=== PATIENT | female | born 1955 | race Hispanic/Latino ===

== ENCOUNTER 2017-07-31 11:28 | Emergency (ER) | payer OTHER ==
[~2017-07-31] VITALS: Ht 149.9 cm; Wt 66.2 kg
[2017-07-31] MEDS ORDERED: TIZANIDINE HCL2 M1 (11:59)
[2017-07-31] MEDS ORDERED: OMEPRAZOLE40 MG (11:59)
[2017-07-31] MEDS ORDERED: NORCO 10-325 T1 EACH (11:59)
[2017-07-31] MEDS ORDERED: DOXEPIN HCL25 MG PO (12:01)
[2017-07-31] MEDS ORDERED: PROGESTERONE100 MG (12:02)
[2017-07-31 13:09] VITALS: BP 120/80
== END 2017-07-31 13:13 | disposition home or self-care (01) ==
LOC: FSED 11:28
DX: S00.03XA Contusion of scalp, initial encounter (principal); W22.8XXA Striking against or struck by other objects, initial encounter; Y92.019 Unspecified place in single-family (private) house as the place of occurrence of the external cause; Z82.49 Family history of ischemic heart disease and other diseases of the circulatory system
CPT/HCPCS: 70450; 99284

== ENCOUNTER 2019-10-18 12:36 | Inpatient (IN) | payer OTHER, MEDICARE ==
[~2019-10-18] VITALS: Ht 149.9 cm; Wt 69.9 kg
[~2019-10-18 12:36] MED LIST: DOXEPIN HCL25 MG PO; NORCO 10-325 T1 EACH; OMEPRAZOLE40 MG PO; PROGESTERONE100 MG; TIZANIDINE HCL2 M1
--- OUTSIDE RECORDS SUMMARY | 2019-10-18 12:52 | XMS REPORT | Clinical Summary ---
Author Author [facility] Address Unknown Phone Unavailable Care Team Providers Care Studio Hand Name Role Phone Miguelito Oviedo MD PCP Allergies Comments Active Allergy Reactions Severity Noted Date Climbing the stevens/Thrashing Promethazine Other (See High 02/25/2017 Comments) Medications End Date Status Medication Sig Dispensed Refills Start Date Active amitriptyline (ELAVIL) 10 Take 30 mg by 0 / 7/201 MG tablet mouth. 7 Active traMADol (ULTRAM) 50 mg 50 mg. 0 tablet 7 Active doxepin (SINEquan) 25 MG Take 25 mg by 0 01/27 capsule mouth. 7 Active BIFIDOBACTERIUM INFANTIS Take by 0 (ALIGN ORAL) mouth. Active HYDROcodone-acetaminophen Take 1 tablet 0 (NORCO) 5-325 mg per by mouth tablet every 6 (six) hours as needed for moderate pain. Active ondansetron (ZOFRAN, Take 1 tablet 20 tablet 0 HYDROCHLORIDE,) 4 MG (4 mg total) 8 tablet by mouth every 8 (eight) hours as needed for nausea or vomiting. Active cyanocobalamin, vitamin Take by mouth 0 B-12, (VITAMIN B-12) 2 (two) times 1,000 mcg/mL drops a day. Active multivitamin with Take 1 tablet 0 minerals tablet by mouth daily. Active calcium citrate/vitamin Take by 0 D3 (CALCIUM CITRATE + D mouth. ORAL) Active coenzyme Q10 100 mg/mL Take by 0 liquid mouth. Active iron/vit Take by 0 C/fructooligosacchard mouth. (CHEWABLE IRON ORAL) Active ciprofloxacin (CIPRO) 500 Take 500 mg 0 MG tablet by mouth 2 (two) times a day. Active diazePAM (VALIUM) 10 MG Take 10 mg by 0 tablet mouth every 6 (six) hours as needed for anxiety. Active predniSONE (DELTASONE) 20 Take 20 mg by 0 06/0 /201 mg tablet mouth. 8 Active tiZANidine (ZANAFLEX) 4 0 MG tablet 8 Active omeprazole (PriLOSEC) 40 Take 1 30 capsule 2 0 MG capsuleIndications: capsule (40 0 Gastric stenosis, mg total) by Gastroesophageal reflux mouth daily. disease, esophagitis presence not specified Active progesterone (PROMETRIUM) TAKE ONE 90 capsule 1 100 MG capsule CAPSULE BY 0 MOUTH AT BEDTIME 10/21/2018 Discontinued (Reorder) progesterone (PROMETRIUM) 0 100 MG capsule 8 06/06/2019 Discontinued (Reorder) omeprazole (PriLOSEC) 40 TAKE 1 30 capsule 2 0 MG capsuleIndications: CAPSULE BY 9 Gastric stenosis, MOUTH DAILY Gastroesophageal reflux disease, esophagitis presence not specified 08/01/2019 Discontinued progesterone (PROMETRIUM) TAKE ONE 90 capsule 2 100 MG capsule CAPSULE BY 9 MOUTH AT BEDTIME Active Problems Problem Noted Date Abdominal pain, acute, generalized 06/30/2017 Acquired gastric outlet stenosis 05/19/2017 Encounters Care Team Description Date Type Specialty Adeline Phillips MA 10/18/2019 Telephone General Surgery Sachin Rousseau MD 07/31/2019 Refill Obstetrics and Gyne cology America Christensen MA 06/29/2019 Telephone Obstetrics and Gyne cology Lupis Alfaro MA 06/28/2019 Telephone Obstetrics and Gyne cology Belén Bradley MD 06/24/2019 Orders Only General Surgery 06/23/2019 Travel Rach Young RN Gastric stenosis; Gastroesophageal reflux disease, esophagitis presence not specified 06/06/2019 Orders Only General Surgery Chris Godinez MD Acquired gastric outlet stenosis (Primar y Dx); Gastroesophageal reflux disease, esophagitis presence not specified; Status post gastric surgery 05/18/2019 Telemedicine General Surgery 05/16/2019 Travel 05/12/2019 Travel Sachin Rousseau MD 10/21/2018 Refill Obstetrics and Gyne cology after 10/17/2018 Family History Medical History Relation Name Comments Throat cancer Maternal Grandfather Asthma Mother Thyroid cancer Sister Relation Name Status Comments Maternal Grandfather Mother Sister Social History Date Tobacco Use Types Packs/Day Years Used Never Smoker Smokeless Tobacco: Never Used Drinks/Week oz/Week Comments Alcohol Use 3 times a week: occa sional Yes Sex Assigned at Date Recorded Female 05/17/2019 12:34 PM CDT Industry Job Start Date Occupation Not on file Not on file Not on file Travel End Travel History Travel Start No recent travel history available. Last Filed Vital Signs Reading Time Taken Comments Vital Sign - - Blood Pressure - - Pulse - - Temperature - - Respiratory Rate - - Oxygen Saturation - - Inhaled Oxygen Concentration 68 kg (150 lb) 05/18/2019 9:38 AM CDT Weight 149.9 cm (4' 11") 05/18/2019 9:38 AM CDT Height 30.3 05/18/2019 9:38 AM CDT Body Mass Index Plan of Treatment Health Maintenance Due Date Last Done Comments CERVICAL CANCER SCREENING 05/07/1975 BREAST CANCER SCREENING 2004 COLONOSCOPY SCREENING 2004 SHINGLES VACCINES (#2) 12/02/2016 10/02/2016 65+ PNEUMOCOCCAL VACCINE 05/07/2019 (1 of 2 - PCV13) INFLUENZA VACCINE 11/17/2019 Implants Device Identifier Shelf Expiration Date Model / Serial / L ot Implanted Type Area Manufactur er 07/16/2018 [id number] / / [id number] Kit Selnt Fibrin Humn Hmsts Surgy Surgical N/A: N/A ETHICON 5ml Evicel - [id number] Implants; - Implanted: 05/19/2017 at [facility] Expanders; HOSPITAL (Quantity not on file) Extenders; Surgical Wires Results Not on fileafter 10/17/2018 Insurance Type Payer Benefit Subscriber ID Effective Phone Address Plan / Dates Group O [employer] xxxxxxxxxxx 2007-P resent Advance Directives For more information, please contact: [phone] 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
--- OUTSIDE RECORDS SUMMARY | 2019-10-18 12:52 | XMS REPORT | Clinical Summary ---
Author [facility] Address Unknown Phone Unavailable Care Team Providers Care Diabetologist Name Role Phone Maury Brown PCP Allergies Comments Active Allergy Reactions Severity Noted Date Irritability, leg thrashing Promethazine Low 11/02/2017 Medications End Date Status Medication Sig Dispensed Refills Start Date Active amitriptyline (ELAVIL) 10 Take 60 mg by 0 MG tablet mouth as needed . Active progesterone (PROMETRIUM) Take 100 mg 0 100 MG capsule by mouth daily. Active TiZANidine (ZANAFLEX) 4 Take 4 mg by 0 MG capsule mouth 3 (three) times daily as needed for Muscle spasms. Active ubidecarenone (COENZYME Take by mouth 0 Q10 ORAL) daily. Active dicyclomine (BENTYL) 10 Take 10 mg by 0 MG capsule mouth as needed. Active doxepin (SINEQUAN) 25 MG Take 25 mg by 0 capsule mouth nightly. Active ferrous sulfate 325 (65 Take 325 mg 0 FE) MG tablet by mouth daily. Active melatonin 10 mg Tab Take by mouth 0 as needed. Active multivitamin Take 1 tablet 0 (MULTIVITAMIN) per tablet by mouth daily. Active omeprazole (PRILOSEC) 40 Take 40 mg by 0 MG capsule mouth daily. Active ondansetron (ZOFRAN) 4 MG Take 4 mg by 0 tablet mouth 2 (two) times daily as needed for Nausea. Active oxyCODONE (OXY-IR) 5 mg Take 5 mg by 0 capsule mouth every 4 (four) hours as needed. Active Problems Problem Noted Date Rotator cuff tear arthropathy of left shoulder 06/22 S/P shoulder replacement, left 06/22/2018 Complete tear of left rotator cuff 12/15/2017 S/P knee replacement 11/05/2017 Primary osteoarthritis of right knee 11/04/2017 Status post right knee replacement 11/04/2017 Social History Date Tobacco Use Types Packs/Day Years Used Never Smoker Smokeless Tobacco: Never Used Alcohol Use Drinks/Week oz/Week Comments Yes rare Sex Assigned at Date Recorded Not on file Industry Job Start Date Occupation Not on file Not on file Not on file Travel End Travel History Travel Start No recent travel history available. Last Filed Vital Signs Not on file Plan of Treatment Not on file Implants Device Identifier Shelf Expiration Date Model / Serial / L ot Implanted Type Area Manufactur er [id number] / / Orthocord Sut Multipk #2 [id number] - Talmage/Art Left: Should er J [id number] hroscopy &J:ETHICON Implanted: Qty: 1 on 12/15/2017 by :Klever Burdick MD PRDT 06/29/2022 CM-9145 / / [id number] Talmage Knotless 4.5mm Cm-9145 - Talmage/Art Left: Shoulder CAYENNE [id number] hroscopy MED Implanted: Qty: 1 on 12/15/2017 by Klever Stroud MD 08/15/2020 2169-3 / / [id number] Imp Scaffold Lg 2169-3 - [id number] Talmage/Art Left: Shoul prateek ROTATION Implanted: Qty: 1 on 12/15/2017 by hroscopy MED ICAL Klever Stroud MD 09/14/2018 2503-A / / [id number] Talmage Bone W/Del Sys 2503-A - Talmage/Art Left: Shoulder BOWSER & [id number] hroscopy NEPHEW:END Implanted: Qty: 1 on 12/15/2017 by Klever Casas MD 03/18/2020 6191-1-001 / / [id number] Cement Bone Surg Smplx P Full Cement/Obey Right: Knee LALO:ST 6191-1-001 - [id number] ler/Adhesi SHIVA Implanted: Qty: 2 on 11/04/2017 by Oly Greenwood MD [id number] 01/25/2022 04..0157 / / [id number] Scr Glenoid Plyxl Locking L14 IMPLANTS Left: Shoulder MEDACTA 04.01.0157 - [id number] [employer] Implanted: Qty: 1 on 06/22/2018 by Klever Stroud MD [id number] 02/12/2022 04.01.0159 / / [id number] Scr Glenoid Plyxl Locking L22 IMPLANTS Left: Shoulder MEDACTA 04.01.0159 - [id number] [employer] Implanted: Qty: 1 on 06/22/2018 by Klever Stroud MD [id number] 04/01/2022 04.01.0160 / / [id number] Scr Glenoid Plyxl Locking L26 IMPLANTS Left: Shoulder MEDACTA 04..0160 - [id number] [employer] Implanted: Qty: 1 on 06/22/2018 by Klever Stroud MD [id number] 04/23/2022 04.01.0169 / / [id number] Glenospher 36x24.5 04..0169 - IMPLANTS Left: Shoulder MEDACTA [id number] [employer] Implanted: Qty: 1 on 06/22/2018 by Klever Stroud MD [id number] 07/27/2022 04.01.0120 / / [id number] Lnr Hum Rev Hc 036/+3mm 04.0120 IMPLANTS Left: Shoul prateek MEDACTA - [id number] [employer] Implanted: Qty: 1 on 06/22/2018 by Klever Stroud MD [id number] 01/26/2023 04.01.0110 / / [id number] Hum Metaphysis Rev +0mm/0d IMPLANTS Left: Shoulder MED ACTA 04.01.0110 - [id number] [employer] Implanted: Qty: 1 on 06/22/2018 by Klever Stroud MD 04/27/2022 5530-G-309 / / [id number] Insrt Tib Tri Crx 9mm 5530-G-309 - Joints Right: Knee LALO:ST [id number] SHIVA Implanted: Qty: 1 on 11/04/2017 by Oly Hamilton MD CS 06/29/2022 5520-B-300 / / [id number] Baseplt Geni Tib Rizwan No.3 5520-B-300 Joints Right: Kne e LALO:ST - [id number] SHIVA Implanted: Qty: 1 on 11/04/2017 by Oly Hamilton MD 08/17/2022 5551-G-299 / / [id number] Patella Tri Asymmetric [id number] Joints Right: Knee LALO:ST 5551-G-299 - [id number] SHIVA Implanted: Qty: 1 on 11/04/2017 by lOy Hamilton MD 06/24/2022 5510-F-402 / / [id number] Comp Fem Cr Rizwan No.4 R 5510-F-402 - Joints Right: Kne e LALO:ST [id number] SHIVA Implanted: Qty: 1 on 11/04/2017 by Oly Hamilton MD 08/15/2020 [id number] / / [id number] Healix Advance Br Talmage W/ Left: Shoulder MITEK Dyancord SURGICAL Implanted: Qty: 1 on 12/15/2017 by PRODUCTS Klever Stroud MD INC 08/15/2020 [id number] / / [id number] Healix Advance Br Talmage W/ Left: Shoulder MITEK Dyancord SURGICAL Implanted: Qty: 1 on 12/15/2017 by Klever Toure MD INC 09/15/2018 2504-1 / / [id number] Tendon Anchors (8) Left: Shoulder BOWSER & Implanted: Qty: 1 on 12/15/2017 by NEPHEW:Klever Pat MD [id number] 07/07/2022 04.01.0179 / / [id number] Humeral Diaphsis Left: Shoulder MEDACTA Implanted: Qty: 1 on 06/22/2018 by Klever Peterson MD [id number] 10/06/2022 04.01.0190 / / [id number] Glenoid Baseplate Left: Shoulder MEDACTA Implanted: Qty: 1 on 06/22/2018 by Klever Peterson MD Results Not on fileafter 10/17/2018 Insurance Payer Benefit Subscriber ID Type Phone Address Plan / Group CIGNA - [employer] CARE CIGNA PPO xxxxxxxxx PPO [id number] Advance Directives For more information, please contact: [address] [address] Date Inactivated Comments Code Status Date Activated 06/23/2018 4:45 PM Full Code 06/22/2018 6:35 AM This code status was determined by: Patient 12/15/2017 3:13 PM Full Code 12/15/2017 6:14 AM This code status was determined by: Patient 11/06/2017 5:14 PM Full Code 11/04/2017 7:14 AM This code status was determined by: Patient
--- OUTSIDE RECORDS SUMMARY | 2019-10-18 12:53 | XMS REPORT | Continuity of Care Document ---
Author Author [employer] ANGEL Mallory Organization [email or web address] Address Unknown Phone Unavailable Care Team Providers Care Manager Subway Name Role Phone [employer] Information Exchange Unavailable Un available Problems Problem Status Onset Date Classification Date Reported Comments Source STROKE-LIKE SYMPTOMS Active 11/01/2013 [facility] TIA Active 0 11/01/2013 [facility] OVERDOSE Active 10/03/2012 [facility] AMS, OVERDOSE UNKNOWN SUBSTANCE, SUICIDA Active 10/03/2012 [facility] Dehydration Active 07/31/2008 Problem 10/14/2012 [facility] Fever Active 07/31/2008 Problem 10/14/2012 [facility] UTI - Urinary tract infection Active 07/31/2008 Problem 10/14/2012 [facility] Dehydration (disorder) Active 07/31/2008 Problem 11/06/2013 [facility] Fever (finding) Active 07/31/2008 Problem 11/06/2013 [facility] Urinary tract infectious disease (disorder) Active 07/31/2008 Problem 11/06/2013 [facility] TIA (Unspecified transient cerebral ischemia) Active Problem 09/17/2014 [facility] Hiatal hernia Active Problem 09/17/2014 [facility] Migraine Active Problem 09/17/2014 [facility] Anxiety Active Problem 09/17/2014 [facility] Insomnia Active Problem 09/17/2014 [facility] GERD (Esophageal reflux) Active Problem 09/17/2014 [facility] Depression Active Problem 09/17/2014 [facility] Diverticulitis Active Problem 09/17/2014 [facility] Other specified pre-operative examination Active Diagnosis 01/07/2013 [facility] History of suicide attempt Act sylwia Problem 03/2014 [facility] Needs flu shot Active Diagnosis 01/07/2013 [facility] Neck pain Active Diagnosis 11/06/2012 [facility] Suicide attempt Active Diagnosis 10/24/2012 [facility] Shortness of breath Active Diagnosis 10/24/2012 [facility] Pneumothorax Active Diagnosis 10/24/2012 [facility] Pneumonia Active Diagnosis 10/24/2012 [facility] SOB (shortness of breath) Acti ve Diagnosis 0 05/07/2013 [facility] Memory impairment Active Problem 09/17/2014 [facility] Genital herpes Active Problem 09/17/2014 [facility] Migraine with aura, with intractable asia r[place], so stated, without mention of status migrainosus Active Diagnosis 08/18/2013 [facility] Urinary tract infection Active Diagnosis 11/09/2013 [facility] Panic attack Active Diagnosis 11/09/2013 [facility] Generalized anxiety disorder A ctive Diagnosis 0 11/09/2013 [facility] Dysuria Active Diagnosis 11/09/2013 [facility] Poison sammie dermatitis Active Diagnosis 09/17/2014 [facility] Contact dermatitis Active Diagnosis 09/17/2014 [facility] Screening breast examination A ctive Diagnosis 0 07/31/2014 [facility] Ear pain, left Active Diagnosis 07/31/2014 [facility] Otitis media Active Diagnosis 07/31/2014 [facility] Otitis externa, left Active Diagnosis 07/31/2014 [facility] Anxiety (finding) Active Problem 11/06/2013 [facility] Diverticular disease (disorder) Active Problem [facility] Gastroesophageal reflux disease (disorder) Active Problem 11/06/2013 [facility] Hypertensive disorder, systemic arterial (disorder) Resolved Problem 11/06/2013 [facility] Herpes zoster (disorder) Resol nisreen Problem [facility] Suicide attempt (disorder) Act sylwia Problem [facility] Anxiety Active Problem 10/14/2012 [facility] Diverticulosis Active Problem 10/14/2012 [facility] GERD - Gastro-esophageal reflux disease Active Problem 10/14/2012 [facility] Suicide attempt Active Problem 10/14/2012 [facility] 724.5 Active [facility] ALTERED MENTAL STATUS Active [facility] PRIM SPONT PNEUMOTHORAX Active [facility] SHOULDER AND NECK Active [facility] Medications Medication Details Route Status Patient Instructions Ordering Provider Order Date Source HydrOXYzine HCl 1 tablet Orally Active 25 MG Orally q 6 hours for itching Rick 09/14/2014 [facility] Bactrim DS 1 tablet Orally Active 800-160 MG Orally twice a day (bid) Rick 09/14/2014 [facility] Medrol (Nicola) as directed Orally Active 4 mg Orally daily Rick 09/14/2014 [facility] Ciprodex 4 drops into affected ear Otic Active 0.3-0.1 % Otic Twice a day Rick 07/28/2014 [facility] Zithromax Z-Nicola 2 tablets on the first day, then 1 tablet daily for 4 days Orally Active 250 MG Orally Once a day [place] 07/28/2014 [facility] Valacyclovir HCl 1 tablet Orally Active 1 GM Orally every 24 hr s Yaquelin 04/30/2014 [facility] Amitriptyline HCl 1 tablet Orally Active 10 mg Orally once every night (must see doctor before next refill) Rick 03/20/2014 [facility] Dexilant 1 capsule Orally Active 60 MG Orally Once a day (must see doctor before next refill) Doran 01/11/2014 [facility] Zoloft Notes: (Same as: Zolof t) Inactive 11/04/2013 [facility] Annette Notes: (Same As: Klon oPIN) Inactive 11/04/2013 [facility] Annette Notes: (Same As: Amando oPIN) Inactive 11/03/2013 [facility] Risperidone 1 mg, Route: PO, D rug form: TAB, Q6H, Dosing Weight 80.455, kg, PRN Agitation, Start date: 11/03/13 17:55:00, Duration: 30 day, Stop date: 12/03/13 17:54:00 Inactive 11/03/2013 [facility] Dexilant 30 mg, Route: PO, Sharif g form: DRC, Daily, Dosing Weight 80.455, kg, Start date: 11/03/13 9:00:00, Duration: 30 day, Stop date: 12/02/13 9:00:00 No Longer Active 11/03/2013 [facility] Ambien Notes: (Same As: Ambien) No Longer Active 11/03/2013 [facility] Zoloft 10 mg, PO, Bedtime, 0 R efill(s) Active 11/03/2013 [facility] Ambien 10 mg, PO, Bedtime, 0 R efill(s) Active 11/03/2013 [facility] nitazoxanide 500 MG Oral Tablet [Alinia] Notes: Same as Alinia Non-formulary item No Longer Active 11/03/2013 [facility] Amitriptyline Notes: (Same as: Elavil) No Longer Active 11/03/2013 [facility] Simvastatin Notes: (Same as: Z ocor) No Longer Active 11/03/2013 [facility] Protonix Notes: Tablet should not be chewed or crushed. (Same as: Protonix) No Longer Active 11/02/2013 [facility] Valtrex Notes: (Same As: Valtr ex) No Longer Active 11/02/2013 [facility] NURSE: Please bring Pt's Own Med to [facility] to be verified NURSE: Please bring Pt's Own Med to [facility] to be verified, 1, Drug form: MISC, Route: MISC, TID, 11/02/13 15:00:00, Duration: 30 day, Stop date: 12/02/13 9:00:00 No Longer Active 11/02/2013 [facility] Levaquin Notes: Do not give w/ antacids, dairy pdt & minerals Take 1 hr before or 2 hr after dairy pdt (Same as:Levaquin) No Longer Active 11/02/2013 [facility] Alprazolam Notes: With food or milk (Same as: Xanax) No Longer Active 11/02/2013 [facility] Potassium Chloride Notes: (Preet e as: K-Dur 20) "Do Not Crush" With food and full glass of water Inactive 11/02/2013 [facility] nitroglycerin 0.4 mg sublingual tablet Notes: (Same as:Nitroquick, Nitrostat) "Do Not Crush" Sublingual tablet No Longer Active 11/02/2013 [facility] atropine 0.5 mg, 5 mL, Route: IVP, Drug form: INJ, PRN, PRN Bradycardia, Start date: 11/02/13 13:13:00, Duration: 30 day, Stop date: 12/02/13 13:12:00 No Longer Active 11/02/2013 [facility] Aspirin 81 MG Enteric Coated Tablet Notes: Do not crush or chew. (Same As: Ecotrin) No Longer Active 11/02/2013 [facility] acetaminophen-hydrocodone 325 mg-5 mg oral tablet Notes: (Same as: [place] 325/5) Do not exceed 4gm/day of acetaminophen. No Longer Active 11/02/2013 [facility] Acetaminophen 325 MG / Hydrocodone Hammad trate 5 MG Oral Tablet [[place] 5/325] Route: PO, Dosing Weight 80.455, kg, PRN , PRN, Start date: 11/02/13 8:37:00, Duration: 30 day, Stop date: 12/02/13 8:36:00, q4-6hr for pain score 5-7 Inactive 11/02/2013 [facility] Morphine Notes: (Same as:MORPh ine Sulfate) No Longer Active 11/02/2013 [facility] Morphine 4 mg, Route: IVP, ONC E, Dosing Weight 80.455, kg, Priority: STAT, Start date: 11/02/13 5:37:00, Stop date: 11/02/13 5:37:00 Inactive 11/02/2013 [facility] Morphine 4 mg, Route: IVP, ONC E, Dosing Weight 80.455, kg, Start date: 11/02/13 0:31:00, Stop date: 11/02/13 0:31:00 Inactive 11/02/2013 [facility] aspirin 325 mg, Route: PO, Sharif g form: ECTAB, ONCE, Dosing Weight 80.455, kg, Priority: STAT, Start date: 11/02/13 0:16:00, Stop date: 11/02/13 0:16:00 Inactiv e 11/02/2013 [facility] valacyclovir 1000 MG Oral Tablet [Valtrex] 1 gm = 1 tab, PO, TID, # 20 tab, 0 Refill(s) Active 11/02/2013 [facility] dexlansoprazole 30 MG Enteric Coated Capsule [Dexilant ] 30 mg = 1 cap, PO, Daily, 0 Refill(s) Active 11/02/2013 [facility] valacyclovir 500 MG Oral Tablet [Valtrex] 500 mg = 1 tab, PO, TID, # 42 tab, 0 Refill(s) Inactive 11/02/2013 [facility] Metoclopramide 10 MG Oral Tablet [Reglan] 10 mg, PO, QID-Before Meals, # 40 tab, 0 Refill(s) Active 11/02/2013 [facility] Sodium Chloride 0.154 MEQ/ML Injectable Solution 500 mL, 500 ml/hr, Infuse Over: 1 hr, Route: IV, 500, Drug form: INJ, ONCE, Priority: STAT, Dosing Weight 80.455 kg, Start date: 11/01/13 22:21:00, Duration: 1 doses or times, Stop date: 11/01/13 22:21:00 Inactive 11/02/2013 [facility] Zofran Notes: (Same as: Jimena) Inactive 11/02/2013 [facility] Ketorolac 4 days Inactive 11/02/2013 [facility] Zoloft 1/2 tablet Orally Active 50 mg Orally Once a day for one week, then increase to 1 tablet daily [facility] 11/01/2013 [facility] Levaquin 1 tablet Orally Active 750 MG Orally Once a da y [facility] 11/01/2013 [facility] Namenda XR Titration Pack as d irected Orally Active 7 & 14 & 21 &28 MG Orally daily [facility] 11/01/2013 [facility] Ambien 1 tablet Orally Active 10 mg Orally once every night as needed [facility] 10/18/2013 [facility] Doxepin HCl 2c tablet Orally Active 25 MG Orally AT BEDTIME [facility] 09/01/2013 [facility] Valtrex 1 tablet Orally Active 1 GM Orally three times a day (tid) Rick 08/12/2013 [facility] Lyrica 1 capsule Orally Active 75 mg Orally three time s a day (tid) [facility] ProAir HFA 2 puffs as needed Inhalation Active 108 (90 Base) MCG/ACT Inhalation every 4 hrs [facility] 05/04[facility]2013 [facility] Amitriptyline HCl 1 tablet Orally Active 10 mg Orally at bedtime as needed Harvey 04/25/2013 [facility] Lidoderm 1 patch to intact ski n remove after 12 hours Externally Active 5 % Externally twice a day (bid) Kavon 11/04/2012 [facility] clopidogrel 75 mg, 1 tab, Rout e: PO, Drug form: TAB, Daily, Dosing Weight 75, kg, Start date: 10/12/12 9:00:00, Duration: 30 day, Stop date: 11/10/12 9:00:00 PO No Longer Active Nubia 10/12/2012 [facility] doxepin 25 mg oral capsule 25 mg, 1 cap, Route: PO, Drug form: CAP, Bedtime, Dosing Weight 75, kg, Start date: 10/11/12 21:00:00, Duration: 30 day, Stop date: 11/09/12 21:00:00 PO No Longer Active Nubia 10/12/2012 [facility] amitriptyline 25 mg, 1 tab, Ro cantwell: PO, Drug form: TAB, Bedtime, Dosing Weight 75, kg, Start date: 10/11/12 21:00:00, Duration: 30 day, Stop date: 11/09/12 21:00:00 PO No Longer Active Nubia 10/12/2012 [facility] gabapentin 300 mg oral capsule 300 mg, 1 cap, Route: PO, Drug form: CAP, Bedtime, Dosing Weight 75, kg, Start date: 10/11/12 21:00:00, Duration: 30 day, Stop date: 11/09/12 21:00:00 PO No Longer Active Nubia 10/12/2012 [facility] [place] 5/325 oral tablet 1 tab, Route: PO, Drug Form: TAB, Dosing Weight 75, kg, Q6H, PRN Pain, Start date: 10/11/12 10:00:00, Duration: 30 day, Stop date: 11/10/12 9:59:00 PO No Longer Active Nubia 10/11/2012 [facility] potassium chloride 40 mEq, 30 mL, Route: PO, Drug form: LIQ, ONCE, Dosing Weight 75, kg, Start date: 10/11/12 9:54:00, Stop date: 10/11/12 9:54:00 PO No Longer Active Nubia 10/11/2012 [facility] ALPRAZOLam 0.25 mg, 1 tab, Rou te: PO, Drug form: TAB, BID, Dosing Weight 75, kg, PRN as needed for anxiety, Start date: 10/11/12 9:53:00, Duration: 30 day, Stop date: 11/10/12 9:52:00 PO No Longer Active Nubia 10/11/2012 [facility] potassium chloride 40 mEq, 2 t ab, Route: PO, Drug form: ERTAB, ONCE, Dosing Weight 75, kg, Start date: 10/10/12 12:19:00, Stop date: 10/10/12 12:19:00 PO No Longer Active Aboussleman 10/10/2012 [facility] potassium chloride 20 mEq, 1 t ab, Route: PO, Drug form: ERTAB, ONCE, Dosing Weight 75, kg, Start date: 10/09/12 12:16:00, Stop date: 10/09/12 12:16:00 PO No Longer Active [facility]oussleman 10/09/2012 [facility] Lexapro 5 mg, 0.5 tab, Route: PO, Drug form: TAB, Daily, Dosing Weight 75, kg, Start date: 10/08/12 21:00:00, Duration: 30 day, Stop date: 11/07/12 9:00:00 PO No Longer Active Giang 10/09/2012 [facility] potassium chloride 20 mEq, 100 mL, Route: IVPB, Drug form: INJ, ONCE, Start date: 10/08/12 11:00:00, Stop date: 10/08/12 11:00:00 IVPB No Longer Active [facility] 10/08/2012 [facility] Dextrose 5% with 0.45% NaCl IV 1,000 mL 1,000 mL, Rate: 50 ml/hr, Infuse over: 20 hr, Route: IV, Dosing Weight 75 kg, Total Volume: 1,000, Start date: 10/08/12 10:36:00, Stop date: 11/07/12 10:35:00 IV No Longer Active Nubia 10/08/2012 [facility] morphine Sulfate 2 mg, 1 mL, R oute: IV, Drug form: INJ, Q4H, PRN Pain, Start date: 10/07/12 22:16:00, Duration: 30 day, Stop date: 11/06/12 22:15:00 IV No Longer Active Harris 10/08/2012 [facility] potassium phosphate-sodium phosphate 250 mg-278 mg-164 mg oral powder 4 pkt, Route: PO, Drug Form: PDR/REC, ON CE, Start date: 10/07/12 9:30:00, Stop date: 10/07/12 9:30:00 PO No Longer Active Nubia 10/07/2012 [facility] potassium chloride 20 mEq, 100 mL, Route: IVPB, Drug form: INJ, ONCE, Dosing Weight 75, kg, Start date: 10/07/12 9:12:00, Stop date: 10/07/12 9:12:00 [address]PB [address] Long[place] Active [facility] [place]2012 [facility] sodium phosphate 20 mmol, Rout e: IVPB, ONCE, Dosing Weight 75, kg, Start date: 10/07/12 9:12:00, Stop date: 10/07/12 9:12:[address] [facility]13 [facility] Sodium Chloride 0.9% IV 1000 mL 1,000 mL, Rate: 25 ml/hr, Infuse over: 40 hr, Route: IV, Dosing Weight 75 kg, Total Volume: 1,000, Start date: 10/05/12 15:40:00, Duration: 30 day, Stop date: 11/04/12 15:39:00 IV No Longer Active [facility] Sodium Chloride 0.9% (Bolus) IV 1000 mL 1,000 mL, Rate: 1,000 ml/hr, Infuse over: 1 hr, Route: IV, Dosing Weight 75 kg, Total Volume: 1,000, Priority: STAT, Start date: 10/05/12 11:58:00, Duration: 1 doses or times, Stop date: 10/05/12 12:57:00, Bolus DoseBolus Dose IV No Longer Active [facility] 10/05/2012 [facility] norepinephrine 8 mg 250 mL, Ra te: Titrate, Dosing Weight 75, kg, Route: IV, Total Volume: 250, Priority: STAT, Duration: 30 day, Stop date: 11/03/12 23:33:00, Replace Every: 24 hr IV No Long[facility] Active [facility] [place]05/2012 [facility] NS (Bolus) IV 1,000 mL 1,000 m L, Rate: 1,000 ml/hr, Infuse over: 1 hr, Route: IV, Dosing Weight 75 kg, Total Volume: 1,000, Priority: STAT, Start date: 10/04/12 21:21:00, Duration: 2 doses or times, Stop date: 10/04/12 23:20:00, Bolus DoseBolus Dose IV No Longer Active [facility] 10/05/2012 [facility] vancomycin 1 gm, 200 mL, Route : IVPB, Drug form: INJ, [id number], Dosing Weight 75, kg, Start date: 10/04/12 17:00:00, Duration: 30 day, Stop date: 11/03/12 5:00:00 IVPB No Longer Active [facility] 10/04/2012 [facility] NS (Bolus) IV 1,000 mL 1,000 m L, Rate: 1,000 ml/hr, Infuse over: 1 hr, Route: IV, Dosing Weight 75 kg, Total Volume: 1,000, Priority: STAT, Start date: 10/04/12 10:44:00, Duration: 1 doses or times, Stop date: 10/04/12 11:43:00, Bolus DoseBolus Dose IV No Longer Active [facility] 10/04/2012 [facility] magnesium sulfate 2 gm, 50 mL, Route: IVPB, Drug form: INJ, ONCE, Dosing Weight 75, kg, Total dose = 2 gm, Start date: 10/04/12 10:44:00, Duration: 1 doses or times, Stop date: 10/04/12 10:44:00 IVPB No Longer Active [facility] 013 [facility] Zosyn 3.375 gm, 100 mL, Route: IVPB, Drug form: PDR/INJ, [id number], Dosing Weight 75, kg, Start date: 10/04/12 10:00:00, Duration: 30 day, Stop date: 11/03/12 4:00:00 IVPB No Longer Active [facility] 10/04/2012 [facility] enoxaparin 40 mg, 0.4 mL, Rout e: SUB-Q, Drug form: INJ, [id number], Dosing Weight 75, kg, Start date: 10/04/12 10:00:00, Duration: 30 day, Stop date: 11/02/12 10:00:00 SUB-Q No Longer Active [facility] [place]/04/2012 [facility] pantoprazole 40 mg, 1 tab, Rou te: PO, Drug form: ECTAB, Daily, Dosing Weight 75, kg, Priority: Routine, Start date: 10/04/12 9:00:00, Stop date: 11/02/12 9:00:00 PO No Longer Active [facility] 10/04/2012 [facility] Saline Flush 0.9% 5 ml, Route: IVP, Drug Form: INJ, Dosing Weight 75, kg, Q12H, Start date: 10/04/12 9:00:00, Duration: 30 day, Stop date: 11/02/12 21:00:00 IVP No Longer Active Jeremiah 10/04/2012 [facility] clopidogrel 75 mg, 1 tab, Rout e: PO, Drug form: TAB, Daily, Dosing Weight 75, kg, Start date: 10/04/12 9:00:00, Duration: 30 day, Stop date: 11/02/12 9:00:00 PO No Longer Active [facility] 10/04/2012 [facility] ciprofloxacin 400 mg/200 mL intravenous solution 400 mg, 200 mL, Route: IVPB, Drug form: INJ, [id number], Dosing Weight 75, kg, Start date: 10/04/12 6:00:00, Duration: 30 day, Stop date: 11/02/12 18:00:00 IVPB No Longer Active [facility] 10/04/2012 [facility] cefepime + Sodium Chloride 0.9% IV 100 mL 1 gm, Route: IVPB, [id number], Dosing Weight 75, kg, (CrCl 30 - 49 ml/min), Start date: 10/04/12 6:00:00, Duration: 30 day, Stop date: 11/02/12 18:00:00 IVPB No Longer Active [facility] 10/04/2012 [facility] ibuprofen 100 mg oral tablet, chewable 800 mg, 1 tab, Route: CHEW, Drug form: TAB, Q8H, Dosing Weight 75, kg, PRN as needed for fever, Start date: 10/04/12 5:15:00, Duration: 30 day, Stop date: 11/03/12 5:14:00 CHEW No Longer Active [facility] 013 [facility] normal saline 0.9% IV 1,000 mL 1,000 mL, Rate: 125 ml/hr, Infuse over: 8 hr, Route: IV, Dosing Weight 75 kg, Total Volume: 1,000, Start date: 10/04/12 4:03:00, Duration: 30 day, Stop date: 11/03/12 4:02:00 IV No Longer Active Ahmed 10/04 [facility] Zofran 4 mg, 2 mL, Route: IV, Drug form: INJ, Q4H, Dosing Weight 75, kg, PRN as needed for nausea/vomiting, Start date: 10/04/12 4:03:00, Duration: 30 day, Stop date: 11/03/12 4:02:00 [facility] vancomycin 1 gm, 200 mL, Route : IVPB, Drug form: INJ, [id number], Dosing Weight 75, kg, Priority: STAT, Start date: 10/04/12 3:14:00, Duration: 30 day, Stop date: 11/02/12 3:14:00 IVPB No Longer Active [facility] 10/04/2012 [facility] acetaminophen 650 mg, 20.3 mL, Route: PO, Drug form: LIQ, Q6H, Dosing Weight 75, kg, PRN Fever, Start date: 10/04/12 1:58:00, Duration: 30 day, Stop date: 11/03/12 1:57:00 [facility] Zofran 4 mg, 2 mL, Route: IV, Drug form: INJ, Q4H, Dosing Weight 75, kg, PRN as needed for nausea/vomiting, Start date: 10/04/12 1:43:00, Duration: 30 day, Stop date: 11/03/12 1:42:00 IV [facility] 10[facility]2012 [facility] Saline Flush 0.9% 5 ml, Route: IVP, Drug Form: INJ, Dosing Weight 75, kg, PRN, PRN Line Flush, Start date: 10/03/12 23:31:00, Duration: 30 day, Stop date: 11/02/12 23:30:00 IVP No Longer Active Jeremiah 10/04/2012 [facility] ciprofloxacin 500 mg oral tablet 500 mg, 1 tab, PO, Q12H, 14 tab, Substitution Allowed, TAB PO No Longer Active 10/04/2012 [facility] ALPRAZOLam 0.25 mg oral tablet, disintegrating 0.25 mg, 1 tab, PO, BID, PRN, for anxiety, Substitution Allowed, DIS Tablet PO Active 10/04/2012 [facility] pantoprazole 40 mg oral enteric coated tablet 40 mg, 1 tab, PO, BID, 30 tab, Substitution Allowed, ECTAB PO Active 10/04/2012 [facility] escitalopram 20 mg oral tablet 20 mg, 1 tab, PO, Daily, 30 tab, Substitution Allowed, TAB PO Active 10/04/2012 [facility] gabapentin 300 mg oral capsule 300 mg, 1 cap, PO, Bedtime, 90 cap, Substitution Allowed PO Active 10/04/2012 [facility] clopidogrel 75 mg oral tablet 75 mg, 1 tab, PO, Daily, 30 tab, Substitution Allowed, TAB PO Active [facility] 10/04/2012 [facility] doxepin 25 mg oral capsule 25 mg, 1 cap, PO, Bedtime, 90 cap, Substitution Allowed, CAP PO Active 10/04/2012 [facility] hyoscyamine 0.125 mg sublingual tablet 0.125 mg, 1 tab, SL, TID-Before Meals, 30 tab, Substitution Allowed, TAB SL No Longer Active 10/04/2012 [facility] amitriptyline 25 mg oral tablet 25 mg, 1 tab, PO, Bedtime, 90 tab, Substitution Allowed, TAB PO Active 10/04/2012 [facility] ondansetron 4 mg oral tablet 4 mg, 1 tab, PO, Q6H, PRN, 10 tab, as needed for nausea/vomiting, Substitution Allowed, TAB PO No Longer Active 10/04/2012 [facility] metoclopramide 10 mg oral tablet 10 mg, 1 tab, PO, QID- Before Meals, 56 tab, Substitution Allowed, TAB PO No Longer Active 10/04/2012 [facility] midodrine 10 mg oral tablet 10 mg, 1 tab, PO, BID, 270 tab, Substitution Allowed, TAB PO No Longer Active 10/04/2012 [facility] clindamycin 150 mg oral capsule 300 mg, 2 cap, PO, Q8H, 40 cap, Substitution Allowed PO No Longer Active 10/04/2012 [facility] Norel SR oral tablet, extended release 1 tab, PO, Q12H, PRN, 10 tab, for nasal congestion, Substitution Allowed, Maintenance, ERTAB PO No Longer Active 10/04/2012 [facility] potassium phosphate + Sodium Chloride 0.9% IV 250 mL 15 mmol, 5 mL, Route: IV, ONCE, Start date: 10/03/12 21:53:00, Stop date: 10/03/12 21:53:00 IV No Longer Active Jeremiah 10/04/2012 [facility] doxycycline hyclate 100 mg oral delayed release capsul e 100 mg, 1 cap, PO, Daily, 10 cap, Substitution Allowed PO No Longer Active 10/04/2012 [facility] METRONIDazole 500 mg oral tablet 500 mg, 1 tab, PO, Q8H, 21 tab, Substitution Allowed PO No Longer Active 10/04/2012 [facility] Celebrex 200 mg oral capsule 2 00 mg, 1 cap, PO, Daily, PRN, 10 cap, Pain, Substitution Allowed, CAP PO No Longer Active 10/04/2012 [facility] Alinia 500 mg oral tablet 500 mg, 1 tab, PO, Q12H, 6 tab, Substitution Allowed, TAB PO Active 10/04/2012 [facility] midazolam 50 mg IV, Start date : 10/03/12 19:11:00, Duration: 30, 50 ml, 75 IV No Longer Active [facility] 10/04/2012 [facility] fentanyl 1,250 microgram + Sodium Chlori de 0.9% (titrate) 250 mL 250 mL, Rate: Titrate, Dosing Weight 75, kg, Route: IV, Total Volume: 250, Duration: 30 day, Stop date: 11/02/12 19:11:00, Replace Every: 24 hr IV No Longer Active [facility] 10/04 [facility] Versed 50 mg in NS 50 ml (titrate) IV 50 mg 50 mg, 50 mL, Rate: Titrate as directed, Dosing Weight 75, kg, Route: IV, Total Volume: 50 ml, Duration: 30 day, Stop date: 11/02/12 19:10:00, Replace Every: 24 hr IV No Longer Active [facility] 10/04 [facility] potassium chloride 20 mEq, 100 mL, Route: IVPB, Drug form: INJ, Q2H, Start date: 10/03/12 18:00:00, Duration: 2 doses or times, Stop date: 10/03/12 20:00:00 IVPB No Longer Active [facility] 10/03/2012 [facility] azithromycin 500 mg, 250 mL, R oute: IVPB, Drug form: PDR/INJ, [id number], Dosing Weight 75, kg, Priority: Routine, Start date: 10/03/12 18:00:00, Duration: 30 day, Stop date: 11/01/12 18:00:00 IVPB No Longer Active [facility] 10/03/2012 [facility] ceftriaxone + Sodium Chloride 0.9% IV 100 mL 1 gm, Route: IVPB, [id number], Dosing Weight 75, kg, Priority: Routine, Start date: 10/03/12 18:00:00, Duration: 30 day, Stop date: 11/01/12 18:00:00 IVPB No Longer Active [facility] 10/03/2012 [facility] potassium chloride 20 mEq/100 mL intravenous solution 20 mEq, Route: IVPB, ONCE, Dosing Weight 75, kg, Priority: STAT, Start date: 10/03/12 17:17:00, Stop date: 10/03/12 17:17:00 IVPB No Longer Active [facility] 10/03/2012 [facility] rocuronium 50 mg, Route: IVP, ONCE, Dosing Weight 75, kg, Start date: 10/03/12 16:58:00, Stop date: 10/03/12 16:58:00 IVP No Longer Active [facility] 10/03/2012 [facility] etomidate 20 mg, Route: IVP, O NCE, Dosing Weight 75, kg, Priority: STAT, Start date: 10/03/12 16:58:00, Stop date: 10/03/12 16:58:00 IVP No Longer Active [facility] 10/03 [facility] Sodium Chloride 0.9% (Bolus) IV 2000 mL 2,000 mL, Rate: 2,000 ml/hr, Infuse over: 1 hr, Route: IV, Dosing Weight 75 kg, Total Volume: 2,000, Priority: STAT, Start date: 10/03/12 16:56:00, Duration: 1 doses or times, Stop date: 10/03/12 17:55:00, Bolus DoseBolus Dose IV No Longer Active [facility] 10/03/2012 [facility] fentanyl 1,250 microgram 250 m L, Rate: Titrate, Dosing Weight 75, kg, Route: IV, Total Volume: 250, Duration: 30 day, Stop date: 11/02/12 16:55:00, Replace Every: 24 hr IV No Longer Active [facility] 10/03/2012 [facility] Saline Flush 0.9% 5 mL, Route: IVP, Drug Form: INJ, Dosing Weight 75, kg, PRN, PRN Line Flush, Start date: 10/03/12 16:46:00, Duration: 30 day, Stop date: 11/02/12 16:45:00 IVP No Longer Active [facility] 10/03/2012 [facility] Tramadol HCl 1 tablet as needed Orally Active 50 mg Orally every 6 hrs [facility] [place] 09/07/2012 [facility] ProAir HFA 2 puffs as needed Inhalation Active 108 (90 Base) MCG/ACT Inhalation every 4 hrs [facility] 08/23/2012 [facility] Xanax 1 tablet by mouth Active 0.25 MG by mouth once a day as needed [facility] 04/22/2012 [facility] Plavix 1 tablet Orally Active 75 mg Orally Once a day [facility] [place] 1 tablet as needed Orally Active 10-325 MG Orally every 6 hrs [facility] Dexilant 1 capsule Orally Active 60 mg Orally Once a day [facility] Tramadol HCl 1 tablet as needed Orally Active 50 MG Orally every 6 hrs [facility] Reglan 1 tablet 30 minutes bef ore meals and at bedtime as needed Orally Active 10 mg Orally Four times a day as needed [facility] NO OTC meds taken Unknown NA Active [facility] Lexapro 1 tablet Orally Active 10 MG Orally Once a day [facility] Amitriptyline HCl 1 tablet Orally Active 10 mg Orally at bedtime [facility] NO OTC meds taken Unknown NA Active [facility] Reglan 1 tablet 30 minutes bef ore meals and at bedtime as needed Orally Active 10 mg Orally Four times a day as needed [facility] Dexilant 1 capsule Orally Active 60 mg Orally Once a day [facility] Reglan 1 tablet 30 minutes bef ore meals and at bedtime as needed Orally Active 10 mg Orally Four times a day as needed [facility] PredniSONE (Nicola) Unknown Orally Active 10 MG Orally [facility] Doxepin HCl 1 capsule Orally Active 25 MG Orally AT BEDTIME [facility] Tizanidine HCl 1 tablet as nee ded Orally Active 4 MG Orally every 8 hrs [facility] Allergies, Adverse Reactions, Alerts Substance Category Reaction Severity Reaction type Status Date Reported Comments Source Phenergan Adverse Reaction hives Adverse Reaction Active 09/14/2014 [facility] Amoxil Adverse Reaction unknown Adverse Reaction Active 09/14/2014 [facility] codeine Adverse Reaction hives Adverse Reaction Active 09/14/2014 [facility] amoxicillin Assertion Drug allergy Active [facility] Immunizations Immunization Date Given Site Status Last Updated Comments Source FLU 18 YRS & [place] [id number] 01/06/20 13 completed [facility] Results Order Name Results Value Reference Range Date Interpretation Comments Source CHEM PANEL eGFR 81 11/03/2013 <sup>1</sup>Result Comment: The eGFR is calculated using the CKD-EPI formula. In most young, healthy individuals the eGFR will be >90 mL/min/1.73m2. The eGFR declines with age. An eGFR of 60-89 may be normal in some populations, particularly the elderly, for whom the CKD-EPI formula has not been extensively validated. Use of the eGFR is not recommended in the following populations:& lt;br/>
Individuals with unstable creatinine concentrations, including patients and those with serious co-morbid conditions.

Patients with extremes in muscle mass or diet.

The data above are obtained from the National Kidney Disease Education Program (NKDEP) which additionally recommends that when the eGFR is used in patients with extremes of body mass index for purposes of drug dosing, the eGFR should be multiplied by the estimated BMI. [facility] CHEM PANEL Chloride Lvl 108 95 - 109 11/03/2013 [facility] CHEM PANEL Calcium Lvl 7.8 8.5 - 10.5 11/03/2013 [facility] CHEM PANEL CO2 26 24 - 32 11/03/2013 [facility] CHEM PANEL Glucose Lvl 79 70 - 99 11/03/2013 <sup>3</sup>Interpretive Data: Adult ref erence range values reflect the clinical guidelines
of the [place] [employer]. [facility] CHEM PANEL BUN 21 7 - 22 11/03/2013 [facility] CHEM PANEL Potassium Lvl 4.1 3.5 - 5.1 11/03/2013 [facility] CHEM PANEL Sodium Lvl 140 135 - 145 11/03/2013 [facility] CHEM PANEL Creatinine Lvl 0.8 0.5 - 1.4 11/03/2013 [facility] CHEM PANEL AGAP 10.1 10.0 - 20.0 11/03/2013 [facility] HEMATOLOGY MCV 69.0 80.0 - 98.0 11/03/2013 [facility] HEMATOLOGY MCH 21.6 27.0 - 31.0 11/03/2013 [facility] HEMATOLOGY RDW 16.9 11.5 - 14.5 11/03/2013 [facility] HEMATOLOGY MCHC 31.4 32.0 - 36.0 11/03/2013 [facility] HEMATOLOGY Hct 36.9 36.0 - 48.0 11/03/2013 [facility] HEMATOLOGY Hgb 11.6 12.0 - 16.0 11/03/2013 [facility] HEMATOLOGY Platelet 218 133 - 450 11/03/2013 [facility] HEMATOLOGY MPV 8.5 7.4 - 10.4 11/03/2013 [facility] HEMATOLOGY WBC 5.1 3.7 - 10.4 11/03/2013 [facility] HEMATOLOGY RBC 5.35 4.20 - 5.40 11/03/2013 [facility] LIPIDS VLDL 23 11/02/2013 [facility] LIPIDS LDL (Calculated) 84 <=99 mg/dL 11/02/2013 [facility] LIPIDS Trig 114 <=149 mg/dL 11/02/2013 [facility] LIPIDS HDL 54 >=61 mg/dL 11/02/2013 [facility] LIPIDS Chol 161 <=199 mg/dL 11/02/2013 [facility] LIPIDS CHD Risk 2.98 3.90 - 5.80 11/02/2013 [facility] URINE AND STOOL UA RBC 4 0 - 2 11/02/2013 [facility] URINE AND STOOL UA WBC 82 0 - 5 11/02/2013 [facility] URINE AND STOOL UA Bacteria Many /HPF None Seen /HPF 11/02/2013 [facility] URINE AND STOOL UA Sq Epi Few /LPF Few /LPF 11/02/2013 [facility] URINE AND STOOL UA Mucus Many /LPF None Seen /LPF 11/02/2013 [facility] URINE AND STOOL UA Leuk Est Large *ABN* (11/02/13 9:22 AM) Negative 11/02/2013 [facility] URINE AND STOOL UA Nitrite Negative (11/02/13 9:22 AM) Negative 11/02/2013 [facility] URINE AND STOOL UA Urobilinogen 4.0 0.1 - 1.0 11/02/2013 [facility] URINE AND STOOL UA Blood Negative (11/02/13 9:22 AM) Negative 11/02/2013 [facility] URINE AND STOOL UA Ketones Negative mg/dL Negative mg/dL 11/02/2013 [facility] URINE AND STOOL UA Bili Negative *NA* (11/02/13 9:22 AM) Negative 11/02/2013 [facility] URINE AND STOOL UA Glucose Negative mg/dL Negative mg/dL 11/02/2013 [facility] URINE AND STOOL UA Protein Negative mg/dL Negative mg/dL 11/02/2013 [facility] URINE AND STOOL UA pH 5.0 5.0 - 8.0 11/02/2013 [facility] URINE AND STOOL UA Turbidity Marked *ABN* (11/02/13 9:22 AM) Clear 11/02/2013 [facility] URINE AND STOOL UA Spec Grav 1.023 <=1.030 11/02/2013 [facility] URINE AND STOOL UA Color Yellow (11/02/13 9:22 AM) Yellow 11/02/2013 [facility] CARDIAC ENZYMES BNP 65 <=100 pg/mL 11/02/2013 <sup>5</sup>Interpretive Data: Elevated results are in line with increasing severity of
congestive heart failure. Minor elevations between 100 and 300
may be seen with Myocardial Ischemia, Sodium retaining drugs,
and compensated/treated heart failure. [facility] CARDIAC ENZYMES Total CK 39 12 - 191 11/02/2013 [facility] CARDIAC ENZYMES Troponin-I <0.02 0.00 - 0.40 11/02/2013 [facility] CHEM PANEL A/G Ratio 1.4 0.7 - 1.6 11/02/2013 [facility] CHEM PANEL AGAP 10.2 10.0 - 20.0 11/02/2013 [facility] CHEM PANEL B/C Ratio 19 6 - 25 11/02/2013 [facility] CHEM PANEL Globulin 2.6 2.0 - 4.0 11/02/2013 [facility] CHEM PANEL eGFR 81 11/02/2013 <sup>2</sup>Result Comment: The eGFR is calculated using the CKD-EPI formula. In most young, healthy individuals the eGFR will be >90 mL/min/1.73m2. The eGFR declines with age. An eGFR of 60-89 may be normal in some populations, particularly the elderly, for whom the CKD-EPI formula has not been extensively validated. Use of the eGFR is not recommended in the following populations:& lt;br/>
Individuals with unstable creatinine concentrations, including patients and those with serious co-morbid conditions.

Patients with extremes in muscle mass or diet.

The data above are obtained from the National Kidney Disease Education Program (NKDEP) which additionally recommends that when the eGFR is used in patients with extremes of body mass index for purposes of drug dosing, the eGFR should be multiplied by the estimated BMI. [facility] CHEM PANEL CO2 26 24 - 32 11/02/2013 [facility] CHEM PANEL Calcium Lvl 8.2 8.5 - 10.5 11/02/2013 [facility] CHEM PANEL Total Protein 6.3 6.4 - 8.4 11/02/2013 [facility] CHEM PANEL Albumin Lvl 3.7 3.5 - 5.0 11/02/2013 [facility] CHEM PANEL ALT 18 0 - 65 11/02/2013 [facility] CHEM PANEL Bili Total 0.5 0.2 - 1.3 11/02/2013 [facility] CHEM PANEL AST 9 0 - 37 11/02/2013 [facility] CHEM PANEL Alk Phos 56 39 - 136 11/02/2013 [facility] CHEM PANEL Creatinine Lvl 0.8 0.5 - 1.4 11/02/2013 [facility] CHEM PANEL Sodium Lvl 140 135 - 145 11/02/2013 [facility] CHEM PANEL Potassium Lvl 3.2 3.5 - 5.1 11/02/2013 [facility] CHEM PANEL Chloride Lvl 107 95 - 109 11/02/2013 [facility] CHEM PANEL Glucose Lvl 87 70 - 99 11/02/2013 <sup>4</sup>Interpretive Data: Adult ref erence range values reflect the clinical guidelines
of the [place] [employer]. [facility] CHEM PANEL BUN 15 7 - 22 11/02/2013 [facility] HEMATOLOGY Microcyte 3+ *NA* (11/01/13 8:52 PM) None Seen 11/02/2013 [facility] HEMATOLOGY Monocytes # 0.6 0.0 - 0.8 11/02/2013 [facility] HEMATOLOGY Monocytes 6.8 2.0 - 12.0 11/02/2013 [facility] HEMATOLOGY Segs 72.3 45.0 - 75.0 11/02/2013 [facility] HEMATOLOGY Lymphocytes 20.4 20.0 - 40.0 11/02/2013 [facility] HEMATOLOGY Basophils 0.5 0.0 - 1.0 11/02/2013 [facility] Lymphocytes # 1.9 1.0 - 5.5 11/02/[address] [facility] Segs-Bands # 6.6 1.5 - 8.1 11/02/2013 [facility] HEMATOLOGY PT 13.5 12.0 - 14.7 11/02/[address] [facility] PTT 27.6 22.9 - 35.8 11/02/2013 <sup>7</sup>Interpretive Data: Heparin T herapeutic Range: 57 - 92 [facility] INR 1.03 0.85 - 1.17 11/02/2013 <sup>6</sup>Interpretive Data: RECOMMEND ED RANGES FOR PROTIME INR:
2.0-3.0 for most medical and surgical thromboembolic states.
2.5-3.5 for artificial heart valves and recurrent embolism.

INR SHOULD BE USED ONLY FOR PATIENTS ON STABLE ANTICOAGULANT THERAPY. [facility] HEMATOLOGY Hct 37.5 36.0 - 48.0 11/02/2013 [facility] MCV 68.6 80.0 - 98.0 11/02/[address] [facility] MCH 21.8 27.0 - 31.0 11/02/[address] [facility] MCHC 31.8 32.0 - 36.0 11/02/[address] [facility] RDW 17.2 11.5 - 14.5 11/02/[address] [facility] Platelet 262 133 - 450 11/02/[address] [facility] MPV 8.8 7.4 - 10.4 11/02/[address] [facility] Hgb 12.0 12.0 - 16.0 11/02/[address] [facility] RBC 5.48 4.20 - 5.40 11/02/2013 [facility] HEMATOLOGY WBC 9.2 3.7 - 10.4 11/02/2013 [facility] CHEMISTRY Magnesium Lvl 2.1 1.8 - 2.4 10/12/2012 Normal [facility] CHEMISTRY BUN 7 7 - 22 10/12/2012 Normal [facility] CHEMISTRY Glucose Lvl 81 70 - 99 10/12/2012 Normal <sup>5</sup>Interpretive Data: Adult ref erence range values reflect the clinical guidelines
of the [place] [employer]. [facility] CHEMISTRY CO2 26 24 - 32 10/12/2012 Normal [facility] CHEMISTRY eGFR 101 10/12/2012 NA <sup>2</sup>Result Comment: The eGFR is calculated using the CKD-EPI formula. In most young, healthy individuals the eGFR will be >90 mL/min/1.73m2. The eGFR declines with age. An eGFR of 60-89 may be normal in some populations, particularly the elderly, for whom the CKD-EPI formula has not been extensively validated. Use of the eGFR is not recommended in the following populations:& lt;br/>
Individuals with unstable creatinine concentrations, including patients and those with serious co-morbid conditions.

Patients with extremes in muscle mass or diet.

The data above are obtained from the National Kidney Disease Education Program (NKDEP) which additionally recommends that when the eGFR is used in patients with extremes of body mass index for purposes of drug dosing, the eGFR should be multiplied by the estimated BMI. [facility] CHEMISTRY Chloride Lvl 109 95 - 109 10/12/2012 Normal [facility] CHEMISTRY Calcium Lvl 9.1 8.5 - 10.5 10/12/2012 Normal [facility] CHEMISTRY Potassium Lvl 3.6 3.5 - 5.1 10/12/2012 Normal [facility] CHEMISTRY Creatinine Lvl 0.6 0.5 - 1.4 10/12/2012 Normal [facility] CHEMISTRY Sodium Lvl 146 135 - 145 10/12/2012 [place] [facility] CHEMISTRY AGAP 14.6 10.0 - 20.0 10/12/2012 Normal [facility] HEMATOLOGY Lymphocytes # 1.2 1.0 - 5.5 10/12/2012 Normal [facility] HEMATOLOGY Monocytes # 0.3 0.0 - 0.8 10/12/2012 Normal [facility] HEMATOLOGY Eosinophils # 0.2 0.0 - 0.5 10/12/2012 Normal [facility] HEMATOLOGY Basophils # 0.0 0.0 - 0.2 10/12/2012 Normal [facility] HEMATOLOGY Segs-Bands # 2.7 1.5 - 8.1 10/12/2012 Normal [facility] HEMATOLOGY Basophils 0.4 0.0 - 1.0 10/12/2012 Normal [facility] HEMATOLOGY Lymphocytes 26.6 20.0 - 40.0 10/12/2012 Normal [facility] HEMATOLOGY Monocytes 7.8 2.0 - 12.0 10/12/2012 [facility] HEMATOLOGY Segs 60.8 45.0 - 75.0 10/12/2012 [facility] HEMATOLOGY Eosinophils 4.4 0.0 - 4.0 10/12/2012 [facility] HEMATOLOGY RBC 4.65 4.20 - 5.40 10/12/2012 [facility] HEMATOLOGY RDW 14.6 11.5 - 14.5 10/12/2012 [facility] HEMATOLOGY Platelet 359 133 - 450 10/12/2012 [facility] HEMATOLOGY Hgb 11.2 12.0 - 16.0 10/12/2012 [facility] HEMATOLOGY Hct 34.3 36.0 - 48.0 10/12/2012 [facility] HEMATOLOGY MPV 7.6 7.4 - 10.4 10/12/2012 [facility] HEMATOLOGY WBC 4.5 3.7 - 10.4 10/12/2012 [facility] HEMATOLOGY MCV 73.7 81.0 - 99.0 10/12/2012 [facility] HEMATOLOGY MCH 24.1 27.0 - 31.0 10/12/2012 [facility] HEMATOLOGY MCHC 32.7 32.0 - 36.0 10/12/2012 [facility] CHEMISTRY Sodium Lvl 145 135 - 145 10/11/2012 [facility] CHEMISTRY Chloride Lvl 110 95 - 109 10/11/2012 [facility] CHEMISTRY Potassium Lvl 3.4 3.5 - 5.1 10/11/2012 [facility] CHEMISTRY eGFR 101 10/11/2012 NA <sup>3</sup>Result Comment: The eGFR is calculated using the CKD-EPI formula. In most young, healthy individuals the eGFR will be >90 mL/min/1.73m2. The eGFR declines with age. An eGFR of 60-89 may be normal in some populations, particularly the elderly, for whom the CKD-EPI formula has not been extensively validated. Use of the eGFR is not recommended in the following populations:& lt;br/>
Individuals with unstable creatinine concentrations, including patients and those with serious co-morbid conditions.

Patients with extremes in muscle mass or diet.

The data above are obtained from the National Kidney Disease Education Program (NKDEP) which additionally recommends that when the eGFR is used in patients with extremes of body mass index for purposes of drug dosing, the eGFR should be multiplied by the estimated BMI. [facility] CHEMISTRY ALT 18 0 - 65 10/11/2012 Normal [facility] CHEMISTRY Alk Phos 68 39 - 136 10/11/2012 Normal [facility] CHEMISTRY Total Protein 6.1 6.4 - 8.4 10/11/2012 LOW [facility] CHEMISTRY Albumin Lvl 2.7 3.5 - 5.0 10/11/2012 LOW [facility] CHEMISTRY Calcium Lvl 9.1 8.5 - 10.5 10/11/2012 Normal [facility] CHEMISTRY Bili Total 0.4 0.2 - 1.3 10/11/2012 Normal [facility] CHEMISTRY AST 7 0 - 37 10/11/2012 Normal [facility] CHEMISTRY Creatinine Lvl 0.6 0.5 - 1.4 10/11/2012 Normal [facility] CHEMISTRY CO2 27 24 - 32 10/11/2012 Normal [facility] CHEMISTRY BUN 3 7 - 22 10/11/2012 LOW [facility] CHEMISTRY Glucose Lvl 94 70 - 99 10/11/2012 Normal <sup>6</sup>Interpretive Data: Adult ref erence range values reflect the clinical guidelines
of the [place] [employer]. [facility] CHEMISTRY Globulin 3.4 2.0 - 4.0 10/11/2012 Normal [facility] CHEMISTRY A/G Ratio 0.8 0.7 - 1.6 10/11/2012 Normal [facility] CHEMISTRY B/C Ratio 5 6 - 25 10/11/2012 LOW [facility] CHEMISTRY AGAP 11.4 10.0 - 20.0 10/11/2012 Normal [facility] HEMATOLOGY MPV 7.1 7.4 - 10.4 10/11/2012 LOW [facility] HEMATOLOGY MCH 23.9 27.0 - 31.0 10/11/2012 [facility] HEMATOLOGY Platelet 308 133 - 450 10/11/2012 Normal [facility] HEMATOLOGY RDW 14.1 11.5 - 14.5 10/11/2012 Normal [facility] HEMATOLOGY MCHC 32.4 32.0 - 36.0 10/11/2012 Normal [facility] HEMATOLOGY RBC 4.35 4.20 - 5.40 10/11/2012 Normal [facility] HEMATOLOGY MCV 73.9 81.0 - 99.0 10/11/2012 LOW [facility] HEMATOLOGY Hct 32.1 36.0 - 48.0 10/11/2012 LOW [facility] HEMATOLOGY Hgb 10.4 12.0 - 16.0 10/11/2012 [facility] HEMATOLOGY WBC 3.5 3.7 - 10.4 10/11/2012 LOW [facility] HEMATOLOGY Basophils # 0.0 0.0 - 0.2 10/11/2012 Normal [facility] HEMATOLOGY Eosinophils # 0.3 0.0 - 0.5 10/11/2012 Normal [facility] HEMATOLOGY Monocytes # 0.3 0.0 - 0.8 10/11/2012 Normal [facility] HEMATOLOGY Lymphocytes # 0.9 1.0 - 5.5 10/11/2012 LOW [facility] HEMATOLOGY Segs-Bands # 2.1 1.5 - 8.1 10/11/2012 Normal [facility] HEMATOLOGY Basophils 0.9 0.0 - 1.0 10/11/2012 Normal [facility] HEMATOLOGY Eosinophils 7.2 0.0 - 4.0 10/11/2012 [place] [facility] HEMATOLOGY Monocytes 7.6 2.0 - 12.0 10/11/2012 Normal [facility] HEMATOLOGY Lymphocytes 25.0 20.0 - 40.0 10/11/2012 Normal [facility] HEMATOLOGY Segs 59.3 45.0 - 75.0 10/11/2012 Normal [facility] CHEMISTRY Chloride Lvl 110 95 - 109 10/10/2012 [facility] CHEMISTRY Potassium Lvl 3.2 3.5 - 5.1 10/10/2012 LOW [facility] CHEMISTRY Sodium Lvl 145 135 - 145 10/10/2012 Normal [facility] CHEMISTRY eGFR 96 10/10/2012 NA <sup>4</sup>Result Comment: The eGFR is calculated using the CKD-EPI formula. In most young, healthy individuals the eGFR will be >90 mL/min/1.73m2. The eGFR declines with age. An eGFR of 60-89 may be normal in some populations, particularly the elderly, for whom the CKD-EPI formula has not been extensively validated. Use of the eGFR is not recommended in the following populations:& lt;br/>
Individuals with unstable creatinine concentrations, including patients and those with serious co-morbid conditions.

Patients with extremes in muscle mass or diet.

The data above are obtained from the National Kidney Disease Education Program (NKDEP) which additionally recommends that when the eGFR is used in patients with extremes of body mass index for purposes of drug dosing, the eGFR should be multiplied by the estimated BMI. [facility] CHEMISTRY Albumin Lvl 2.5 3.5 - 5.0 10/10/2012 LOW [facility] CHEMISTRY Bili Total 0.3 0.2 - 1.3 10/10/2012 Normal [facility] CHEMISTRY AST 8 0 - 37 10/10/2012 Normal [facility] CHEMISTRY Alk Phos 73 39 - 136 10/10/2012 Normal [facility] CHEMISTRY ALT 21 0 - 65 10/10/2012 Normal [facility] CHEMISTRY Total Protein 5.8 6.4 - 8.4 10/10/2012 LOW [facility] CHEMISTRY Calcium Lvl 8.6 8.5 - 10.5 10/10/2012 Normal [facility] CHEMISTRY Creatinine Lvl 0.7 0.5 - 1.4 10/10/2012 [facility] CHE[facility] CO2 27 24 - 32 10/10/2012 Normal [facility] CHEMI[facility] BUN 3 7 - 22 10/10/2012 LOW [facility] CHEMISTRY Glucose Lvl 123 70 - 99 10/10/2012 HI <sup>7</sup>Interpretive Data: Adult ref erence range values reflect the clinical guidelines
of the [place] [employer]. [facility] CHEMI[facility] AGAP 11.2 10.0 - 20.0 10/10/2012 Normal [facility] CHEMI[facility] Globulin 3.3 2.0 - 4.0 10/10/2012 Normal [facility] CHEMI[facility] A/G Ratio 0.8 0.7 - 1.6 10/10/2012 Normal [facility] CHEMI[facility] B/C Ratio 4 6 - 25 10/10/2012 LOW [facility] HEMATOLOGY Lymphocytes 20.7 20.0 - 40.0 10/10/2012 Normal [facility] HEMATOLOGY Segs 64.4 45.0 - 75.0 10/10/2012 Normal [facility] HEMATOLOGY Monocytes 8.4 2.0 - 12.0 10/10/2012 Normal [facility] HEMATOLOGY Monocytes # 0.3 0.0 - 0.8 10/10/2012 Normal [facility] HEMATOLOGY Lymphocytes # 0.8 1.0 - 5.5 10/10/2012 LOW [facility] HEMATOLOGY Basophils 0.5 0.0 - 1.0 10/10/2012 Normal [facility] HEMATOLOGY Eosinophils 6.0 0.0 - 4.0 10/10/2012 HI [facility] HEMATOLOGY Basophils # 0.0 0.0 - 0.2 10/10/2012 Normal [facility] HEMATOLOGY Eosinophils # 0.2 0.0 - 0.5 10/10/2012 Normal [facility] HEMATOLOGY Segs-Bands # 2.4 1.5 - 8.1 10/10/2012 Normal [facility] HEMATOLOGY Platelet 281 133 - 450 10/10/2012 Normal [facility] HEMATOLOGY MCH 23.8 27.0 - 31.0 10/10/2012 LOW [facility] HEMATOLOGY MCHC 32.4 32.0 - 36.0 10/10/2012 Normal [facility] HEMATOLOGY RBC 4.29 4.20 - 5.40 10/10/2012 Normal [facility] HEMATOLOGY Hct 31.6 36.0 - 48.0 10/10/2012 LOW [facility] HEMATOLOGY Hgb 10.2 12.0 - 16.0 10/10/2012 LOW [facility] HEMATOLOGY RDW 14.4 11.5 - 14.5 10/10/2012 Normal [facility] HEMATOLOGY WBC 3.8 3.7 - 10.4 10/10/2012 Normal [facility] HEMATOLOGY MCV 73.6 81.0 - 99.0 10/10/2012 LOW [facility] HEMATOLOGY MPV 6.9 7.4 - 10.4 10/10/2012 LOW [facility] CHEMI[facility] B/C Ratio 8 6 - 25 10/09/2012 Normal [facility] CHE[facility] A/G Ratio 0.7 0.7 - 1.6 10/09/2012 Normal [facility] CHEMI[facility] Globulin 3.3 2.0 - 4.0 10/09/2012 Normal [facility] CHE[facility] AST 7 0 - 37 10/09/2012 Normal [facility] CHE[facility] Total Protein 5.7 6.4 - 8.4 10/09/2012 LOW [facility] CHEMI[facility] Albumin Lvl 2.4 3.5 - 5.0 10/09/2012 LOW [facility]MI[facility] Bili Total 0.5 0.2 - 1.3 10/09/2012 Normal [facility] CHEMI[facility] Alk Phos 79 39 - 136 10/09/2012 Normal [facility] CHE[facility] ALT 22 0 - 65 10/09/2012 Normal [facility] CHEMI[facility] Bili Indirect 0.6 0.0 - 1.0 10/08/2012 Normal [facility] CHEMI[facility] Bili Direct 0.2 0.0 - 0.3 10/08/2012 Normal [facility] CHEMI[facility]Y Phosphorus 2.5 2.5 - 4.5 10/08/2012 Normal [facility] CHEMI[facility] Magnesium Lvl 1.9 1.8 - 2.4 10/08/2012 Normal [facility] CHEMI[facility] Magnesium Lvl 1.8 1.8 - 2.4 10/07/2012 Normal [facility] CHEMISTRY Phosphorus 1.9 2.5 - 4.5 10/07/2012 LOW [facility] CHEMISTRY Phosphorus 2.4 2.5 - 4.5 10/06/2012 LOW [facility] CHEMISTRY Vanco Tr TND 1900 10/05/2012 NA [facility] CHEMI[facility] Vanco Tr 7.5 10/05/2012 NA <sup>9</sup>Interpretive Data: Therapeutic Range:
Trough: 10 - 20 ug/mL
Peak: 20 - 40 ug/mL
Potential Toxicity: >80 ug/mL [facility] CHEMISTRY Bili Direct 0.7 0.0 - 0.3 10/05/2012 [facility] CHEMI[facility] Bili Indirect 1.1 0.0 - 1.0 10/05/2012 [facility] CHEMISTRY CK MB <0.5 0.5 - 3.6 10/04/2012 Normal [facility] CHEMISTRY Total CK 78 12 - 191 10/04/2012 Normal [facility] CHEMISTRY Troponin-I <0.02 0.00 - 0.40 10/04/2012 Normal [facility] CHEMISTRY Ca Norm WB 0.96 1.05 - 1.25 10/04/2012 LOW [facility] CHEMISTRY Ca Ion WB 1.02 1.05 - 1.25 10/04/2012 LOW [facility] CHEMISTRY CK MB 0.8 0.5 - 3.6 10/04/2012 Normal [facility] CHEMISTRY Troponin-I <0.02 0.00 - 0.40 10/04/2012 Normal [facility] CHEMISTRY Total CK 77 12 - 191 10/04/2012 Normal [facility] CHEMISTRY LDL 92 <=99 10/04/2012 Normal [facility] CHEMISTRY Trig 164 <=149 10/04/2012 [facility] CHEMISTRY CHD Risk 2.37 3.90 - 5.80 10/04/2012 LOW [facility] CHEMISTRY HDL 91 >=61 10/04/2012 Normal [facility] CHEMISTRY Chol 216 <=199 10/04/2012 [facility] HEMATOLOGY Plt Morph Angel l (10/04/2012 02:29:00) 10/04/2012 Normal [facility] HEMATOLOGY RBC Morph Angel l (10/04/2012 02:29:00) 10/04/2012 Normal [facility] HEMATOLOGY PT 13.1 12.0 - 14.7 10/04/2012 Normal [facility] HEMATOLOGY PTT 29.7 22.9 - 35.8 10/04/2012 Normal <sup>14</sup>Interpretive Data: Heparin Therapeutic Range: 57 - 92 Seconds [facility] HEMATOLOGY INR 0.97 0.85 - 1.17 10/04/2012 Normal <sup>12</sup>Interpretive Data: RECOMMEN DED RANGES FOR PROTIME INR:
2.0-3.0 for most medical and surgical thromboembolic states.
2.5-3.5 for artificial heart valves and recurrent embolism.

INR SHOULD BE USED ONLY FOR PATIENTS ON STABLE ANTICOAGULANT THERAPY. [facility] BACTERIAL - SEROLOGY MRSA by PCR Negative 1 (10/04/2012 01:00:00) 10/04/2012 Normal <sup>1</sup>Interpretive Data: Interpretive Data: The Pam LightCycler MRSA assay is a qualitative test for the direct detection of nasal colonization with methicillin-resistant Staphylococcus aureus (MRSA) to aid in the prevention and control of MRSA infections in healthcare settings. A positive result does not indicate an infection or require treatment. A negative result does not exclude colonization or infection.

The polymerase chain reaction (PCR) assay detects a proprietary sequence indicative of the integration of the SCCmec cassette into the Staphylococcus aureus chromosome, indicating the presence of MRSA DNA. The assay utilizes FDA cleared IVD reagents. Performance characteristics have been verified by the [facility] Diagnostic Laboratory within the [facility]. The [facility] Laboratory is authorized under the Clinical Laboratory Improvement Amendment of 1988 (CLIA-88) to perform high complexity testing. [facility] CHEMISTRY Total CK 71 12 - 191 10/04/2012 Normal [facility] CHEMISTRY Troponin-I <0.02 0.00 - 0.40 10/04/2012 Normal [facility] Microbiology Culture: Blood 10/04/2012 [facility] CHEMISTRY Lactic Acid Lvl 3.4 0.5 - 2.2 10/04/2012 [facility] Microbiology Culture: Blood 10/04/2012 [facility] CHEMISTRY FiO2 Art 100.0 10/03/2012 NA [facility] CHEMISTRY Vt Art 500 10/03/2012 [facility] CHEMISTRY Mode Art A/C (10/03/2012 17:14:00) 10/03/2012 Normal [facility] CHEMISTRY Rate Art 14 10/03/2012 [facility] CHEMISTRY pO2 Art 321 80 - 100 10/03/2012 [facility] CHEMISTRY BE Art -6 -2-2 - 2 10/03/2012 LOW [facility] CHEMISTRY HCO3 Art 20 22 - 26 10/03/2012 LOW [facility] CHEMISTRY pCO2 Art 39 35 - 45 10/03/2012 Normal [facility] CHEMISTRY pH Art 7.31 7.35 - 7.45 10/03/2012 LOW [facility] Site Art Right Ra (10/03/2012 17:14:00) 10/03/2012 Normal [facility] Temp Art 37.0 10/03/2012 NA [facility] Allens Art Positi ve (10/03/2012 17:14:00) 10/03/2012 Normal [facility] O2 Sat Art 99.9 95.0 - 100.0 10/03/2012 Normal [facility] CK MB <0.5 0.5 - 3.6 10/03/2012 Normal [facility] Ethanol Lvl 145 10/03/2012 NA <sup>11</sup>Interpretive Data: Negative Range: <3 mg/dL
Toxic Range: >250 mg/dL [facility] Etoh (%) 0.145 10/03/2012 NA <sup>10</sup>Interpretive Data: Negative Range: <0.003%
Toxic Range: >0.25% [facility] U Opiate Scr Negati ve *NA* (10/03/2012 16:52:00) Negati ve 10/03/2012 NA [facility] UDS Note See No te 8 *NA* (10/03/2012 16:52:00) 10/03/2012 NA <sup>8</sup>Interpretive Data: Drugs reported as positive have not been confirmed by a second
method and should be used for medical purposes only. To order
confirmation, contact laboratory.

note: Below are cut- off concentrations for all urine drugs of
abuse performed in the laboratory. Some drugs listed in the table
may not be included in this panel.

Description Cut-off concentration

Ampheta mine 1000 ng/mL
Barbiturates 200 ng/mL
Benzodiazepines 300 ng/mL
Cocaine metabolites 300 ng/mL
Opiates 300 ng/mL
Phencyclidine 25 ng/mL
Propoxyphene 300 ng/mL
Marijuana metabolites 50 ng/mL
Methadone 300 ng/m L
Urine alcohol 20 mg/dL [facility] CHEMISTRY U Phencyc Scr Negati ve *NA* (10/03/2012 16:52:00) Negati ve 10/03/2012 NA [facility] CHEMISTRY U Cocaine Scr Negati ve *NA* (10/03/2012 16:52:00) Negati ve 10/03/2012 NA [facility] CHEMISTRY U Cannab Scr Negati ve *NA* (10/03/2012 16:52:00) Negati ve 10/03/2012 NA [facility] CHEMISTRY U Benzodia Scr Negati ve *NA* (10/03/2012 16:52:00) Negati ve 10/03/2012 NA [facility] CHEMISTRY U Amph Scr Negati ve *NA* (10/03/2012 16:52:00) Negati ve 10/03/2012 NA [facility] CHEMISTRY U Christiane Scr Negati ve *NA* (10/03/2012 16:52:00) Negati ve 10/03/2012 NA [facility] CHEMISTRY Acetaminoph Lvl <2 10 - 20 10/03/2012 LOW [facility] CHEMISTRY Salicylate Lvl <1.7 0.0 - 30.0 10/03/2012 Normal [facility] Lactic Acid Lvl 4.6 0.5 - 2.2 10/03/2012 HI [facility] CHEMISTRY CK MB Index <0.6 0.0 - 2.5 10/03/2012 Normal [facility] HEMATOLOGY INR 0.87 0.85 - 1.17 10/03/2012 Normal <sup>13</sup>Interpretive Data: RECOMMEN DED RANGES FOR PROTIME INR:
2.0-3.0 for most medical and surgical thromboembolic states.
2.5-3.5 for artificial heart valves and recurrent embolism.

INR SHOULD BE USED ONLY FOR PATIENTS ON STABLE ANTICOAGULANT THERAPY. [facility] PTT 28.4 22.9 - 35.8 10/03/2012 Normal <sup>15</sup>Interpretive Data: Heparin Therapeutic Range: 57 - 92 Seconds [facility] HEMATOLOGY PT 12.1 12.0 - 14.7 10/03/2012 Normal [facility] URINALYSIS UA Color Colorless 10/03/2012 NA [facility] URINALYSIS UA Urobilinogen 0.1 - 1.0 10/03/2012 NA [facility] URINALYSIS UA Sq Epi Occas ional /LPF *NA* (10/03/2012 16:52:00) Few 10/03/2012 NA [facility] URINALYSIS UA Leuk Est Negat sylwia (10/03/2012 16:52:00) Negati ve 10/03/2012 Normal [facility] URINALYSIS UA Nitrite Negat sylwia (10/03/2012 16:52:00) Negati ve 10/03/2012 Normal [facility] URINALYSIS UA Protein Negat sylwia mg/dL (10/03/2012 16:52:00) Negati ve 10/03/2012 Normal [facility] URINALYSIS UA Glucose Negat sylwia mg/dL *NA* (10/03/2012 16:52:00) Negati ve 10/03/2012 NA [facility] URINALYSIS UA Turbidity Clear (10/03/2012 16:52:00) Clear 10/03/2012 Normal [facility] URINALYSIS UA Blood Negat sylwia (10/03/2012 16:52:00) Negati ve 10/03/2012 Normal [facility] URINALYSIS UA Bili Negat sylwia *NA* (10/03/2012 16:52:00) Negati ve 10/03/2012 NA [facility] URINALYSIS UA Ketones Negat sylwia mg/dL *NA* (10/03/2012 16:52:00) Negati ve 10/03/2012 NA [facility] URINALYSIS UA Spec Grav 1.002 <=1.030 10/03/2012 Normal [facility] URINALYSIS UA pH 5.0 5.0 - 8.0 10/03/2012 Normal [facility] Microbiology Culture: Urine 10/03/2012 [facility] Pathology Reports No Data Provided for This Section Diagnostic Reports Report Value Date Source Brain wo contrast MRI PROCEDUR E: Brain wo contrast MRI REASON FOR EXAM: See Clinic Indication CLINICAL INFORMATION Confusion COMPARISON: CAT scan 11/01/2013. 12/21/2008. FINDINGS: There is no acute or subacute infarction. There is diffuse volume loss with corresponding prominence of the ventricles and sulci. There is progression of the white matter FLAIR signal abnormality. The temporal lobes are symmetric in size and signal characteristics. The sella and foramen magnum regions are normal. No hemorrhage, mass or midline shift is noted. Fluid in the left mastoid sinus. IMPRESSION: 1. Chronic changes as described above, n o acute intracranial process. 2. Progression of white matter FLAIR sig nal abnormality, presumed microangiopathic. 3. Small degree of fluid in the left mas toid sinus. SL: 11/02/2013 [facility] Carotid artery Doppler bilat US CAROTID DOPPLER: CLINICAL HX: TIA COMPARISON: MRA 12/22/2008 TECHNIQUE: Mcgee scale imaging, color Doppler and spectral analysis were utilized to evaluate the neck vessels bilaterally. FINDINGS: There is no significant atherosclerotic disease seen in the common carotid, carotid bulb and internal carotid arteries on either side. Peak systolic velocity in the right ICA is 77 cm/sec and the left ICA is 76 cm/sec. The velocities and ratios are normal in the CCA and ICA vessels bilaterally. The color Doppler images do not demonstrate any significant turbulence. Antegrade flow is verified in both vertebral arteries. A few scattered nodules are visualized in both lobes of thyroid gland. IMPRESSION: No significant atherosclerotic disease is identified in either carotid system. NOTE: Any reported ICA stenoses indirectly reference the distal internal carotid diameter as the denominator for stenosis measurement, utilizing consensus panel criteria. Society of Radiologists in Ultrasound Consensus Conference Radiology 2003; 229;340-346. SL:11/02/2013 [facility] Chest 1view Chest one view: Exam reason: See Clinic Indication Shortness of Breath Lungs are clear. The cardiac silhouette is normal. Chronic uncoiling of the thoracic aorta is noted. There is no consolidation or pleural fluid collection noted. Incomplete visualization of plate and screw fixation of the lower cervical spine is noted. Metallic anchors are noted at the humeral heads bilaterally. IMPRESSION: No acute cardiopulmonary process noted. SL:11/01/2013 [facility] Brain wo contrast CT CT scan o f the head without contrast: Exam reason: Acute cognitive change See Clinic Indication Multiple computerized axial tomograms of the head were obtained without contrast. Age-related cortical and cerebellar volume loss with compensatory enlargement of the ventricles and subarachnoid spaces is noted. Vascular calcification is noted. There is no acute cortical infarction or hemorrhage noted. There is no mass-effect or midline shift demonstrated. The ventricles are otherwise normal in size, shape and position. The base of skull and bony calvarium are intact. Mild chronic microangiopathic changes of the subcortical white matter are noted bilaterally. IMPRESSION: No acute intracranial abnormality is noted. Senescent and chronic ischemic changes are noted intracranially. Intracranial findings are similar to the previous exam, 10/03/2012. SL:12 11/01/[address] HISTORY: Tube plac ement. One view chest. Comparison 10/10/2012. Right chest tube has been removed. Subcutaneous emphysema stable. No definite pneumothorax. Persistent atelectasis or infiltrate is present in the left lower lobe. There is a persistent small left pleural fluid. SL:14 10/10/[address] PORTABLE CHEST: COMPARISON: 10/09/2012 The support devices have not changed in position. Extensive subcutaneous emphysema is again seen along the right lateral chest wall and in the supraclavicular/cervical regions. The lungs remain less than adequately inflated. Increasing opacities in the left lung likely represent a combination of parenchymal infiltrate such as pneumonia or atelectasis and posteriorly layering pleural fluid. The right lung is clear without infiltrate or large collections of pleural fluid. The cardiac silhouette is mildly enlarged, and the lungs are somewhat congested. Persistent deviation of the trachea to the right. SL: 12 10/10/[address] PROCEDURE: Chest 1view REASON FOR EXAM: check for leak CLINICAL INFORMATION Tube placement/removal/reposition COMPARISON: 09/2012 multiple x-rays. There is lower cervical fusion. Right pleural tube tip is apically positioned. There is extensive subcutaneous emphysema on the right unchanged from the prior exam. Left IJ line tip is unchanged. Retrocardiac consolidation is unchanged. Bilateral pleural effusions are suspected. Overlying leads limit detail. There is prior right rotator cuff repair. SL: 12 10/09/[address] CHEST RADIOGRAPH S HALLIE VIEW INDICATION: Tube placement COMPARISON: Chest radiograph 10/08/2012 IMPRESSION: 1. The right chest tube is unchanged. No pneumothorax is visualized. There is no interval change in subcutaneous emphysema. 2. The left IJ central line is unchanged . 3. Left basilar opacification is stable. 4. The cardiac silhouette appears promin ent, without radiographic evidence of overt failure. SL: 13 10/09/2012 [place] [id number] HISTORY: Crackles. Chest one view. Comparison prior study earlier the same day at 0556 hours. Right chest tube remains. No pneumothorax is identified. There is increasing atelectasis or infiltrate in the left lower lobe. Correlate clinically for developing pneumonia. Right chest tube is present as before. Left jugular central venous catheter is unchanged. Subcutaneous emphysema stable. IMPRESSION: Increasing left lower lobe opacity could represent developing pneumonia. Extensive subcutaneous emphysema as the or. No pneumothorax is currently evident. SL:13 10/08/2012 [facility] 1view Portable chest: Th e left jugular central line tip is at the jugulo-subclavian confluence. The right pleural tube is in good position. There is no visible pneumothorax. The chest wall emphysema is aga in noted and may be slightly decreased from the previous day. There is mild bilateral subsegmental atelectasis without change. There are no other new findings. SL:13 10/08/2012 [facility] 1view PORTABLE CHEST AT 2129 HOURS. INDICATION: Post extubation. COMPARISON: Chest 0619 hours. The right chest tube remains in position. No definite pneumothorax is evident. Extensive subcutaneous emphysema persists. Endotracheal tube and nasogastric tube have been removed. Left internal jugular catheter terminates at the level of the left clavicular head. Cardiac size is normal. The retrocardiac portion of the left hemithorax remains partially opaque. The lungs are otherwise clear, and no vascular congestion is seen. SL: 12 10/07/2012 [facility] 1view CHEST, portable (1 view) 10/07/2012 @ 6: 19 HISTORY: Right pneumothorax, status post right chest tube insertion. Multiple studies from yesterday and multiple studies between 10/03/2012 and 10/05/2012 were reviewed. A chest CT scan 10/03/2012 was also reviewed. FINDINGS: 1. A large bore right chest tube was radha gilles yesterday. The catheter extends into the right apex. 2. No pneumothorax is identified. 3. The small bore right chest tube remai ns. 4. Extensive subcutaneous and muscular e mphysema, greater on the right. This has improved slightly. 5. Small bore left chest tube remains. N o left pneumothorax is seen. 6. The endotracheal tube is in good posi tion with its tip approximately 3.5 cm above the star. 7. Moderate bibasilar atelectasis. 8. The nasogastric tube extends into the stomach. 9. There are surgical clips in the right upper quadrant consistent with a prior cholecystectomy. 10. Postoperative changes, cervical spin e. 11. Postoperative changes, right shoulde r. Coding: Chest 1view CPT Code: 26847 SL: 12 Deep Ludwig M.D. 10/07/2012 [facility] Abdomen AP view Portable abdom en: The NG tube tip is coiled in the stomach. Mild small bowel prominence in the upper midabdomen is seen. The gas pattern is otherwise normal. There is no visible pneumoperitoneum. Landa catheter seen in the midline of the pelvis. SL:13 10/06/2012 [facility] Chest tube placement insertion VR Old and pneumothorax. PROCEDURE: Placement of large bore right chest tube. Fluoroscopic guidance. 18-gauge needle was advanced from an ant erior approach into the anterior pleural space. Guidewire was advanced into the fluoro to the lung apex. Needle exchanged for a series of dilators ultimately excepting a 24 Maur[place] chest tube which was positioned with its tip near the apex. Procedure was well tolerated clinically. Total fluoroscopy time was 1.6 minutes SL: 13 10/06/2012 [facility] 1view CHEST, portable (1 view) 10/06/2012 @ 12: 05 HISTORY: Right pneumothorax, status post right chest tube insertion. Comparison is made to the study performed today @ 8:10. The initial study performed today and multiple studies between 10/03/2012 and yesterday were reviewed. A chest CT scan 10/03/2012 was also reviewed. FINDINGS: 1. A large bore right chest tube has bee n placed. The catheter extends into the right apex. 2. There has been reexpansion of the rig ht pneumothorax. No definite residual pneumothorax is seen. 3. The small bore right chest tube remai ns. 4. Extensive subcutaneous and muscular e mphysema, greater on the right. 5. Small bore left chest tube remains. N o left pneumothorax is seen. 6. The endotracheal tube terminates at a pproximately T4, approximately 3.5 cm above the star. 7. Moderate bibasilar atelectasis. 8. It appears the nasogastric tube has b een removed. 9. There are surgical clips in the right upper quadrant consistent with a prior cholecystectomy. 10. Postoperative changes, cervical spin e. 11. Postoperative changes, right shoulde r. Coding: Chest 1view CPT Code: 75840 SL: 12 Deep Ludwig M.D. 10/06/2012 [facility] 1view Chest one view. COMPARISON: 10/06/2012. FINDINGS: Limited AP portable study. ET tube terminates just above the level of the star. Right-sided chest tube has been partially retracted and no longer appears to be kinked. There is moderate right-sided pneumothorax. There is interval development of extensive subcutaneous emphysema in the right chest and neck region. Left-sided chest tube is stable in position. No obvious pneumothorax on the left. Mild subcutaneous emphysema is present in the left chest and base of neck region. Cardiac silhouette size is within normal limits. Small left basilar effusion and atelectasis, unchanged. Note: Findings telephoned to the ICU nurse, Es, 10/06/2012, 0835 hours. SL:13 10/06/[address] CHEST, portable (1 view) 10/06/2012 @ 5: 39. HISTORY: Respiratory distress, intubated. COMPARISON: yesterday's study. Studies of 10/04/2012 and 10/03/[address] scan of 10/03/2012 were reviewed. FINDINGS: 1. The endotracheal tube is in good posi tion with its tip approximately 3.4 cm above the star. 2. Moderate bibasilar opacities, unchan ged, probable infiltrates and atelectasis. 3. Small bore right chest tube in place. The chest tube appears to be kinked within the chest. There appear to be an increase in the right pneumothorax. There remains a small (approximately 25%) right pneumothorax. The significant finding was relayed to an ICU charge nurse, Michelle, by telephone on 10/06/2012 @ 7: 45. Follow-up of this finding is recommended. 4. Small bore left chest tube in place. There is no left pneumothorax visualized. 5. Improving pneumomediastinum. 6. Mild cardiomegaly. 7. The tip of the left IJ central venous catheter overlies the inferior aspect of the medial left clavicle and is probably in the lower left internal jugular vein near the confluence with the subclavian vein. The position is unchanged. 8. The nasogastric tube extends into the stomach. 9. There are surgical clips in the right upper quadrant consistent with a prior cholecystectomy. 10. Postoperative changes, cervical spin e. 11. Postoperative changes, right shoulde r. Three tendon screws are noted. Coding: Chest 1view CPT Code: 51913 SL: Deep Ludwig M.D. 10/06/[address] Portable chest: Th e endotracheal tube, nasogastric tube and bilateral pleural catheters remain in place. Left jugular central line remains unchanged in position. Bibasilar subsegmental atelectasis is noted, more on the left. There is no visible pneumothorax. There has been resolution of mediastinal and soft tissue emphysema. There is no other change from the previous exam. SL:10/05/[address] Portable chest: Th e endotracheal tube, nasogastric tube are in satisfactory position. The left jugular central line tip is over the medial clavicle, consistent with the jugulo-subclavian confluence. Left lower lobe atelectasis is unchanged compared to the earlier exam on the same day. There is mild right basilar subsegmental atelectasis. The lungs are otherwise clear. The bilateral pleural catheters are unchanged in position. There is no visible pneumothorax. Mediastinal and soft tissue emphysema in the neck continue to decrease. SL:10/04/[address] Portable chest: Th e endotracheal tube tip is in satisfactory position at the thoracic inlet. The NG tube is in the stomach. Bilateral pleural catheters are unchanged. There is no visible pneumothorax. L eft lower lobe atelectasis is again seen. The lungs are otherwise clear. Mild residual lung pneumomediastinum and soft tissue emphysema in the neck are noted. SL:10/04/[address] PORTABLE [facility] AT 2351 HOURS. INDICATION: Central line placement. COMPARISON: Chest 0147 hours Left internal jugular catheter terminates at the level of the left clavicular head, possibly at the junction of the internal jugular and innominate veins. Endotracheal tube, nasogastric tube and bilateral chest tubes remain in position. The retrocardiac portion of the left hemithorax remains opaque. Minor central right lung atelectasis has developed. No pneumothorax is evident. SL: 10/04/[address] PORTABLE CHEST AT 2147 HOURS. INDICATION: Pneumothorax, chest tube. COMPARISON: Chest 2112 hours. Bilateral anterior chest tubes remain in position. No pneumothorax is evident. There is mild kinking of the right tube at the skin insertion site. Endotracheal tube and nasogastric tube remain in satisfactory position. Cardiac size is normal. Opacity in the left hemithorax unchanged. The right lung is clear. SL: 10/03/[address] PORTABLE CHEST AT 2112 HOURS. INDICATION: Right chest tube insertion. COMPARISON: Chest 2058 hours. Anterior right chest tube now projects likely within the hemithorax. It is kinked at the skin insertion site. Left chest tube remains in position. No pneumothorax is evident. No other change has occurred. SL: 10/03/[address] PORTABLE CHEST AT 2058 HOURS. INDICATION: Post chest tube placement. COMPARISON: Chest 1638 hours. Small caliber anterior left chest tube has been introduced. The left pneumothorax has resolved. SMALL CALIBER RIGHT CHEST TUBE IS LOCATED WITHIN THE SOFT TISSUE OF THE CHEST WALL AND DOES NOT ENTER THE THORAX. Endotracheal tube and nasogastric tube remain in satisfactory position. The cardiac silhouette is enlarged. The retrocardiac portion of the left hemithorax remains partially opaque and there is ill-defined opacity in the left lung. The right lung is clear. No pleural effusion is seen. Moderate subcutaneous emphysema is again evident. SL: 10/03/2012 [facility] Chest w contrast CT EXAM: CT chest. HISTORY: Chest pain. TECHNIQUE: Axial images obtained of the thorax with IV contrast. Sagittal and coronal reformats. FINDINGS: Extensive pneumomediastinum and air in the soft tissues at the base of the neck. Small pneumothoraces bilaterally, slightly larger on the left. Dependent atelectasis left lung base. Endotracheal tube in satisfactory position. Nasogastric tube in the stomach. No pleural effusion. Findings discussed with Dr. Daniels prior to dictation. SL: 10/03/2012 [facility] Brain wo contrast CT EXAM: CT head HISTORY: Confusion. COMPARISON: 12/20/2008 TECHNIQUE: Axial noncontrast images of the head FINDINGS: Age-related parenchymal involutional changes and periventricular and subcortical white matter chronic small vessel ischemic changes. No parenchymal edema, mass-effect or midline shift. The ventricles are appropriate size for age. No intracranial hemorrhage or abnormal extra-axial fluid collection seen. No skull fracture seen. Mucosal thickening ethmoid air cells. IMPRESSION: No acute intracranial abnormality. SL: 10/03/[address] Portable chest: Th e endotracheal tube tip is overlying the region of the right mainstem bronchus. The NG tube tip is in the stomach. There is near complete atelectasis of the left lung. The right lung and pleural space are clear. Pneumomediastinum is noted with soft tissue emphysema dissecting into the cervical region and upper retroperitoneum. There is no evidence of pneumothorax or significant pleural effusion. CRITICAL FINDING ADDENDUM: The findings were discussed with Dr. Daniels at the time of this dictation. Withdrawal of the ET tube 5 cm was suggested. SL:13 10/03/2012 [facility] Consultation Notes No Data Provided for This Section Discharge Summaries No Data Provided for This Section History and Physicals No Data Provided for This Section Vital Signs Vital Sign Value Date Comments Source Weight 171 09/14/2014 [facility] Height 60 0 09/14/2014 [facility] Weight 171 07/28/2014 [facility] Height 60 0 07/28/2014 [facility] Heart Rate 97 07/28/2014 [facility] Diastolic (mm Hg) 90 07/28/2014 [facility] Systolic (mm Hg) 120 07/28/2014 [facility] Systolic (mm Hg) 105 11/03/2013 [facility] Respitory Rate 20 11/03/2013 [facility] Heart Rate 75 11/03/2013 [facility] Temperature Oral (F) 98.0 F 11/03/2013 [facility] Diastolic (mm Hg) 66 11/03/2013 [facility] Diastolic (mm Hg) 67 11/03/2013 [facility] Respitory Rate 18 11/03/2013 [facility] Systolic (mm Hg) 103 11/03/2013 [facility] Temperature Oral (F) 98.2 F 11/03/2013 [facility] Heart Rate 87 11/03/2013 [facility] Diastolic (mm Hg) 64 11/03/2013 [facility] Systolic (mm Hg) 99 11/03/2013 [facility] Respitory Rate 18 11/03/2013 [facility] Heart Rate 69 11/03/2013 [facility] Temperature Oral (F) 98.4 F 11/03/2013 [facility] Weight 80.455 11/01/2013 [facility] Height 149.86 cm 11/01/2013 [facility] BMI Calculated 35.82 11/01/2013 [facility] Weight 177 11/01/2013 [facility] Height 60 0 11/01/2013 [facility] Heart Rate 78 11/01/2013 [facility] Diastolic (mm Hg) 80 11/01/2013 [facility] Systolic (mm Hg) 120 11/01/2013 [facility] Weight 177 10/18/2013 [facility] Height 60 0 10/18/2013 [facility] Heart Rate 80 10/18/2013 [facility] Diastolic (mm Hg) 80 10/18/2013 [facility] Systolic (mm Hg) 130 10/18/2013 [facility] Weight 174 09/01/2013 [facility] Height 60 0 09/01/2013 [facility] Heart Rate 87 09/01/2013 [facility] Diastolic (mm Hg) 80 09/01/2013 [facility] Systolic (mm Hg) 130 09/01/2013 [facility] Weight 176 05/05/2013 [facility] Height 60 0 05/05/2013 [facility] Temperature Oral (F) 98.2 F 05/05/2013 [facility] Heart Rate 84 05/05/2013 [facility] Diastolic (mm Hg) 86 05/05/2013 [facility] Systolic (mm Hg) 136 05/05/2013 [facility] Weight 168 01/05/2013 [facility] Height 60 1 03/07/2012 [facility] Heart Rate 84 01/05/2013 [facility] Diastolic (mm Hg) 84 01/05/2013 [facility] Systolic (mm Hg) 128 01/05/2013 [facility] Weight 168 01/05/2013 [facility] Height 60 1 03/07/2012 [facility] Heart Rate 84 01/05/2013 [facility] Diastolic (mm Hg) 84 01/05/2013 [facility] Systolic (mm Hg) 128 01/05/2013 [facility] Weight 160 11/04/2012 [facility] Height 60 0 11/04/2012 [facility] Heart Rate 78 11/04/2012 [facility] Diastolic (mm Hg) 76 11/04/2012 [facility] Systolic (mm Hg) 122 11/04/2012 [facility] Weight 156 10/14/2012 [facility] Height 60 0 10/14/2012 [facility] Temperature Oral (F) 98.8 F 10/14/2012 [facility] Heart Rate 88 10/14/2012 [facility] Diastolic (mm Hg) 68 10/14/2012 [facility] Systolic (mm Hg) 124 10/14/2012 [facility] Systolic (mm Hg) 126 10/12/2012 [facility] Diastolic (mm Hg) 85 10/12/2012 [facility] Respitory Rate 17 10/12/2012 [facility] Heart Rate 86 10/12/2012 [facility] Temperature Oral (F) 98.6 F 10/12/2012 [facility] Temperature Oral (F) 98.2 F 10/12/2012 [facility] Respitory Rate 16 10/12/2012 [facility] Heart Rate 89 10/12/2012 [facility] Systolic (mm Hg) 111 10/12/2012 [facility] Diastolic (mm Hg) 65 10/12/2012 [facility] Respitory Rate 16 10/12/2012 [facility] Systolic (mm Hg) 100 10/12/2012 [facility] Diastolic (mm Hg) 68 10/12/2012 [facility] Temperature Oral (F) 98.6 F 10/12/2012 [facility] Heart Rate 79 10/12/2012 [facility] Weight 75 0 10/03/2012 [facility] Height 149.86 cm 10/03/2012 [facility] Weight 159 09/07/2012 [facility] Height 60 0 09/07/2012 [facility] Heart Rate 68 09/07/2012 [facility] Diastolic (mm Hg) 80 09/07/2012 [facility] Systolic (mm Hg) 124 09/07/2012 [facility] Encounters Location Location Details Encounter Type Encounter Number Reason For Visit Attending Provider ADM Date DC Date Status Source [facility] Outpatient [id number] 724.5 ALBERTO HARRIS 09/05/2011 Active [facility] Inpatient [id number] ROSANNE ZUNIGA 10/03/2012 10/12/[address] [facility] Needs call back from Medical Staff [id number] 10/14/2012 10/14/2012 [facility] Needs call back from Medical Staff [id number] 10/14/2012 10/14/2012 [facility] Needs call back from Medical Staff [id number] 10/14/2012 10/14/2012 [facility] Needs call back from Medical Staff [id number] 10/14/2012 10/14/2012 [facility] Needs call back from Medical Staff [id number] 10/14/2012 10/14/2012 [facility] Needs call back from Medical Staff [id number] 10/14/2012 10/14/2012 [facility] Needs call back from Medical Staff [id number] 10/14/2012 10/14/2012 [facility] Needs call back from Medical Staff [id number] 10/14/2012 10/14/2012 [facility] Needs call back from Medical Staff [id number] 10/14/2012 10/14/2012 [facility] Needs call back from Medical Staff [id number] 10/14/2012 10/14/2012 [facility] Needs call back from Medical Staff [id number] 10/14/2012 10/14/2012 [facility] Needs call back from Medical Staff [id number] 10/14/2012 10/14/2012 [facility] Needs call back from Medical Staff [id number] 10/14/2012 10/14/2012 [facility] Needs call back from Medical Staff [id number] 10/14/2012 10/14/2012 [facility] Needs call back from Medical Staff [id number] 10/14/2012 10/14/2012 [facility] Needs call back from Medical Staff [id number] 10/14/2012 10/14/2012 [facility] Needs call back from Medical Staff [id number] 10/14/2012 10/14/2012 [facility] Needs call back from Medical Staff [id number] 10/14/2012 10/14/2012 [facility] Needs call back from Medical Staff [id number] 10/14/2012 10/14/2012 [facility] Needs call back from Medical Staff [id number] 10/14/2012 10/14/2012 [facility] Needs call back from Medical Staff [id number] 10/14/2012 10/14/2012 [facility] HOSPITAL FOLLOW-UP/SHORTNESS OF BREATH [id number] 10/14/2012 10/14/2012 [facility] HOSPITAL FOLLOW-UP/SHORTNESS OF BREATH [id number] 10/14/2012 10/14/2012 [facility] HOSPITAL FOLLOW-UP/SHORTNESS OF BREATH [id number] 10/14/2012 10/14/2012 [facility] HOSPITAL FOLLOW-UP/SHORTNESS OF BREATH [id number] 10/14/2012 10/14/2012 [facility] HOSPITAL FOLLOW-UP/SHORTNESS OF BREATH [id number] 10/14/2012 10/14/2012 [facility] HOSPITAL FOLLOW-UP/SHORTNESS OF BREATH [id number] 10/14/2012 10/14/2012 [facility] HOSPITAL FOLLOW-UP/SHORTNESS OF BREATH [id number] 10/14/2012 10/14/2012 [facility] HOSPITAL FOLLOW-UP/SHORTNESS OF BREATH [id number] 10/14/2012 10/14/2012 [facility] HOSPITAL FOLLOW-UP/SHORTNESS OF BREATH [id number] 10/14/2012 10/14/2012 [facility] FOLLOW-UP/SHORTNESS OF BREATH [id number] 10/14/2012 10/14/2012 [facility] HOSPITAL FOLLOW-UP/SHORTNESS OF BREATH [id number] 10/14/2012 10/14/2012 [facility] FOLLOW-UP/SHORTNESS OF BREATH [id number] 10/14/2012 10/14/2012 [facility] HOSPITAL FOLLOW-UP/SHORTNESS OF BREATH [id number] 10/14/2012 10/14/2012 [facility] HOSPITAL FOLLOW-UP/SHORTNESS OF BREATH [id number] 10/14/2012 10/14/2012 [facility] HOSPITAL FOLLOW-UP/SHORTNESS OF BREATH [id number] 10/14/2012 10/14/2012 [facility] HOSPITAL FOLLOW-UP/SHORTNESS OF BREATH [id number] 10/14/2012 10/14/2012 [facility] HOSPITAL FOLLOW-UP/SHORTNESS OF BREATH [id number] 10/14/2012 10/14/2012 [facility] HOSPITAL FOLLOW-UP/SHORTNESS OF BREATH [id number] 10/14/2012 10/14/2012 [facility] [place] [facility] HOSPITAL FOLLOW-UP/SHORTNESS OF BREATH [id number] 10/14/2012 10/14/2012 [facility] HOSPITAL FOLLOW-UP/SHORTNESS OF BREATH [id number] 10/14/2012 10/14/2012 [facility] Unknown [id number] 10/28/2012 10/28/2012 [facility] Unknown [id number] 10/28/2012 10/28/2012 [facility] Unknown [id number] 10/28/2012 10/28/2012 [facility] Unknown [id number] 10/28/2012 10/28/2012 [facility] Unknown [id number] 10/28/2012 10/28/2012 [facility] Unknown [id number] 10/28/2012 10/28/2012 [facility] Unknown [id number] 10/28/2012 10/28/2012 [facility] Unknown [id number] 10/28/2012 10/28/2012 [facility] Unknown [id number] 10/28/2012 10/28/2012 [facility] Unknown [id number] 10/28/2012 10/28/2012 [facility] Unknown [id number] 10/28/2012 10/28/2012 [facility] Unknown [id number] 10/28/2012 10/28/2012 [facility] Unknown [id number] 10/28/2012 10/28/2012 [facility] Unknown [id number] 10/28/2012 10/28/2012 [facility] Unknown [id number] 10/28/2012 10/28/2012 [facility] Unknown [id number] 10/28/2012 10/28/2012 [facility] Unknown [id number] 10/28/2012 10/28/2012 [facility] Unknown [id number] 10/28/2012 10/28/2012 [facility] Unknown [id number] 10/28/2012 10/28/2012 [facility] MEDS/SHOULDER PAIN [id number] 11/04/2012 11/04/2012 [facility] MEDS/SHOULDER PAIN [id number] 11/04/2012 11/04/2012 [facility] MEDS/SHOULDER PAIN [id number] 11/04/2012 11/04/2012 [facility] MEDS/SHOULDER PAIN [id number] 11/04/2012 11/04/2012 [facility] MEDS/SHOULDER PAIN [id number] 11/04/2012 11/04/2012 [facility] MEDS/SHOULDER PAIN [id number] 11/04/2012 11/04/2012 [facility] MEDS/SHOULDER PAIN [id number] 11/04/2012 11/04/2012 [facility] MEDS/SHOULDER PAIN [id number] 11/04/2012 11/04/2012 [facility] MEDS/SHOULDER PAIN [id number] 11/04/2012 11/04/2012 [facility] MEDS/SHOULDER PAIN [id number] 11/04/2012 11/04/2012 [facility] MEDS/SHOULDER PAIN [id number] 11/04/2012 11/04/2012 [facility] MEDS/SHOULDER PAIN [id number] 11/04/2012 11/04/2012 [facility] MEDS/SHOULDER PAIN [id number] 11/04/2012 11/04/2012 [facility] MEDS/SHOULDER PAIN [id number] 11/04/2012 11/04/2012 [facility] MEDS/SHOULDER PAIN [id number] 11/04/2012 11/04/2012 [facility] MEDS/SHOULDER PAIN [id number] 11/04/2012 11/04/2012 [facility] MEDS/SHOULDER PAIN [id number] 11/04/2012 11/04/2012 [facility] Unknown [id number] 11/04/2012 11/04/2012 [facility] Unknown [id number] 11/04/2012 11/04/2012 [facility] Unknown [id number] 11/04/2012 11/04/2012 [facility] Unknown [id number] 11/04/2012 11/04/2012 [facility] Unknown [id number] 11/04/2012 11/04/2012 [facility] Unknown [id number] 11/04/2012 11/04/2012 [facility] Unknown [id number] 11/04/2012 11/04/2012 [facility] Unknown [id number] 11/04/2012 11/04/2012 [facility] Unknown [id number] 11/04/2012 11/04/2012 [facility] Unknown [id number] 11/04/2012 11/04/2012 [facility] Unknown [id number] 11/04/2012 11/04/2012 [facility] Unknown [id number] 11/04/2012 11/04/2012 [facility] Unknown [id number] 11/04/2012 11/04/2012 [facility] Unknown [id number] 11/04/2012 11/04/2012 [facility] Unknown [id number] 11/04/2012 11/04/2012 [facility] Unknown [id number] 11/04/2012 11/04/2012 [facility] Unknown [id number] 11/04/2012 11/04/2012 [facility] Unknown [id number] 11/04/2012 11/04/2012 [facility] preop clearance [id number] 01/05/2013 01/05/2013 [facility] preop clearance [id number] 01/05/2013 01/05/2013 [facility] preop clearance [id number] 01/05/2013 01/05/2013 [facility] preop clearance [id number] 01/05/2013 01/05/2013 [facility] preop clearance [id number] 01/05/2013 01/05/2013 [facility] preop clearance [id number] 01/05/2013 01/05/2013 [facility] preop clearance [id number] 01/05/2013 01/05/2013 [facility] preop clearance [id number] 01/05/2013 01/05/2013 [facility] preop clearance [id number] 01/05/2013 01/05/2013 [facility] preop clearance [id number] 01/05/2013 01/05/2013 [facility] preop clearance [id number] 01/05/2013 01/05/2013 [facility] preop clearance [id number] 01/05/2013 01/05/2013 [facility] preop clearance [id number] 01/05/2013 01/05/2013 [facility] preop clearance [id number] 01/05/2013 01/05/2013 [facility] preop clearance [id number] 01/05/2013 01/05/2013 [facility] preop clearance [id number] 01/05/2013 01/05/2013 [facility] refill [id number] 02/01/2013 02/01/2013 [facility] refill [id number] 02/01/2013 02/01/2013 [facility] refill [id number] 02/01/2013 02/01/2013 [facility] refill [id number] 02/01/2013 02/01/2013 [facility] refill [id number] 02/01/2013 02/01/2013 [facility] refill [id number] 02/01/2013 02/01/2013 [facility] refill [id number] 02/01/2013 02/01/2013 [facility] refill [id number] 02/01/2013 02/01/2013 [facility] refill [id number] 02/01/2013 02/01/2013 [facility] refill [id number] 02/01/2013 02/01/2013 [facility] refill [id number] 02/01/2013 02/01/2013 [facility] refill [id number] 02/01/2013 02/01/2013 [facility] refill [id number] 02/01/2013 02/01/2013 [facility] refill [id number] 02/01/2013 02/01/2013 [facility] refill [id number] 02/01/2013 02/01/2013 [facility] Unknown [id number] 04/25/2013 04/25/2013 [facility] Unknown [id number] 04/25/2013 04/25/2013 [facility] Unknown [id number] 04/25/2013 04/25/2013 [facility] Unknown [id number] 04/25/2013 04/25/2013 [facility] Unknown [id number] 04/25/2013 04/25/2013 [facility] Unknown [id number] 04/25/2013 04/25/2013 [facility] Unknown [id number] 04/25/2013 04/25/2013 [facility] Unknown [id number] 04/25/2013 04/25/2013 [facility] Unknown [id number] 04/25/2013 04/25/2013 [facility] Unknown [id number] 04/25/2013 04/25/2013 [facility] Unknown [id number] 04/25/2013 04/25/2013 [facility] Unknown [id number] 04/25/2013 04/25/2013 [facility] Unknown [id number] 04/25/2013 04/25/2013 [facility] Unknown [id number] 04/25/2013 04/25/2013 [facility] REFILL [id number] 05/04/2013 05/04/2013 [facility] REFILL [id number] 05/04/2013 05/04/2013 [facility] REFILL [id number] 05/04/2013 05/04/2013 [facility] REFILL [id number] 05/04/2013 05/04/2013 [facility] REFILL [id number] 05/04/2013 05/04/2013 [facility] REFILL [id number] 05/04/2013 05/04/2013 [facility] REFILL [id number] 05/04/2013 05/04/2013 [facility] REFILL [id number] 05/04/2013 05/04/2013 [facility] REFILL [id number] 05/04/2013 05/04/2013 [facility] REFILL [id number] 05/04/2013 05/04/2013 [facility] REFILL [id number] 05/04/2013 05/04/2013 [facility] REFILL [id number] 05/04/2013 05/04/2013 [facility] REFILL [id number] 05/04/2013 05/04/2013 [facility] shortness of breath [id number] 05/05/2013 05/05/2013 [facility] shortness of breath [id number] 05/05/2013 05/05/2013 [facility] shortness of breath [id number] 05/05/2013 05/05/2013 [facility] shortness of breath [id number] 05/05/2013 05/05/2013 [facility] shortness of breath [id number] 05/05/2013 05/05/2013 [facility] shortness of breath [id number] 05/05/2013 05/05/2013 [facility] shortness of breath [id number] 05/05/2013 05/05/2013 [facility] shortness of breath [id number] 05/05/2013 05/05/2013 [facility] shortness of breath [id number] 05/05/2013 05/05/2013 [facility] shortness of breath [id number] 05/05/2013 05/05/2013 [facility] shortness of breath [id number] 05/05/2013 05/05/2013 [facility] shortness of breath [id number] 05/05/2013 05/05/2013 [facility] REFILL [id number] 08/04/2013 08/04/2013 [facility] REFILL [id number] 08/04/2013 08/04/2013 [facility] REFILL [id number] 08/04/2013 08/04/2013 [facility] REFILL [id number] 08/04/2013 08/04/2013 [facility] REFILL [id number] 08/04/2013 08/04/2013 [facility] REFILL [id number] 08/04/2013 08/04/2013 [facility] REFILL [id number] 08/04/2013 08/04/2013 [facility] REFILL [id number] 08/04/2013 08/04/2013 [facility] REFILL [id number] 08/04/2013 08/04/2013 [facility] REFILL [id number] 08/04/2013 08/04/2013 [facility] REFILL [id number] 08/04/2013 08/04/2013 [facility] RF [id number] 08/10/2013 08/10/2013 [facility] RF [id number] 08/10/2013 08/10/2013 [facility] RF [id number] 08/10/2013 08/10/2013 [facility] RF [id number] 08/10/2013 08/10/2013 [facility] RF [id number] 08/10/2013 08/10/2013 [facility] RF [id number] 08/10/2013 08/10/2013 [facility] RF [id number] 08/10/2013 08/10/2013 [facility] RF [id number] 08/10/2013 08/10/2013 [facility] RF [id number] 08/10/2013 08/10/2013 [facility] [id number] 08/10/2013 08/10/2013 [facility] [id number] 08/10/2013 08/10/2013 [facility] Unknown [id number] 08/12/2013 08/12/2013 [facility] Unknown [id number] 08/12/2013 08/12/2013 [facility] Unknown [id number] 08/12/2013 08/12/2013 [facility] Unknown [id number] 08/12/2013 08/12/2013 [facility] Unknown [id number] 08/12/2013 08/12/2013 [facility] Unknown [id number] 08/12/2013 08/12/2013 [facility] Unknown [id number] 08/12/2013 08/12/2013 [facility] Unknown [id number] 08/12/2013 08/12/2013 [facility] Unknown [id number] 08/12/2013 08/12/2013 [facility] Unknown [id number] 08/12/2013 08/12/2013 [facility] Unknown [id number] 08/12/2013 08/12/2013 [facility] medication refill [id number] 09/01/2013 09/01/2013 [facility] medication refill [id number] 09/01/2013 09/01/2013 [facility] medication refill [id number] 09/01/2013 09/01/2013 [facility] medication refill [id number] 09/01/2013 09/01/2013 [facility] medication refill [id number] 09/01/2013 09/01/2013 [facility] medication refill [id number] 09/01/2013 09/01/2013 [facility] medication refill [id number] 09/01/2013 09/01/2013 [facility] medication refill [id number] 09/01/2013 09/01/2013 [facility] REFILL [id number] 10/07/2013 10/07/2013 [facility] REFILL [id number] 10/07/2013 10/07/2013 [facility] REFILL [id number] 10/07/2013 10/07/2013 [facility] REFILL [id number] 10/07/2013 10/07/2013 [facility] REFILL [id number] 10/07/2013 10/07/2013 [facility] REFILL [id number] 10/07/2013 10/07/2013 [facility] REFILL [id number] 10/07/2013 10/07/2013 [facility] PROBLEMS SLEEPING [id number] 10/18/2013 10/18/2013 [facility] PROBLEMS SLEEPING [id number] 10/18/2013 10/18/2013 [facility] PROBLEMS SLEEPING [id number] 10/18/2013 10/18/2013 [facility] PROBLEMS SLEEPING [id number] 10/18/2013 10/18/2013 [facility] PROBLEMS SLEEPING [id number] 10/18/2013 10/18/2013 [facility] PROBLEMS SLEEPING [id number] 10/18/2013 10/18/2013 [facility] PROBLEMS SLEEPING [id number] 10/18/2013 10/18/2013 [facility] shingles [id number] 11/01/2013 11/01/2013 [facility] shingles [id number] 11/01/2013 11/01/2013 [facility] shingles [id number] 11/01/2013 11/01/2013 [facility] shingles [id number] 11/01/2013 11/01/2013 [facility] shingles [id number] 11/01/2013 11/01/2013 [facility] alejandro [id number] 11/01/2013 11/01/2013 [facility] alejandro [id number] 11/01/2013 11/01/2013 [facility] OBS Observation Patient [id number] Silvano Chanceious 11/01/2013 11/04/2013 [facility] Other [id number] 11/14/2013 11/14/2013 [facility] Other [id number] 11/14/2013 11/14/2013 [facility] Other [id number] 11/14/2013 11/14/2013 [facility] Other [id number] 11/14/2013 11/14/2013 [facility] Unknown [id number] 12/08/2013 12/08/2013 [facility] Unknown [id number] 12/08/2013 12/08/2013 [facility] Unknown [id number] 12/08/2013 12/08/2013 [facility] PUNCTURED EAR DRUM [id number] 07/28/2014 07/28/2014 [facility] PUNCTURED EAR DRUM [id number] 07/28/2014 07/28/2014 [facility] POSS POISON SAMMIE [id number] 09/14/2014 09/14/2014 [facility] Procedures Procedure Code Date Perfomer Comments Source Arthroplasty of shoulder<sup>1</sup> [id number] a nd 2009 [facility] Cholecystectomy<sup>2</sup> 38 [id number] [facility] Gastric bypass operation<sup>3</sup> [id number] [facility] Suspension of bladder<sup>4</sup> [id number] [facility] Assessment and Plan Assessment and Plan Date Source Extracted from:Title: Clinical Document Author: Silvano Swartz MD Date: 11/03/13 Progress Note - Daily [facility] Completed: Oct, 16:57 by Silvano Swartz MD RM: 200 - 1P, SE 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 58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 (: 1955) F Attending: Silvano Swartz MD Service: Internal Medicine Reason for Admission: TIA Working DRG: None Documented Code status: None Specified=FULL CODE Current diet: Isolation: Contact [Ordered] Allergies: amoxicillin, Phenergan SUBJECTIVE alert, overall doing better OBJECTIVE 24hr Labs 11/03 0441 Glucose Lvl 79 BUN 21 Creatinine Lvl 0.8 Sodium Lvl 140 Potassium Lvl 4.1 Chloride Lvl 108 CO2 26 AGAP 10.1 Calcium Lvl 7.8 L eGFR 81 WBC 5.1 RBC 5.35 Hgb 11.6 L Hct 36.9 MCV 69.0 L MCH 21.6 L MCHC 31.4 L RDW 16.9 H Platelet 218 MPV 8.5 Landa still necessary (Yes/No): Line still necessary (Yes/No): Vitals Tmp(F) Pulse BP RR SpO2 FIO2 11/03 12:00 98.2 87 103/67 1 8 --- --- 11/03 08:00 ---- 69 99/64 18 --- --- 11/03 04:00 98.4 74 96/63 18 --- --- 11/03 00:40 98.4 86 112/70 1 8 --- --- 11/02 20:31 98.6 71 108/74 1 8 96 --- 24 Hr Tmax: 98.6F (37.00c) at 11/02 20:3 1 Vital Signs are the last 5 in the past 48 hours. Date Wt(kg) Wt(lb) Ht(cm) Ht(in) Method 11/01 (initial) 80.45 177.00 149.86 59.00 Stated I&O Record In Out Bal 11/03 24hr Tot 0 0 0 11/02 24hr Tot 0 0 0 Medications (19) Active Scheduled Meds (11): 11/02/13 amitriptyline 25 mg PO Bedtime 11/02/13 aspirin (aspirin 81 mg tablet, enteric coated) 81 mg PO Daily 11/16/13 influenza virus vaccine, inacti vated 0.5 ml IM Daily 11/02/13 levofloxacin (Levaquin) 500 mg PO [id number] 11/02/13 nitazoxanide (Alinia 500 mg ora l tablet) 500 mg PO Q12H 11/02/13 non-formulary (NURSE: Please br ing Pt's Own Med to Pharmacy to be verified) MISC TID 11/02/13 pantoprazole (Protonix) 40 mg P O Before Dinner 11/03/13 sertraline (Zoloft) 50 mg PO Be dtime 11/02/13 simvastatin 5 mg PO Bedtime 11/02/13 valACYclovir (Valtrex) 1 gm PO TID 11/02/13 zolpidem (Ambien) 10 mg PO Bedt antonio Unscheduled Meds: None PRN Meds (6): 11/02/13 ALPRAZolam (ALPRAZOLam) 0.25 mg PO BID 11/02/13 acetaminophen-hydrocodone (acet aminophen-hydrocodone 325 mg-5 mg oral tablet) 1 tab PO Q4H 11/02/13 acetaminophen-hydrocodone (acet aminophen-hydrocodone 325 mg-5 mg oral tablet) 2 tab PO Q4H 11/02/13 atropine 0.5 mg IVP PRN 11/02/13 morphine Sulfate 4 mg IVP Q4H 11/02/13 nitroglycerin (nitroglycerin 0. 4 mg sublingual tablet) 0.4 mg SL Q5Min One Time Meds (2): 11/02/13 (Completed) morphine Sulfate 4 mg IVP ONCE 11/02/13 (Completed) potassium chloride 40 mEq PO ONCE Continuous Infusions: None ASSESSMENT and EXAM GENERAL Alert and oriented x 3. no obvious distress HEENT: PERRLA. EOMI. Normocephalic, Atraumatic NECK: No jugular venous distention, no bruit. Thyroid is normal. LUNGS: Clear to auscultation and percussion. HEART: RRR. S1, S2 is normal. ABDOMEN: Positive bowel sounds, no organomegaly. No tenderness appreciated EXTREMITIES: No tenderness. Lower limbs, no edema and no cyanosis. NEUROLOGIC: Grossly intact sensory and motor. SKIN: no rashes noted PLAN and TREATMENT psych eval MRI and carotid doppler noted continue aspirin possible home in AM ASSESSMENT AND PLAN: 1. Encephalopathy. 2. TIA. 3. Dysarthria removed. 4. Urinary tract infection, psoriasis, depression, anxiety. Ready for Discharge (Yes/No)? 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 2004September 14, 2014 Flu Vaccine: . does not remember September 14, 2014 Last Colonoscopy: . 2012September 14, 2014 children . 6 September 14, 2014 Tobacco Use: . Are you a: never smoker September 14, 2014 Marital Status: . Irvin September 14, 2014 Do you drink alcohol? . Status: No September 14, 2014 Occupation: . at home September 14, 2014 09/14/2014 [facility] Social History TypeResponse Smoking Status Never smoker, Exposure to Tobacco Smoke None, Cigarette Smoking Last 365 Days No, Reg Smoking Cessation Counseling No 11/02/2013 [facility] Family History Value Date S ource QualifierDescriptionCommentDate Reported Maternal Grandmother Comment not available September 14, 2014 Paternal Grandmother Comment not available September 14, 2014 Siblings Comment not available September 14, 2014 Maternal Grandfather Comment not available September 14, 2014 Children alive Comment not available September 14, 2014 Father Comment not available September 14, 2014 Paternal Grandfather Comment not available September 14, 2014 Mother alive asthma September 14, 2014 Other: GF - cancer September 14, 2014 09/17/2014 [facility] QualifierDescriptionCommentDate Reported Maternal Grandmother Comment not available July 28, 2014 Paternal Grandmother Comment not available July 28, 2014 Siblings Comment not available July 28, 2014 Maternal Grandfather Comment not available July 28, 2014 Children alive Comment not available July 28, 2014 Father Comment not available July 28, 2014 Paternal Grandfather Comment not available July 28, 2014 Mother alive asthma July 28, 2014 Other: GF - cancer July 28, 2014 07/31/2014 [facility] QualifierDescriptionCommentDate Reported Other: GF - cancer Nov 01, 2013 Father Comment not available Nov 01, 2013 Mother alive asthma Nov 01, 2013 Children alive Comment not available Nov 01, 2013 11/09/2013 [facility] QualifierDescriptionCommentDate Reported Other: GF - cancer Nov 01, 2013 Father Comment not available Nov 01, 2013 Mother alive asthma Nov 01, 2013 Children alive Comment not available Nov 01, 2013 11/09/2013 [facility] QualifierDescriptionCommentDate Reported Other: GF - cancer Nov 01, 2013 Father Comment not available Nov 01, 2013 Mother alive asthma Nov 01, 2013 Children alive Comment not available Nov 01, 2013 11/09/2013 [facility] QualifierDescriptionCommentDate Reported Other: GF - cancer May 05, 2013 Father Comment not available May 05, 2013 Mother alive asthma May 05, 2013 Children alive Comment not available May 05, 2013 05/07/2013 [facility] QualifierDescriptionCommentDate Reported Other: GF - cancer Jan 05, 2013 Father Comment not available Jan 05, 2013 Mother alive asthma Jan 05, 2013 Children alive Comment not available Jan 05, 2013 01/07/2013 [facility] QualifierDescriptionCommentDate Reported Other: GF - cancer Nov 04, 2012 Father Comment not available Nov 04, 2012 Mother alive asthma Nov 04, 2012 Children alive Comment not available Nov 04, 2012 11/06/2012 [facility] QualifierDescriptionCommentDate Reported Other: GF - cancer Oct 14, 2012 Father Comment not available Oct 14, 2012 Mother alive asthma Oct 14, 2012 Children alive Comment not available Oct 14, 2012 10/24/2012 [facility] Advance Directives No Data Provided for This Section Functional Status No Data Provided for This Section
--- OUTSIDE RECORDS SUMMARY | 2019-10-18 12:54 | XMS REPORT | Continuity of Care Document ---
Author Author [facility] t Organization [facility] Address Formerly [facility], [facility] [place] [address] [place] [id number] Phone Unavailable Care Team Providers Care Starch Crab Name Role Phone TONY STERLING, Wili SCANLON PCP Alan HORNE, Adeline Attphys Unavailable Onelia STERLING, Tj Stephenson Attphys Fermin HORNE, America Attphys Unavailable Angelina HORNE, Lupis Attphys Unavailable Mirna STERLING, Historical Attphys Hannah RAMÍREZ, Rach Attphys Unavailable Herbert STERLING, Chris Attphys WHITNEY NEELY KLEVER Attphys Unavailable OLECONSUELO OLY Attphys Unavailable Ghebranious, Ramsis Amir Attphys WHITNEY NEELY KLEVER Admphys Unavailable OLE, CONSUELO OLY Admphys Unavailable Ghebranious, Ramsis Amir Admphys Payers Payer Name Policy Type Policy Number Effective Date Expiration Date Tasia holguin DISHA [id number] [id number] xxx 2007 00:00:00 Dennys Davila Ppo [id number] 2007 00:00:00 [facility] Problems Condition Name Condition Details Condition Category Status Onset Date Resolution Date Last Treatment Date Treating Clinician Comments Source Rotator cuff tear arthropathy of left shoulder Rotator cuff tear arthropathy of left shoulder Disease Active 2018-06-22 00:00:00 [facility] S/P shoulder replacement, left S/P shoulder replacement, left Disea se Active 2018-06-22 00:00:00 [facility] Complete tear of left rotator cuff Complete tear of left rotator cuff Disease Active 2017-12-15 00:00:[address] [facility] S/P knee replacement S/P knee replacement Disease Active 00:00:00 [facility] Primary osteoarthritis of right knee Primary osteoarthritis of right knee Disease Active 2017-11-04 00:00:00 [facility] Status post right knee replacement Status post right knee replac ement Disease Active 2017-11-04 00:00:[address] [facility] Abdominal pain, acute, generalized Abdominal pain, acute, genera lized Disease Active 2017-06-30 00:00:00 [place] [facility] Acquired gastric outlet stenosis Acquired gastric outlet stenosi s Disease Active 2017-05-19 00:00:00 [place] [facility] STROKE-LIKE SYMPTOMS STRO KE-LIKE SYMPTOMS Active 11/01/2013 [facility] Diagnosis Active 2013-11-01 00:00:00 2013-11-01 21:21:00 [facility] TIA TIA Active 11/01/2013 [facility] Diagnosis Active 2013-11-01 00:00:00 2013-11-04 07:20:00 M myah Joseph OVERDOSE OVER DOSE Active 10/03/2012 [facility] Diagnosis Active 2012-10-03 14:30:00 2012-10-03 17:05:00 [facility] AMS, OVERDOSE UNKNOWN SUBSTANCE, SUICIDA AMS, OVERDOSE UNKNOWN SUBSTANCE, SUICIDA Active 10/03/2012 [facility] Diagnosis Ac tive 2012-10-03 14:30:00 2012-10-12 09:36:00 M my[facility] Joseph Dehydration Dehy dration Active 07/31/2008 Problem 10/14/2012 [facility] Problem Active 2008-07-31 00:00:00 2012-10-14 20:55:05 [facility] Fever Feve r Active 07/31/2008 Problem 10/14/2012 [facility] Problem Active 2008-07-31 00:00:00 2012-10-14 20:55:05 [facility] UTI - Urinary tract infection UTI - Urinary tract infection Active 07/31/2008 Problem 10/14/2012 [facility] Problem Act sylwia 2008-07-31 00:00:00 2012-10-14 20:55:05 [facility] Dehydration (disorder) Dehy dration (disorder) Active 07/31/2008 Problem 11/06/2013 [facility] Problem Active 2008-07-31 00 :00:00 2013-11-06 02:16:40 [facility] Fever (finding) Feve r (finding) Active 07/31/2008 Problem 11/06/2013 [facility] Problem Active 2008-07-31 00:00:00 2013-11-06 02:16:40 [facility] Urinary tract infectious disease (disorder) Urinary tract infectious disease (disorder) Active 07/31/2008 Problem 11/06/2013 [facility] Problem Active 2008-07-31 00:00:00 2013-11-06 02:16:40 [facility] Hypertensive disorder, systemic arterial (disorder) Hypertensive disorder, systemic arterial (disorder) Resolved Problem 11/06/2013 [facility] Problem Resolved 2013-11-06 02:16:40 [facility] Joseph Herpes zoster (disorder) Herp es zoster (disorder) Resolved Problem 11/06/2013 [facility] Problem Resolved 2013-11-06 02: 16:40 [facility] Joseph TIA (Unspecified transient cerebral ischemia) TIA (Unspecified transient cerebral ischemia) Active Problem 09/17/2014 [facility] Problem Active 2014-09-17 02:05:23 [facility] Hiatal hernia Hiat al hernia Active Problem 09/17/2014 [facility] Problem Active 2 02:05:23 [facility] Migraine Migr adriana Active Problem 09/17/2014 [facility] Problem Active 2014-09-17 02:05:23 [facility] Anxiety Anxi ety Active Problem 09/17/2014 [facility] Problem Active 2014-09-17 02:05:23 [facility] Insomnia Inso mnia Active Problem 09/17/2014 [facility] Problem Active 2014-09-17 02:05:23 [facility] GERD (Esophageal reflux) GERD (Esophageal reflux) Active Problem 09/17/2014 [facility] Problem Active 2014-09-17 02:05:23 [facility] Depression Depr ession Active Problem 09/17/2014 [facility] Problem Active 2 02 02:05:23 [facility] Diverticulitis Dive rticulitis Active Problem 09/17/2014 [facility] Problem Active 02:05:23 [facility] Other specified pre-operative examination Other specified pre-operative examination Active Diagnosis 01/07/2013 [facility] Diagnosis Active 2013-01-07 02:15:22 Allen Mitchellann History of suicide attempt His tory of suicide attempt Active Problem 09/17/2014 [facility] Problem Active 2014-09-17 02:05:23 [facility] Needs flu shot Need s flu shot Active Diagnosis 01/07/2013 [facility] Diagnosis Active 2013-01-07 02:15:22 [facility] Mitchellann Neck pain Neck pain Active Diagnosis 11/06/2012 [facility] Diagnosis Active 2012-11-06 04:10:53 Allen Mitchellann Suicide attempt Suic madelin attempt Active Diagnosis 10/24/2012 [facility] Diagnosis Active 2012-10-24 04:12:02 [facility] Pneumothorax Pneu mothorax Active Diagnosis 10/24/2012 [facility] Diagnosis Active 2012-10-24 04:12:02 [facility] Pneumonia Pneu monia Active Diagnosis 10/24/2012 [facility] Diagnosis Active 2012-10-24 04:12:02 [facility] SOB (shortness of breath) SOB (shortness of breath) Active Diagnosis 05/07/2013 [facility] Diagnosis Active 2013-05-07 01:16:39 [facility] Memory impairment Durga ry impairment Active Problem 09/17/2014 [facility] Problem Active 2014-09-17 02:05:23 [facility] Genital herpes Cassy ruby herpes Active Problem 09/17/2014 [facility] Problem Active 02:05:23 [facility] Mitchellann Migraine with aura, with intractable asia rico, so stated, without mention of status migrainosus Migraine with au ra, with intractable migraine, so stated, without mention of status migrainosus Active Diagnosis 08/18/2013 [facility] Diagnosis Active 2013-08-18 02:13:05 Allen Mitchellann Urinary tract infection Urin stanley tract infection Active Diagnosis 11/09/2013 [facility] Diagnosis Active 2013-11-09 03:13:33 [facility] [place] Panic attack Shaina c attack Active Diagnosis 11/09/2013 [facility] Diagnosis Active 2013-11-09 03:13:33 [facility] [place] Generalized anxiety disorder G eneralized anxiety disorder Active Diagnosis 11/09/2013 [facility] Diagnosis Active 2013-11-09 03:13:33 [facility] [place] Dysuria Dysu talya Active Diagnosis 11/09/2013 [facility] Diagnosis Active 2013-11-09 03:13:33 [facility] [place] Poison sammie dermatitis Pois on sammie dermatitis Active Diagnosis 09/17/2014 [facility] Diagnosis Active 2014-09-17 02:05:23 [facility] [place] Contact dermatitis Cont act dermatitis Active Diagnosis 09/17/2014 [facility] Diagnosis Active 2014-09-17 02:05:23 [facility] Screening breast examination S creening breast examination Active Diagnosis 07/31/2014 [facility] Diagnosis Active 2014-07-31 02:00:08 [facility] Ear pain, left Ear pain, left Active Diagnosis 07/31/2014 [facility] Diagnosis Active 2014-07-31 02:00:08 [facility] Otitis media Otit is media Active Diagnosis 07/31/2014 [facility] Diagnosis Active 2014-07-31 02:00:08 [facility] [place] Otitis externa, left Otit is externa, left Active Diagnosis 07/31/2014 [facility] Diagnosis Active 2014-07-31 02:00:08 [facility] Anxiety (finding) Anxi ety (finding) Active Problem 11/06/2013 [facility] Problem Active 2013-11-06 02:16:40 [facility] [place] Diverticular disease (disorder) Diverticular disease (disorder) Active Problem 11/06/2013 [facility] Problem Active 2013-11-06 02:16:40 [facility] Gastroesophageal reflux disease (disorder) Gastroesophageal reflux disease (disorder) Active Problem 11/06/2013 [facility] Problem Active 2013-11-06 02:16:40 [facility] Suicide attempt (disorder) Bernadette cide attempt (disorder) Active Problem 11/06/2013 [facility] Problem Active 2013-11-06 02:16:40 [facility] Anxiety Anxi ety Active Problem 10/14/2012 [facility] Problem Active 2012-10-14 20:55:[facility] Diverticulosis Dive rticulosis Active Problem 10/14/2012 [facility] Problem Active 2012-10-14 20:55:05 [facility] GERD - Gastro-esophageal reflux disease GERD - Gastro- esophageal reflux disease Active Problem 10/14/2012 [facility] Problem A ctive 2012-10-14 20:55:05 [facility] Suicide attempt Suic madelin attempt Active Problem 10/14/2012 [facility] Problem Active 2012-10-14 20:55:05 [facility] 724.5 724. 5 Active [facility] Diagnosis Active 2011-09-05 12:46:00 [facility] ALTERED MENTAL STATUS ALTE RED MENTAL STATUS Active [facility] Diagnosis Active 2012-10-12 09:36:00 [facility] PRIM SPONT PNEUMOTHORAX PRIM SPONT PNEUMOTHORAX Active [facility] Diagnosis Active 2012-10-12 09:36:00 [facility] SHOULDER AND NECK SHOU LDER AND NECK Active [facility] Diagnosis Active 2013-10-14 22:19:00 [facility] Allergies, Adverse Reactions, Alerts Allergy Name Allergy Type Status Severity Reaction(s) Onset Date Inacti ve Date Treating Clinician Comments Source Promethazine Drug Allergy Active Mild 2017-11-02 00:00:00 Irritability, leg thrashing [facility] Promethazine Propensity to adverse reactions to drug Active Other (See Comments) 2017-02-25 00:00:00 [place] [place]/Th rashing [place] [facility] Phenergan Phenergan Active [facility] 2014-09-14 00:00:00 [facility] Amoxil Amoxil Active unknown 2014-09-14 00:00:00 [facility] codeine codeine Active [facility] 2014-09-14 00:00:00 [facility] Promethazine Allergy to Substance Active Mild 2006-11-04 00:00:0 0 [facility] amoxicillin amoxicillin Active [facility] Family History Family Member Diagnosis Comments Start Date Stop Date Source Maternal grandfather Throat cancer [place] [facility] Natural mother Asthma [facility] thodist Natural sister Thyroid cancer [place] [facility] Unknown Family Member Family History 2012-10-24 04:12:02 2 04:12:02 [facility] Social History Social Habit Start Date Stop Date Quantity Comments Source Sex Assigned At F Louisa Palomo Alcohol intake 2019-05-18 00:00:00 2019-05-18 00:00:00 Current drinker of alcohol (finding) Dennys Palomo Alcohol Comment 2017-02-25 00:00:00 2017-02-25 00:00:00 3 times a week: occasional Dennys Palomo LastBoneDensity: 2014-09-14 00:00:00 2014-09-14 00:00:00 [facility] Smoking Status Start Date Stop Date Source Social History [facility] Medications Ordered Medication Name Filled Medication Name Start Date Stop Da te Current Medication? Ordering Clinician Indication Dosage Frequency Signature (SIG) Comments Components Source progesterone (PROMETRIUM) 100 MG capsule 2019-08-01 00:00:00 Yes TAKE ONE CAPSULE BY MOUTH AT BEDTIME Louisa Palomo omeprazole (PriLOSEC) 40 MG capsule 2019-06-06 00:00:00 Yes Gastroesophageal reflux disease, esophagitis presence not specified 40mg QD Take 1 capsule (40 mg total) by mouth daily. Dennys Palomo progesterone (PROMETRIUM) 100 MG capsule 2018-10 00:00:00 2019-08-01 00:00:00 No TAKE ONE CAPSULE BY MOUTH AT BE DTIME Dennys Palomo oxyCODONE (OXY-IR) 5 mg capsule 2018-06-22 07:06:24 Yes 5mg Take 5 mg by mouth every 4 (four) hours as needed. [facility] amitriptyline (ELAVIL) 10 MG tablet 2018-06-14 17:14:05 Yes 60mg Take 60 mg by mouth as needed . [facility] dicyclomine (BENTYL) 10 MG capsule 2018-06-14 17:14:04 Yes 10mg Take 10 mg by mouth as needed. [facility] doxepin (SINEQUAN) 25 MG capsule 2018-06-14 17:14:04 Yes 25mg QD Take 25 mg by mouth nightly. [facility] ferrous sulfate 325 (65 FE) MG tablet 2018-06-14 17:14:04 Y es 325mg QD Take 325 mg by mouth daily. [facility] melatonin 10 mg Tab 2018-06-14 17:14:04 Yes Take by mouth as needed. [facility] multivitamin (MULTIVITAMIN) per tablet 2018-06-14 17:14:04 Yes 1{tbl} QD Take 1 tablet by mouth daily. ROSALIND I [facility] omeprazole (PRILOSEC) 40 MG capsule 2018-06-14 17:14:04 Yes 40mg QD Take 40 mg by mouth daily. [facility] ondansetron (ZOFRAN) 4 MG tablet 2018-06-14 17:14:04 Yes 4mg Take 4 mg by mouth 2 (two) times daily as needed for Nausea. [facility] ubidecarenone (COENZYME Q10 ORAL) 2018-06-14 17:14:03 Yes QD Take by mouth daily. [facility] omeprazole (PriLOSEC) 40 MG capsule 2018-04-12 00:00:0 0 2019-06-06 00:00:00 No Gastroesophageal reflux disease, esophagitis presence not specified TAKE 1 CAPSULE BY MOUTH DAILY Dennys Palomo progesterone (PROMETRIUM) 100 MG capsule 2017-11-02 08:48:35 Yes 100mg QD Take 100 mg by mouth daily. [facility] TiZANidine (ZANAFLEX) 4 MG capsule 2017-11-02 08:48:35 Yes 4mg Take 4 mg by mouth 3 (three) times daily as needed for Muscle spasms. [facility] multivitamin with minerals tablet 2017-07-20 14:13:48 Yes 1{tbl} QD Take 1 tablet by mouth daily. Dennys palmer calcium citrate/vitamin D3 (CALCIUM CITRATE + D ORAL) 2017-07-20 14:13:48 Yes Take by mouth. Dennys Fry ethodi coenzyme Q10 100 mg/mL liquid 2017-07-20 14:13:48 Yes Take by mouth. Dennys Palomo iron/vit C/fructooligosacchard (CHEWABLE IRON ORAL) 07-20 14:13:48 Yes Take by mouth. Britton Palomo ciprofloxacin (CIPRO) 500 MG tablet 2017-07-20 14:13:48 Yes 500mg Q.5D Take 500 mg by mouth 2 (two) times a day. Dennys Palomo diazePAM (VALIUM) 10 MG tablet 2017-07-20 14:13:48 Yes 10mg Q6H Take 10 mg by mouth every 6 (six) hours as needed for anxiety. Dennys Palomo BIFIDOBACTERIUM INFANTIS (ALIGN ORAL) 2017-07-20 14:10:01 Y es Take by mouth. Dennys Palomo HYDROcodone-acetaminophen (NORCO) 5-325 mg per tablet 2017-07-20 14:10:01 Yes 1{tbl} Q6H Take 1 tablet b y mouth every 6 (six) hours as needed for moderate pain. Dennys Palomo cyanocobalamin, vitamin B-12, (VITAMIN B-12) 1,000 mcg/mL dr song 2017-07-20 14:10:01 Yes Q.5D Take by mouth 2 (two) times a day. Dennys Palomo tiZANidine (ZANAFLEX) 4 MG tablet 2017-07-19 00:00:00 Yes Dennys Palomo predniSONE (DELTASONE) 20 mg tablet 2017-07-17 00:00:00 Yes 20mg Take 20 mg by mouth. Dennys Palomo ondansetron (ZOFRAN, HYDROCHLORIDE,) 4 MG tablet 05-13 00:00:00 Yes 4mg Q8H Take 1 tablet (4 mg total) by mouth every 8 (eight) hours as needed for nausea or vomiting. Dennys parada progesterone (PROMETRIUM) 100 MG capsule 2017-04 00:00:00 2018-10-21 00:00:00 No Dennys Palomo doxepin (SINEquan) 25 MG capsule 2017-01-27 00:00:00 Yes 25mg Take 25 mg by mouth. Dennys Palomo traMADol (ULTRAM) 50 mg tablet 2016-10-02 00:00:00 Yes 50mg 50 mg. Dennys Palomo amitriptyline (ELAVIL) 10 MG tablet 2016-07-23 00:00:00 Yes 30mg Take 30 mg by mouth. Dennys Palomo Reglan 2014-09-17 02:05:23 Yes Ken Cabrera 1 tablet 30 minutes before meals and at bedtime as needed Me jassi Joseph Doxepin HCl 2014-09-17 02:05:23 Yes Ken Cabrera 1 capsule [facility] Tizanidine HCl 2014-09-17 02:05:23 Yes Ken Cabrera 1 tablet as needed [facility] HydrOXYzine HCl 2014-09-14 00:00:00 Yes Ken Cabrera 1 tablet [facility] Bactrim DS 2014-09-14 00:00:00 Yes Ken Cabrera 1 tablet [facility] Medrol (Nicola) 2014-09-14 00:00:00 Yes Ken Cabrera as directed [facility] PredniSONE (Nicola) 2014-07-31 02:00:08 Yes Jolanta Partida Unknown [facility] Ciprodex 2014-07-28 00:00:00 Yes Ken Cabrera 4 drops into affected ear [facility] Zithromax Z-Nicola 2014-07-28 00:00:00 Yes Jolanta Partida 2 tablets on the first day, then 1 tablet daily for 4 days [facility] Valacyclovir HCl 2014-04-30 00:00:00 Yes Kami Buntyn 1 tablet [facility] Amitriptyline HCl 2014-03-20 00:00:00 Yes Ken Cabrera 1 tablet [facility] Dexilant 2014-01-11 00:00:00 Yes Ken Cabrera 1 capsule [facility] Reglan 2013-11-09 03:13:33 Yes Kami Buntyn 1 tablet 30 minutes before meals and at bedtime as needed Me morial [place] Dexilant 2013-11-09 03:13:33 Yes Kami Buntyn 1 capsule [facility] Zoloft 2013-11-04 02:00:00 No Notes: (Same as: Zoloft) [facility] Klonopin 2013-11-04 02:00:00 No Notes: (Preet e As: KlonoPIN) [facility] Klonopin 2013-11-03 23:19:00 No Notes: (Preet e As: KlonoPIN) [facility] Risperidone 2013-11-03 22:55:00 No 1 mg, Route: PO, Drug form: TAB, Q6H, Dosing Weight 80.455, kg, PRN Agitation, Start date: 11/03/13 17:55:00, Duration: 30 day, Stop date: 12/03/13 17:54:00 [facility] Dexilant 2013-11-03 14:00:00 No 30 mg, Route: PO, Drug form: DRC, Daily, Dosing Weight 80.455, kg, Start date: 11/03/13 9:00:00, Duration: 30 day, Stop date: 12/02/13 9:00:00 [facility] anant Majano 2013-11-03 04:05:00 No Notes: (Same As: Ambien) [facility] Zoloft 2013-11-03 02:07:00 Yes 10 mg, PO, Be dtime, 0 Refill(s) [facility] Masonien 2013-11-03 02:07:00 Yes 10 mg, PO, Be dtime, 0 Refill(s) [facility] nitazoxanide 500 MG Oral Tablet [Alinia] 2013-11-03 02:00:00 No Notes: Same as Alijavan Non-formulary item [facility] Amitriptyline 2013-11-03 02:00:00 No Notes: (Same as: Elavil) [facility] Simvastatin 2013-11-03 02:00:00 No Notes: ( Same as: Zocor) [facility] Protonix 2013-11-02 21:30:00 No Notes: Tablet should not be chewed or crushed. (Same as: Protonix) [facility] Valtrex 2013-11-02 21:00:00 No Notes: (Same As: Valtrex) [facility] NURSE: Please bring Pt's Own Med to Pharmacy to be verified 2013-11-02 20:00:00 No NURSE: Ple ase bring Pt's Own Med to Pharmacy to be verified, 1, Drug form: MISC, Route: MISC, TID, 11/02/13 15:00:00, Duration: 30 day, Stop date: 12/02/13 9:00:00 Jose Francisco Joseph Levaquin 2013-11-02 20:00:00 No Notes: Do not give w/antacids, dairy pdt & minerals Take 1 hr before or 2 hr after dairy pdt (Same as:Levaquin) [facility] Alprazolam 2013-11-02 18:49:00 No Notes: With food or milk (Same as: Xanax) [facility] Potassium Chloride 2013-11-02 18:49:00 No Notes: (Same as: K-Dur 20) "Do Not Crush" With food and full glass of water Allen Joseph nitroglycerin 0.4 mg sublingual tablet 2013-11-02 18:14:00 No Notes: (Same as:Nitroquick, Nitrostat) "Do Not Crush" Sublingual tablet [facility] atropine 2013-11-02 18:13:00 No 0.5 mg, 5 mL, Route: IVP, Drug form: INJ, PRN, PRN Bradycardia, Start date: 11/02/13 13:13:00, Duration: 30 day, Stop date: 12/02/13 13:12:00 [facility] Enteric Coated Tablet 2013-11-02 17:00:00 No Notes: Do not crush or chew. (Same As: Ecotrin) [facility] [place] [facility]-hydrocodone 325 mg-5 mg oral tablet 2013-11-02 16:21:00 No Notes: (Same as: [place] 325/5) Do not exceed 4g m/day of acetaminophen. [facility] Acetaminophen 325 MG / Hydrocodone Bitartrate 5 MG Oral Tabl et [[place] 5/325] 2013-11-02 13:37:00 No Route: PO, Dosing Weight 80.455, kg, PRN, PRN, Start date: 11/02/13 8:37:00, Duration: 30 day, Stop date: 12/02/13 8:36:00, q4- 6hr for pain score 5-7 [facility] Morphine 2013-11-02 10:38:00 No Not es: (Same as:MORPhine Sulfate) [facility] Morphine 2013-11-02 10:37:00 No 4 mg, Route: IVP, ONCE, Dosing Weight 80.455, kg, Priority: STAT, Start date: 11/02/13 5:37:00, Stop date: 11/02/13 5:37:00 [facility] Morphine 2013-11-02 05:31:00 No 4 mg, Route: IVP, ONCE, Dosing Weight 80.455, kg, Start date: 11/02/13 0:31:00, Stop date: 11/02/13 0:31:00 [facility] aspirin 2013-11-02 05:16:00 No 325 mg, Route: PO, Drug form: ECTAB, ONCE, Dosing Weight 80.455, kg, Priority: STAT, Start date: 11/02/13 0:16:00, Stop date: 11/02/13 0:16:00 [facility] [place] valacyclovir 1000 MG Oral Tablet [Valtrex] 2013-11-02 04:00:00 Yes 1 gm = 1 tab, PO, TID, # 20 tab, 0 Refill(s) [facility] dexlansoprazole 30 MG Enteric Coated Capsule [Dexilant] 2013-11-02 03:58:00 Yes 30 mg = 1 cap, PO, Daily, 0 Refill(s) [facility] valacyclovir 500 MG Oral Tablet [Valtrex] 2013-11-02 03:57:00 No 500 mg = 1 tab, PO, TID, # 42 tab, 0 Refill(s) [facility] Metoclopramide 10 MG Oral Tablet [Reglan] 2013-11-02 03:55:00 Yes 10 mg, PO, QID-Before Meals, # 40 tab, 0 Refill(s) [facility] Sodium Chloride 0.154 MEQ/ML Injectable Solution 2013-11-02 03:2 1:00 No 500 mL, 500 ml/hr, Infuse Ov er: 1 hr, Route: IV, 500, Drug form: INJ, ONCE, Priority: STAT, Dosing Weight 80.455 kg, Start date: 11/01/13 22:21:00, Duration: 1 doses or times, Stop date: 11/01/13 22:21:00 [facility] Zofran 2013-11-02 03:20:00 No Notes: (Same as: Jimena) [facility] Ketorolac 2013-11-02 03:20:00 No 4 days [facility] Zoloft 2013-11-01 00:00:00 Yes Jolanta Partida 1/ 2 tablet [facility] Levaquin 2013-11-01 00:00:00 Yes Kami Jamison 1 tablet [facility] Namenda XR Titration Pack 2013-11-01 00:00:00 Yes Jolanta Partida as directed [facility] Ambien 2013-10-18 00:00:00 Yes Jolanta Partida 1 tablet [facility] Plavix 2013-10-04 02:38:05 Yes Kami Jamison 1 ta blet [facility] Amitriptyline HCl 2013-10-04 02:38:05 Yes Kami Jamison 1 tablet [facility] NO OTC meds taken 2013-10-04 02:38:05 Yes Kami Jamison Unknown [facility] Doxepin HCl 2013-09-01 00:00:00 Yes Kami Jamison 2c tablet [facility] Valtrex 2013-08-12 00:00:00 Yes Ken Cabrera 1 t ablet [facility] Lyrica 2013-08-12 00:00:00 Yes Kami Solanogenevieven 1 ca psule [facility] Dexilant 2013-05-07 01:16:39 Yes Renay Alexa 1 capsule [facility] Reglan 2013-05-07 01:16:39 Yes Renay Alexa 1 tablet 30 minutes before meals and at bedtime as needed [facility] NO OTC meds taken 2013-05-07 01:16:39 Yes Renay [place] Unknown [facility] ProAir HFA 2013-05-04 00:00:00 Yes Kami Rooseveltn 2 puffs as needed [facility] Amitriptyline HCl 2013-04-25 00:00:00 Yes Shawna Harvey 1 tablet [facility] [place] 2013-01-07 02:15:22 Yes Shawna Harvey 1 tabl et as needed [facility] Tramadol HCl 2013-01-07 02:15:22 Yes Shawna Harvey 1 tablet as needed [facility] Lexapro 2012-11-06 04:10:53 Yes Arely Christiandfelter 1 tablet [facility] Lidoderm 2012-11-04 00:00:00 Yes Samina Kavon 1 patch to intact skin remove after 12 hours [facility] clopidogrel 2012-10-12 14:00:00 No Nick Osman Nubia 75 mg, 1 tab, Route: PO, Drug form: TAB, Daily, Dosing Weight 75, kg, Start date: 10/12/12 9:00:00, Duration: 30 day, Stop date: 11/10/12 9:00:00 [facility] doxepin 25 mg oral capsule 2012-10-12 02:00:00 No Nick Osman Nubia 25 mg, 1 cap, Route: PO, Drug form: CAP, Bedtime, Dosing Weight 75, kg, Start date: 10/11/12 21:00:00, Duration: 30 day, Stop date: 11/09/12 21:00:00 [facility] amitriptyline 2012-10-12 02:00:00 No Nick Osman Nubia 25 mg, 1 tab, Route: PO, Drug form: TAB, Bedtime, Dosing Weight 75, kg, Start date: 10/11/12 21:00:00, Duration: 30 day, Stop date: 11/09/12 21:00:00 [facility] gabapentin 300 mg oral capsule 2012-10-12 02:00:00 No Nick Osman Nubia 300 mg, 1 cap, Route: PO, Drug form: CAP , Bedtime, Dosing Weight 75, kg, Start date: 10/11/12 21:00:00, Duration: 30 day, Stop date: 11/09/12 21:00:00 [facility] [place] 5/325 oral tablet 2012-10-11 15:00:00 No Nick Enr ique Nubia 1 tab, Route: PO, Drug Form: TAB, Dosing Weight 75, kg, Q6H, PRN Pain, Start date: 10/11/12 10:00:00, Duration: 30 day, Stop date: 11/10/12 9:59:00 [facility] potassium chloride 2012-10-11 14:54:00 No Nick Osman Nubia 40 mEq, 30 mL, Route: PO, Drug form: LIQ, ONCE, Dosing Weight 75, kg, Start date: 10/11/12 9:54:00, Stop date: 10/11/12 9:54:00 [facility] ALPRAZOLam 2012-10-11 14:53:00 No Nick Osman Nubia 0.25 mg, 1 tab, Route: PO, Drug form: TAB, BID, Dosing Weight 75, kg, PRN as needed for anxiety, Start date: 10/11/12 9:53:00, Duration: 30 day, Stop date: 11/10/12 9:52:00 [facility] potassium chloride 2012-10-10 17:19:00 No Clarita Aboussl eman 40 mEq, 2 tab, Route: PO, Drug form: ERTAB, ONCE, Dosing Weight 75, kg, Start date: 10/10/12 12:19:00, Stop date: 10/10/12 12:19:00 [facility] potassium chloride 2012-10-09 17:16:00 No Clarita Aboussl eman 20 mEq, 1 tab, Route: PO, Drug form: ERTAB, ONCE, Dosing Weight 75, kg, Start date: 10/09/12 12:16:00, Stop date: 10/09/12 12:16:00 [facility] Lexapro 2012-10-09 02:00:00 No Juan Giang 5 mg, 0.5 tab, Route: PO, Drug form: TAB, Daily, Dosing Weight 75, kg, Start date: 10/08/12 21:00:00, Duration: 30 day, Stop date: 11/07/12 9:00:00 [facility] potassium chloride 2012-10-08 16:00:00 No Clarita Aboussl eman 20 mEq, 100 mL, Route: IVPB, Drug form: INJ, ONCE, Start date: 10/08/12 11:00:00, Stop date: 10/08/12 11:00:00 [facility] Dextrose 5% with 0.45% NaCl IV 1,000 mL 2012-10-08 15:36:0 0 No Nick Osman Nubia 1,000 mL, Rate: 50 ml/hr, Infuse over: 20 hr, Route: IV, Dosing Weight 75 kg, Total Volume: 1,000, Start date: 10/08/12 10:36:00, Stop date: 11/07/12 10:35:00 [facility] morphine Sulfate 2012-10-08 03:16:00 No Andrey Harris 2 mg, 1 mL, Route: IV, Drug form: INJ, Q4H, PRN Pain, Start date: 10/07/12 22:16:00, Duration: 30 day, Stop date: 11/06/12 22:15:00 [facility] potassium phosphate-sodium phosphate 250 mg-278 mg-164 mg or al powder 2012-10-07 14:30:00 No Nick Osman Nubia 4 pkt, Route: PO, Drug Form: PDR/REC, ONCE, Start date: 10/07/12 9:30:00, Stop date: 10/07/12 9:30:00 [facility] potassium chloride 2012-10-07 14:12:00 No Nick Osman Nubia 20 mEq, 100 mL, Route: IVPB, Drug form: INJ, ONCE, Dosing Weight 75, kg, Start date: 10/07/12 9:12:00, Stop date: 10/07/12 9:12:00 [facility] sodium phosphate 2012-10-07 14:12:00 No Nick Osman Mo k 20 mmol, Route: IVPB, ONCE, Dosing Weight 75, kg, Start date: 10/07/12 9:12:00, Stop date: 10/07/12 9:12:00 [facility] Sodium Chloride 0.9% IV 1000 mL 2012-10-05 20:40:00 No Juan Ward 1,000 mL, Rate: 25 ml/hr, Infuse over: 40 hr, Route: IV, Dosing Weight 75 kg, Total Volume: 1,000, Start date: 10/05/12 15:40:00, Duration: 30 day, Stop date: 11/04/12 15:39:00 [facility] Sodium Chloride 0.9% (Bolus) IV 1000 mL 2012-10-05 16:58:0 0 No Raziuddin Ahmed 1,000 mL, Rate: 1,000 ml/hr, Infuse over: 1 hr, Route: IV, Dosing Weight 75 kg, Total Volume: 1,000, Priority: STAT, Start date: 10/05/12 11:58:00, Duration: 1 doses or times, Stop date: 10/05/12 12:57:00, [facility]oseBolus Dose [facility] nore[facility] 8 mg 2012-10-05 04:34:00 No Nick Osman Nubia 250 mL, Rate: Titrate, Dosing Weight 75, kg, Route: IV, Total Volume: 250, Priority: STAT, Duration: 30 day, Stop date: 11/03/12 23:33:00, Replace Every: 24 hr [facility] NS (Bolus) IV 1,000 mL 2012-10-05 02:21:00 No Raziuddin Ahmed 1,000 mL, Rate: 1,000 ml/hr, Infuse over: 1 hr, Route: IV, Dosing Weight 75 kg, Total Volume: 1,000, Priority: STAT, Start date: 10/04/12 21:21:00, Duration: 2 doses or times, Stop date: 10/04/12 23:20:00, Bolus DoseBolus Dose [facility] vancomycin 2012-10-04 22:00:00 No Nick Osman Nubia 1 gm, 200 mL, Route: IVPB, Drug form: INJ, [id number], Dosing Weight 75, kg, Start date: 10/04/12 17:00:00, Duration: 30 day, Stop date: 11/03/12 5:00:00 [facility] NS (Bolus) IV 1,000 mL 2012-10-04 15:44:00 No Kofi Ahmed 1,000 mL, Rate: 1,000 ml/hr, Infuse over: 1 hr, Route: IV, Dosing Weight 75 kg, Total Volume: 1,000, Priority: STAT, Start date: 10/04/12 10:44:00, Duration: 1 doses or times, Stop date: 10/04/12 11:43:00, Bolus DoseBolus Dose [facility] magnesium sulfate 2012-10-04 15:44:00 No Nick Osman M ok 2 gm, 50 mL, Route: IVPB, Drug form: INJ, ONCE, Dosing Weight 75, kg, Total dose = 2 gm, Start date: 10/04/12 10:44:00, Duration: 1 doses or times, Stop date: 10/04/12 10:44:00 [facility] Zosyn 2012-10-04 15:00:00 No Nick Osman Nubia 3.375 gm, 100 mL, Route: IVPB, Drug form: PDR/INJ, [id number], Dosing Weight 75, kg, Start date: 10/04/12 10:00:00, Duration: 30 day, Stop date: 11/03/12 4:00:00 [facility] enoxaparin 2012-10-04 15:00:00 No Nick Osman Nubia 40 mg, 0.4 mL, Route: SUB-Q, Drug form: INJ, [id number], Dosing Weight 75, kg, Start date: 10/04/12 10:00:00, Duration: 30 day, Stop date: 11/02/12 10:00:00 [facility] pantoprazole 2012-10-04 14:00:00 No Jocelyn N Onochie 40 mg, 1 tab, Route: PO, Drug form: ECTAB, Daily, Dosing Weight 75, kg, Priority: Routine, Start date: 10/04/12 9:00:00, Stop date: 11/02/12 9:00:00 [facility] Saline Flush 0.9% 2012-10-04 14:00:00 No Noe Jeremiah 5 ml, Route: IVP, Drug Form: INJ, Dosing Weight 75, kg, Q12H, Start date: 10/04/12 9:00:00, Duration: 30 day, Stop date: 11/02/12 21:00:00 [facility] clopidogrel 2012-10-04 14:00:00 No Jocelyn N Onochie 75 mg, 1 tab, Route: PO, Drug form: TAB, Daily, Dosing Weight 75, kg, Start date: 10/04/12 9:00:00, Duration: 30 day, Stop date: 11/02/12 9:00:00 [facility] ciprofloxacin 400 mg/200 mL intravenous solution 2012-09-16 9 11:00:00 No Nick Osman Nubia 400 mg, 200 mL, Route: IVPB, Drug form: INJ, [id number], Dosing Weight 75, kg, Start date: 10/04/12 6:00:00, Duration: 30 day, Stop date: 11/02/12 18:00:00 [facility] cefepime + Sodium Chloride 0.9% IV 100 mL 2012-10-04 11:00 :00 No Nick Osman Nubia 1 gm, Route: IVP B, [id number], Dosing Weight 75, kg, (CrCl 30 - 49 ml/min), Start date: 10/04/12 6:00:00, Duration: 30 day, Stop date: 11/02/12 18:00:00 [facility] ibuprofen 100 mg oral tablet, chewable 2012-10-04 10:15:00 No Nick Osman Nubia 800 mg, 1 tab, R oute: CHEW, Drug form: TAB, Q8H, Dosing Weight 75, kg, PRN as needed for fever, Start date: 10/04/12 5:15:00, Duration: 30 day, Stop date: 11/03/12 5:14:00 [facility] normal saline 0.9% IV 1,000 mL 2012-10-04 09:03:00 No R aziuddin Ahmed 1,000 mL, Rate: 125 ml/hr, Infuse over: 8 hr, Route: IV, Dosing Weight 75 kg, Total Volume: 1,000, Start date: 10/04/12 4:03:00, Duration: 30 day, Stop date: 11/03/12 4:02:00 [facility] Zofran 2012-10-04 09:03:00 No Jocelyn N Onochie 4 mg, 2 mL, Route: IV, Drug form: INJ, Q4H, Dosing Weight 75, kg, PRN as needed for nausea/vomiting, Start date: 10/04/12 4:03:00, Duration: 30 day, Stop date: 11/03/12 4:02:00 [facility] vancomycin 2012-10-04 08:14:00 No Nick Osman Nubia 1 gm, 200 mL, Route: IVPB, Drug form: INJ, [id number], Dosing Weight 75, kg, Priority: STAT, Start date: 10/04/12 3:14:00, Duration: 30 day, Stop date: 11/02/12 3:14:00 [facility] acetaminophen 2012-10-04 06:58:00 No Jocelyn N Onochie 650 mg, 20.3 mL, Route: PO, Drug form: LIQ, Q6H, Dosing Weight 75, kg, PRN Fever, Start date: 10/04/12 1:58:00, Duration: 30 day, Stop date: 11/03/12 1:57:00 [facility] 2012-10-04 06:43:00 No Jocelyn N Onochie 4 mg, 2 mL, Route: IV, Drug form: INJ, Q4H, Dosing Weight 75, kg, PRN as needed for nausea/vomiting, Start date: 10/04/12 1:43:00, Duration: 30 day, Stop date: 11/03/12 1:42:00 [facility] Saline Flush 0.9% 2012-10-04 04:31:00 No Noe Jeremiah 5 ml, Route: IVP, Drug Form: INJ, Dosing Weight 75, kg, PRN, PRN Line Flush, Start date: 10/03/12 23:31:00, Duration: 30 day, Stop date: 11/02/12 23:30:00 [facility] ciprofloxacin 500 mg oral tablet 2012-10-04 03:05:39 No 500 mg, 1 tab, PO, Q12H, 14 tab, Substitution Allowed, TAB [facility] ALPRAZOLam 0.25 mg oral tablet, disintegrating 2012-10-04 03:05: 27 Yes 0.25 mg, 1 tab, PO, BID, PRN, for anxiet y, Substitution Allowed, DIS Tablet [facility] pantoprazole 40 mg oral enteric coated tablet 2012-10-04 03:04:4 7 Yes 40 mg, 1 tab, PO, BID, 30 tab, Substitution Allowed, ECTAB [facility] escitalopram 20 mg oral tablet 2012-10-04 03:04:38 Yes 20 mg, 1 tab, PO, Daily, 30 tab, Substitution Allowed, TAB [facility] gabapentin 300 mg oral capsule 2012-10-04 03:04:22 Yes 300 mg, 1 cap, PO, Bedtime, 90 cap, Substitution Allowed [facility] clopidogrel 75 mg oral tablet 2012-10-04 03:04:14 Yes Jocelyn N Onochie 75 mg, 1 tab, PO, Daily, 30 tab, Substitution Allowed, TAB [facility] doxepin 25 mg oral capsule 2012-10-04 03:02:40 Yes 25 mg, 1 cap, PO, Bedtime, 90 cap, Substitution Allowed, CAP [facility] hyoscyamine 0.125 mg sublingual tablet 2012-10-04 03:02:13 No 0.125 mg, 1 tab, SL, TID-Before Meals, 30 tab, Substitution Allowed, TAB [facility] amitriptyline 25 mg oral tablet 2012-10-04 03:01:27 Yes 25 mg, 1 tab, PO, Bedtime, 90 tab, Substitution Allowed, TAB [facility] ondansetron 4 mg oral tablet 2012-10-04 03:01:01 No 4 mg, 1 tab, PO, Q6H, PRN, 10 tab, as needed for nausea/vomiting, Substitution Allowed, TAB [facility] metoclopramide 10 mg oral tablet 2012-10-04 02:56:46 No 10 mg, 1 tab, PO, QID-Before Meals, 56 tab, Substitution Allowed, TAB [facility] midodrine 10 mg oral tablet 2012-10-04 02:56:09 No 10 mg, 1 tab, PO, BID, 270 tab, Substitution Allowed, TAB [facility] clindamycin 150 mg oral capsule 2012-10-04 02:55:51 No 300 mg, 2 cap, PO, Q8H, 40 cap, Substitution Allowed [facility] Norel SR oral tablet, extended release 2012-10-04 02:55:15 No 1 tab, PO, Q12H, PRN, 10 tab, for nasal congestion, Substitution Allowed, Maintenance, ERTAB [facility] potassium phosphate + Sodium Chloride 0.9% IV 250 mL 10-04 02:53:00 No Noe Jeremiah 15 mmol, 5 mL, R oute: IV, ONCE, Start date: 10/03/12 21:53:00, Stop date: 10/03/12 21:53:00 [facility] doxy[facility] hyclate 100 mg oral delayed release capsule 2012-10-04 02:40:51 No 100 mg, 1 cap, PO, Daily, 10 cap, Substi tution Allowed [facility] METRONIDazole 500 mg oral tablet 2012-10-04 02:39:42 No 500 mg, 1 tab, PO, Q8H, 21 tab, Substitution Allowed [facility] Celebrex 200 mg oral capsule 2012-10-04 02:39:29 No 200 mg, 1 cap, PO, Daily, PRN, 10 cap, Pain, Substitution Allowed, CAP [facility] Alinia 500 mg oral tablet 2012-10-04 02:39:17 Yes 500 mg, 1 tab, PO, Q12H, 6 tab, Substitution Allowed, TAB [facility] midazolam 50 mg 2012-10-04 00:11:00 No Noe Jeremiah IV, Start date: 10/03/12 19:11:00, Duration: 30, 50 ml, 75 [facility] fentanyl 1,250 microgram + Sodium Chloride 0.9% (titrate) 25 0 mL 2012-10-04 00:11:00 No Noe Jeremiah 250 mL , Rate: Titrate, Dosing Weight 75, kg, Route: IV, Total Volume: 250, Duration: 30 day, Stop date: 11/02/12 19:11:00, Replace Every: 24 hr [facility] Versed 50 mg in NS 50 ml (titrate) IV 50 mg 2012-10-04 00: 11:00 No Raziuddin Ahmed 50 mg, 50 mL, Ra te: Titrate as directed, Dosing Weight 75, kg, Route: IV, Total Volume: 50 ml, Duration: 30 day, Stop date: 11/02/12 19:10:00, Replace Every: 24 hr [facility] potassium chloride 2012-10-03 23:00:00 No Neo Jeremiah 20 mEq, 100 mL, Route: IVPB, Drug form: INJ, Q2H, Start date: 10/03/12 18:00:00, Duration: 2 doses or times, Stop date: 10/03/12 20:00:00 [facility] azithromycin 2012-10-03 23:00:00 No Jocelyn N Onochie 500 mg, 250 mL, Route: IVPB, Drug form: PDR/INJ, [id number], Dosing Weight 75, kg, Priority: Routine, Start date: 10/03/12 18:00:00, Duration: 30 day, Stop date: 11/01/12 18:00:00 [facility] ceftriaxone + Sodium Chloride 0.9% IV 100 mL 2012-10-03 23 :00:00 No Jocelyn Chou Onochie 1 gm, Route: IVP B, [id number], Dosing Weight 75, kg, Priority: Routine, Start date: 10/03/12 18:00:00, Duration: 30 day, Stop date: 11/01/12 18:00:00 [facility] potassium chloride 20 mEq/100 mL intravenous solution 2012-10-03 22:17:00 No Noe Jeremiah 20 mEq, Route: IVPB, ONCE, Dosing Weight 75, kg, Priority: STAT, Start date: 10/03/12 17:17:00, Stop date: 10/03/12 17:17:00 [facility] rocuronium 2012-10-03 21:58:00 No Noe Jeremiah 50 mg, Route: IVP, ONCE, Dosing Weight 75, kg, Start date: 10/03/12 16:58:00, Stop date: 10/03/12 16:58:00 [facility] etomidate 2012-10-03 21:58:00 No Noe Jeremiah 20 mg, Route: IVP, ONCE, Dosing Weight 75, kg, Priority: STAT, Start date: 10/03/12 16:58:00, Stop date: 10/03/12 16:58:00 [facility] Sodium Chloride 0.9% (Bolus) IV 2000 mL 2012-10-03 21:56:0 0 No Noe Jeremiah 2,000 mL, Rate: 2,000 ml/hr, Infuse over: 1 hr, Route: IV, Dosing Weight 75 kg, Total Volume: 2,000, Priority: STAT, Start date: 10/03/12 16:56:00, Duration: 1 doses or times, Stop date: 10/03/12 17:55:00, Bolus DoseBolus Dose [facility] fentanyl 1,250 microgram 2012-10-03 21:56:00 No Raziudd in Ahmed 250 mL, Rate: Titrate, Dosing Weight 75, kg, Route: IV, Total Volume: 250, Duration: 30 day, Stop date: 11/02/12 16:55:00, Replace Every: [address] [facility] Saline Flush 0.9% 2012-10-03 21:46:00 No Raziuddin Ahme d 5 mL, Route: IVP, Drug Form: INJ, Dosing Weight 75, kg, PRN, PRN Line Flush, Start date: 10/03/12 16:46:00, Duration: 30 day, Stop date: 11/02/12 16:45:00 [facility] Tramadol HCl 2012-09-07 00:00:00 Yes Arely Gonzalesdfelter [address] [facility] ProAir HFA 2012-08-23 00:00:00 Yes Arely Gladfelter [address] [facility] Xanax 2012-04-22 00:00:00 Yes Shawna Harvey 1 tabl et [facility] Doxepin Hcl 25 Mg Capsule Doxepin Hcl 25 Mg Capsule Yes 25 Bedtime [facility] Hydrocodone Bit/Acetaminophen ([place] 10-325 Tablet) 1 Each Tablet Hydrocodone Bit/Acetaminophen ([place] 10-325 Tablet) 1 Each Tablet Yes as needed for Abdominal Pain [facility] Omeprazole 40 Mg Capsule. Omeprazole 40 Mg Capsule.dr Hansen as needed for Gi Upset [facility] Progesterone,Micronized (Progesterone) 100 Mg Capsule Progesterone,Micronized (Progesterone) 100 Mg Capsule Yes [facility] Tizanidine Hcl 2 Mg Capsule Tizanidine Hcl 2 Mg Capsule Yes as needed for Migraine [facility] Vital Signs Vital Name Observation Time Observation Value Comments Source Body height 2019-05-18 09:38:00 149.9 cm [facility]enn[facility] Body weight 2019-05-18 09:38:00 68.04 kg [facility] BMI 2019-05-18 09:38:00 30.30 kg/m2 [facility] Weight 2014-09-14 13:30:00 [facility] Height 2014-09-14 13:30:00 [facility] Weight 2014-07-28 19:30:00 [facility] Height 2014-07-28 19:30:00 [facility] Heart Rate 2014-07-28 19:30:00 [facility] Diastolic (mm Hg) 2014-07-28 19:30:00 [facility] Systolic (mm Hg) 2014-07-28 19:30:00 [facility] Systolic (mm Hg) 2013-11-03 21:00:00 [facility] Respitory Rate 2013-11-03 21:00:00 [facility] Heart Rate 2013-11-03 21:00:00 [facility] Temperature Oral (F) 2013-11-03 21:00:00 98.0 F [facility] Diastolic (mm Hg) 2013-11-03 21:00:00 [facility] Diastolic (mm Hg) 2013-11-03 17:00:00 [facility] Respitory Rate 2013-11-03 17:00:00 [facility] Systolic (mm Hg) 2013-11-03 17:00:00 [facility] Temperature Oral (F) 2013-11-03 17:00:00 98.2 F [facility] Heart Rate 2013-11-03 17:00:00 [facility] Diastolic (mm Hg) 2013-11-03 13:00:00 [facility] Systolic (mm Hg) 2013-11-03 13:00:00 [facility] Respitory Rate 2013-11-03 13:00:00 [facility] Heart Rate 2013-11-03 13:00:00 [facility] Temperature Oral (F) 2013-11-03 09:00:00 98.4 F [facility] Weight 2013-11-01 22:19:00 [facility] Height 2013-11-01 22:19:00 149.86 cm [facility] BMI Calculated 2013-11-01 22:19:00 [facility] Weight 2013-11-01 20:30:00 [facility] Height 2013-11-01 20:30:00 [facility] Heart Rate 2013-11-01 20:30:00 [facility] Diastolic (mm Hg) 2013-11-01 20:30:00 [facility] Systolic (mm Hg) 2013-11-01 20:30:00 [facility] Weight 2013-10-18 14:15:00 [facility] Height 2013-10-18 14:15:00 [facility] Heart Rate 2013-10-18 14:15:00 [facility] Diastolic (mm Hg) 2013-10-18 14:15:00 [facility] Systolic (mm Hg) 2013-10-18 14:15:00 [facility] Weight 2013-09-01 14:45:00 [facility] Height 2013-09-01 14:45:00 [facility] Heart Rate 2013-09-01 14:45:00 [facility] Diastolic (mm Hg) 2013-09-01 14:45:00 [facility] Systolic (mm Hg) 2013-09-01 14:45:00 [facility] Weight 2013-05-05 16:15:00 [facility] Height 2013-05-05 16:15:00 [facility] Temperature Oral (F) 2013-05-05 16:15:00 98.2 F [facility] Heart Rate 2013-05-05 16:15:00 [facility] Diastolic (mm Hg) 2013-05-05 16:15:00 [facility] Systolic (mm Hg) 2013-05-05 16:15:00 [facility] Weight 2013-01-05 22:30:00 [facility] Height 2013-01-05 22:30:00 [facility] Heart Rate 2013-01-05 22:30:00 [facility] Diastolic (mm Hg) 2013-01-05 22:30:00 [facility] Systolic (mm Hg) 2013-01-05 22:30:00 [facility] Weight 2013-01-05 21:30:00 [facility] Height 2013-01-05 21:30:00 [facility] Heart Rate 2013-01-05 21:30:00 [facility] Diastolic (mm Hg) 2013-01-05 21:30:00 [facility] Systolic (mm Hg) 2013-01-05 21:30:00 [facility] Weight 2012-11-04 21:00:00 [facility] Height 2012-11-04 21:00:00 [facility] Heart Rate 2012-11-04 21:00:00 [facility] Diastolic (mm Hg) 2012-11-04 21:00:00 [facility] Systolic (mm Hg) 2012-11-04 21:00:00 [facility] Weight 2012-10-14 20:45:00 [facility] Height 2012-10-14 20:45:00 [facility] Temperature Oral (F) 2012-10-14 20:45:00 98.8 F [facility] Heart Rate 2012-10-14 20:45:00 [facility] Diastolic (mm Hg) 2012-10-14 20:45:00 [facility] Systolic (mm Hg) 2012-10-14 20:45:00 [facility] Systolic (mm Hg) 2012-10-12 21:00:00 [facility] Diastolic (mm Hg) 2012-10-12 21:00:00 [facility] Respitory Rate 2012-10-12 21:00:00 [facility] Heart Rate 2012-10-12 21:00:00 [facility] Temperature Oral (F) 2012-10-12 21:00:00 98.6 F [facility] Temperature Oral (F) 2012-10-12 17:00:00 98.2 F [facility] Respitory Rate 2012-10-12 17:00:00 [facility] Heart Rate 2012-10-12 17:00:00 [facility] Systolic (mm Hg) 2012-10-12 17:00:00 [facility] Diastolic (mm Hg) 2012-10-12 17:00:00 [facility] Respitory Rate 2012-10-12 13:00:00 [facility] Systolic (mm Hg) 2012-10-12 13:00:00 [facility] Diastolic (mm Hg) 2012-10-12 13:00:00 [facility] Temperature Oral (F) 2012-10-12 13:00:00 98.6 F [facility] Heart Rate 2012-10-12 13:00:00 [facility] Weight 2012-10-03 21:28:00 [facility] Height 2012-10-03 21:28:00 149.86 cm [facility] Weight 2012-09-07 21:00:00 [facility] Height 2012-09-07 21:00:00 [facility] Heart Rate 2012-09-07 21:00:00 [facility] Diastolic (mm Hg) 2012-09-07 21:00:00 [facility] Systolic (mm Hg) 2012-09-07 21:00:00 [facility] Procedures Procedure Date / Time Performed Performing Clinician Keyana e Arthroplasty of shoulder<sup>1</sup> [facility] Cholecystectomy<sup>2</sup> [facility] Gastric bypass operation<sup>3</sup> [facility] Suspension of bladder<sup>4</sup> [facility] Plan of Care Planned Activity Planned Date Details Comments Source Future Scheduled Test 2019-11-17 00:00:00 INFLUENZA VACCINE [code = INFLUENZA VACCINE] [facility] Scheduled Test 2019-05-07 00:00:00 65+ PNEUMOCOCCAL V ACCINE (1 of 2 - PCV13) [code = 65+ PNEUMOCOCCAL VACCINE (1 of 2 - PCV13)] [facility] Scheduled Test 2016-12-02 00:00:00 SHINGLES VACCINES (#2) [code = SHINGLES VACCINES (#2)] [facility] Scheduled Test 2004 00:00:00 BREAST CANCER SCRE ENING [code = BREAST CANCER SCREENING] [facility] Scheduled Test 2004 00:00:00 COLONOSCOPY SCREEN ING [code = COLONOSCOPY SCREENING] [facility] Scheduled Test 1975-05-07 00:00:00 Screening for andrew gnant neoplasm of cervix (procedure) [code = [id number]] [facility] Encounters Start Date/Time End Date/Time Encounter Type Admission Type Attendi [facility] Facility Care Department Encounter ID Source 2019-05-18 00:00:00 2019-05-18 00:00:00 Outpatient [facility] [id number] [facility] 2017-07-31 11:28:00 2017-07-31 13:13:00 Departed Emergency Room [facility] [id number] [facility] 2014-09-14 08:30:00 2014-09-14 08:30:00 Outpatient [facility] [id number] [employer] 2014-07-28 14:30:00 2014-07-28 14:30:00 Outpatient [facility] [id number] [employer]Works 2013-12-08 12:05:00 2013-12-08 12:05:00 Outpatient [facility] [id number] eClinicalWorks 2013-11-14 15:51:00 2013-11-14 15:51:00 Outpatient [facility] [id number] eClinicalWorks 2013-11-01 17:19:00 2013-11-03 22:00:00 [facility] [id number] 2013-11-01 15:30:00 2013-11-01 15:30:00 Outpatient [facility] [id number] eClinicalWorks 2013-10-18 09:15:00 2013-10-18 09:15:00 Outpatient [facility] [facility] [id number] eClinicalWorks 2013-10-07 09:31:00 2013-10-07 09:31:00 Outpatient [facility] [id number] eClinicalWorks 2013-09-01 09:45:00 2013-09-01 09:45:00 [facility] [id number] eClinicalWorks 2013-08-12 12:11:00 2013-08-12 12:11:00 [facility] [id number] eClinicalWorks 2013-08-10 09:47:00 2013-08-10 09:47:00 [facility]patient [facility] [id number] eClinicalWorks 2013-08-04 11:15:00 2013-08-04 11:15:00 Outpatient [facility] [id number] eClinicalWorks 2013-05-05 11:15:00 2013-05-05 11:15:00 Outpatient [facility] [id number] eClinicalWorks 2013-05-04 16:42:00 2013-05-04 16:42:00 Outpatient [facility] [id number] eClinicalWorks 2013-04-25 14:41:00 2013-04-25 14:41:00 Outpatient [facility] [id number] eClinicalWorks 2013-02-01 10:01:00 2013-02-01 10:01:00 Outpatient [facility] [id number] eClinicalWorks 2013-01-05 16:30:00 2013-01-05 16:30:00 Outpatient [facility] [id number] eClinicalWorks 2012-11-04 17:40:00 2012-11-04 17:40:00 Outpatient [facility] [id number] eClinicalWorks 2012-11-04 16:00:00 2012-11-04 16:00:00 Outpatient [facility] [id number] eClinicalWorks 2012-10-28 09:49:00 2012-10-28 09:49:00 Outpatient [facility] [id number] eClinicalWorks 2012-10-14 15:45:00 2012-10-14 15:45:00 Outpatient [facility] [id number] eClinicalWorks 2012-10-14 14:15:00 2012-10-14 14:15:00 Outpatient [facility] [id number] eClinicalWorks Results Test Description Test Time Test Comments Results Result Comments Source TISSUE EXAM 2018-06-29 11:40:00 Surgical Pat hology Report Case: [id number] Authorizing Provider: Klever Neely MD Collected: 06/22/2018 0940 Ordering Location: [facility] Received: 06/22/2018 1040 SERVICES Pathologist: Ye Luciano MD Specimen: Humeral head, left shoulder HUMORAL HEAD, LEFT, ARTHROPLASTY: - DEGENERATIVE CHANGES CONSISTENT WITH MILD OSTEOARTHRITIS Signing Pathologist Direct Phone Line: [phone] signed by Ye Luciano MD on 06/29/2018 at 11:40 [id number], [id number] shoulder total arthroplasty versus reverse shoulder replacementThe specimen is a "left shoulder total arthroplasty versus reverse shoulder replacement", which is submitted in a single part labeled with the patient's name, date of and accession number, all of which match the information provided on the requisition slip.Part A received fresh without fixative in a container labeled "left shoulder humeral head" is a 3.9 x 3.5 x 1.1 cm humeral head displaying mild cartilage slippage and minimal eburnation. Sections are submitted pending decalcification.Section code: A1-A2, customer assistance representative sections TH/ewPerformed. BASIC METABOLIC PANEL 2018-06-23 06:25:00 Test Item SODIUM (BEAKER) (test code = 381) 136 meq/L 136-145 POTASSIUM (BEAKER) (test code = 379) 3.9 meq/L 3.5-5.1 CHLORIDE (BEAKER) (test code = 382) 111 meq/L 98-107 H CO2 (BEAKER) (test code = 355) 20 meq/L 22-29 L BLOOD UREA NITROGEN (BEAKER) (test code = 354) 12 mg/dL 7-21 CREATININE (BEAKER) (test code = 358) 0.61 mg/dL 0.57-1.25 GLUCOSE RANDOM (BEAKER) (test code = 652) 96 mg/dL 70-105 CALCIUM (BEAKER) (test code = 697) 7.8 mg/dL 8.4-10.2 L EGFR (BEAKER) (test code = 1092) 99 mL/min/1.73 sq m ESTIMATED GFR IS NOT ACCURATE CREATININE CLEARANCE IN PREDICTING GLOMERULAR FILTRATION RATE. ESTIMATED GFR IS NOT APPLICABLE FOR DIALYSIS PATIENTS. HEMOGLOBIN AND [id number] 05:47:00* Test Item Value Reference Range Interpretation Comments HEMOGLOBIN (BEAKER) (test code = 410) 8.4 GM/DL 11.2-15.7 L HEMATOCRIT (BEAKER) (test code = 411) 28.3 % 34.1-44.9 L RAD, SHOULDER, COMPLETE (MIN 2 VIEWS), [id number] 14:01:00Reason for exam:-> true ap and ap, perfect semicircle of glenoid component pleaseShould this be per formed at the bedside?->YesFINAL REPORT Left shoulder. HISTORY: Postsurgical. COMPARISON STUDY: None available. FINDINGS: Five views of the left shoulder demonstrate a left humeral arthroplasty in place. A drainage catheter is noted. Post surgical changes are seen. No evidence of fracture or malalignment is seen. Signed: Ayala Samson MDReport Verified Date/Time: 06/22/2018 14:01:29 Reading Location: [facility] C013W Consult Reading Room UE [id number] 12:24:00Surgical Pathology Report Case: [id number] Authorizing Provider: Oly Dey, Collected: 11/04/2017 1050 MD Ordering Location: [facility] Received: 11/04/2017 1121 SERVICES Pathologist: Jennifer Loredo MD Specimen: Condyle,Right Knee RIGHT KNEE, TOTAL KNEE REPLACEMENT: - DEGENERATIVE JOINT DISEASE, SEVERE - SYNOVIUM AND SOFT TISSUE WITH REACTIVE CHANGES Signing Pathologist Direct Phone Line: [phone] signed by Jennifer Loredo MD on 11/11/2017 at 12:24 [id number]; [id number] knee osteoarthritisRight knee condylesThe specimen is received in a fluidless container labeled with patient information and labeled "right knee condyle" and consists of multiple fragments of bustillos knee bone and soft tissue measuring 7 x 7 x 2 cm in aggregate. Bone fragments have distinct osteophyte formation with focal areas of eburnation. Section code: A1 and A2, bone submitted for decalcification; A3, soft tissue and bone submitted for decalcification. CG/plPERFORMEDBASIC METABOLIC [id number] 05:17:00* Test Item Value Reference Range Interpretation Comments SODIUM (BEAKER) (test code = 381) 139 meq/L 136-145 POTASSIUM (BEAKER) (test code = 379) 3.9 meq/L 3.5-5.1 CHLORIDE (BEAKER) (test code = 382) 111 meq/L 98-107 H CO2 (BEAKER) (test code = 355) 24 meq/L 22-29 BLOOD UREA NITROGEN (BEAKER) (test code = 354) 10 mg/dL 7-21 CREATININE (BEAKER) (test code = 358) 0.62 mg/dL 0.57-1.25 GLUCOSE RANDOM (BEAKER) (test code = 652) 78 mg/dL 70-105 CALCIUM (BEAKER) (test code = 697) 8.2 mg/dL 8.4-10.2 L EGFR (BEAKER) (test code = 1092) 97 mL/min/1.73 sq m ESTIMATED GFR IS NOT ACCURATE CREATININE CLEARANCE IN PREDICTING GLOMERULAR FILTRATION RATE. ESTIMATED GFR IS NOT APPLICABLE FOR DIALYSIS PATIENTS. HEMOGLOBIN AND [id number] 04:37:00* Test Item Value Reference Range Interpretation Comments HEMOGLOBIN (BEAKER) (test code = 410) 9.6 GM/DL 11.2-15.7 L HEMATOCRIT (BEAKER) (test code = 411) 31.9 % 34.1-44.9 L BASIC METABOLIC [id number] 05:40:00* Test Item Value Reference Range Interpretation Comments SODIUM (BEAKER) (test code = 381) 137 meq/L 136-145 POTASSIUM (BEAKER) (test code = 379) 3.8 meq/L 3.5-5.1 CHLORIDE (BEAKER) (test code = 382) 111 meq/L 98-107 H CO2 (BEAKER) (test code = 355) 21 meq/L 22-29 L BLOOD UREA NITROGEN (BEAKER) (test code = 354) 14 mg/dL 7-21 CREATININE (BEAKER) (test code = 358) 0.67 mg/dL 0.57-1.25 GLUCOSE RANDOM (BEAKER) (test code = 652) 86 mg/dL 70-105 CALCIUM (BEAKER) (test code = 697) 8.0 mg/dL 8.4-10.2 L EGFR (BEAKER) (test code = 1092) 89 mL/min/1.73 sq m ESTIMATED GFR IS NOT ACCURATE CREATININE CLEARANCE IN PREDICTING GLOMERULAR FILTRATION RATE. ESTIMATED GFR IS NOT APPLICABLE FOR DIALYSIS PATIENTS. HEMOGLOBIN AND [id number] 05:15:00* Test Item Value Reference Range Interpretation Comments HEMOGLOBIN (BEAKER) (test code = 410) 9.0 GM/DL 11.2-15.7 L HEMATOCRIT (BEAKER) (test code = 411) 30.3 % 34.1-44.9 L TROPONIN [id number] 15:34:00* Test Item Value Reference Range Interpretation Comments TROPONIN I (BEAKER) (test code = 397) < ng/mL 0.00-0.03 Troponin I (TnI) levels must be interpreted in the context of the presenting sym ptoms and the clinical findings. Elevated TnI levels indicate myocardial damage, but are not specific for ischemic heart disease. Elevated TnI levels are seen in patients with other cardiac conditions (including myocarditis and congestive h eart failure), and slight TnI elevations occur in patients with other conditions , including sepsis, renal failure, acidosis, acute neurological disease, and per sistent tachyarrhythmia.CHEM [id number] 09:41:0081[facility] HILFY6877-56-06 09:41:42686Pnixruaw HermannCHEM DKCDS3574-29-88 09:41:007.8 [facility] XOJQG7940-84-88 09:41:0026[facility] PANEL 2013-11-03 09:41:0079[facility] AVLMU3434-79-67 09:41:0021[facility] XGJWX9936-52-72 09:41:004.1[facility] IIAHB7123-89-60 09:41:90945Mxosgqeg [facility] TBTSJ9570-69-46 09:41:000.8[facility]ann[facility] AWPMM2241-14-29 09:41:0010.1[facility] AsljvqnOWWUPQJIDL6048-27-50 09:41:0069.0 [facility] IvrpbqgVJHEGZLBWR8428-51-80 09:41:00* Test Item Value Reference Range Interpretation Comments MCH (test code = MCH) 21.6 pg 27.0-31.0 [facility] TosomivWPZNBDZEBG8319-55-32 09:41:0016.9[facility]annHEMATOLOGY 2013-11-03 09:41:0031.4[facility] KogchkwADXZJDEBVF8948-78-37 09:41:0036.9[facility] IcqovzgSGEIJXZYDZ1732-05-32 09:41:0011.6[facility] QpnngbmLMPKWCOGDN1204-00-20 09:41:11413Mguiwmrc EvdwxcdXWIXSESHUI6019-71-93 09:41:008.5[facility] UNURLKWENZ9827-30-82 09:41:005.1[facility] QwmeimzSUBVOPDHSB9139-04-07 09:41:00 5.35[facility] CyonaspQDNXXJ7682-20-88 14:22:0023[facility] OiulqnkXCCBLB2369-29-75 14:22:0084[facility] AvdebifVVNHRV0236-99-69 14:22:14515Uabjcedw HermannLIPIDS 2013-11-02 14:22:0054[facility] GoxtwtpOGRXSV7675-63-31 14:22:53554Joyrrlhd XxjbkpeCXUCYV8574-48-10 14:22:002.98[facility] MPNPZ2317-13-23 14:22:004[facility] KCITL0543-59-96 14:22:0082[facility] AND IAJVH8716-96-38 14:22:00Large *ABN*(11/02/13 9:22 AM)[facility] WSQKL5503-81-44 14:22:00Negative (11/02/13 9:22 AM)[facility]INE AND HFEFR5174-83-69 14:22:004.0[facility] YQOUT8474-41-72 14:22:00Negative (11/02/13 9:22 AM)[facility] EYKMV8161-96-20 14:22:00Negative *NA*(11/02/13 9:22 AM)[facility] FQCZV6250-88-15 14:22:005.0[facility] FGHWP8018-84-61 14:22:00Marked *ABN*(11/02/13 9:22 AM)[facility] NSZBR1702-26-79 14:22:001.023 [facility] GBTGM2184-00-68 14:22:00Yellow (11/02/13 9:22 AM) [facility]ARDIAC JHMNIJX6503-57-30 01:54:0065[facility] JPBGCZO4832-44-14 01:52:0039[facility] EIKGIJJ6619-91-94 01:52:00< 0.02[facility]annCHE[facility] PDDBJ1992-44-41 01:52:001.4[facility]annCHEM PANEL 2013-11-02 01:52:0010.2[facility] RKDRE1940-83-46 01:52:0019[facility] LCMWR5848-80-32 01:52:002.6[facility] EVTLQ0174-92-90 01:52:0081[facility] HQRMZ2322-19-26 01:52:0026[facility] HRMLE7718-31-29 01:52:008.2[facility] FVLXC5843-54-21 01:52:006.3 [facility] CIGKR8965-40-19 01:52:003.7[facility]ann[facility] PANEL 2013-11-02 01:52:0018[facility] YGGJB9744-64-29 01:52:000.5[facility] AUGOR6492-65-82 01:52:009[facility] TRJVJ5418-27-53 01:52:0056[facility]annCHE[facility] ZHJEU7225-24-15 01:52:000.8[facility]ann[facility] GVTKD9220-32-44 01:52:94209Jfglzzwh HermannCHEM XQHPG6904-07-83 01:52:003.2 [facility] HJTNR4826-72-39 01:52:40168Jwocthly HermannCHEM PANEL 2013-11-02 01:52:0087[facility]annCHEM UITHK9989-64-35 01:52:0015[facility] LzvhcknHWXKEILBIK7516-04-03 01:52:003+ *NA*(11/01/13 8:52 PM)[facility] DWTXAXHBGV0629-37-95 01:52:000.6[facility] ZpevgndCSSUOYPIHC6995-68-92 01:52:006.8 [facility] YnwloxiNXUPJKRXWE7950-51-35 01:52:0072.3[facility]annHEMATOLOGY 2013-11-02 01:52:0020.4[facility] OysaknzSGIVQNAIQS6347-40-71 01:52:000.5[facility] JpdslntZAOANPBBNT8307-62-24 01:52:001.9[facility] PglhtjyTQDHVOVFMJ9020-44-75 01:52:006.6[facility] TcgorszZVKVJMJWBE6116-41-55 01:52:00* Test Item Value Reference Range Interpretation Comments PT (test code = PT) 13.5 s 12.0-14.7 [facility] GaqjixlIAISTMIKWJ7752-28-73 01:52:00* Test Item Value Reference Range Interpretation Comments PTT (test code = PTT) 27.6 s 22.9-35.8 [facility] WfbcwctBNUBRRXSUH0838-19-50 01:52:001.03[facility]annHEMATOLOGY 2013-11-02 01:52:0037.5[facility] XeylotcIASKJJUESF0294-22-79 01:52:0068.6[facility] JlgmtkyTJTNJVHMAN7935-75-93 01:52:00* Test Item Value Reference Range Interpretation Comments MCH (test code = MCH) 21.8 pg 27.0-31.0 [facility] OgemhpuQJPSATUCGS9556-58-87 01:52:0031.8[facility]annHEMATOLOGY 2013-11-02 01:52:0017.2[facility] KtblcfhGVHAKSHJBG8595-32-27 01:52:94419Shghjajl FwafnztMLWROZQHKV6636-45-04 01:52:008.8[facility] PdeaabxVQXJOUENVO2170-80-25 01:52:0012.0[facility] VqnfaziXXQPCEVTJU7297-91-63 01:52:005.48[facility] PULYKFFXKX1168-51-13 01:52:009.2[facility] NikkuxuIWIKMZWEM8265-84-47 11:25:002.1 [facility] FlssdpoXIFWLJEBX8109-01-25 11:25:007[facility] LywbfhfKVQUWVRSX0004-71-00 11:25:0081[facility] MwyuryzPTFRVNHNH6721-01-36 11:25:0026[facility] SAGPRRSOQ1098-65-16 11:25:89285Ocaucchs YezcfgsBZCQXVVDB9798-80-20 11:25:60825 [facility] YwbkvvoBCEVVTBWX1985-45-35 11:25:009.1[facility]annCHEMISTRY 2012-10-12 11:25:003.6[facility] WdqhdqmEQLYBYVHP6740-61-65 11:25:000.6[facility] SmtqmzkTCQWSXAGI8598-14-77 11:25:86929Vgtcbinx SbruazvXUVGIXLDU0602-98-14 11:25:0014.6[facility] HyfpmuvCXYZBDZHBR1272-60-21 11:25:001.2[facility] UXXXQMXHFX2903-10-07 11:25:000.3[facility] XvevctnAZEFDPPSCB1459-77-09 11:25:000.2 [facility] FwzyuscASFPPRXEVV6921-30-09 11:25:000.0[facility]annHEMATOLOGY 2012-10-12 11:25:002.7[facility] JnlvajvUTLMIFDLCX9853-78-72 11:25:000.4[facility] GopuobiIDSAKXJRLA8199-04-97 11:25:0026.emorial NsahhqoFGCRGLKSLE4067-98-51 11:25:007.8[facility] IoinoypCSKHTIXKTH2040-06-62 11:25:0060.8[facility] HTGRWIZCAP7421-50-14 11:25:004.4[facility] ZzfvaxeURMAQWXABE0968-28-81 11:25:00 4.65[facility] SzbtwrbFCGRLVRXYH8436-47-73 11:25:0014.6[facility]annHEMATOLOGY 2012-10-12 11:25:43725Hgzmmvai FvkrokhOMRFEUJWAF3259-46-84 11:25:0011.2[facility] QsrnslwXECMWKGUEX9205-08-41 11:25:0034.3[facility] BirpcbyAAFPPOEMJA1940-05-13 11:25:007.6[facility] FihqpdyEEDJIQLFBK9767-06-74 11:25:004.5[facility] BVQNYRZDSQ9349-38-81 11:25:0073.7[facility] UmfsxqrWFWMABGTLN8641-76-02 11:25:00* Test Item Value Reference Range Interpretation Comments MCH (test code = MCH) 24.1 pg 27.0-31.0 L [facility] NohxjiiQABEKAOQIS1886-84-80 11:25:0032.7[facility]annCHEMISTRY 2012-10-11 09:00:40720Bbkrjujb NdaxbwyMRPTIPZGE8771-24-21 09:00:87659Opntxaqd QojvllcXQSDJUMKR9021-20-67 09:00:003.4[facility] DqlievkRAXISFHFZ7770-16-22 09:00:16976Hitbvcak ClijmznWRFZUMNIG8474-27-69 09:00:0018[facility] CEQGONFHF6856-70-21 09:00:0068[facility] PrnpgmxKZYQZXHMS9947-53-70 09:00:006.1 [facility] QymnaygTPLLUZKGE9618-51-27 09:00:002.7[facility]annCHEMISTRY 2012-10-11 09:00:009.1[facility] RpbhulmPMFCVXYJT7592-64-99 09:00:000.4[facility] BlgzrxyCZOAJHPOC9036-97-36 09:00:007[facility] AjgollyMYMNDJLMK3024-95-37 09:00:00 0.6[facility] EttsawkLNLKGUXSX0940-10-25 09:00:0027[facility]annCHEMISTRY 2012-10-11 09:00:003[facility] FuxhiecETIGNBVKJ7212-26-56 09:00:0094[facility] KzaoaydFDSFUMMYA2095-11-69 09:00:003.4[facility] XezowjoZKMNLEGEV8340-85-16 09:00:000.8[facility] EmabbcpGSRVOAVFT4778-02-36 09:00:005[facility] GLMJQYFKL0658-62-81 09:00:0011.4[facility] UstkivaHLUVCAHPRF0162-23-33 09:00:007.1 [facility] TrfoyodYKWZWGOBLA5753-41-84 09:00:00* Test Item Value Reference Range Interpretation Comments MCH (test code = MCH) 23.9 pg 27.0-31.0 L [facility] LsausftZROEEGRELM8071-44-29 09:00:93428Tzfdnbyw [facility]annHEMATOLOGY 2012-10-11 09:00:0014.1[facility] YxrnwcwIXYJNSDFBY6121-16-28 09:00:0032.4[facility] FrawxslKILKJGZHSW2050-53-25 09:00:004.35[facility] DfvhnstSOAIUYLJOU9415-57-67 09:00:0073.9[facility] GnyzusfSYMQQAIOGT1644-53-71 09:00:0032.1[facility] BYZXUAJCNW9965-09-30 09:00:0010.4[facility] SnadostRAGWGRZCDI5163-88-88 09:00:00 3.5[facility] AkcinfvYITYUXQJGQ1706-88-77 09:00:000.0[facility]annHEMAT[facility]Y 2012-10-11 09:00:000.3[facility] YsfduyhYXXMQQJZTY2769-77-04 09:00:000.3[facility] VffrsqnNEKJGGANJX8982-67-53 09:00:000.9[facility] EphqpitWJHBCGYVUG7085-51-45 09:00:002.1[facility] VtukwvlNYGLCIOFMD5832-12-53 09:00:000.9[facility] QQRAXLEEZX3396-00-04 09:00:007.2[facility] YllodicDRZAAKRRFY7997-70-08 09:00:007.6 [facility] XarcmrrXUAPGJUBHU7434-60-51 09:00:0025.0[facility]annHEMATOLOGY 2012-10-11 09:00:0059.3[facility] FhcxjspHBRMQDIYD3198-40-04 11:15:49617Naxqflag JlgqwdkWPZTKARFB6738-83-27 11:15:003.2[facility] ZzdwrvyXDPKUZDXK1175-11-66 11:15:53876Hxetgmgl FgscovdUUURZVQYG6838-20-21 11:15:0096[facility] ZJEHZQVCD7825-83-83 11:15:002.5[facility] BgyacmuUIHVFGRTP2834-10-25 11:15:000.3 [facility] RytotxmJCXBINQQK6886-49-56 11:15:008[facility] JftofdrNJDXPWDLX5010-16-44 11:15:0073[facility] NmcdiduXJZMJDQYL4754-14-85 11:15:0021[facility] UFOIQUPGA5970-07-65 11:15:005.8[facility] CorwlxmGPAAENOIT4441-35-75 11:15:008.6 [facility] KhabhdpWGLHYQBJC4653-90-55 11:15:000.7[facility]annCHEMISTRY 2012-10-10 11:15:0027[facility] FbjciplRMEPLGLSA1870-05-41 11:15:003[facility] IvylaskWCKBNOQVA7487-69-26 11:15:68586Ommvqoxh FrjlopwPNTWKUIPE8393-24-68 11:15:0011.2[facility] OrunfxrJWLHAQKXU0586-01-84 11:15:003.3[facility] PGODTPNIW1646-26-77 11:15:000.8[facility] AvubrkaQFSWGFSZD5364-19-73 11:15:004 [facility] FhmcxcvVQTKTEETRN8998-20-84 11:15:0020.7[facility]annHEMATOLOGY 2012-10-10 11:15:0064.4[facility] VdzlqwuMWNLSAKKXE4071-78-32 11:15:008.4[facility] PebdipsMZSKNCOOFC1866-83-95 11:15:000.3[facility] XjrbrxfHMOOLGJLNH5310-00-38 11:15:000.8[facility] XcwxpzlVBZHTUEWFZ9769-60-90 11:15:000.5[facility] YIXBMCWPDI8213-44-11 11:15:006.0[facility] TxjveldEGBCJKLFUP4165-03-37 11:15:000.0 [facility] FperkakCJNTQNLNVO1350-66-92 11:15:000.2[facility]annHEMATOLOGY 2012-10-10 11:15:002.4[facility] CvhjclmSBCCCIWXAS9447-93-59 11:15:71857Doojuvhq KxeudalCPIEEHAMFS5884-48-61 11:15:00* Test Item Value Reference Range Interpretation Comments MCH (test code = MCH) 23.8 pg 27.0-31.0 L [facility] VmjuzkyMANHHFIHHF1416-14-84 11:15:0032.4[facility]annHEMATOLOGY 2012-10-10 11:15:004.29[facility] WyybmyfASDWZQXXBO9300-60-65 11:15:0031.6[facility] OivzvmkWEPLTGTKFA9806-23-18 11:15:0010.2[facility] QsrvdvjFNKKMJCXHC6808-56-73 11:15:0014.4[facility] CqmimjpGTXBEFBHJY5367-97-00 11:15:003.8[facility] CJBPYWOSNU3192-97-20 11:15:0073.6[facility] JzctxstYONNZMPADD2412-63-56 11:15:00 6.9[facility] JjsvctiSBYITOHOO5173-72-79 10:00:008[facility]annCHEMISTRY 2012-10-09 10:00:000.7[facility] NbgputdXHULQWKRA2802-58-55 10:00:003.3[facility] KnunzaxBXMBBNMEU3510-58-06 10:00:007[facility] QkxgcfuFTIMYFSXH9537-37-62 10:00:00 5.7[facility] IgldygzFSKOSXWLE1257-87-32 10:00:002.4[facility]annCHEMISTRY 2012-10-09 10:00:000.5[facility] VkjldjySPAPOSEHP6665-72-49 10:00:0079[facility] TazkhdsICJWAPMYZ1350-64-01 10:00:0022[facility] JzluwsrXDNTOKPQY3867-82-20 10:30:000.6[facility] TpxalqsKHSLYAJMH3280-70-83 10:30:000.2[facility] JLWJZLRKQ4789-94-36 10:30:002.5[facility] DldcaqrTRUZIKMXH8448-63-38 10:30:001.9 [facility] KicoeajJZSVMIDXA6988-09-35 08:00:001.8[facility]annCHEMISTRY 2012-10-07 08:00:001.9[facility] GvyxenvDFGAKUDIJ6866-27-79 09:35:132.4[facility] OyaqqauNBCXRKGOV9784-66-66 23:20:924741Njqbwdnu MlatstyARHREEUHC0590-18-57 23:20:007.5[facility] GmhechvYIPBEFKXJ9623-25-78 08:53:000.7[facility] GYKNTFATR0809-87-71 08:53:001.1[facility] TgxotnuDTCNOBWNX6432-69-02 14:20:00<0.5 [facility] RvkkxvbSBPTPHCLG5289-38-96 14:20:0078[facility]annCHEMISTRY 2012-10-04 14:20:00<0.02[facility] SmbjfswDGGCPOQEX5357-74-28 07:29:000.96[facility] SijntnjIOMWQRHCI6387-10-91 07:29:001.02[facility] QwzbygxVFEAOVVPI3123-34-53 07:29:000.8[facility] AfinqplTRQZYUMMR2679-35-76 07:29:00<0.02[facility] JWEBMEMYZ1454-08-47 07:29:0077[facility] OwsgtrsINMJVCLVU3510-29-83 07:29:0092 [facility] WfypbqbUMHQBXSHH3760-49-12 07:29:31574[facility] HermannCHEMISTRY 2012-10-04 07:29:002.37[facility] MsarfzwWKCCUTXSO0670-96-70 07:29:0091[facility] HzvzdyqMESHXPEVK7449-38-48 07:29:32108Rzcngcso FqrhpakREWTLFWEVD8910-15-12 07:29:00Normal (10/04/2012 02:29:00) [facility] YkbkplpSFNKHRMITA6069-24-41 07:29:00Normal (10/04/2012 02:29:00) [facility] BivnmyiONADKVWOOG7878-91-63 07:29:00* Test Item Value Reference Range Interpretation Comments PT (test code = PT) 13.1 s 12.0-14.7 N [facility] FpoazhcPZIEIUJLSE7070-07-29 07:29:00* Test Item Value Reference Range Interpretation Comments PTT (test code = PTT) 29.7 s 22.9-35.8 N [facility] ClrrjhqMQKUSXLXUP5493-22-24 07:29:000.97[facility] HermannBACTERIAL - HJKZZUTD5640-75-73 06:00:00Negative 1(10/04/2012 01:00:00) [facility] EEMMELUQY6602-81-95 05:10:0071[facility] TirrboqBCKHLWFOH5036-35-45 05:10:00<0.02 [facility] HmbyezcXCVKFKBKD1908-48-60 00:25:003.4[facility]annCHEMISTRY 2012-10-03 22:14:56772.0[facility] NdetquaVVLPEGCRC9975-72-97 22:14:20331Ocpouyfu AbsvqtqPVRIZBCAF7612-01-35 22:14:00A/C (10/03/2012 17:14:00) [facility] NQHZRRFLP2519-51-36 22:14:0014[facility] TtpwuigVGMPCIDII5547-95-80 22:14:27054 [facility] OfbazexDVNLUSVVP0408-23-52 22:14:00-6[facility]annCHEMISTRY 2012-10-03 22:14:0020[facility] AgfeivgKGFILJZNN7183-71-26 22:14:0039[facility] GngidwlNBMGLHRFG8244-13-65 22:14:007.31[facility] LjurnxyLUMXUEUPN2022-21-67 22:14:00Right Ra (10/03/2012 17:14:00) [facility] VvwgcfyVFRICBIZK7071-93-25 22:14:0037.0[facility] QldlahbPSQZIIUYT7746-45-72 22:14:00Positive (10/03/2012 17:14:00) [facility] VuoharmHVYJTNLYX2302-13-49 22:14:0099.9[facility] LOWWFPTFW7890-46-44 21:52:00<0.5[facility] LztnzeiJPHGRRAUU0430-26-24 21:52:71893 [facility] NqldhuzLRNJOKJJT8346-23-84 21:52:000.145[facility]annCHEMISTRY 2012-10-03 21:52:00Negative *NA*(10/03/2012 16:52:00) [facility] HermannCHEMISTRY 2012-10-03 21:52:00See Note 8*NA*(10/03/2012 16:52:00) [facility] GALWGLOFU8401-76-25 21:52:00Negative *NA*(10/03/2012 16:52:00) [facility] NATXBJHRY0313-43-87 21:52:00Negative *NA*(10/03/2012 16:52:00) [facility] MXQTYXMBR8843-50-01 21:52:00Negative *NA*(10/03/2012 16:52:00) [facility] JBDUFIHLB8340-96-96 21:52:00Negative *NA*(10/03/2012 16:52:00) [facility] KOJRBIYLH5235-52-06 21:52:00Negative *NA*(10/03/2012 16:52:00) [facility] RKDUTKQVY3494-21-09 21:52:00Negative *NA*(10/03/2012 16:52:00) [facility] HBDDDITIZ3929-00-57 21:52:00<2[facility] RhfndhlLOYSQIRDV6171-80-40 21:52:00<1.7 [facility] FvakejsCZXGBREOO7649-35-71 21:52:004.6[facility]annCHEMISTRY 2012-10-03 21:52:00<0.6[facility] PiezqzhCGFLHBPDKC6042-34-27 21:52:000.87[facility] HsvgkdhQIRNTXDOTS3553-19-30 21:52:00* Test Item Value Reference Range Interpretation Comments PTT (test code = PTT) 28.4 s 22.9-35.8 N [facility] DrkxjrkBBASPHMVNW3634-12-78 21:52:00* Test Item Value Reference Range Interpretation Comments PT (test code = PT) 12.1 s 12.0-14.7 N [facility] QgqcszePTPAQRQREE0071-60-22 21:52:00Occasional /LPF *NA*(10/03/2012 16:52:00) [facility] DxtsyswQLDLXNEWSB3844-28-21 21:52:00Negative (10/03/2012 16:52:00) [facility] JrwajgrALZSUYJVZP3817-58-08 21:52:00Negative (10/03/2012 16:52:00) [facility] OdcdwyeCQNHAKBWHL2494-31-34 21:52:00Negative mg/dL (10/03/2012 16:52:00) [facility] WflqgyqNDWJYNZBGN3371-61-38 21:52:00Negative mg/dL *NA*(10/03/2012 16:52:00) [facility] NzjuunaVXMWUXQEPO5985-11-21 21:52:00 Clear (10/03/2012 16:52:00) [facility] YxoqopjWHMGDJXBKV9118-15-72 21:52:00 Negative (10/03/2012 16:52:00) [facility] ZohvfreYOMYVCGENS0599-30-46 21:52:00 Negative *NA*(10/03/2012 16:52:00) [facility] SuoxtrzPNUWSFAQUU5528-73-33 21:52:00Negative mg/dL *NA*(10/03/2012 16:52:00) [facility] HermannURINALYSIS 2012-10-03 21:52:001.002[facility] XwofwfcSQAXFVAZHM9745-19-22 21:52:005.0[facility]
[2019-10-18] MEDS ORDERED: SODIUM CHLORIDE 0.9% 1000ML 1,000 ML IV STA (12:56)
[2019-10-18] MEDS ORDERED: ONDANSETRON HCL INJ 2MG/ML 2ML 2 MG/ML VIAL IV NR (13:00)
[2019-10-18] MEDS ORDERED: PANTOPRAZOLE 40 MG 10ML VIAL IV NR (13:00)
[2019-10-18] MEDS ORDERED: PROBIOTIC & AC1 EACH (13:07)
[2019-10-18 13:25] LABS: BASOPHILS # (AUTO) 0.1 (0.0-0.1); EOSINOPHILS # (AUTO) 0.2 (0.0-0.4); HEMATOCRIT 33.6 % (34.2-44.1); HEMOGLOBIN 9.4 g/dL (12.0-16.0); LYMPHOCYTES # (AUTO) 1.3 (1.0-3.2); LYMPHOCYTES % 31.2 % (18.0-39.1); MEAN CORPUSCULAR HEMOGLOBIN 17.7 pg (28-32); MEAN CORPUSCULAR VOLUME 63.2 fL (81-99); MONOCYTES # (AUTO) 0.4 (0.2-0.8); MONOCYTES % 9.4 % (4.4-11.3); NEUTROPHILS # (AUTO) 2.1 (2.1-6.9); NEUTROPHILS % 52.2 % (38.7-80.0); PLATELET COUNT 310 x10e3/uL (140-360); RED BLOOD COUNT 5.32 x10e6/uL (3.6-5.1); RED CELL DISTRIBUTION WIDTH 19.1 % (11.7-14.4)
[2019-10-18 13:27] LABS: CLARITY,URINE CLEAR (CLEAR); COLOR,URINE YELLOW (YELLOW)
[2019-10-18 13:28] LABS: LEUKOCYTE ESTERASE ,URINE NEGATIVE (NEGATIVE); NITRITE,URINE NEGATIVE (NEGATIVE); PROTEIN,URINE DIPSTICK NEGATIVE (NEGATIVE)
[2019-10-18 13:29] LABS: BACTERIA,URINE RARE /HPF; BILIRUBIN,URINE NEGATIVE (NEGATIVE); EPITHELIAL CELLS,URINE FEW /LPF; KETONES,URINE TRACE (NEGATIVE); RBC,URINE 0-5 /HPF (0-5); URINE UROBILINOGEN 0.2 mg/dL (0.2 - 1); WBC,URINE (MAN) 0-5 /HPF (0-5)
[2019-10-18 13:45] LABS: INR 0.88; PARTIAL THROMBOPLASTIN TIME 27.5 seconds (23.8-35.5); PROTHROMBIN TIME 12.4 seconds (11.9-14.5)
[2019-10-18 13:55] LABS: OCCULT BLOOD STOOL NEGATIVE (NEGATIVE)
[2019-10-18 14:01] LABS: ALANINE AMINOTRANSFERASE 19 IU/L (0-55); ALKALINE PHOSPHATASE 68 IU/L (40-150); ANION GAP 16.9 mmol/L (8-16); BLOOD UREA NITROGEN 19 mg/dL (7-26); BUN/CREATININE RATIO 28 (6-25); CALCIUM 8.4 mg/dL (8.4-10.2); CARBON DIOXIDE 20 mmol/L (22-29); CHLORIDE 108 mmol/L (98-107); CREATINE KINASE 95 IU/L (29-168); CREATININE, SERUM 0.69 mg/dL (0.57-1.11); EST GLOMERULAR FILTRATION RATE > 60 ML/MIN (60-); GLUCOSE 88 mg/dL (74-118); MAGNESIUM 2.2 MG/DL (1.3-2.1); POTASSIUM 3.9 mmol/L (3.5-5.1); SODIUM 141 mmol/L (136-145)
[2019-10-18 14:02] LABS: ALBUMIN 4.1 g/dL (3.5-5.0); ALBUMIN/GLOBULIN RATIO 1.8 (0.8-2.0)
[2019-10-18] MEDS ORDERED: SODIUM CHLORIDE 0.9% 50ML 50 ML ONE (14:12)
[2019-10-18] MEDS ORDERED: IOPAMIDOL 370 MG/ML 200 ML INFUS..BTL INJ ONE (14:12)
--- NOTE | 2019-10-18 15:10 | Diagnostic Imaging Report ---
CT of the abdomen and pelvis with contrast TECHNIQUE: CT of the abdomen and pelvis WITH intravenous contrast and WITHOUT oral contrast. Dose modulation, iterative reconstruction, and/or weight-based adjustment of the mA/kV was utilized to reduce the radiation dose to as low as reasonably achievable. IV CONTRAST: 100 mL of Isovue-370 ORAL CONTRAST: None RADIATION DOSE: Total DLP: 334 mGy*cm COMPLICATIONS: None INDICATION: ^LOWER ABD PAIN ^[id number] ^1410. COMPARISON: None. FINDINGS: LOWER THORAX: Unremarkable. HEPATOBILIARY: There are multiple subcentimeter hypodense lesions throughout both lobes of the liver, nonspecific. No focal suspicious solid hepatic lesions. Gallbladder is surgically absent. Mild central intrahepatic and extra hepatic biliary dilatation is noted, likely postsurgical in nature. SPLEEN: No splenomegaly. PANCREAS: No focal masses or ductal dilatation. ADRENALS: No adrenal nodules. KIDNEYS/URETERS: Symmetric cortical enhancement. No hydronephrosis, stones, or masses. PELVIC ORGANS/BLADDER: Urinary bladder is partially distended and unremarkable. Uterus is surgically absent or atrophic. Ovaries are not visualized. PERITONEUM/RETROPERITONEUM: No free air or fluid. LYMPH NODES: No lymphadenopathy. VESSELS: Unremarkable. 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 No evidence of obstruction. Large amount of stool is noted throughout the colon and rectum. No surrounding inflammatory changes are identified. BONES AND SOFT TISSUES: Negative for acute osseous abnormality. Mild to moderate multilevel degenerative changes of the lower thoracic spine are noted. Noncalcified posterior disc bulges of the lower lumbar spine are noted. No suspicious lytic or blastic lesion is identified. Soft tissues are unremarkable.. IMPRESSION: 1. Large amount of stool noted throughout the colon and rectum. Correlate for constipation. 2. 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 3. Post surgical changes from cholecystectomy. Mild to moderate central intrahepatic and extrahepatic biliary dilatation is likely related to postsurgical state. 4. Multiple bilateral hepatic subcentimeter hypodense lesions are nonspecific. Findings statistically represent cysts. Signed by: Alex Han MD on 10/18/2019 3:07 PM
[2019-10-18] MEDS ORDERED: DICYCLOMINE HCL 20 MG/2 ML VIAL IM ONE (17:45)
[2019-10-18] MEDS: SODIUM CHLORIDE 0.9% 1000ML 1,000 ML IV SCH (17:53)
--- OUTSIDE RECORDS SUMMARY | 2019-10-18 18:22 | XMS REPORT | Clinical Summary ---
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 er 07/16/2018 3905 / / [id number] Kit Selnt Fibrin Humn Hmsts Surgy Surgical N/A: N/A ETHICON 5ml Evicel - [id number] Implants; - Implanted: 05/19/2017 at [facility] Expanders; HOSPITAL (Quantity not on file) Extenders; Surgical Wires Results Not on fileafter 10/17/2018 Insurance Type Payer Benefit Subscriber ID Effective Phone Address Plan / Dates Group O CIGNA CIG[employer] [facility] xxxxxxxxxxx [id number] resent Advance Directives For more information, please contact: [phone] Patient Editorial Manager Explanation Type Date Recorded Advance Directives, 06/30/2017 1:11 AM 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
--- OUTSIDE RECORDS SUMMARY | 2019-10-18 18:22 | XMS REPORT | Clinical Summary ---
Author Author [facility] Address Unknown Phone Unavailable Care Team Providers Care Miller Head Wet Process Name Role Phone Maury Brown PCP Allergies [...] L ot Implanted Type Area Manufactur er [id number] / / Orthocord Sut Multipk #2 [id number] - [place]/Art Left: Should er J [id number] hroscopy &J:ETHICON Implanted: Qty: 1 on 12/15/2017 by :Klever Burdick MD PRDT 06/29/2022 CM-9145 / / [id number] [place] Knotless 4.5mm Cm-9145 - [place]/Art Left: Shoulder CAYENNE [id number] hroscopy MED Implanted: Qty: 1 on 12/15/2017 by Klever Stroud MD 08/15/2020 2169-3 / / [id number] Imp Scaffold Lg 2169-3 - [id number] [place]/Art Left: Shoul prateek ROTATION Implanted: Qty: 1 on 12/15/2017 by hroscopy MED ICAL Klever Stroud MD 09/14/2018 2503-A / / [id number] [place] Bone W/Del Sys 2503-A - [place]/Art Left: Shoulder BOWSER & [id number] hroscopy NEPHEW:END Implanted: Qty: 1 on 12/15/2017 by Klever Casas MD 03/18/2020 6191-1-001 / / [id number] Cement Bone Surg Smplx P Full Cement/Obey Right: Knee LALO:ST 6191-1-001 - [id number] ler/Adhesi SHIVA Implanted: Qty: 2 on 11/04/2017 by Oly Greenwood MD [id number] 01/25/2022 04..0157 / / [id number] Scr Glenoid Plyxl Locking L14 IMPLANTS Left: Shoulder MEDACTA 04.01.0157 - [id number] [employer] Implanted: Qty: 1 on 06/22/2018 by Klever Stroud MD [id number] 02/12/2022 04.01.0159 / / [id number] Scr Glenoid Plyxl Locking L22 IMPLANTS Left: Shoulder MEDACTA 04.01.0159 - [id number] [employer] Implanted: Qty: 1 on 06/22/2018 by Klever Stroud MD [id number] 04/01/2022 04.01.0160 / / [id number] Scr Glenoid Plyxl Locking L26 IMPLANTS Left: Shoulder MEDACTA 04..0160 - [id number] [employer] Implanted: Qty: 1 on 06/22/2018 by Klever Stroud MD [id number] 04/23/2022 04.01.0169 / / [id number] Glenospher 36x24.5 04..0169 - IMPLANTS Left: Shoulder MEDACTA [id number] [employer] Implanted: Qty: 1 on 06/22/2018 by Klever Stroud MD [id number] 07/27/2022 04.01.0120 / / [id number] Lnr Hum Rev Hc 036/+3mm 04.0120 IMPLANTS Left: Shoul prateek MEDACTA - [id number] [employer] Implanted: Qty: 1 on 06/22/2018 by Klever Stroud MD [id number] 01/26/2023 04.01.0110 / / [id number] Hum Metaphysis Rev +0mm/0d IMPLANTS Left: Shoulder MED ACTA 04.01.0110 - [id number] [employer] Implanted: Qty: 1 on 06/22/2018 by Klever Stroud MD 04/27/2022 5530-G-309 / / [id number] Insrt Tib Tri Crx 9mm 5530-G-309 - Joints Right: Knee LALO:ST [id number] SHIVA Implanted: Qty: 1 on 11/04/2017 by Oly Hamilton MD CS 06/29/2022 5520-B-300 / / [id number] Baseplt Geni Tib Rizwan No.3 5520-B-300 Joints Right: Kne e LALO:ST - [id number] SHIVA Implanted: Qty: 1 on 11/04/2017 by Oly Hamilton MD 08/17/2022 5551-G-299 / / [id number] Patella Tri Asymmetric [id number] Joints Right: Knee LALO:ST 5551-G-299 - [id number] SHIVA Implanted: Qty: 1 on 11/04/2017 by Oly Hamilton MD 06/24/2022 5510-F-402 / / [id number] Comp Fem Cr Rizwan No.4 R 5510-F-402 - Joints Right: Kne e LALO:ST [id number] SHIVA Implanted: Qty: 1 on 11/04/2017 by Oly Hamilton MD 08/15/2020 [id number] / / [id number] Healix Advance Br [place] W/ Left: Shoulder MITEK Dyancord SURGICAL Implanted: Qty: 1 on 12/15/2017 by PRODUCTS Klever Stroud MD INC 08/15/2020 [id number] / / [id number] Healix Advance Br [place] W/ Left: Shoulder MITEK Dyancord SURGICAL Implanted: Qty: 1 on 12/15/2017 by Klever Toure MD INC 09/15/2018 2504-1 / / [id number] Tendon Anchors (8) Left: Shoulder BOWSER & Implanted: Qty: 1 on 12/15/2017 by NEPHEW:Klever Pat MD [id number] 07/07/2022 04.01.0179 / / [id number] Humeral Diaphsis Left: Shoulder MEDACTA Implanted: Qty: 1 on 06/22/2018 by Klever Peterson MD [id number] 10/06/2022 04.01.0190 / / [id number] Glenoid Baseplate Left: Shoulder MEDACTA Implanted: Qty: 1 on 06/22/2018 by Klever Peterson MD Results Not on fileafter 10/17/2018 Insurance Payer Benefit Subscriber ID Type Phone Address Plan / Group CIGNA - MGD CARE CIGNA PPO xxxxxxxxx PPO [id number] Advance Directives For more information, please contact: [address] [address] Date Inactivated Comments Code Status Date Activated 06/23/2018 4:45 PM Full Code 06/22/2018 6:35 AM This code status was determined by: Patient 12/15/2017 3:13 PM Full Code 12/15/2017 6:14 AM This code status was determined by: Patient 11/06/2017 5:14 PM Full Code 11/04/2017 7:14 AM This code status was determined by: Patient
--- OUTSIDE RECORDS SUMMARY | 2019-10-18 18:23 | XMS REPORT | Continuity of Care Document ---
Author Author [email or web address] ANGEL [facility] Organization [facility] Address Unknown Phone Unavailable Care Team Providers Care Lead Producer Name Role Phone [employer] Unavailable Un available Problems Problem Status Onset Date Classification Date Reported Comments Source STROKE-LIKE SYMPTOMS Active 11/01/2013 [facility] TIA Active 0 11/01/2013 [facility] OVERDOSE Active 10/03/2012 [facility] AMS, OVERDOSE UNKNOWN SUBSTANCE, SUICIDA Active 10/03/2012 [facility] Dehydration Active 07/31/2008 Problem 10/14/2012 [facility] Fever Active 07/31/2008 Problem 10/14/2012 [facility] UTI - Urinary tract infection Active 07/31/2008 Problem 10/14/2012 [facility] Dehydration (disorder) Active 07/31/2008 Problem 11/06/2013 [facility] Fever (finding) Active 07/31/2008 Problem 11/06/2013 [facility] Urinary tract infectious disease (disorder) Active 07/31/2008 Problem 11/06/2013 [facility] TIA (Unspecified transient cerebral ischemia) Active Problem [facility] Pneumonia Active Diagnosis 10/24/2012 [facility] SOB (shortness of breath) Acti ve Diagnosis 0 05/07/2013 [facility] Memory impairment Active Problem 09/17/2014 [facility] Genital herpes Active Problem 09/17/2014 [facility] Migraine with aura, with intractable asia r[place], so stated, without mention of status migrainosus Active Diagnosis 08/18/2013 [facility] Urinary tract infection Active Diagnosis 11/09/2013 [facility] Panic attack Active Diagnosis 11/09/2013 [facility] Generalized anxiety disorder A ctive Diagnosis 0 11/09/2013 [facility] Dysuria Active Diagnosis 11/09/2013 [facility] Poison sammie dermatitis Active Diagnosis 09/17/2014 [facility] Contact dermatitis Active Diagnosis 09/17/2014 [facility] Screening breast examination A ctive Diagnosis 0 07/31/2014 [facility] Ear pain, left Active Diagnosis 07/31/2014 [facility] Otitis media Active Diagnosis 07/31/2014 [facility] Otitis externa, left Active Diagnosis 07/31/2014 [facility] Anxiety (finding) Active Problem 11/06/2013 [facility] Diverticular disease (disorder) Active Problem [facility] Gastroesophageal reflux disease (disorder) Active Problem 11/06/2013 [facility] Hypertensive disorder, systemic arterial (disorder) Resolved Problem 11/06/2013 [facility] Herpes zoster (disorder) Resol nisreen Problem [facility] Suicide attempt (disorder) Act sylwia Problem [facility] Anxiety Active Problem 10/14/2012 [facility] Diverticulosis Active Problem 10/14/2012 [facility] GERD - Gastro-esophageal reflux disease Active Problem 10/14/2012 [facility] Suicide attempt Active Problem 10/14/2012 [facility] 724.5 Active [facility] ALTERED MENTAL STATUS Active [facility] PRIM SPONT PNEUMOTHORAX Active [facility] SHOULDER AND NECK Active [facility] [place] Medications Medication Details Route Status Patient Instructions Ordering Provider Order Date Source HydrOXYzine HCl 1 tablet Orally Active 25 MG Orally q 6 hours for itching Rick 09/14/2014 [facility] Bactrim DS 1 tablet Orally Active 800-160 MG Orally twice a day (bid) Rick 09/14/2014 [facility] Medrol (Nicola) as directed Orally Active 4 mg Orally daily Rick 09/14/2014 [facility] Ciprodex 4 drops into affected ear Otic Active 0.3-0.1 % Otic Twice a day Rick 07/28/2014 [facility] Zithromax Z-Nicola 2 tablets on the first day, then 1 tablet daily for 4 days Orally Active 250 MG Orally Once a day [place] 07/28/2014 [facility] Valacyclovir HCl 1 tablet Orally Active 1 GM Orally every 24 hr s [place] 04/30/2014 [facility] Amitriptyline HCl 1 tablet Orally Active 10 mg Orally once every night (must see doctor before next refill) Rick 03/20/2014 [facility] Dexilant 1 capsule Orally Active 60 MG Orally Once a day (must see doctor before next refill) [place] 01/11/2014 [facility] Zoloft Notes: (Same as: Zolof t) Inactive 11/04/2013 [facility] Annette Notes: (Same As: Klon oPIN) Inactive 11/04/2013 [facility] Annette Notes: (Same As: Amando oPIN) Inactive 11/03/2013 [facility] Risperidone 1 mg, Route: PO, D rug form: TAB, Q6H, Dosing Weight 80.455, kg, PRN Agitation, Start date: 11/03/13 17:55:00, Duration: 30 day, Stop date: 12/03/13 17:54:00 Inactive 11/03/2013 [facility] Dexilant 30 mg, Route: PO, Sharif g form: DRC, Daily, Dosing Weight 80.455, kg, Start date: 11/03/13 9:00:00, Duration: 30 day, Stop date: 12/02/13 9:00:00 No Longer Active 11/03/2013 [facility] Ambien Notes: (Same As: Ambien) No Longer Active 11/03/2013 [facility] Zoloft 10 mg, PO, Bedtime, 0 R efill(s) Active 11/03/2013 [facility] Ambien 10 mg, PO, Bedtime, 0 R efill(s) Active 11/03/2013 [facility] nitazoxanide 500 MG Oral Tablet [Alinia] Notes: Same as Alinia Non-formulary item No Longer Active 11/03/2013 [facility] Amitriptyline Notes: (Same as: Elavil) No Longer Active 11/03/2013 [facility] Simvastatin Notes: (Same as: Z ocor) No Longer Active 11/03/2013 [facility] Protonix Notes: Tablet should not be chewed or crushed. (Same as: Protonix) No Longer Active 11/02/2013 [facility] Valtrex Notes: (Same As: Valtr ex) No Longer Active 11/02/2013 [facility] NURSE: Please bring Pt's Own Med to [facility] to be verified NURSE: Please bring Pt's Own Med to [facility] to be verified, 1, Drug form: MISC, Route: MISC, TID, 11/02/13 15:00:00, Duration: 30 day, Stop date: 12/02/13 9:00:00 No Longer Active 11/02/2013 [facility] Levaquin Notes: Do not give w/ antacids, dairy pdt & minerals Take 1 hr before or 2 hr after dairy pdt (Same as:Levaquin) No Longer Active 11/02/2013 [facility] Alprazolam Notes: With food or milk (Same as: Xanax) No Longer Active 11/02/2013 [facility] Potassium Chloride Notes: (Preet e as: K-Dur 20) "Do Not Crush" With food and full glass of water Inactive 11/02/2013 [facility] nitroglycerin 0.4 mg sublingual tablet Notes: (Same as:Nitroquick, Nitrostat) "Do Not Crush" Sublingual tablet No Longer Active 11/02/2013 [facility] atropine 0.5 mg, 5 mL, Route: IVP, Drug form: INJ, PRN, PRN Bradycardia, Start date: 11/02/13 13:13:00, Duration: 30 day, Stop date: 12/02/13 13:12:00 No Longer Active 11/02/2013 [facility] Aspirin 81 MG Enteric Coated Tablet Notes: Do not crush or chew. (Same As: Ecotrin) No Longer Active 11/02/2013 [facility] acetaminophen-hydrocodone 325 mg-5 mg oral tablet Notes: (Same as: [place] 325/5) Do not exceed 4gm/day of acetaminophen. No Longer Active 11/02/2013 [facility] Acetaminophen 325 MG / Hydrocodone Hammad trate 5 MG Oral Tablet [[place] 5/325] Route: PO, Dosing Weight 80.455, kg, PRN , PRN, Start date: 11/02/13 8:37:00, Duration: 30 day, Stop date: 12/02/13 8:36:00, q4-6hr for pain score 5-7 Inactive 11/02/2013 [facility] Morphine Notes: (Same as:MORPh ine Sulfate) No Longer Active 11/02/2013 [facility] Morphine 4 mg, Route: IVP, ONC E, Dosing Weight 80.455, kg, Priority: STAT, Start date: 11/02/13 5:37:00, Stop date: 11/02/13 5:37:00 Inactive 11/02/2013 [facility] Morphine 4 mg, Route: IVP, ONC E, Dosing Weight 80.455, kg, Start date: 11/02/13 0:31:00, Stop date: 11/02/13 0:31:00 Inactive 11/02/2013 [facility] aspirin 325 mg, Route: PO, Sharif g form: ECTAB, ONCE, Dosing Weight 80.455, kg, Priority: STAT, Start date: 11/02/13 0:16:00, Stop date: 11/02/13 0:16:00 Inactiv e 11/02/2013 [facility] valacyclovir 1000 MG Oral Tablet [Valtrex] 1 gm = 1 tab, PO, TID, # 20 tab, 0 Refill(s) Active 11/02/2013 [facility] dexlansoprazole 30 MG Enteric Coated Capsule [Dexilant ] 30 mg = 1 cap, PO, Daily, 0 Refill(s) Active 11/02/2013 [facility] valacyclovir 500 MG Oral Tablet [Valtrex] 500 mg = 1 tab, PO, TID, # 42 tab, 0 Refill(s) Inactive 11/02/2013 [facility] Metoclopramide 10 MG Oral Tablet [Reglan] 10 mg, PO, QID-Before Meals, # 40 tab, 0 Refill(s) Active 11/02/2013 [facility] Sodium Chloride 0.154 MEQ/ML Injectable Solution 500 mL, 500 ml/hr, Infuse Over: 1 hr, Route: IV, 500, Drug form: INJ, ONCE, Priority: STAT, Dosing Weight 80.455 kg, Start date: 11/01/13 22:21:00, Duration: 1 doses or times, Stop date: 11/01/13 22:21:00 Inactive 11/02/2013 [facility] Zofran Notes: (Same as: Jimena) Inactive 11/02/2013 [facility] Ketorolac 4 days Inactive 11/02/2013 [facility] Zoloft 1/2 tablet Orally Active 50 mg Orally Once a day for one week, then increase to 1 tablet daily [facility] 11/01/2013 [facility] Levaquin 1 tablet Orally Active 750 MG Orally Once a da y [facility] 11/01/2013 [facility] Namenda XR Titration Pack as d irected Orally Active 7 & 14 & 21 &28 MG Orally daily [facility] 11/01/2013 [facility] Ambien 1 tablet Orally Active 10 mg Orally once every night as needed [facility] 10/18/2013 [facility] Doxepin HCl 2c tablet Orally Active 25 MG Orally AT BEDTIME [facility] 09/01/2013 [facility] Valtrex 1 tablet Orally Active 1 GM Orally three times a day (tid) Rick 08/12/2013 [facility] Lyrica 1 capsule Orally Active 75 mg Orally three time s a day (tid) [facility] ProAir HFA 2 puffs as needed Inhalation Active 108 (90 Base) MCG/ACT Inhalation every 4 hrs [facility]/04[facility]2013 [facility] Amitriptyline HCl 1 tablet Orally Active 10 mg Orally at bedtime as needed [place] 04/25/2013 [facility] Lidoderm 1 patch to intact ski n remove after 12 hours Externally Active 5 % Externally twice a day (bid) [place] 11/04/2012 [facility] clopidogrel 75 mg, 1 tab, Rout e: PO, Drug form: TAB, Daily, Dosing Weight 75, kg, Start date: 10/12/12 9:00:00, Duration: 30 day, Stop date: 11/10/12 9:00:00 PO No Longer Active N[facility] 10/12/2012 [facility] doxepin 25 mg oral capsule 25 mg, 1 cap, Route: PO, Drug form: CAP, Bedtime, Dosing Weight 75, kg, Start date: 10/11/12 21:00:00, Duration: 30 day, Stop date: 11/09/12 21:00:00 PO No Longer Active Nubia 10/12/2012 [facility] amitriptyline 25 mg, 1 tab, Ro [place]: PO, Drug form: TAB, Bedtime, Dosing Weight 75, kg, Start date: 10/11/12 21:00:00, Duration: 30 day, Stop date: 11/09/12 21:00:00 PO No Longer Active N[facility]ia 10/12/2012 [facility] gabapentin 300 mg oral capsule 300 mg, 1 cap, Route: PO, Drug form: CAP, Bedtime, Dosing Weight 75, kg, Start date: 10/11/12 21:00:00, Duration: 30 day, Stop date: 11/09/12 21:00:00 PO No Longer Active Nubia 10/12/2012 [facility] [place] 5/325 oral tablet 1 tab, Route: PO, Drug Form: TAB, Dosing Weight 75, kg, Q6H, PRN Pain, Start date: 10/11/12 10:00:00, Duration: 30 day, Stop date: 11/10/12 9:59:00 PO No Longer Active Nubia 10/11/2012 [facility] potassium chloride 40 mEq, 30 mL, Route: PO, Drug form: LIQ, ONCE, Dosing Weight 75, kg, Start date: 10/11/12 9:54:00, Stop date: 10/11/12 9:54:00 PO No Longer Active Nubia 10/11/2012 [facility] ALPRAZOLam 0.25 mg, 1 tab, Rou te: PO, Drug form: TAB, BID, Dosing Weight 75, kg, PRN as needed for anxiety, Start date: 10/11/12 9:53:00, Duration: 30 day, Stop date: 11/10/12 9:52:00 PO No Longer Active Nubia 10/11/2012 [facility] potassium chloride 40 mEq, 2 t ab, Route: PO, Drug form: ERTAB, ONCE, Dosing Weight 75, kg, Start date: 10/10/12 12:19:00, Stop date: 10/10/12 12:19:00 PO No Longer Active [place] 10/10/2012 [facility] potassium chloride 20 mEq, 1 t ab, Route: PO, Drug form: ERTAB, ONCE, Dosing Weight 75, kg, Start date: 10/09/12 12:16:00, Stop date: 10/09/12 12:16:00 PO No Longer Active [place] 10/09/2012 [facility] Lexapro 5 mg, 0.5 tab, Route: PO, Drug form: TAB, Daily, Dosing Weight 75, kg, Start date: 10/08/12 21:00:00, Duration: 30 day, Stop date: 11/07/12 9:00:00 PO No Longer Active Giang 10/09/2012 [facility] potassium chloride 20 mEq, 100 mL, Route: IVPB, Drug form: INJ, ONCE, Start date: 10/08/12 11:00:00, Stop date: 10/08/12 11:00:00 IVPB No Longer Active [facility] 10/08/2012 [facility] Dextrose 5% with 0.45% NaCl IV 1,000 mL 1,000 mL, Rate: 50 ml/hr, Infuse over: 20 hr, Route: IV, Dosing Weight 75 kg, Total Volume: 1,000, Start date: 10/08/12 10:36:00, Stop date: 11/07/12 10:35:00 IV No Longer Active Nubia 10/08/2012 [facility] morphine Sulfate 2 mg, 1 mL, R oute: IV, Drug form: INJ, Q4H, PRN Pain, Start date: 10/07/12 22:16:00, Duration: 30 day, Stop date: 11/06/12 22:15:00 IV No Longer Active Harris 10/08/2012 [facility] potassium phosphate-sodium phosphate 250 mg-278 mg-164 mg oral powder 4 pkt, Route: PO, Drug Form: PDR/REC, ON CE, Start date: 10/07/12 9:30:00, Stop date: 10/07/12 9:30:00 PO No Longer Active Nubia 10/07/2012 [facility] potassium chloride 20 mEq, 100 mL, Route: IVPB, Drug form: INJ, ONCE, Dosing Weight 75, kg, Start date: 10/07/12 9:12:00, Stop date: 10/07/12 9:12:00 IVPB No Longer Active [facility] [place] [place] 10/07/2012 [facility] sodium phosphate 20 mmol, Rout e: IVPB, ONCE, Dosing Weight 75, kg, Start date: 10/07/12 9:12:00, Stop date: 10/07/12 9:12:00 IVPB No Longer Active [facility] [place] [place] 013 [facility] Sodium Chloride 0.9% IV 1000 mL 1,000 mL, Rate: 25 ml/hr, Infuse over: 40 hr, Route: IV, Dosing Weight 75 kg, Total Volume: 1,000, Start date: 10/05/12 15:40:00, Duration: 30 day, Stop date: 11/04/12 15:39:00 IV No Longer Active Ward [facility] Sodium Chloride 0.9% (Bolus) IV 1000 mL 1,000 mL, Rate: 1,000 ml/hr, Infuse over: 1 hr, Route: IV, Dosing Weight 75 kg, Total Volume: 1,000, Priority: STAT, Start date: 10/05/12 11:58:00, Duration: 1 doses or times, Stop date: 10/05/12 12:57:00, Bolus DoseBolus Dose IV No Longer Active [facility] 10/05/2012 [facility] norepinephrine 8 mg 250 mL, Ra te: Titrate, Dosing Weight 75, kg, Route: IV, Total Volume: 250, Priority: STAT, Duration: 30 day, Stop date: 11/03/12 23:33:00, Replace Every: 24 hr IV No Longer Active [facility] [place] [place] 10/05/2012 [facility] NS (Bolus) IV 1,000 mL 1,000 m L, Rate: 1,000 ml/hr, Infuse over: 1 hr, Route: IV, Dosing Weight 75 kg, Total Volume: 1,000, Priority: STAT, Start date: 10/04/12 21:21:00, Duration: 2 doses or times, Stop date: 10/04/12 23:20:00, Bolus DoseBolus Dose IV No Longer Active [facility] 10/05/2012 [facility] vancomycin 1 gm, 200 mL, Route : IVPB, Drug form: INJ, [id number], Dosing Weight 75, kg, Start date: 10/04/12 17:00:00, Duration: 30 day, Stop date: 11/03/12 5:00:00 IVPB No Longer Active Nubia 10/04/2012 [facility] NS (Bolus) IV 1,000 mL 1,000 m L, Rate: 1,000 ml/hr, Infuse over: 1 hr, Route: IV, Dosing Weight 75 kg, Total Volume: 1,000, Priority: STAT, Start date: 10/04/12 10:44:00, Duration: 1 doses or times, Stop date: 10/04/12 11:43:00, Bolus DoseBolus Dose IV No Longer Active [facility] 10/04/2012 [facility] magnesium sulfate 2 gm, 50 mL, Route: IVPB, Drug form: INJ, ONCE, Dosing Weight 75, kg, Total dose = 2 gm, Start date: 10/04/12 10:44:00, Duration: 1 doses or times, Stop date: 10/04/12 10:44:00 IVPB No Longer Active [facility] 013 [facility] Zosyn 3.375 gm, 100 mL, Route: IVPB, Drug form: PDR/INJ, [id number], Dosing Weight 75, kg, Start date: 10/04/12 10:00:00, Duration: 30 day, Stop date: 11/03/12 4:00:00 IVPB No Longer Active [facility] 10/04/2012 [facility] enoxaparin 40 mg, 0.4 mL, Rout e: SUB-Q, Drug form: INJ, [id number], Dosing Weight 75, kg, Start date: 10/04/12 10:00:00, Duration: 30 day, Stop date: 11/02/12 10:00:00 SUB-Q No Longer Active [facility] [place] [place] 10/04/2012 [facility] pantoprazole 40 mg, 1 tab, Rou te: PO, Drug form: ECTAB, Daily, Dosing Weight 75, kg, Priority: Routine, Start date: 10/04/12 9:00:00, Stop date: 11/02/12 9:00:00 PO No Longer Active [place] 10/04/2012 [facility] Saline Flush 0.9% 5 ml, Route: IVP, Drug Form: INJ, Dosing Weight 75, kg, Q12H, Start date: 10/04/12 9:00:00, Duration: 30 day, Stop date: 11/02/12 21:00:00 IVP No Longer Active Jeremiah 10/04/2012 [facility] clopidogrel 75 mg, 1 tab, Rout e: PO, Drug form: TAB, Daily, Dosing Weight 75, kg, Start date: 10/04/12 9:00:00, Duration: 30 day, Stop date: 11/02/12 9:00:00 PO No Longer Active [place] 10/04/2012 [facility] ciprofloxacin 400 mg/200 mL intravenous solution 400 mg, 200 mL, Route: IVPB, Drug form: INJ, [id number], Dosing Weight 75, kg, Start date: 10/04/12 6:00:00, Duration: 30 day, Stop date: 11/02/12 18:00:00 IVPB No Longer Active N[facility]ia 10/04/2012 [facility] cefepime + Sodium Chloride 0.9% IV 100 mL 1 gm, Route: IVPB, [id number], Dosing Weight 75, kg, (CrCl 30 - 49 ml/min), Start date: 10/04/12 6:00:00, Duration: 30 day, Stop date: 11/02/12 18:00:00 IVPB No Longer Active N[facility] 10/04/2012 [facility] ibuprofen 100 mg oral tablet, chewable 800 mg, 1 tab, Route: CHEW, Drug form: TAB, Q8H, Dosing Weight 75, kg, PRN as needed for fever, Start date: 10/04/12 5:15:00, Duration: 30 day, Stop date: 11/03/12 5:14:00 CHEW No Longer Active [facility] 013 [facility] normal saline 0.9% IV 1,000 mL 1,000 mL, Rate: 125 ml/hr, Infuse over: 8 hr, Route: IV, Dosing Weight 75 kg, Total Volume: 1,000, Start date: 10/04/12 4:03:00, Duration: 30 day, Stop date: 11/03/12 4:02:00 IV No Longer Active Ahmed 10/04 [facility] Zofran 4 mg, 2 mL, Route: IV, Drug form: INJ, Q4H, Dosing Weight 75, kg, PRN as needed for nausea/vomiting, Start date: 10/04/12 4:03:00, Duration: 30 day, Stop date: 11/03/12 4:02:00 [facility] vancomycin 1 gm, 200 mL, Route : IVPB, Drug form: INJ, [id number], Dosing Weight 75, kg, Priority: STAT, Start date: 10/04/12 3:14:00, Duration: 30 day, Stop date: 11/02/12 3:14:00 IVPB No Longer Active Nubia 10/04/2012 [facility] acetaminophen 650 mg, 20.3 mL, Route: PO, Drug form: LIQ, Q6H, Dosing Weight 75, kg, PRN Fever, Start date: 10/04/12 1:58:00, Duration: 30 day, Stop date: 11/03/12 1:57:00 PO [facility] Zofran 4 mg, 2 mL, Route: IV, Drug form: INJ, Q4H, Dosing Weight 75, kg, PRN as needed for nausea/vomiting, Start date: 10/04/12 1:43:00, Duration: 30 day, Stop date: 11/03/12 1:42:00 [facility] Saline Flush 0.9% 5 ml, Route: IVP, Drug Form: INJ, Dosing Weight 75, kg, PRN, PRN Line Flush, Start date: 10/03/12 23:31:00, Duration: 30 day, Stop date: 11/02/12 23:30:00 IVP No Longer Active Jeremiah 10/04/2012 [facility] ciprofloxacin 500 mg oral tablet 500 mg, 1 tab, PO, Q12H, 14 tab, Substitution Allowed, TAB PO No Longer Active 10/04/2012 [facility] ALPRAZOLam 0.25 mg oral tablet, disintegrating 0.25 mg, 1 tab, PO, BID, PRN, for anxiety, Substitution Allowed, DIS Tablet PO Active 10/04/2012 [facility] pantoprazole 40 mg oral enteric coated tablet 40 mg, 1 tab, PO, BID, 30 tab, Substitution Allowed, ECTAB PO Active 10/04/2012 [facility] escitalopram 20 mg oral tablet 20 mg, 1 tab, PO, Daily, 30 tab, Substitution Allowed, TAB PO Active 10/04/2012 [facility] gabapentin 300 mg oral capsule 300 mg, 1 cap, PO, Bedtime, 90 cap, Substitution Allowed PO Active 10/04/2012 [facility] clopidogrel 75 mg oral tablet 75 mg, 1 tab, PO, Daily, 30 tab, Substitution Allowed, TAB PO Active [facility] 10/04/2012 [facility] doxepin 25 mg oral capsule 25 mg, 1 cap, PO, Bedtime, 90 cap, Substitution Allowed, CAP PO Active 10/04/2012 [facility] hyoscyamine 0.125 mg sublingual tablet 0.125 mg, 1 tab, SL, TID-Before Meals, 30 tab, Substitution Allowed, TAB SL No Longer Active 10/04/2012 [facility] amitriptyline 25 mg oral tablet 25 mg, 1 tab, PO, Bedtime, 90 tab, Substitution Allowed, TAB PO Active 10/04/2012 [facility] ondansetron 4 mg oral tablet 4 mg, 1 tab, PO, Q6H, PRN, 10 tab, as needed for nausea/vomiting, Substitution Allowed, TAB PO No Longer Active 10/04/2012 [facility] metoclopramide 10 mg oral tablet 10 mg, 1 tab, PO, QID- Before Meals, 56 tab, Substitution Allowed, TAB PO No Longer Active 10/04/2012 [facility] midodrine 10 mg oral tablet 10 mg, 1 tab, PO, BID, 270 tab, Substitution Allowed, TAB PO No Longer Active 10/04/2012 [facility] clindamycin 150 mg oral capsule 300 mg, 2 cap, PO, Q8H, 40 cap, Substitution Allowed PO No Longer Active 10/04/2012 [facility] Norel SR oral tablet, extended release 1 tab, PO, Q12H, PRN, 10 tab, for nasal congestion, Substitution Allowed, Maintenance, ERTAB PO No Longer Active 10/04/2012 [facility] potassium phosphate + Sodium Chloride 0.9% IV 250 mL 15 mmol, 5 mL, Route: IV, ONCE, Start date: 10/03/12 21:53:00, Stop date: 10/03/12 21:53:00 IV No Longer Active Jeremiah 10/04/2012 [facility] doxycycline hyclate 100 mg oral delayed release capsul e 100 mg, 1 cap, PO, Daily, 10 cap, Substitution Allowed PO No Longer Active 10/04/2012 [facility] METRONIDazole 500 mg oral tablet 500 mg, 1 tab, PO, Q8H, 21 tab, Substitution Allowed PO No Longer Active 10/04/2012 [facility] Celebrex 200 mg oral capsule 2 00 mg, 1 cap, PO, Daily, PRN, 10 cap, Pain, Substitution Allowed, CAP PO No Longer Active 10/04/2012 [facility] Alinia 500 mg oral tablet 500 mg, 1 tab, PO, Q12H, 6 tab, Substitution Allowed, TAB PO Active 10/04/2012 [facility] midazolam 50 mg IV, Start date : 10/03/12 19:11:00, Duration: 30, 50 ml, 75 IV No Longer Active [facility] 10/04/2012 [facility] fentanyl 1,250 microgram + Sodium Chlori de 0.9% (titrate) 250 mL 250 mL, Rate: Titrate, Dosing Weight 75, kg, Route: IV, Total Volume: 250, Duration: 30 day, Stop date: 11/02/12 19:11:00, Replace Every: 24 hr IV No Longer Active [facility] 10/04 [facility] Versed 50 mg in NS 50 ml (titrate) IV 50 mg 50 mg, 50 mL, Rate: Titrate as directed, Dosing Weight 75, kg, Route: IV, Total Volume: 50 ml, Duration: 30 day, Stop date: 11/02/12 19:10:00, Replace Every: 24 hr IV No Longer Active [facility] 10/04 [facility] potassium chloride 20 mEq, 100 mL, Route: IVPB, Drug form: INJ, Q2H, Start date: 10/03/12 18:00:00, Duration: 2 doses or times, Stop date: 10/03/12 20:00:00 IVPB No Longer Active [facility] 10/03/2012 [facility] azithromycin 500 mg, 250 mL, R oute: IVPB, Drug form: PDR/INJ, [id number], Dosing Weight 75, kg, Priority: Routine, Start date: 10/03/12 18:00:00, Duration: 30 day, Stop date: 11/01/12 18:00:00 IVPB No Longer Active [facility] 10/03/2012 [facility] ceftriaxone + Sodium Chloride 0.9% IV 100 mL 1 gm, Route: IVPB, [id number], Dosing Weight 75, kg, Priority: Routine, Start date: 10/03/12 18:00:00, Duration: 30 day, Stop date: 11/01/12 18:00:00 IVPB No Longer Active [facility] 10/03/2012 [facility] potassium chloride 20 mEq/100 mL intravenous solution 20 mEq, Route: IVPB, ONCE, Dosing Weight 75, kg, Priority: STAT, Start date: 10/03/12 17:17:00, Stop date: 10/03/12 17:17:00 IVPB No Longer Active [facility] 10/03/2012 [facility] rocuronium 50 mg, Route: IVP, ONCE, Dosing Weight 75, kg, Start date: 10/03/12 16:58:00, Stop date: 10/03/12 16:58:00 IVP No Longer Active [facility] 10/03/2012 [facility] etomidate 20 mg, Route: IVP, O NCE, Dosing Weight 75, kg, Priority: STAT, Start date: 10/03/12 16:58:00, Stop date: 10/03/12 16:58:00 IVP No Longer Active [facility] 10/03 [facility] Sodium Chloride 0.9% (Bolus) IV 2000 mL 2,000 mL, Rate: 2,000 ml/hr, Infuse over: 1 hr, Route: IV, Dosing Weight 75 kg, Total Volume: 2,000, Priority: STAT, Start date: 10/03/12 16:56:00, Duration: 1 doses or times, Stop date: 10/03/12 17:55:00, Bolus DoseBolus Dose IV No Longer Active [facility] 10/03/2012 [facility] fentanyl 1,250 microgram 250 m L, Rate: Titrate, Dosing Weight 75, kg, Route: IV, Total Volume: 250, Duration: 30 day, Stop date: 11/02/12 16:55:00, Replace Every: 24 hr IV No Longer Active [facility] 10/03/2012 [facility] Saline Flush 0.9% 5 mL, Route: IVP, Drug Form: INJ, Dosing Weight 75, kg, PRN, PRN Line Flush, Start date: 10/03/12 16:46:00, Duration: 30 day, Stop date: 11/02/12 16:45:00 IVP No Longer Active [facility] 10/03/2012 [facility] Tramadol HCl 1 tablet as needed Orally Active 50 mg Orally every 6 hrs [facility] 09/07/2012 [facility] ProAir HFA 2 puffs as needed Inhalation Active 108 (90 Base) MCG/ACT Inhalation every 4 hrs [facility] 08/23/2012 [facility] Xanax 1 tablet by mouth Active 0.25 MG by mouth once a day as needed [facility] 04/22/2012 [facility] Plavix 1 tablet Orally Active 75 mg Orally Once a day [facility] [place] 1 tablet as needed Orally Active 10-325 MG Orally every 6 hrs [facility] Dexilant 1 [...] Active 10 MG Orally Once a day [facility] Amitriptyline HCl [...] Adverse Reaction hives Adverse Reaction Active 09/14/2014 [facility] Amoxil Adverse Reaction unknown Adverse Reaction Active 09/14/2014 [facility] codeine Adverse Reaction hives Adverse Reaction Active 09/14/2014 [facility] amoxicillin Assertion Drug allergy Active [facility] Immunizations Immunization Date Given Site Status Last Updated Comments Source FLU 18 YRS & [place] [address] 01/06/20 13 completed [facility] Results Order [...] should be multiplied by the estimated BMI. [facility] CHEM PANEL Chloride Lvl 108 95 - 109 11/03/2013 [facility] CHEM PANEL Calcium Lvl 7.8 8.5 - 10.5 11/03/2013 [facility] CHEM PANEL CO2 26 24 - 32 11/03/2013 [facility] CHEM PANEL Glucose Lvl 79 70 - 99 11/03/2013 <sup>3</sup>Interpretive Data: Adult ref erence range values reflect the clinical guidelines
of the [place] [employer]. [facility] CHEM PANEL BUN 21 7 - 22 11/03/2013 [facility] CHEM PANEL Potassium Lvl 4.1 3.5 - 5.1 11/03/2013 [facility] CHEM PANEL Sodium Lvl 140 135 - 145 11/03/2013 [facility] CHEM PANEL Creatinine Lvl 0.8 0.5 - 1.4 11/03/2013 [facility] CHEM PANEL AGAP 10.1 10.0 - 20.0 11/03/2013 [facility] HEMATOLOGY MCV 69.0 80.0 - 98.0 11/03/2013 [facility] HEMATOLOGY MCH 21.6 27.0 - 31.0 11/03/2013 [facility] HEMATOLOGY RDW 16.9 11.5 - 14.5 11/03/2013 [facility] HEMATOLOGY MCHC 31.4 32.0 - 36.0 11/03/2013 [facility] HEMATOLOGY Hct 36.9 36.0 - 48.0 11/03/2013 [facility] HEMATOLOGY Hgb 11.6 12.0 - 16.0 11/03/2013 [facility] HEMATOLOGY Platelet 218 133 - 450 11/03/2013 [facility] HEMATOLOGY MPV 8.5 7.4 - 10.4 11/03/2013 [facility] HEMATOLOGY WBC 5.1 3.7 - 10.4 11/03/2013 [facility] HEMATOLOGY RBC 5.35 4.20 - 5.40 11/03/2013 [facility] LIPIDS VLDL 23 11/02/2013 [facility] LIPIDS LDL (Calculated) 84 <=99 mg/dL 11/02/2013 [facility] LIPIDS Trig 114 <=149 mg/dL 11/02/2013 [facility] LIPIDS HDL 54 >=61 mg/dL 11/02/2013 [facility] LIPIDS Chol 161 <=199 mg/dL 11/02/2013 [facility] LIPIDS CHD Risk 2.98 3.90 - 5.80 11/02/2013 [facility] URINE AND STOOL UA RBC 4 0 - 2 11/02/2013 [facility] URINE AND STOOL UA WBC 82 0 - 5 11/02/2013 [facility] URINE AND STOOL UA Bacteria Many /HPF None Seen /HPF 11/02/2013 [facility] URINE AND STOOL UA Sq Epi Few /LPF Few /LPF 11/02/2013 [facility] URINE AND STOOL UA Mucus Many /LPF None Seen /LPF 11/02/2013 [facility] URINE AND STOOL UA Leuk Est Large *ABN* (11/02/13 9:22 AM) Negative 11/02/2013 [facility] URINE AND STOOL UA Nitrite Negative (11/02/13 9:22 AM) Negative 11/02/2013 [facility] URINE AND STOOL UA Urobilinogen 4.0 0.1 - 1.0 11/02/2013 [facility] URINE AND STOOL UA Blood Negative (11/02/13 9:22 AM) Negative 11/02/2013 [facility] URINE AND STOOL UA Ketones Negative mg/dL Negative mg/dL 11/02/2013 [facility] URINE AND STOOL UA Bili Negative *NA* (11/02/13 9:22 AM) Negative 11/02/2013 [facility] URINE AND STOOL UA Glucose Negative mg/dL Negative mg/dL 11/02/2013 [facility] URINE AND STOOL UA Protein Negative mg/dL Negative mg/dL 11/02/2013 [facility] URINE AND STOOL UA pH 5.0 5.0 - 8.0 11/02/2013 [facility] URINE AND STOOL UA Turbidity Marked *ABN* (11/02/13 9:22 AM) Clear 11/02/2013 [facility] URINE AND STOOL UA Spec Grav 1.023 <=1.030 11/02/2013 [facility] URINE AND STOOL UA Color Yellow (11/02/13 9:22 AM) Yellow 11/02/2013 [facility] CARDIAC ENZYMES BNP 65 <=100 pg/mL 11/02/2013 <sup>5</sup>Interpretive Data: Elevated results are in line with increasing severity of
congestive heart failure. Minor elevations between 100 and 300
may be seen with Myocardial Ischemia, Sodium retaining drugs,
and compensated/treated heart failure. [facility] CARDIAC ENZYMES Total CK 39 12 - 191 11/02/2013 [facility] CARDIAC ENZYMES Troponin-I <0.02 0.00 - 0.40 11/02/2013 [facility] CHEM PANEL A/G Ratio 1.4 0.7 - 1.6 11/02/2013 [facility] CHEM PANEL AGAP 10.2 10.0 - 20.0 11/02/2013 [facility] CHEM PANEL B/C Ratio 19 6 - 25 11/02/2013 [facility] CHEM PANEL Globulin 2.6 2.0 - 4.0 11/02/2013 [facility] CHEM PANEL eGFR 81 11/02/2013 <sup>2</sup>Result Comment: [...] PANEL CO2 26 24 - 32 11/02/2013 [facility] CHEM PANEL Calcium Lvl 8.2 8.5 - 10.5 11/02/2013 [facility] CHEM PANEL Total Protein 6.3 6.4 - 8.4 11/02/2013 [facility] CHEM PANEL Albumin Lvl 3.7 3.5 - 5.0 11/02/2013 [facility] CHEM PANEL ALT 18 0 - 65 11/02/2013 [facility] CHEM PANEL Bili Total 0.5 0.2 - 1.3 11/02/2013 [facility] CHEM PANEL AST 9 0 - 37 11/02/2013 [facility] CHEM PANEL Alk Phos 56 39 - 136 11/02/2013 [facility] CHEM PANEL Creatinine Lvl 0.8 0.5 - 1.4 11/02/2013 [facility] CHEM PANEL Sodium Lvl 140 135 - 145 11/02/2013 [facility] CHEM PANEL Potassium Lvl 3.2 3.5 - 5.1 11/02/2013 [facility] CHEM PANEL Chloride Lvl 107 95 - 109 11/02/2013 [facility] CHEM PANEL Glucose Lvl 87 70 - 99 11/02/2013 <sup>4</sup>Interpretive Data: Adult ref erence range values reflect the clinical guidelines
of the [place] [employer]. [facility] CHEM PANEL BUN 15 7 - 22 11/02/2013 [facility] HEMATOLOGY Microcyte 3+ *NA* (11/01/13 8:52 PM) None Seen 11/02/2013 [facility] HEMATOLOGY Monocytes # 0.6 0.0 - 0.8 11/02/2013 [facility] HEMATOLOGY Monocytes 6.8 2.0 - 12.0 11/02/2013 [facility] HEMATOLOGY Segs 72.3 45.0 - 75.0 11/02/2013 [facility] HEMATOLOGY Lymphocytes 20.4 20.0 - 40.0 11/02/2013 [facility] HEMATOLOGY Basophils 0.5 0.0 - 1.0 11/02/2013 [facility] Lymphocytes # 1.9 1.0 - 5.5 11/02/2013 [facility] Segs-Bands # 6.6 1.5 - 8.1 11/02/2013 [facility] HEMATOLOGY PT 13.5 12.0 - 14.7 11/02/2013 [facility] PTT 27.6 22.9 - 35.8 11/02/2013 <sup>7</sup>Interpretive Data: Heparin T herapeutic Range: 57 - 92 Seconds [facility] INR 1.03 0.85 - 1.17 11/02/2013 <sup>6</sup>Interpretive Data: RECOMMEND ED RANGES FOR PROTIME INR:
2.0-3.0 for most medical and surgical thromboembolic states.
2.5-3.5 for artificial heart valves and recurrent embolism.

INR SHOULD BE USED ONLY FOR PATIENTS ON STABLE ANTICOAGULANT THERAPY. [facility] HEMATOLOGY Hct 37.5 36.0 - 48.0 11/02/2013 [facility] MCV 68.6 80.0 - 98.0 11/02/2013 [facility] MCH 21.8 27.0 - 31.0 11/02/2013 [facility] MCHC 31.8 32.0 - 36.0 11/02/2013 [facility] RDW 17.2 11.5 - 14.5 11/02/2013 [facility] Platelet 262 133 - 450 11/02/2013 [facility] MPV 8.8 7.4 - 10.4 11/02/2013 [facility] Hgb 12.0 12.0 - 16.0 11/02/2013 [facility] RBC 5.48 4.20 - 5.40 11/02/2013 [facility] HEMATOLOGY WBC 9.2 3.7 - 10.4 11/02/2013 [facility] CHEMISTRY Magnesium Lvl 2.1 1.8 - 2.4 10/12/2012 Normal [facility] CHEMISTRY BUN 7 7 - 22 10/12/2012 Normal [facility] CHEMISTRY Glucose Lvl 81 70 - 99 10/12/2012 Normal <sup>5</sup>Interpretive Data: Adult ref erence range values reflect the clinical guidelines
of the [place] [employer]. [facility] CHEMISTRY CO2 26 24 - 32 10/12/2012 Normal [facility] CHEMISTRY eGFR 101 10/12/2012 NA <sup>2</sup>Result Comment: [...] should be multiplied by the estimated BMI. [facility] CHEMISTRY Chloride Lvl 109 95 - 109 10/12/2012 Normal [facility] CHEMISTRY Calcium Lvl 9.1 8.5 - 10.5 10/12/2012 Normal [facility] CHEMISTRY Potassium Lvl 3.6 3.5 - 5.1 10/12/2012 Normal [facility] CHEMISTRY Creatinine Lvl 0.6 0.5 - 1.4 10/12/2012 Normal [facility] CHEMISTRY Sodium Lvl 146 135 - 145 10/12/2012 HI [facility] CHEMISTRY AGAP 14.6 10.0 - 20.0 10/12/2012 Normal [facility] HEMATOLOGY Lymphocytes # 1.2 1.0 - 5.5 10/12/2012 Normal [facility] HEMATOLOGY Monocytes # 0.3 0.0 - 0.8 10/12/2012 Normal [facility] HEMATOLOGY Eosinophils # 0.2 0.0 - 0.5 10/12/2012 Normal [facility] HEMATOLOGY Basophils # 0.0 0.0 - 0.2 10/12/2012 Normal [facility] HEMATOLOGY Segs-Bands # 2.7 1.5 - 8.1 10/12/2012 Normal [facility] HEMATOLOGY Basophils 0.4 0.0 - 1.0 10/12/2012 Normal [facility] HEMATOLOGY Lymphocytes 26.6 20.0 - 40.0 10/12/2012 Normal [facility] HEMATOLOGY Monocytes 7.8 2.0 - 12.0 10/12/2012 [facility] HEMATOLOGY Segs 60.8 45.0 - 75.0 10/12/2012 [facility] HEMATOLOGY Eosinophils 4.4 0.0 - 4.0 10/12/2012 [facility] HEMATOLOGY RBC 4.65 4.20 - 5.40 10/12/2012 [facility] HEMATOLOGY RDW 14.6 11.5 - 14.5 10/12/2012 [facility] HEMATOLOGY Platelet 359 133 - 450 10/12/2012 [facility] HEMATOLOGY Hgb 11.2 12.0 - 16.0 10/12/2012 [facility] HEMATOLOGY Hct 34.3 36.0 - 48.0 10/12/2012 [facility] HEMATOLOGY MPV 7.6 7.4 - 10.4 10/12/2012 [facility] HEMATOLOGY WBC 4.5 3.7 - 10.4 10/12/2012 [facility] HEMATOLOGY MCV 73.7 81.0 - 99.0 10/12/2012 [facility] HEMATOLOGY MCH 24.1 27.0 - 31.0 10/12/2012 [facility] HEMATOLOGY MCHC 32.7 32.0 - 36.0 10/12/2012 [facility] CHEMISTRY Sodium Lvl 145 135 - 145 10/11/2012 [facility] CHEMISTRY Chloride Lvl 110 95 - 109 10/11/2012 [facility] CHEMISTRY Potassium Lvl 3.4 3.5 - 5.1 10/11/2012 [facility] CHEMISTRY eGFR 101 10/11/2012 NA <sup>3</sup>Result Comment: [...] should be multiplied by the estimated BMI. [facility] CHEMISTRY ALT 18 0 - 65 10/11/2012 Normal [facility] CHEMISTRY Alk Phos 68 39 - 136 10/11/2012 Normal [facility] CHEMISTRY Total Protein 6.1 6.4 - 8.4 10/11/2012 LOW [facility] CHEMISTRY Albumin Lvl 2.7 3.5 - 5.0 10/11/2012 LOW [facility] CHEMISTRY Calcium Lvl 9.1 8.5 - 10.5 10/11/2012 Normal [facility] CHEMISTRY Bili Total 0.4 0.2 - 1.3 10/11/2012 Normal [facility] CHEMISTRY AST 7 0 - 37 10/11/2012 Normal [facility] CHEMISTRY Creatinine Lvl 0.6 0.5 - 1.4 10/11/2012 Normal [facility] CHEMISTRY CO2 27 24 - 32 10/11/2012 Normal [facility] CHEMISTRY BUN 3 7 - 22 10/11/2012 LOW [facility] CHEMISTRY Glucose Lvl 94 70 - 99 10/11/2012 Normal <sup>6</sup>Interpretive Data: Adult ref erence range values reflect the clinical guidelines
of the [place] [employer]. [facility] CHEMISTRY Globulin 3.4 2.0 - 4.0 10/11/2012 Normal [facility] CHEMISTRY A/G Ratio 0.8 0.7 - 1.6 10/11/2012 Normal [facility] CHEMISTRY B/C Ratio 5 6 - 25 10/11/2012 LOW [facility] CHEMISTRY AGAP 11.4 10.0 - 20.0 10/11/2012 Normal [facility] HEMATOLOGY MPV 7.1 7.4 - 10.4 10/11/2012 LOW [facility] HEMATOLOGY MCH 23.9 27.0 - 31.0 10/11/2012 [facility] HEMATOLOGY Platelet 308 133 - 450 10/11/2012 Normal [facility] HEMATOLOGY RDW 14.1 11.5 - 14.5 10/11/2012 Normal [facility] HEMATOLOGY MCHC 32.4 32.0 - 36.0 10/11/2012 Normal [facility] HEMATOLOGY RBC 4.35 4.20 - 5.40 10/11/2012 Normal [facility] HEMATOLOGY MCV 73.9 81.0 - 99.0 10/11/2012 LOW [facility] HEMATOLOGY Hct 32.1 36.0 - 48.0 10/11/2012 LOW [facility] HEMATOLOGY Hgb 10.4 12.0 - 16.0 10/11/2012 [facility] HEMATOLOGY WBC 3.5 3.7 - 10.4 10/11/2012 LOW [facility] HEMATOLOGY Basophils # 0.0 0.0 - 0.2 10/11/2012 Normal [facility] HEMATOLOGY Eosinophils # 0.3 0.0 - 0.5 10/11/2012 Normal [facility] HEMATOLOGY Monocytes # 0.3 0.0 - 0.8 10/11/2012 Normal [facility] HEMATOLOGY Lymphocytes # 0.9 1.0 - 5.5 10/11/2012 LOW [facility] HEMATOLOGY Segs-Bands # 2.1 1.5 - 8.1 10/11/2012 Normal [facility] HEMATOLOGY Basophils 0.9 0.0 - 1.0 10/11/2012 Normal [facility] HEMATOLOGY Eosinophils 7.2 0.0 - 4.0 10/11/2012 HI [facility] HEMATOLOGY Monocytes 7.6 2.0 - 12.0 10/11/2012 Normal [facility] HEMATOLOGY Lymphocytes 25.0 20.0 - 40.0 10/11/2012 Normal [facility] HEMATOLOGY Segs 59.3 45.0 - 75.0 10/11/2012 Normal [facility] CHEMISTRY Chloride Lvl 110 95 - 109 10/10/2012 [facility] CHEMISTRY Potassium Lvl 3.2 3.5 - 5.1 10/10/2012 LOW [facility] CHEMISTRY Sodium Lvl 145 135 - 145 10/10/2012 Normal [facility] CHEMISTRY eGFR 96 10/10/2012 NA <sup>4</sup>Result Comment: [...] should be multiplied by the estimated BMI. [facility] CHEMISTRY Albumin Lvl 2.5 3.5 - 5.0 10/10/2012 LOW [facility] CHEMISTRY Bili Total 0.3 0.2 - 1.3 10/10/2012 Normal [facility] CHEMISTRY AST 8 0 - 37 10/10/2012 Normal [facility] CHEMISTRY Alk Phos 73 39 - 136 10/10/2012 Normal [facility] CHEMISTRY ALT 21 0 - 65 10/10/2012 Normal [facility] CHEMISTRY Total Protein 5.8 6.4 - 8.4 10/10/2012 LOW [facility] CHEMISTRY Calcium Lvl 8.6 8.5 - 10.5 10/10/2012 Normal [facility] CHEMISTRY Creatinine Lvl 0.7 0.5 - 1.4 10/10/2012 Normal [facility] CHEMISTRY CO2 27 24 - 32 10/10/2012 Normal [facility] CHEMISTRY BUN 3 7 - 22 10/10/2012 LOW [facility] CHEMISTRY Glucose Lvl 123 70 - 99 10/10/2012 HI <sup>7</sup>Interpretive Data: Adult ref erence range values reflect the clinical guidelines
of the [place] [employer]. [facility] CHEMISTRY AGAP 11.2 10.0 [...] Phosphorus 2.4 2.5 - 4.5 10/06/2012 LOW [facility] CHEMISTRY Vanco Tr TND 1900 10/05/2012 NA [facility] CHEMISTRY Vanco Tr 7.5 10/05/2012 NA <sup>9</sup>Interpretive Data: Therapeutic Range:
Trough: 10 - 20 ug/mL
Peak: 20 - 40 ug/mL
Potential Toxicity: >80 ug/mL [facility] CHEMISTRY Bili Direct 0.7 0.0 - 0.3 10/05/2012 [facility] CHEMISTRY Bili Indirect 1.1 0.0 - 1.0 10/05/2012 [facility] CHEMISTRY CK MB <0.5 0.5 - 3.6 10/04/2012 Normal [facility] CHEMISTRY Total CK 78 12 - 191 10/04/2012 Normal [facility] CHEMISTRY Troponin-I <0.02 0.00 - 0.40 10/04/2012 Normal [facility] CHEMISTRY Ca Norm WB 0.96 1.05 - 1.25 10/04/2012 LOW [facility] CHEMISTRY Ca Ion WB 1.02 1.05 - 1.25 10/04/2012 LOW [facility] CHEMISTRY CK MB 0.8 0.5 - 3.6 10/04/2012 Normal [facility] CHEMISTRY Troponin-I <0.02 0.00 - 0.40 10/04/2012 Normal [facility] CHEMISTRY Total CK 77 12 - 191 10/04/2012 Normal [facility] CHEMISTRY LDL 92 <=99 10/04/2012 Normal [facility] CHEMISTRY Trig 164 <=149 10/04/2012 [facility] CHEMISTRY CHD Risk 2.37 3.90 - 5.80 10/04/2012 LOW [facility] CHEMISTRY HDL 91 >=61 10/04/2012 Normal [facility] CHEMISTRY Chol 216 <=199 10/04/2012 [facility] HEMATOLOGY Plt Morph Angel l (10/04/2012 02:29:00) 10/04/2012 Normal [facility] HEMATOLOGY RBC Morph Angel l (10/04/2012 02:29:00) 10/04/2012 Normal [facility] HEMATOLOGY PT 13.1 12.0 - 14.7 10/04/2012 Normal [facility] HEMATOLOGY PTT 29.7 22.9 - 35.8 10/04/2012 Normal <sup>14</sup>Interpretive Data: Heparin Therapeutic Range: 57 - 92 Seconds [facility] HEMATOLOGY INR 0.97 0.85 - 1.17 10/04/2012 Normal <sup>12</sup>Interpretive Data: RECOMMEN DED RANGES FOR PROTIME INR:
2.0-3.0 for most medical and surgical thromboembolic states.
2.5-3.5 for artificial heart valves and recurrent embolism.

INR SHOULD BE USED ONLY FOR PATIENTS ON STABLE ANTICOAGULANT THERAPY. [facility] BACTERIAL - SEROLOGY MRSA by PCR Negative [...] by the [facility] Diagnostic Laboratory within the [facility]. The Molecular Diagnostic Laboratory is authorized under the Clinical Laboratory Improvement Amendment of 1988 (CLIA-88) to perform high complexity testing. [facility] CHEMISTRY Total CK 71 12 - 191 10/04/2012 Normal [facility] CHEMISTRY Troponin-I <0.02 0.00 - 0.40 10/04/2012 Normal [facility] Microbiology Culture: Blood 10/04/2012 [facility] CHEMISTRY Lactic Acid Lvl 3.4 0.5 - 2.2 10/04/2012 [facility] Microbiology Culture: Blood 10/04/2012 [facility] CHEMISTRY FiO2 Art 100.0 10/03/2012 NA [facility] CHEMISTRY Vt Art 500 10/03/2012 [facility] CHEMISTRY Mode Art A/C (10/03/2012 17:14:00) 10/03/2012 Normal [facility] CHEMISTRY Rate Art 14 10/03/2012 [facility] CHEMISTRY pO2 Art 321 80 - 100 10/03/2012 [facility] CHEMISTRY BE Art -6 -2-2 - 2 10/03/2012 LOW [facility] CHEMISTRY HCO3 Art 20 22 - 26 10/03/2012 LOW [facility] CHEMISTRY pCO2 Art 39 35 - 45 10/03/2012 Normal [facility] CHEMISTRY pH Art 7.31 7.35 - 7.45 10/03/2012 LOW [facility] Site Art Right Ra (10/03/2012 17:14:00) 10/03/2012 Normal [facility] Temp Art 37.0 10/03/2012 NA [facility] Allens Art Positi ve (10/03/2012 17:14:00) 10/03/2012 Normal [facility] O2 Sat Art 99.9 95.0 - 100.0 10/03/2012 Normal [facility] CK MB <0.5 0.5 - 3.6 10/03/2012 Normal [facility] Ethanol Lvl 145 10/03/2012 NA <sup>11</sup>Interpretive Data: Negative Range: <3 mg/dL
Toxic Range: >250 mg/dL [facility] Etoh (%) 0.145 10/03/2012 NA <sup>10</sup>Interpretive Data: Negative Range: <0.003%
Toxic Range: >0.25% [facility] U Opiate Scr Negati ve *NA* (10/03/2012 16:52:00) Negati ve 10/03/2012 NA [facility] UDS Note See No te 8 *NA* [...] 300 ng/m L
Urine alcohol 20 mg/dL [facility] CHEMISTRY U Phencyc Scr Negati ve *NA* (10/03/2012 16:52:00) Negati ve 10/03/2012 NA [facility] CHEMISTRY U Cocaine Scr Negati ve *NA* (10/03/2012 16:52:00) Negati ve 10/03/2012 NA [facility] CHEMISTRY U Cannab Scr Negati ve *NA* (10/03/2012 16:52:00) Negati ve 10/03/2012 NA [facility] CHEMISTRY U Benzodia Scr Negati ve *NA* (10/03/2012 16:52:00) Negati ve 10/03/2012 NA [facility] CHEMISTRY U Amph Scr Negati ve *NA* (10/03/2012 16:52:00) Negati ve 10/03/2012 NA [facility] CHEMISTRY U Christiane Scr Negati ve *NA* (10/03/2012 16:52:00) Negati ve 10/03/2012 NA [facility] CHEMISTRY Acetaminoph Lvl <2 10 - 20 10/03/2012 LOW [facility] CHEMISTRY Salicylate Lvl <1.7 0.0 - 30.0 10/03/2012 Normal [facility] Lactic Acid Lvl 4.6 0.5 - 2.2 10/03/2012 HI [facility] CHEMISTRY CK MB Index <0.6 0.0 - 2.5 10/03/2012 Normal [facility] HEMATOLOGY INR 0.87 0.85 - 1.17 10/03/2012 Normal <sup>13</sup>Interpretive Data: RECOMMEN DED RANGES FOR PROTIME INR:
2.0-3.0 for most medical and surgical thromboembolic states.
2.5-3.5 for artificial heart valves and recurrent embolism.

INR SHOULD BE USED ONLY FOR PATIENTS ON STABLE ANTICOAGULANT THERAPY. [facility] PTT 28.4 22.9 - 35.8 10/03/2012 Normal <sup>15</sup>Interpretive Data: Heparin Therapeutic Range: 57 - 92 Seconds [facility] HEMATOLOGY PT 12.1 12.0 - 14.7 10/03/2012 Normal [facility] URINALYSIS UA Color Colorless 10/03/2012 NA [facility] URINALYSIS UA Urobilinogen 0.1 - 1.0 10/03/2012 NA [facility] URINALYSIS UA Sq Epi Occas ional /LPF *NA* (10/03/2012 16:52:00) Few 10/03/2012 NA [facility] URINALYSIS UA Leuk Est Negat sylwia (10/03/2012 16:52:00) Negati ve 10/03/2012 Normal [facility] URINALYSIS UA Nitrite Negat sylwia (10/03/2012 16:52:00) Negati ve 10/03/2012 Normal [facility] URINALYSIS UA Protein Negat sylwia mg/dL (10/03/2012 16:52:00) Negati ve 10/03/2012 Normal [facility] URINALYSIS UA Glucose Negat sylwia mg/dL *NA* (10/03/2012 16:52:00) Negati ve 10/03/2012 NA [facility] URINALYSIS UA Turbidity Clear (10/03/2012 16:52:00) Clear 10/03/2012 Normal [facility] URINALYSIS UA Blood Negat sylwia (10/03/2012 16:52:00) Negati ve 10/03/2012 Normal [facility] URINALYSIS UA Bili Negat sylwia *NA* (10/03/2012 16:52:00) Negati ve 10/03/2012 NA [facility] URINALYSIS UA Ketones Negat sylwia mg/dL *NA* (10/03/2012 16:52:00) Negati ve 10/03/2012 NA [facility] URINALYSIS UA Spec Grav 1.002 <=1.030 10/03/2012 Normal [facility] URINALYSIS UA pH 5.0 5.0 - 8.0 10/03/2012 Normal [facility] Microbiology Culture: Urine 10/03/2012 [facility] Pathology Reports No Data Provided for This [...] the left mas toid sinus. SL: 11/02/2013 [facility] Carotid artery Doppler bilat US CAROTID DOPPLER: [...] Ultrasound Consensus Conference Radiology 2003; [id number]. SL:11/02/2013 [facility] Chest 1view Chest one view: Exam reason: [...] IMPRESSION: No acute cardiopulmonary process noted. SL:11/01/2013 [facility] Brain wo contrast CT CT scan o [...] to the previous exam, 10/03/2012. SL:12 11/01/[address] HISTORY: Tube plac ement. One view chest. Comparison 10/10/2012. Right chest tube has been removed. Subcutaneous emphysema stable. No definite pneumothorax. Persistent atelectasis or infiltrate is present in the left lower lobe. There is a persistent small left pleural fluid. SL:14 10/10/[address] PORTABLE CHEST: COMPARISON: 10/09/2012 The support [...] trachea to the right. SL: 12 10/10/[address] PROCEDURE: Chest 1view REASON FOR EXAM: [...] right rotator cuff repair. SL: 12 10/09/[address] CHEST RADIOGRAPH S HALLIE VIEW INDICATION: [...] evidence of overt failure. SL: 13 10/09/2012 [place] 68073view HISTORY: Crackles. Chest one view. Comparison prior [...] No pneumothorax is currently evident. SL:13 10/08/2012 [facility] 1view Portable chest: Th e left jugular central line tip is at the jugulo-subclavian confluence. The right pleural tube is in good position. There is no visible pneumothorax. The chest wall emphysema is aga in noted and may be slightly decreased from the previous day. There is mild bilateral subsegmental atelectasis without change. There are no other new findings. SL:13 10/08/2012 [facility] 1view PORTABLE CHEST AT 2129 HOURS. [...] vascular congestion is seen. SL: 12 10/07/2012 [facility] 1view CHEST, portable (1 view) 10/07/2012 [...] shoulde r. Coding: Chest 1view CPT Code: 12497 SL: 12 Deep Ludwig M.D. 10/07/2012 [facility] Abdomen AP view Portable abdom en: The NG tube tip is coiled in the stomach. Mild small bowel prominence in the upper midabdomen is seen. The gas pattern is otherwise normal. There is no visible pneumoperitoneum. Landa catheter seen in the midline of the pelvis. SL:13 10/06/2012 [facility] Chest tube placement insertion VR Old and pneumothorax. PROCEDURE: Placement of large bore right chest tube. Fluoroscopic guidance. 18-gauge needle was advanced from an ant erior approach into the anterior pleural space. Guidewire was advanced into the fluoro to the lung apex. Needle exchanged for a series of dilators ultimately excepting a 24 [place] chest tube which was positioned with its tip near the apex. Procedure was well tolerated clinically. Total fluoroscopy time was 1.6 minutes SL: 13 10/06/2012 [facility] 1view CHEST, portable (1 view) 10/06/2012 [...] shoulde r. Coding: Chest 1view CPT Code: 62798 SL: 12 Deep Ludwig M.D. 10/06/2012 [facility] 1view Chest one view. COMPARISON: 10/06/2012. [...] nurse, Es, 10/06/2012, 0835 hours. SL:13 10/06/[address] CHEST, portable (1 view) 10/06/2012 @ [...] are noted. Coding: Chest 1view CPT Code: 07946 SL: Deep Ludwig M.D. 10/06/[address] Portable chest: Th e endotracheal tube, nasogastric tube and bilateral pleural catheters remain in place. Left jugular central line remains unchanged in position. Bibasilar subsegmental atelectasis is noted, more on the left. There is no visible pneumothorax. There has been resolution of mediastinal and soft tissue emphysema. There is no other change from the previous exam. SL:10/05/[address] Portable chest: Th e endotracheal tube, [...] in the neck continue to decrease. SL:10/04/[address] Portable chest: Th e endotracheal tube tip is in satisfactory position at the thoracic inlet. The NG tube is in the stomach. Bilateral pleural catheters are unchanged. There is no visible pneumothorax. L eft lower lobe atelectasis is again seen. The lungs are otherwise clear. Mild residual lung pneumomediastinum and soft tissue emphysema in the neck are noted. SL:10/04/[address] PORTABLE [facility] AT 2351 HOURS. INDICATION: Central line [...] developed. No pneumothorax is evident. SL: 10/04/[address] PORTABLE CHEST AT 2147 HOURS. INDICATION: [...] The right lung is clear. SL: 10/03/[address] PORTABLE CHEST AT 2112 HOURS. INDICATION: Right chest tube insertion. COMPARISON: Chest 2058 hours. Anterior right chest tube now projects likely within the hemithorax. It is kinked at the skin insertion site. Left chest tube remains in position. No pneumothorax is evident. No other change has occurred. SL: 10/03/[address] PORTABLE CHEST AT 2058 HOURS. INDICATION: [...] subcutaneous emphysema is again evident. SL: 10/03/2012 [facility] Chest w contrast CT EXAM: CT chest. [...] Dr. Daniels prior to dictation. SL: 10/03/2012 [facility] Brain wo contrast CT EXAM: CT head [...] IMPRESSION: No acute intracranial abnormality. SL: 10/03/[address] Portable chest: Th e endotracheal tube [...] tube 5 cm was suggested. SL:13 10/03/2012 [facility] Consultation Notes No Data Provided for This Section Discharge Summaries No Data Provided for This Section History and Physicals No Data Provided for This Section Vital Signs Vital Sign Value Date Comments Source Weight 171 09/14/2014 [facility] Height 60 0 09/14/2014 [facility] Weight 171 07/28/2014 [facility] Height 60 0 07/28/2014 [facility] Heart Rate 97 07/28/2014 [facility] Diastolic (mm Hg) 90 07/28/2014 [facility] Systolic (mm Hg) 120 07/28/2014 [facility] Systolic (mm Hg) 105 11/03/2013 [facility] Respitory Rate 20 11/03/2013 [facility] Heart Rate 75 11/03/2013 [facility] Temperature Oral (F) 98.0 F 11/03/2013 [facility] Diastolic (mm Hg) 66 11/03/2013 [facility] Diastolic (mm Hg) 67 11/03/2013 [facility] Respitory Rate 18 11/03/2013 [facility] Systolic (mm Hg) 103 11/03/2013 [facility] Temperature Oral (F) 98.2 F 11/03/2013 [facility] Heart Rate 87 11/03/2013 [facility] Diastolic (mm Hg) 64 11/03/2013 [facility] Systolic (mm Hg) 99 11/03/2013 [facility] Respitory Rate 18 11/03/2013 [facility] Heart Rate 69 11/03/2013 [facility] Temperature Oral (F) 98.4 F 11/03/2013 [facility] Weight 80.455 11/01/2013 [facility] Height 149.86 cm 11/01/2013 [facility] BMI Calculated 35.82 11/01/2013 [facility] Weight 177 11/01/2013 [facility] Height 60 [...] [facility] Systolic (mm Hg) 122 11/04/2012 [facility] Weight 156 [...] [facility] Systolic (mm Hg) 126 10/12/2012 [facility] Diastolic (mm Hg) 85 10/12/2012 [facility] Respitory Rate 17 10/12/2012 [facility] Heart Rate 86 10/12/2012 [facility] Temperature Oral (F) 98.6 F 10/12/2012 [facility] Temperature Oral (F) 98.2 F 10/12/2012 [facility] Respitory Rate 16 10/12/2012 [facility] Heart Rate 89 10/12/2012 [facility] Systolic (mm Hg) 111 10/12/2012 [facility] Diastolic (mm Hg) 65 10/12/2012 [facility] Respitory Rate 16 10/12/2012 [facility] Systolic (mm Hg) 100 10/12/2012 [facility] Diastolic (mm Hg) 68 10/12/2012 [facility] Temperature Oral (F) 98.6 F 10/12/2012 [facility] Heart Rate 79 10/12/2012 [facility] Weight 75 0 10/03/2012 [facility] Height 149.86 cm 10/03/2012 [facility] Weight 159 09/07/2012 [facility] Height 60 0 09/07/2012 [facility] Heart Rate 68 09/07/2012 [facility] Diastolic (mm Hg) 80 09/07/2012 [facility] Systolic (mm Hg) 124 09/07/2012 [facility] Encounters Location Location Details Encounter Type Encounter Number Reason For Visit Attending Provider ADM Date DC Date Status Source [facility] Outpatient [id number] ALBERTO HARRIS 09/05/2011 Active [facility] Inpatient [id number] ROSANNE ZUNIGA 10/03/2012 10/12/2012 Discharged [facility] Needs call back from Medical Staff [id number] 10/14/2012 10/14/2012 [facility] Needs call back from Medical Staff [id number] 10/14/2012 10/14/2012 [facility] Needs call back from Medical Staff [id number] 10/14/2012 10/14/2012 [facility] Needs call back from Medical Staff [id number] 10/14/2012 10/14/2012 [facility] Needs call back from Medical Staff [id number] 10/14/2012 10/14/2012 [facility] Needs call back from Medical Staff [id number] 10/14/2012 10/14/2012 [facility] Needs call back from Medical Staff [id number] 10/14/2012 10/14/2012 [facility] Needs call back from Medical Staff [id number] 10/14/2012 10/14/2012 [facility] Needs call back from Medical Staff [id number] 10/14/2012 10/14/2012 [facility] Needs call back from Medical Staff [id number] 10/14/2012 10/14/2012 [facility] Needs call back from Medical Staff [id number] 10/14/2012 10/14/2012 [facility] Needs call back from Medical Staff [id number] 10/14/2012 10/14/2012 [facility] Needs call back from Medical Staff [id number] 10/14/2012 10/14/2012 [facility] Needs call back from Medical Staff [id number] 10/14/2012 10/14/2012 [facility] Needs call back from Medical Staff [id number] 10/14/2012 10/14/2012 [facility] Needs call back from Medical Staff [id number] 10/14/2012 10/14/2012 [facility] Needs call back from Medical Staff [id number] 10/14/2012 10/14/2012 [facility] Needs call back from Medical Staff [id number] 10/14/2012 10/14/2012 [facility] Needs call back from Medical Staff [id number] 10/14/2012 10/14/2012 [facility] Needs call back from Medical Staff [id number] 10/14/2012 10/14/2012 [facility] Needs call back from Medical Staff [id number] 10/14/2012 10/14/2012 [facility] and [facility] HOSPITAL FOLLOW-UP/SHORTNESS OF BREATH [id number] 10/14/2012 10/14/2012 [facility] HOSPITAL FOLLOW-UP/SHORTNESS OF BREATH [id number] 10/14/2012 10/14/2012 [facility] HOSPITAL FOLLOW-UP/SHORTNESS OF BREATH [id number] 10/14/2012 10/14/2012 [facility] HOSPITAL FOLLOW-UP/SHORTNESS OF BREATH [id number] 10/14/2012 10/14/2012 [facility] HOSPITAL FOLLOW-UP/SHORTNESS OF BREATH [id number] 10/14/2012 10/14/2012 [facility] HOSPITAL FOLLOW-UP/SHORTNESS OF BREATH [id number] 10/14/2012 10/14/2012 [facility] HOSPITAL FOLLOW-UP/SHORTNESS OF BREATH [id number] 10/14/2012 10/14/2012 [facility] HOSPITAL FOLLOW-UP/SHORTNESS OF BREATH [id number] 10/14/2012 10/14/2012 [facility] HOSPITAL FOLLOW-UP/SHORTNESS OF BREATH [id number] 10/14/2012 10/14/2012 [facility] FOLLOW-UP/SHORTNESS OF BREATH [id number] 10/14/2012 10/14/2012 [facility] HOSPITAL FOLLOW-UP/SHORTNESS OF BREATH [id number] 10/14/2012 10/14/2012 [facility] FOLLOW-UP/SHORTNESS OF BREATH [id number] 10/14/2012 10/14/2012 [facility] HOSPITAL FOLLOW-UP/SHORTNESS OF BREATH [id number] 10/14/2012 10/14/2012 [facility] HOSPITAL FOLLOW-UP/SHORTNESS OF BREATH [id number] 10/14/2012 10/14/2012 [facility] HOSPITAL FOLLOW-UP/SHORTNESS OF BREATH [id number] 10/14/2012 10/14/2012 [facility] HOSPITAL FOLLOW-UP/SHORTNESS OF BREATH [id number] 10/14/2012 10/14/2012 [facility] HOSPITAL FOLLOW-UP/SHORTNESS OF BREATH [id number] 10/14/2012 10/14/2012 [facility] HOSPITAL FOLLOW-UP/SHORTNESS OF BREATH [id number] 10/14/2012 10/14/2012 [facility] HOSPITAL FOLLOW-UP/SHORTNESS OF BREATH [id number] 10/14/2012 10/14/2012 [facility] HOSPITAL FOLLOW-UP/SHORTNESS OF BREATH [id number] 10/14/2012 10/14/2012 [facility] Unknown [id number] 10/28/2012 10/28/2012 [facility] Unknown [id number] 10/28/2012 10/28/2012 [facility] Unknown [id number] 10/28/2012 10/28/2012 [facility] Unknown [id number] 10/28/2012 10/28/2012 [facility] Unknown [id number] 10/28/2012 10/28/2012 [facility] Unknown [id number] 10/28/2012 10/28/2012 [facility] Unknown [id number] 10/28/2012 10/28/2012 [facility] Unknown [id number] 10/28/2012 10/28/2012 [facility] Unknown [id number] 10/28/2012 10/28/2012 [facility] Unknown [id number] 10/28/2012 10/28/2012 [facility] Unknown [id number] 10/28/2012 10/28/2012 [facility] Unknown [id number] 10/28/2012 10/28/2012 [facility] Unknown [id number] 10/28/2012 10/28/2012 [facility] Unknown [id number] 10/28/2012 10/28/2012 [facility] Unknown [id number] 10/28/2012 10/28/2012 [facility] Unknown [id number] 10/28/2012 10/28/2012 [facility] Unknown [id number] 10/28/2012 10/28/2012 [facility] Unknown [id number] 10/28/2012 10/28/2012 [facility] Unknown [id number] 10/28/2012 10/28/2012 [facility] MEDS/SHOULDER PAIN [id number] 11/04/2012 11/04/2012 [facility] MEDS/SHOULDER PAIN [id number] 11/04/2012 11/04/2012 [facility] MEDS/SHOULDER PAIN [id number] 11/04/2012 11/04/2012 [facility] MEDS/SHOULDER PAIN [id number] 11/04/2012 11/04/2012 [facility] MEDS/SHOULDER PAIN [id number] 11/04/2012 11/04/2012 [facility] MEDS/SHOULDER PAIN [id number] 11/04/2012 11/04/2012 [facility] MEDS/SHOULDER PAIN [id number] 11/04/2012 11/04/2012 [facility] MEDS/SHOULDER PAIN [id number] 11/04/2012 11/04/2012 [facility] MEDS/SHOULDER PAIN [id number] 11/04/2012 11/04/2012 [facility] MEDS/SHOULDER PAIN [id number] 11/04/2012 11/04/2012 [facility] MEDS/SHOULDER PAIN [id number] 11/04/2012 11/04/2012 [facility] MEDS/SHOULDER PAIN [id number] 11/04/2012 11/04/2012 [facility] MEDS/SHOULDER PAIN [id number] 11/04/2012 11/04/2012 [facility] MEDS/SHOULDER PAIN [id number] 11/04/2012 11/04/2012 [facility] MEDS/SHOULDER PAIN [id number] 11/04/2012 11/04/2012 [facility] MEDS/SHOULDER PAIN [id number] 11/04/2012 11/04/2012 [facility] MEDS/SHOULDER PAIN [id number] 11/04/2012 11/04/2012 [facility] Unknown [id number] 11/04/2012 11/04/2012 [facility] Unknown [id number] 11/04/2012 11/04/2012 [facility] Unknown [id number] 11/04/2012 11/04/2012 [facility] Unknown [id number] 11/04/2012 11/04/2012 [facility] Unknown [id number] 11/04/2012 11/04/2012 [facility] Unknown [id number] 11/04/2012 11/04/2012 [facility] Unknown [id number] 11/04/2012 11/04/2012 [facility] Unknown [id number] 11/04/2012 11/04/2012 [facility] Unknown [id number] 11/04/2012 11/04/2012 [facility] Unknown [id number] 11/04/2012 11/04/2012 [facility] Unknown [id number] 11/04/2012 11/04/2012 [facility] Unknown [id number] 11/04/2012 11/04/2012 [facility] Unknown [id number] 11/04/2012 11/04/2012 [facility] Unknown [id number] 11/04/2012 11/04/2012 [facility] Unknown [id number] 11/04/2012 11/04/2012 [facility] Unknown [id number] 11/04/2012 11/04/2012 [facility] Unknown [id number] 11/04/2012 11/04/2012 [facility] Unknown [id number] 11/04/2012 11/04/2012 [facility] preop clearance [id number] 01/05/2013 01/05/2013 [facility] preop clearance [id number] 01/05/2013 01/05/2013 [facility] preop clearance [id number] 01/05/2013 01/05/2013 [facility] preop clearance [id number] 01/05/2013 01/05/2013 [facility] preop clearance [id number] 01/05/2013 01/05/2013 [facility] preop clearance [id number] 01/05/2013 01/05/2013 [facility] preop clearance [id number] 01/05/2013 01/05/2013 [facility] preop clearance [id number] 01/05/2013 01/05/2013 [facility] preop clearance [id number] 01/05/2013 01/05/2013 [facility] preop clearance [id number] 01/05/2013 01/05/2013 [facility] preop clearance [id number] 01/05/2013 01/05/2013 [facility] preop clearance [id number] 01/05/2013 01/05/2013 [facility] preop clearance [id number] 01/05/2013 01/05/2013 [facility] preop clearance [id number] 01/05/2013 01/05/2013 [facility] preop clearance [id number] 01/05/2013 01/05/2013 [facility] preop clearance [id number] 01/05/2013 01/05/2013 [facility] refill [id number] 02/01/2013 02/01/2013 [facility] refill [id number] 02/01/2013 02/01/2013 [facility] refill [id number] 02/01/2013 02/01/2013 [facility] refill [id number] 02/01/2013 02/01/2013 [facility] refill [id number] 02/01/2013 02/01/2013 [facility] refill [id number] 02/01/2013 02/01/2013 [facility] refill [id number] 02/01/2013 02/01/2013 [facility] refill [id number] 02/01/2013 02/01/2013 [facility] refill [id number] 02/01/2013 02/01/2013 [facility] refill [id number] 02/01/2013 02/01/2013 [facility] refill [id number] 02/01/2013 02/01/2013 [facility] refill [id number] 02/01/2013 02/01/2013 [facility] refill [id number] 02/01/2013 02/01/2013 [facility] refill [id number] 02/01/2013 02/01/2013 [facility] refill [id number] 02/01/2013 02/01/2013 [facility] Unknown [id number] 04/25/2013 04/25/2013 [facility] Unknown [id number] 04/25/2013 04/25/2013 [facility] Unknown [id number] 04/25/2013 04/25/2013 [facility] Unknown [id number] 04/25/2013 04/25/2013 [facility] Unknown [id number] 04/25/2013 04/25/2013 [facility] Unknown [id number] 04/25/2013 04/25/2013 [facility] Unknown [id number] 04/25/2013 04/25/2013 [facility] Unknown [id number] 04/25/2013 04/25/2013 [facility] Unknown [id number] 04/25/2013 04/25/2013 [facility] Unknown [id number] 04/25/2013 04/25/2013 [facility] Unknown [id number] 04/25/2013 04/25/2013 [facility] Unknown [id number] 04/25/2013 04/25/2013 [facility] Unknown [id number] 04/25/2013 04/25/2013 [facility] Unknown [id number] 04/25/2013 04/25/2013 [facility] REFILL [id number] 05/04/2013 05/04/2013 [facility] REFILL [id number] 05/04/2013 05/04/2013 [facility] REFILL [id number] 05/04/2013 05/04/2013 [facility] REFILL [id number] 05/04/2013 05/04/2013 [facility] REFILL [id number] 05/04/2013 05/04/2013 [facility] REFILL [id number] 05/04/2013 05/04/2013 [facility] REFILL [id number] 05/04/2013 05/04/2013 [facility] REFILL [id number] 05/04/2013 05/04/2013 [facility] REFILL [id number] 05/04/2013 05/04/2013 [facility] REFILL [id number] 05/04/2013 05/04/2013 [facility] REFILL [id number] 05/04/2013 05/04/2013 [facility] REFILL [id number] 05/04/2013 05/04/2013 [facility] REFILL [id number] 05/04/2013 05/04/2013 [facility] shortness of breath [id number] 05/05/2013 05/05/2013 [facility] shortness of breath [id number] 05/05/2013 05/05/2013 [facility] shortness of breath [id number] 05/05/2013 05/05/2013 [facility] shortness of breath [id number] 05/05/2013 05/05/2013 [facility] shortness of breath [id number] 05/05/2013 05/05/2013 [facility] shortness of breath [id number] 05/05/2013 05/05/2013 [facility] shortness of breath [id number] 05/05/2013 05/05/2013 [facility] shortness of breath [id number] 05/05/2013 05/05/2013 [facility] shortness of breath [id number] 05/05/2013 05/05/2013 [facility] shortness of breath [id number] 05/05/2013 05/05/2013 [facility] shortness of breath [id number] 05/05/2013 05/05/2013 [facility] shortness of breath [id number] 05/05/2013 05/05/2013 [facility] REFILL [id number] 08/04/2013 08/04/2013 [facility] REFILL [id number] 08/04/2013 08/04/2013 [facility] REFILL [id number] 08/04/2013 08/04/2013 [facility] REFILL [id number] 08/04/2013 08/04/2013 [facility] REFILL [id number] 08/04/2013 08/04/2013 [facility] REFILL [id number] 08/04/2013 08/04/2013 [facility] REFILL [id number] 08/04/2013 08/04/2013 [facility] REFILL [id number] 08/04/2013 08/04/2013 [facility] REFILL [id number] 08/04/2013 08/04/2013 [facility] REFILL [id number] 08/04/2013 08/04/2013 [facility] REFILL [id number] 08/04/2013 08/04/2013 [facility] RF [id number] 08/10/2013 08/10/2013 [facility] RF [id number] 08/10/2013 08/10/2013 [facility] RF [id number] 08/10/2013 08/10/2013 [facility] RF [id number] 08/10/2013 08/10/2013 [facility] RF [id number] 08/10/2013 08/10/2013 [facility] RF [id number] 08/10/2013 08/10/2013 [facility] RF [id number] 08/10/2013 08/10/2013 [facility] RF [id number] 08/10/2013 08/10/2013 [facility] RF [id number] 08/10/2013 08/10/2013 [facility] [id number] 08/10/2013 08/10/2013 [facility] [id number] 08/10/2013 08/10/2013 [facility] Unknown [id number] 08/12/2013 08/12/2013 [facility] Unknown [id number] 08/12/2013 08/12/2013 [facility] Unknown [id number] 08/12/2013 08/12/2013 [facility] Unknown [id number] 08/12/2013 08/12/2013 [facility] Unknown [id number] 08/12/2013 08/12/2013 [facility] Unknown [id number] 08/12/2013 08/12/2013 [facility] Unknown [id number] 08/12/2013 08/12/2013 [facility] Unknown [id number] 08/12/2013 08/12/2013 [facility] Unknown [id number] 08/12/2013 08/12/2013 [facility] Unknown [id number] 08/12/2013 08/12/2013 [facility] Unknown [id number] 08/12/2013 08/12/2013 [facility] medication refill [id number] 09/01/2013 09/01/2013 [facility] medication refill [id number] 09/01/2013 09/01/2013 [facility] medication refill [id number] 09/01/2013 09/01/2013 [facility] medication refill [id number] 09/01/2013 09/01/2013 [facility] medication refill [id number] 09/01/2013 09/01/2013 [facility] medication refill [id number] 09/01/2013 09/01/2013 [facility] medication refill [id number] 09/01/2013 09/01/2013 [facility] medication refill [id number] 09/01/2013 09/01/2013 [facility] REFILL [id number] 10/07/2013 10/07/2013 [facility] REFILL [id number] 10/07/2013 10/07/2013 [facility] REFILL [id number] 10/07/2013 10/07/2013 [facility] REFILL [id number] 10/07/2013 10/07/2013 [facility] REFILL [id number] 10/07/2013 10/07/2013 [facility] REFILL [id number] 10/07/2013 10/07/2013 [facility] REFILL [id number] 10/07/2013 10/07/2013 [facility] PROBLEMS SLEEPING [id number] 10/18/2013 10/18/2013 [facility] PROBLEMS SLEEPING [id number] 10/18/2013 10/18/2013 [facility] PROBLEMS SLEEPING [id number] 10/18/2013 10/18/2013 [facility] PROBLEMS SLEEPING [id number] 10/18/2013 10/18/2013 [facility] PROBLEMS SLEEPING [id number] 10/18/2013 10/18/2013 [facility] PROBLEMS SLEEPING [id number] 10/18/2013 10/18/2013 [facility] PROBLEMS SLEEPING [id number] 10/18/2013 10/18/2013 [facility] shingles [id number] 11/01/2013 11/01/2013 [facility] shingles [id number] 11/01/2013 11/01/2013 [facility] shingles [id number] 11/01/2013 11/01/2013 [facility] shingles [id number] 11/01/2013 11/01/2013 [facility] shingles [id number] 11/01/2013 11/01/2013 [facility] alejandro [id number] 11/01/2013 11/01/2013 [facility] alejandro [id number] 11/01/2013 11/01/2013 [facility] OBS Observation Patient [id number] Silvano Chanceious 11/01/2013 11/04/2013 [facility] Other [id number] 11/14/2013 11/14/2013 [facility] Other [id number] 11/14/2013 11/14/2013 [facility] Other [id number] 11/14/2013 11/14/2013 [facility] Other [id number] 11/14/2013 11/14/2013 [facility] Unknown [id number] 12/08/2013 12/08/2013 [facility] Unknown [id number] 12/08/2013 12/08/2013 [facility] Unknown [id number] 12/08/2013 12/08/2013 [facility] and [facility] PUNCTURED EAR DRUM [id number] 07/28/2014 07/28/2014 [facility] PUNCTURED EAR DRUM [id number] 07/28/2014 07/28/2014 [facility] Internal [facility] POSS POISON SAMMIE [id number] 09/14/2014 09/14/2014 [facility] Procedures Procedure Code Date Perfomer Comments Source Arthroplasty of shoulder<sup>1</sup> [id number] a nd 2009 [facility] Cholecystectomy<sup>2</sup> 38 [id number] [facility] Gastric bypass operation<sup>3</sup> [id number] [facility] Suspension of bladder<sup>4</sup> [id number] [facility] Assessment and Plan Assessment and Plan Date Source Extracted from:Title: Clinical Document Author: Silvano Swartz MD Date: 11/03/13 Progress Note - Daily [facility] Completed: Oct, 16:57 by Silvano Swartz MD RM: 200 - 1P, SE C2B RESIDENT SURGEONANGELAN 58y (: 1955) F Attending: Silvano Swartz [...] Daily 11/02/13 levofloxacin (Levaquin) 500 mg PO [id number] 11/02/13 nitazoxanide (Alinia 500 mg ora l [...] Ready for Discharge (Yes/No)? TEACHING ATTESTATION 11/04/2013 [facility] Plan of Care No Data Provided for [...] . at home September 14, 2014 09/14/2014 [facility] Social History TypeResponse Smoking Status Never smoker, Exposure to Tobacco Smoke None, Cigarette Smoking Last 365 Days No, Reg Smoking Cessation Counseling No 11/02/2013 [facility] Family History Value Date S ource QualifierDescriptionCommentDate [...]
--- OUTSIDE RECORDS SUMMARY | 2019-10-18 18:24 | XMS REPORT | Continuity of Care Document ---
Author Author [facility] t Organization [facility] Address [facility] [place] [address] [place] [id number] Phone Unavailable Care Team Providers Care Claims Adjuster Supervisor Name Role Phone TONY STERLING, Wili SCANLON PCP Loyd WICK Attphys Unavailable Alan HORNE, Adeline Attphys Unavailable Onelia STERLING, Tj Stephenson Attphys Fermin HORNE, [place] Attphys Unavailable Angelina HORNE, Lupis Attphys Unavailable Mirna STERLING, Historical Attphys Hannah RAMÍREZ, Rach Attphys Unavailable Herbert STERLING, Chris Attphys WHITNEY NEELY KLEVER Attphys Unavailable CONSUELO HANDY OLY Attphys Unavailable Ghebranious, Ramsis Amir Attphys WHITNEY NEELY KLEVER Admphys Unavailable OLE, CONSUELO OLY Admphys Unavailable Ghebranious, Ramsis Amir Admphys Payers Payer Name Policy Type Policy Number Effective Date Expiration Date Tasia ezio DISHA [id number] [id number] xxx 2007 00:00:00 Dennys Davila Ppo [id number] 2007 00:00:00 [facility] Problems Condition Name Condition Details Condition Category Status Onset Date Resolution Date Last Treatment Date Treating Clinician Comments Source Rotator cuff tear arthropathy of left shoulder Rotator cuff tear arthropathy of left shoulder Disease Active 2018-06-22 00:00:00 [facility] S/P shoulder replacement, left S/P shoulder replacement, left Disea se Active 2018-06-22 00:00:00 [facility] Complete tear of left rotator cuff Complete tear of left rotator cuff Disease Active 2017-12-15 00:00:00 [facility] S/P knee replacement S/P knee replacement Disease Active 00:00:00 [facility] Primary osteoarthritis of right knee Primary osteoarthritis of right knee Disease Active 2017-11-04 00:00:00 [facility] Status post right knee replacement Status post right knee replac ement Disease Active 2017-11-04 00:00:00 [facility] Abdominal pain, acute, generalized Abdominal pain, acute, genera lized Disease Active 2017-06-30 00:00:00 [facility] Acquired gastric outlet stenosis Acquired gastric outlet stenosi s Disease Active 2017-05-19 00:00:00 [facility] STROKE-LIKE SYMPTOMS STRO KE-LIKE SYMPTOMS Active 11/01/2013 [facility] Diagnosis Active 2013-11-01 00:00:00 2013-11-01 21:21:00 Allen Joseph TIA TIA Active 11/01/2013 [facility] Diagnosis Active 2013-11-01 00:00:00 2013-11-04 07:20:00 M myah Joseph OVERDOSE OVER DOSE Active 10/03/2012 [facility] Diagnosis Active 2012-10-03 14:30:00 2012-10-03 17:05:00 Allen Joseph AMS, OVERDOSE UNKNOWN SUBSTANCE, SUICIDA AMS, OVERDOSE UNKNOWN SUBSTANCE, SUICIDA Active 10/03/2012 [facility] Diagnosis Ac tive 2012-10-03 14:30:00 2012-10-12 09:36:00 M myah Joseph Dehydration Dehy dration Active 07/31/2008 Problem 10/14/2012 [facility] Problem Active 2008-07-31 00:00:00 2012-10-14 20:55:05 Allen Joseph Fever Feve r Active 07/31/2008 Problem 10/14/2012 [facility] Problem Active 2008-07-31 00:00:00 2012-10-14 20:55:05 Allen Joseph UTI - Urinary tract infection UTI - Urinary tract infection Active 07/31/2008 Problem 10/14/2012 [facility] Problem Act sylwia 2008-07-31 00:00:00 2012-10-14 20:55:05 [facility] Dehydration (disorder) Dehy dration (disorder) Active 07/31/2008 Problem 11/06/2013 [facility] Problem Active 2008-07-31 00 :00:00 2013-11-06 02:16:40 Allen Joseph Fever (finding) Feve r (finding) Active 07/31/2008 Problem 11/06/2013 [facility] Problem Active 2008-07-31 00:00:00 2013-11-06 02:16:40 Allen Joseph Urinary tract infectious disease (disorder) Urinary tract infectious disease (disorder) Active 07/31/2008 Problem 11/06/2013 [facility] Problem Active 2008-07-31 00:00:00 2013-11-06 02:16:40 Allen Joseph Hypertensive disorder, systemic arterial (disorder) Hypertensive disorder, systemic arterial (disorder) Resolved Problem 11/06/2013 [facility] Problem Resolved 2013-11-06 02:16:40 Allen Joseph Herpes zoster (disorder) Herp es zoster (disorder) Resolved Problem 11/06/2013 [facility] Problem Resolved 2013-11-06 02: 16:40 Allen Joseph TIA (Unspecified transient cerebral ischemia) TIA (Unspecified transient cerebral ischemia) Active Problem 09/17/2014 [facility] Problem Active 2014-09-17 02:05:23 Allen Joseph Hiatal hernia Hiat al hernia Active Problem 09/17/2014 [facility] Problem Active 2 02:05:23 Allen Joseph Migraine Migr adriana Active Problem 09/17/2014 [facility] Problem Active 2014-09-17 02:05:23 [facility] Anxiety Anxi ety Active Problem 09/17/2014 [facility] Problem Active 2014-09-17 02:05:23 Allen Joseph Insomnia Inso mnia Active Problem 09/17/2014 [facility] Problem Active 2014-09-17 02:05:23 Allen Joseph GERD (Esophageal reflux) GERD (Esophageal reflux) Active Problem 09/17/2014 [facility] Problem Active 2014-09-17 02:05:23 Allen Joseph Depression Depr ession Active Problem 09/17/2014 [facility] Problem Active 2 02:05:23 Allen Mitchellann Diverticulitis Dive rticulitis Active Problem 09/17/2014 [facility] Problem Active 02:05:23 Allen Joseph Other specified pre-operative examination Other specified pre-operative examination Active Diagnosis 01/07/2013 [facility] Diagnosis Active 2013-01-07 02:15:22 Allen Mitchellann History of suicide attempt His tory of suicide attempt Active Problem 09/17/2014 [facility] Problem Active 2014-09-17 02:05:23 [facility] Needs flu shot Need s flu shot Active Diagnosis 01/07/2013 [facility] Diagnosis Active 2013-01-07 02:15:22 Allen Mitchellann Neck pain Neck pain Active Diagnosis 11/06/2012 [facility] Diagnosis Active 2012-11-06 04:10:53 Allen Mitchellann Suicide attempt Suic madelin attempt Active Diagnosis 10/24/2012 [facility] Diagnosis Active 2012-10-24 04:12:02 Allen Mitchellann Pneumothorax Pneu mothorax Active Diagnosis 10/24/2012 [facility] Diagnosis Active 2012-10-24 04:12:02 Allen Mitchellann Pneumonia Pneu monia Active Diagnosis 10/24/2012 [facility] Diagnosis Active 2012-10-24 04:12:02 Allen Joseph SOB (shortness of breath) SOB (shortness of breath) Active Diagnosis 05/07/2013 [facility] Diagnosis Active 2013-05-07 01:16:39 [facility] Memory impairment Durga ry impairment Active Problem 09/17/2014 [facility] Problem Active 2014-09-17 02:05:23 Allen Mitchellann Genital herpes Cassy ruby herpes Active Problem 09/17/2014 [facility] Problem Active 2 02:05:23 Allen Mitchellann Migraine with aura, with intractable asia rico, so stated, without mention of status migrainosus Migraine with au ra, with intractable migraine, so stated, without mention of status migrainosus Active Diagnosis 08/18/2013 [facility] Diagnosis Active 2013-08-18 02:13:05 [facility] [place] Urinary tract infection Urin stanley tract infection Active Diagnosis 11/09/2013 [facility] Diagnosis Active 2013-11-09 03:13:33 Allen Joseph Panic attack Shaina c attack Active Diagnosis 11/09/2013 [facility] Diagnosis Active 2013-11-09 03:13:33 Allen Joseph Generalized anxiety disorder G eneralized anxiety disorder Active Diagnosis 11/09/2013 [facility] Diagnosis Active 2013-11-09 03:13:33 Allen Joseph Dysuria Dysu talya Active Diagnosis 11/09/2013 [facility] Diagnosis Active 2013-11-09 03:13:33 [facility] Poison sammie dermatitis Pois on sammie dermatitis Active Diagnosis 09/17/2014 [facility] Diagnosis Active 2014-09-17 02:05:23 [facility] [place] Contact dermatitis Cont act dermatitis Active Diagnosis 09/17/2014 [facility] Diagnosis Active 2014-09-17 02:05:23 Allen Joseph Screening breast examination S creening breast examination Active Diagnosis 07/31/2014 [facility] Diagnosis Active 2014-07-31 02:00:08 [facility] Ear pain, left Ear pain, left Active Diagnosis 07/31/2014 [facility] Diagnosis Active 2014-07-31 02:00:08 Allen Joseph Otitis media Otit is media Active Diagnosis 07/31/2014 [facility] Diagnosis Active 2014-07-31 02:00:08 [facility] Otitis externa, left Otit is externa, left Active Diagnosis 07/31/2014 [facility] Diagnosis Active 2014-07-31 02:00:08 Allen Joseph Anxiety (finding) Anxi ety (finding) Active Problem 11/06/2013 [facility] Problem Active 2013-11-06 02:16:40 Allen Joseph Diverticular disease (disorder) Diverticular disease (disorder) Active Problem 11/06/2013 [facility] Problem Active 2013-11-06 02:16:40 Allen Joseph Gastroesophageal reflux disease (disorder) Gastroesophageal reflux disease (disorder) Active Problem 11/06/2013 [facility] Problem Active 2013-11-06 02:16:40 Allen Joseph Suicide attempt (disorder) Bernadette cide attempt (disorder) Active Problem 11/06/2013 [facility] Problem Active 2013-11-06 02:16:40 [facility] Anxiety Anxi ety Active Problem 10/14/2012 [facility] Problem Active 2012-10-14 20:55:05 [facility] Diverticulosis Dive rticulosis Active Problem 10/14/2012 [facility] Problem Active 2012-10-14 20:55:05 [facility] GERD - Gastro-esophageal reflux disease GERD - Gastro- esophageal reflux disease Active Problem 10/14/2012 [facility] Problem A ctive 2012-10-14 20:55:05 [facility] Suicide attempt Suic madelin attempt Active Problem 10/14/2012 [facility] Problem Active 2012-10-14 20:55:05 [facility] 724.5 724. 5 Active [facility] Diagnosis Active 2011-09-05 12:46:00 [facility] ALTERED MENTAL STATUS ALTE RED MENTAL STATUS Active [facility] Diagnosis Active 2012-10-12 09:36:00 Ks morihaley Joseph PRIM SPONT PNEUMOTHORAX PRIM SPONT PNEUMOTHORAX Active [facility] Diagnosis Active 2012-10-12 09:36:00 [facility] SHOULDER AND NECK SHOU LDER AND NECK Active [facility] Diagnosis Active 2013-10-14 22:19:00 [facility] Allergies, Adverse Reactions, Alerts Allergy Name Allergy Type Status Severity Reaction(s) Onset Date Inacti ve Date Treating Clinician Comments Source Promethazine Drug Allergy Active Mild 2017-11-02 00:00:00 Irritability, leg thrashing [facility] Promethazine Propensity to adverse reactions to drug Active Other (See Comments) 2017-02-25 00:00:00 [facility]/Th rashing [place] [facility] Phenergan Phenergan Active [facility] 2014-09-14 00:00:00 [facility] Amoxil Amoxil Active unknown 2014-09-14 00:00:00 [facility] codeine codeine Active [facility] 2014-09-14 00:00:00 [facility] Promethazine Allergy to Substance Active Mild 2006-11-04 00:00:[address] [facility] amoxicillin amoxicillin Active [facility] Family History Family Member Diagnosis Comments Start Date Stop Date Source Maternal grandfather Throat cancer [facility] [place] [facility] Natural mother Asthma [facility] Natural sister Thyroid cancer [place] [facility] Unknown Family Member Family History 2012-10-24 04:12:02 2 04:12:02 [facility] Social History Social Habit Start Date Stop Date Quantity Comments Source Sex Assigned At F Louisa Palomo Alcohol intake 2019-05-18 00:00:00 2019-05-18 00:00:00 Current drinker of alcohol (finding) Dennys Palomo Alcohol Comment 2017-02-25 00:00:00 2017-02-25 00:00:00 3 times a week: occasional Dennys Palomo LastBoneDensity: 2014-09-14 00:00:00 2014-09-14 00:00:00 [facility] Smoking Status Start Date Stop Date Source Social History [facility] Medications Ordered Medication Name Filled Medication Name [...] mouth every 4 (four) hours as needed. [facility] amitriptyline (ELAVIL) 10 MG tablet 2018-06-14 17:14:05 Yes 60mg Take 60 mg by mouth as needed . [facility] dicyclomine (BENTYL) 10 MG capsule 2018-06-14 17:14:04 Yes 10mg Take 10 mg by mouth as needed. [facility] doxepin (SINEQUAN) 25 MG capsule 2018-06-14 17:14:04 Yes 25mg QD Take 25 mg by mouth nightly. [facility] ferrous sulfate 325 (65 FE) MG tablet 2018-06-14 17:14:04 Y es 325mg QD Take 325 mg by mouth daily. [facility] melatonin 10 mg Tab 2018-06-14 17:14:04 Yes Take by mouth as needed. [facility] multivitamin (MULTIVITAMIN) per tablet 2018-06-14 17:14:04 Yes 1{tbl} QD Take 1 tablet by mouth daily. [facility] omeprazole (PRILOSEC) 40 MG capsule 2018-06-14 17:14:04 Yes 40mg QD Take 40 mg by mouth daily. [facility] ondansetron (ZOFRAN) 4 MG tablet 2018-06-14 17:14:04 Yes 4mg Take 4 mg by mouth 2 (two) times daily as needed for Nausea. [facility] ubidecarenone (COENZYME Q10 ORAL) 2018-06-14 17:14:03 Yes QD Take by mouth daily. [facility] omeprazole (PriLOSEC) 40 MG capsule 2018-04-12 00:00:0 0 2019-06-06 00:00:00 No Gastroesophageal reflux disease, esophagitis presence not specified TAKE 1 CAPSULE BY MOUTH DAILY Dennys Palomo progesterone (PROMETRIUM) 100 MG capsule 2017-11-02 08:48:35 Yes 100mg QD Take 100 mg by mouth daily. [facility] TiZANidine (ZANAFLEX) 4 MG capsule 2017-11-02 08:48:35 Yes 4mg Take 4 mg by mouth 3 (three) times daily as needed for Muscle spasms. [facility] multivitamin with minerals tablet 2017-07-20 14:13:48 Yes 1{tbl} QD Take 1 tablet by mouth daily. Dennys palmer calcium citrate/vitamin D3 (CALCIUM CITRATE + D ORAL) 2017-07-20 14:13:48 Yes Take by mouth. Dennys Fry ethodist coenzyme Q10 100 mg/mL liquid 2017-07-20 14:13:48 [...] 2014-09-14 00:00:00 Yes Ken Cabrera 1 tablet [facility] Bactrim DS 2014-09-14 00:00:00 Yes Ken Cabrera 1 tablet [facility] Medrol (Nicola) 2014-09-14 00:00:00 Yes Ken Cabrera as directed [facility] PredniSONE (Nicola) 2014-07-31 02:00:08 Yes Jolanta Partida Unknown [facility] Ciprodex 2014-07-28 00:00:00 Yes Ken Cabrera 4 drops into affected ear [facility] Zithromax Z-Nicola 2014-07-28 00:00:00 Yes Jolanta Partida 2 tablets on the first day, then 1 tablet daily for 4 days [facility] Valacyclovir HCl 2014-04-30 00:00:00 Yes Kami Buntyn 1 tablet [facility] Amitriptyline HCl 2014-03-20 00:00:00 Yes Ken Cabrera 1 tablet [facility] Dexilant 2014-01-11 00:00:00 Yes Ken Cabrera 1 capsule [facility] Reglan 2013-11-09 03:13:33 Yes Kami Buntyn 1 tablet 30 minutes before meals and at bedtime as needed [facility] [place] Dexilant 2013-11-09 03:13:33 Yes Kami Buntyn 1 capsule [facility] Zoloft 2013-11-04 02:00:00 No Notes: (Same as: Zoloft) [facility] Klonopin 2013-11-04 02:00:00 No Notes: (Preet e As: KlonoPIN) [facility] Klonopin 2013-11-03 23:19:00 No Notes: (Preet e As: KlonoPIN) [facility] Risperidone 2013-11-03 22:55:00 No 1 mg, Route: PO, Drug form: TAB, Q6H, Dosing Weight 80.455, kg, PRN Agitation, Start date: 11/03/13 17:55:00, Duration: 30 day, Stop date: 12/03/13 17:54:00 [facility] Dexilant 2013-11-03 14:00:00 No 30 mg, Route: PO, Drug form: DRC, Daily, Dosing Weight 80.455, kg, Start date: 11/03/13 9:00:00, Duration: 30 day, Stop date: 12/02/13 9:00:00 Allen ny Gretel 2013-11-03 04:05:00 No Notes: (Same As: Ambien) [facility] Joseph Zoloft 2013-11-03 02:07:00 Yes 10 mg, PO, Be dtime, 0 Refill(s) Allen Joseph Masonien 2013-11-03 02:07:00 Yes 10 mg, PO, Be dtime, 0 Refill(s) Allen Joseph nitazoxanide 500 MG Oral Tablet [Alinia] 2013-11-03 02:00:00 No Notes: Same as Alijavan Non-formulary item Allen Mitchellann Amitriptyline 2013-11-03 02:00:00 No Notes: (Same as: [...] as:Nitroquick, Nitrostat) "Do Not Crush" Sublingual tablet [facility] atropine 2013-11-02 18:13:00 No 0.5 mg, 5 mL, Route: IVP, Drug form: INJ, PRN, PRN Bradycardia, Start date: 11/02/13 13:13:00, Duration: 30 day, Stop date: 12/02/13 13:12:00 [facility] Aspirin 81 MG Enteric Coated Tablet 2013-11-02 17:00:00 No Notes: Do not crush or chew. (Same As: Ecotrin) [facility] acetaminophen-hydrocodone 325 mg-5 mg oral tablet 2013-11-02 16:21:00 No Notes: (Same as: [place] 325/5) Do not exceed 4g m/day of acetaminophen. [facility] Acetaminophen 325 MG / Hydrocodone Bitartrate 5 MG Oral Tabl et [[place] 5/325] 2013-11-02 13:37:00 No Route: PO, Dosing Weight 80.455, kg, PRN, PRN, Start date: 11/02/13 8:37:00, Duration: 30 day, Stop date: 12/02/13 8:36:00, q4- 6hr for pain score 5-7 [facility] Morphine 2013-11-02 10:38:00 No Not es: (Same as:MORPhine Sulfate) [facility] Morphine 2013-11-02 10:37:00 No 4 mg, Route: IVP, ONCE, Dosing Weight 80.455, kg, Priority: STAT, Start date: 11/02/13 5:37:00, Stop date: 11/02/13 5:37:00 [facility] Morphine 2013-11-02 05:31:00 No 4 mg, Route: IVP, ONCE, Dosing Weight 80.455, kg, Start date: 11/02/13 0:31:00, Stop date: 11/02/13 0:31:00 [facility] aspirin 2013-11-02 05:16:00 No 325 mg, Route: PO, Drug form: ECTAB, ONCE, Dosing Weight 80.455, kg, Priority: STAT, Start date: 11/02/13 0:16:00, Stop date: 11/02/13 0:16:00 [facility] valacyclovir 1000 MG Oral Tablet [Valtrex] 2013-11-02 04:00:00 Yes 1 gm = 1 tab, PO, TID, # 20 tab, 0 Refill(s) [facility] dexlansoprazole 30 MG Enteric Coated Capsule [Dexilant] 2013-11-02 03:58:00 Yes 30 mg = 1 cap, PO, Daily, 0 Refill(s) [facility] valacyclovir 500 MG Oral Tablet [Valtrex] 2013-11-02 03:57:00 No 500 mg = 1 tab, PO, TID, # 42 tab, 0 Refill(s) [facility] Metoclopramide 10 MG Oral Tablet [Reglan] 2013-11-02 03:55:00 Yes 10 mg, PO, QID-Before Meals, # 40 tab, 0 Refill(s) [facility] Sodium Chloride 0.154 MEQ/ML Injectable Solution 2013-11-02 03:2 1:00 No 500 mL, 500 ml/hr, Infuse Ov er: 1 hr, Route: IV, 500, Drug form: INJ, ONCE, Priority: STAT, Dosing Weight 80.455 kg, Start date: 11/01/13 22:21:00, Duration: 1 doses or times, Stop date: 11/01/13 22:21:00 [facility] Zofran 2013-11-02 03:20:00 No Notes: (Same as: Jimena) [facility] Ketorolac 2013-11-02 03:20:00 No 4 days [facility] Zoloft 2013-11-01 00:00:00 Yes Jolanta Partida 1/ 2 tablet [facility] Levaquin 2013-11-01 00:00:00 Yes Kami Jamison 1 tablet [facility] Namenda XR Titration Pack 2013-11-01 00:00:00 Yes Jolanta Partida as directed [facility] Ambien 2013-10-18 00:00:00 Yes Jolanta Partida 1 tablet [facility] Plavix 2013-10-04 02:38:05 Yes Kami Jamison 1 ta blet [facility] Amitriptyline HCl 2013-10-04 02:38:05 Yes Kami Albertn 1 tablet [facility] NO OTC meds taken 2013-10-04 02:38:05 Yes Kami Jamison Unknown [facility] Doxepin HCl 2013-09-01 00:00:00 Yes Safiaalysa Rooseveltn 2c tablet [facility] Valtrex 2013-08-12 00:00:00 Yes Ken Cabrera 1 t ablet [facility] Lyrica 2013-08-12 00:00:00 Yes Safiaalysa Russtyn 1 ca psule [facility] Dexilant 2013-05-07 01:16:39 Yes Renay Crenshaw 1 capsule [facility] Reglan 2013-05-07 01:16:39 Yes Renay Alexa 1 tablet 30 minutes before meals and at bedtime as needed [facility] NO OTC meds taken 2013-05-07 01:16:39 Yes Renay Crenshaw Unknown [facility] ProAir HFA 2013-05-04 00:00:00 Yes Safiaalysa Russtyn 2 puffs as needed [facility] Amitriptyline HCl 2013-04-25 00:00:00 Yes Shawna Harvey 1 tablet [facility] [place] 2013-01-07 02:15:22 Yes Shawna Harvey 1 tabl et as needed [facility] Tramadol HCl 2013-01-07 02:15:22 Yes Shawna Harvey 1 tablet as needed [facility] Lexapro 2012-11-06 04:10:53 Yes Arely Gilelter 1 tablet [facility] Lidoderm 2012-11-04 00:00:00 Yes Samina Jacobson 1 patch to intact skin remove after 12 hours [facility] clopidogrel 2012-10-12 14:00:00 No Nick Osman Nubia 75 mg, 1 tab, Route: PO, Drug form: TAB, Daily, Dosing Weight 75, kg, Start date: 10/12/12 9:00:00, Duration: 30 day, Stop date: 11/10/12 9:00:00 [facility] doxepin 25 mg oral capsule 2012-10-12 02:00:00 No Nick Osman Nubia 25 mg, 1 cap, Route: PO, Drug form: CAP, Bedtime, Dosing Weight 75, kg, Start date: 10/11/12 21:00:00, Duration: 30 day, Stop date: 11/09/12 21:00:00 [facility] amitriptyline 2012-10-12 02:00:00 No Nick Osman Nubia 25 mg, 1 tab, Route: PO, Drug form: TAB, Bedtime, Dosing Weight 75, kg, Start date: 10/11/12 21:00:00, Duration: 30 day, Stop date: 11/09/12 21:00:00 [facility] gabapentin 300 mg oral capsule 2012-10-12 02:00:00 No Nick Osman Nubia 300 mg, 1 cap, Route: PO, Drug form: CAP , Bedtime, Dosing Weight 75, kg, Start date: 10/11/12 21:00:00, Duration: 30 day, Stop date: 11/09/12 21:00:00 [facility] [place] 5/325 oral tablet 2012-10-11 15:00:00 No Nick Enr ique Nubia 1 tab, Route: PO, Drug Form: TAB, Dosing Weight 75, kg, Q6H, PRN Pain, Start date: 10/11/12 10:00:00, Duration: 30 day, Stop date: 11/10/12 9:59:00 [facility] potassium chloride 2012-10-11 14:54:00 No Nick Osman Nubia 40 mEq, 30 mL, Route: PO, Drug form: LIQ, ONCE, Dosing Weight 75, kg, Start date: 10/11/12 9:54:00, Stop date: 10/11/12 9:54:00 [facility] ALPRAZOLam 2012-10-11 14:53:00 No Nick Osman Nubia 0.25 mg, 1 tab, Route: PO, Drug form: TAB, BID, Dosing Weight 75, kg, PRN as needed for anxiety, Start date: 10/11/12 9:53:00, Duration: 30 day, Stop date: 11/10/12 9:52:00 [facility] potassium chloride 2012-10-10 17:19:00 No Clarita Aboussl eman 40 mEq, 2 tab, Route: PO, Drug form: ERTAB, ONCE, Dosing Weight 75, kg, Start date: 10/10/12 12:19:00, Stop date: 10/10/12 12:19:00 [facility] potassium chloride 2012-10-09 17:16:00 No Clarita Aboussl eman 20 mEq, 1 tab, Route: PO, Drug form: ERTAB, ONCE, Dosing Weight 75, kg, Start date: 10/09/12 12:16:00, Stop date: 10/09/12 12:16:00 [facility] Lexapro 2012-10-09 02:00:00 No Juan Giang 5 mg, 0.5 tab, Route: PO, Drug form: TAB, Daily, Dosing Weight 75, kg, Start date: 10/08/12 21:00:00, Duration: 30 day, Stop date: 11/07/12 9:00:00 [facility] potassium chloride 2012-10-08 16:00:00 No Clarita Aboussl eman 20 mEq, 100 mL, Route: IVPB, Drug form: INJ, ONCE, Start date: 10/08/12 11:00:00, Stop date: 10/08/12 11:00:00 [facility] Dextrose 5% with 0.45% NaCl IV 1,000 mL 2012-10-08 15:36:0 0 No Nick Osman Nubia 1,000 mL, Rate: 50 ml/hr, Infuse over: 20 hr, Route: IV, Dosing Weight 75 kg, Total Volume: 1,000, Start date: 10/08/12 10:36:00, Stop date: 11/07/12 10:35:00 [facility] morphine Sulfate 2012-10-08 03:16:00 No Andrey Harris 2 mg, 1 mL, Route: IV, Drug form: INJ, Q4H, PRN Pain, Start date: 10/07/12 22:16:00, Duration: 30 day, Stop date: 11/06/12 22:15:00 [facility] potassium phosphate-sodium phosphate 250 mg-278 mg-164 mg or al powder 2012-10-07 14:30:00 No Nick Osman Nubia 4 pkt, Route: PO, Drug Form: PDR/REC, ONCE, Start date: 10/07/12 9:30:00, Stop date: 10/07/12 9:30:00 [facility] potassium chloride 2012-10-07 14:12:00 No Nick Osman Nubia 20 mEq, 100 mL, Route: IVPB, Drug form: INJ, ONCE, Dosing Weight 75, kg, Start date: 10/07/12 9:12:00, Stop date: 10/07/12 9:12:00 [facility] sodium phosphate 2012-10-07 14:12:00 No Nick Osman Mo k 20 mmol, Route: IVPB, ONCE, Dosing Weight 75, kg, Start date: 10/07/12 9:12:00, Stop date: 10/07/12 9:12:00 [facility] Sodium Chloride 0.9% IV 1000 mL 2012-10-05 20:40:00 No Juan Ward 1,000 mL, Rate: 25 ml/hr, Infuse over: 40 hr, Route: IV, Dosing Weight 75 kg, Total Volume: 1,000, Start date: 10/05/12 15:40:00, Duration: 30 day, Stop date: 11/04/12 15:39:00 [facility] Sodium Chloride 0.9% (Bolus) IV 1000 mL 2012-10-05 16:58:0 0 No Raziuddin Ahmed 1,000 mL, Rate: 1,000 ml/hr, Infuse over: 1 hr, Route: IV, Dosing Weight 75 kg, Total Volume: 1,000, Priority: STAT, Start date: 10/05/12 11:58:00, Duration: 1 doses or times, Stop date: 10/05/12 12:57:00, Bolus DoseBolus Dose [facility] norepinephrine 8 mg 2012-10-05 04:34:00 No Nick Osman Nubia 250 mL, Rate: Titrate, Dosing Weight 75, kg, Route: IV, Total Volume: 250, Priority: STAT, Duration: 30 day, Stop date: 11/03/12 23:33:00, Replace Every: 24 hr [facility] NS (Bolus) IV 1,000 mL 2012-10-05 02:21:00 No Raziuddin Ahmed 1,000 mL, Rate: 1,000 ml/hr, Infuse over: 1 hr, Route: IV, Dosing Weight 75 kg, Total Volume: 1,000, Priority: STAT, Start date: 10/04/12 21:21:00, Duration: 2 doses or times, Stop date: 10/04/12 23:20:00, [facility] vancom[facility] 2012-10-04 22:00:00 No Nick Osman Nubia 1 gm, 200 mL, Route: IVPB, Drug form: INJ, [id number], Dosing Weight 75, kg, Start date: 10/04/12 17:00:00, Duration: 30 day, Stop date: 11/03/12 5:00:00 [facility] NS (Bolus) IV 1,000 mL 2012-10-04 15:44:00 No Kofi Ahmed 1,000 mL, Rate: 1,000 ml/hr, Infuse over: 1 hr, Route: IV, Dosing Weight 75 kg, Total Volume: 1,000, Priority: STAT, Start date: 10/04/12 10:44:00, Duration: 1 doses or times, Stop date: 10/04/12 11:43:00, Bolus DoseBolus Dose [facility] magnesium sulfate 2012-10-04 15:44:00 No Nick Osman M ok 2 gm, 50 mL, Route: IVPB, Drug form: INJ, ONCE, Dosing Weight 75, kg, Total dose = 2 gm, Start date: 10/04/12 10:44:00, Duration: 1 doses or times, Stop date: 10/04/12 10:44:00 [facility] Zosyn 2012-10-04 15:00:00 No Nick Osman Nubia 3.375 gm, 100 mL, Route: IVPB, Drug form: PDR/INJ, [id number], Dosing Weight 75, kg, Start date: 10/04/12 10:00:00, Duration: 30 day, Stop date: 11/03/12 4:00:00 [facility] enoxaparin 2012-10-04 15:00:00 No Nick Osman Nubia 40 mg, 0.4 mL, Route: SUB-Q, Drug form: INJ, [id number], Dosing Weight 75, kg, Start date: 10/04/12 10:00:00, Duration: 30 day, Stop date: 11/02/12 10:00:00 [facility] pantoprazole 2012-10-04 14:00:00 No Jocelyn N Onochie 40 mg, 1 tab, Route: PO, Drug form: ECTAB, Daily, Dosing Weight 75, kg, Priority: Routine, Start date: 10/04/12 9:00:00, Stop date: 11/02/12 9:00:00 [facility] Saline Flush 0.9% 2012-10-04 14:00:00 No Noe Jeremiah 5 ml, Route: IVP, Drug Form: INJ, Dosing Weight 75, kg, Q12H, Start date: 10/04/12 9:00:00, Duration: 30 day, Stop date: 11/02/12 21:00:00 [facility] clopidogrel 2012-10-04 14:00:00 No Jocelyn N Onochie 75 mg, 1 tab, Route: PO, Drug form: TAB, Daily, Dosing Weight 75, kg, Start date: 10/04/12 9:00:00, Duration: 30 day, Stop date: 11/02/12 9:00:00 [facility] ciprofloxacin 400 mg/200 mL intravenous solution 2012-09-16 9 11:00:00 No Nick Osman Nubia 400 mg, 200 mL, Route: IVPB, Drug form: INJ, [id number], Dosing Weight 75, kg, Start date: 10/04/12 6:00:00, Duration: 30 day, Stop date: 11/02/12 18:00:00 [facility] cefepime + Sodium Chloride 0.9% IV 100 mL 2012-10-04 11:00 :00 No Nick Osman Nubia 1 gm, Route: IVP B, [id number], Dosing Weight 75, kg, (CrCl 30 - 49 ml/min), Start date: 10/04/12 6:00:00, Duration: 30 day, Stop date: 11/02/12 18:00:00 [facility] ibuprofen 100 mg oral tablet, chewable 2012-10-04 10:15:00 No Nick Osman Nubia 800 mg, 1 tab, R oute: CHEW, Drug form: TAB, Q8H, Dosing Weight 75, kg, PRN as needed for fever, Start date: 10/04/12 5:15:00, Duration: 30 day, Stop date: 11/03/12 5:14:00 [facility] normal saline 0.9% IV 1,000 mL 2012-10-04 09:03:00 No R aziuddin Ahmed 1,000 mL, Rate: 125 ml/hr, Infuse over: 8 hr, Route: IV, Dosing Weight 75 kg, Total Volume: 1,000, Start date: 10/04/12 4:03:00, Duration: 30 day, Stop date: 11/03/12 4:02:00 [facility] Zofran 2012-10-04 09:03:00 No Jocelyn N Onochie 4 mg, 2 mL, Route: IV, Drug form: INJ, Q4H, Dosing Weight 75, kg, PRN as needed for nausea/vomiting, Start date: 10/04/12 4:03:00, Duration: 30 day, Stop date: 11/03/12 4:02:00 [facility] vancomycin 2012-10-04 08:14:00 No Nick Osman Nubia 1 gm, 200 mL, Route: IVPB, Drug form: INJ, [id number], Dosing Weight 75, kg, Priority: STAT, Start date: 10/04/12 3:14:00, Duration: 30 day, Stop date: 11/02/12 3:14:00 [facility] acetaminophen 2012-10-04 06:58:00 No Jocelyn N Onochie 650 mg, 20.3 mL, Route: PO, Drug form: LIQ, Q6H, Dosing Weight 75, kg, PRN Fever, Start date: 10/04/12 1:58:00, Duration: 30 day, Stop date: 11/03/12 1:57:00 [facility] 2012-10-04 06:43:00 No Jocelyn N Onochie 4 mg, 2 mL, Route: IV, Drug form: INJ, Q4H, Dosing Weight 75, kg, PRN as needed for nausea/vomiting, Start date: 10/04/12 1:43:00, Duration: 30 day, Stop date: 11/03/12 1:42:00 [facility] Saline Flush 0.9% 2012-10-04 04:31:00 No Noe Jeremiah 5 ml, Route: IVP, Drug Form: INJ, Dosing Weight 75, kg, PRN, PRN Line Flush, Start date: 10/03/12 23:31:00, Duration: 30 day, Stop date: 11/02/12 23:30:00 [facility] ciprofloxacin 500 mg oral tablet 2012-10-04 03:05:39 No 500 mg, 1 tab, PO, Q12H, 14 tab, Substitution Allowed, TAB Allen Joseph ALPRAZOLam 0.25 mg oral tablet, disintegrating 2012-10-04 [...] 30 tab, Substitution Allowed, TAB Allen Joseph gabapentin 300 mg oral capsule 2012-10-04 03:04:22 Yes 300 mg, 1 cap, PO, Bedtime, 90 cap, Substitution Allowed [facility] Joseph clopidogrel 75 mg oral tablet 2012-10-04 03:04:14 Yes Jocelyn N Onochie 75 mg, 1 tab, PO, Daily, 30 tab, Substitution Allowed, TAB [facility] Joseph doxepin 25 mg oral capsule 2012-10-04 03:02:40 Yes 25 mg, 1 cap, PO, Bedtime, 90 cap, Substitution Allowed, CAP [facility] Joseph hyoscyamine 0.125 mg sublingual tablet 2012-10-04 03:02:13 No 0.125 mg, 1 tab, SL, TID-Before Meals, 30 tab, Substitution Allowed, TAB Allen Joseph amitriptyline 25 mg oral tablet 2012-10-04 03:01:27 Yes 25 mg, 1 tab, PO, Bedtime, 90 tab, Substitution Allowed, TAB [facility] Joseph ondansetron 4 mg oral tablet 2012-10-04 03:01:01 No 4 mg, 1 tab, PO, Q6H, PRN, 10 tab, as needed for nausea/vomiting, Substitution Allowed, TAB Allen Joseph metoclopramide 10 mg oral tablet 2012-10-04 02:56:46 No 10 mg, 1 tab, PO, QID-Before Meals, 56 tab, Substitution Allowed, TAB Allen Joseph midodrine 10 mg oral tablet 2012-10-04 02:56:09 No 10 mg, 1 tab, PO, BID, 270 tab, Substitution Allowed, TAB Allen Joseph clindamycin 150 mg oral capsule 2012-10-04 02:55:51 No 300 mg, 2 cap, PO, Q8H, 40 cap, Substitution Allowed Allen Mitchellann Norel SR oral tablet, extended release 2012-10-04 02:55:15 No 1 tab, PO, Q12H, PRN, 10 tab, for nasal congestion, Substitution Allowed, Maintenance, ERTAB [facility] potassium phosphate + Sodium Chloride 0.9% IV 250 mL 10-04 02:53:00 No Noe Jeremiah 15 mmol, 5 mL, R oute: IV, ONCE, Start date: 10/03/12 21:53:00, Stop date: 10/03/12 21:53:[address] 100 mg oral delayed release capsule 2012-10-04 02:40:51 No 100 mg, 1 cap, PO, Daily, 10 cap, Substi tution Allowed [facility] METRONIDazole 500 mg oral tablet 2012-10-04 02:39:42 No 500 mg, 1 tab, PO, Q8H, 21 tab, Substitution Allowed [facility] Celebrex 200 mg oral capsule 2012-10-04 02:39:29 No 200 mg, 1 cap, PO, Daily, PRN, 10 cap, Pain, Substitution Allowed, CAP [facility] Alinia 500 mg oral tablet 2012-10-04 02:39:17 Yes 500 mg, 1 tab, PO, Q12H, 6 tab, Substitution Allowed, TAB [facility] midazolam 50 mg 2012-10-04 00:11:00 No Noe Jeremiah IV, Start date: 10/03/12 19:11:00, Duration: 30, 50 ml, 75 Allen Joseph fentanyl 1,250 microgram + Sodium Chloride 0.9% [...] date: 11/02/12 19:10:00, Replace Every: 24 hr [facility] potassium chloride 2012-10-03 23:00:00 No Noe Jeremiah 20 mEq, 100 mL, Route: IVPB, Drug form: INJ, Q2H, Start date: 10/03/12 18:00:00, Duration: 2 doses or times, Stop date: 10/03/12 20:00:00 [facility] azithromycin 2012-10-03 23:00:00 No Jocelyn N Onochie 500 mg, 250 mL, Route: IVPB, Drug form: PDR/INJ, [id number], Dosing Weight 75, kg, Priority: Routine, Start date: 10/03/12 18:00:00, Duration: 30 day, Stop date: 11/01/12 18:00:00 [facility] ceftriaxone + Sodium Chloride 0.9% IV 100 mL 2012-10-03 23 :00:00 No Jocelyn N Onochie 1 gm, Route: IVP B, [id number], Dosing Weight 75, kg, Priority: Routine, Start date: 10/03/12 18:00:00, Duration: 30 day, Stop date: 11/01/12 18:00:00 [facility] potassium chloride 20 mEq/100 mL intravenous solution 2012-10-03 22:17:00 No Noe Jeremiha 20 mEq, Route: IVPB, ONCE, Dosing Weight 75, kg, Priority: STAT, Start date: 10/03/12 17:17:00, Stop date: 10/03/12 17:17:00 [facility] rocuronium 2012-10-03 21:58:00 No Noe Jeremiah 50 mg, Route: IVP, ONCE, Dosing Weight 75, kg, Start date: 10/03/12 16:58:00, Stop date: 10/03/12 16:58:00 [facility] etomidate 2012-10-03 21:58:00 No Noe Jeremiah 20 mg, Route: IVP, ONCE, Dosing Weight 75, kg, Priority: STAT, Start date: 10/03/12 16:58:00, Stop date: 10/03/12 16:58:00 [facility] Sodium Chloride 0.9% (Bolus) IV 2000 mL 2012-10-03 21:56:0 0 No Noe Jeremiah 2,000 mL, Rate: 2,000 ml/hr, Infuse over: 1 hr, Route: IV, Dosing Weight 75 kg, Total Volume: 2,000, Priority: STAT, Start date: 10/03/12 16:56:00, Duration: 1 doses or times, Stop date: 10/03/12 17:55:00, Bolus DoseBolus Dose [facility] fentanyl 1,250 microgram 2012-10-03 21:56:00 No Raziudd in Ahmed 250 mL, Rate: Titrate, Dosing Weight 75, kg, Route: IV, Total Volume: 250, Duration: 30 day, Stop date: 11/02/12 16:55:00, Replace Every: 24 hr [facility] Saline Flush 0.9% 2012-10-03 21:46:00 No Raziuddin Ahme d 5 mL, Route: IVP, Drug Form: INJ, Dosing Weight 75, kg, PRN, PRN Line Flush, Start date: 10/03/12 16:46:00, Duration: 30 day, Stop date: 11/02/12 16:45:00 [facility] Tramadol HCl 2012-09-07 00:00:00 Yes Arely Gonzalesdfelter 1 tablet as needed [facility] ProAir HFA 2012-08-23 00:00:00 Yes Arely Gladfelter 2 puffs as needed [facility] Xanax 2012-04-22 00:00:00 Yes Shawna Harvey 1 tabl et [facility] Doxepin Hcl 25 Mg Capsule Doxepin Hcl 25 Mg Capsule Yes [address] [facility] Hydrocodone Bit/Acetaminophen ([place] 10-325 Tablet) 1 Each Tablet Hydrocodone Bit/Acetaminophen ([place] 10-325 Tablet) 1 Each Tablet Yes as needed for Abdominal Pain [facility] Omeprazole 40 Mg Capsule. Omeprazole 40 Mg Capsule.dr Hansen as needed for Gi Upset [facility] Progesterone,Micronized (Progesterone) 100 Mg Capsule Progesterone,Micronized (Progesterone) 100 Mg Capsule Yes [facility] Tizanidine Hcl 2 Mg Capsule Tizanidine Hcl 2 Mg Capsule Yes as needed for Migraine [facility] Vital Signs Vital Name Observation Time Observation Value Comments Source Body height 2019-05-18 09:38:00 149.9 cm Dennys Palomo Body weight 2019-05-18 09:38:00 68.04 kg Dennys Christian BMI 2019-05-18 09:38:00 30.30 kg/m2 [facility] Weight 2014-09-14 13:30:00 [facility] Height 2014-09-14 13:30:00 [facility] Weight 2014-07-28 19:30:00 [facility] Height 2014-07-28 19:30:00 [facility] Heart Rate 2014-07-28 19:30:00 [facility] Diastolic (mm Hg) 2014-07-28 19:30:00 [facility] Systolic (mm Hg) 2014-07-28 19:30:00 [facility] Systolic (mm Hg) 2013-11-03 21:00:00 [facility] Respitory Rate 2013-11-03 21:00:00 [facility] Heart Rate 2013-11-03 21:00:00 [facility] Temperature Oral (F) 2013-11-03 21:00:00 98.0 F [facility] Diastolic (mm Hg) 2013-11-03 21:00:00 [facility] [place] Diastolic (mm Hg) 2013-11-03 17:00:00 [facility] Respitory Rate 2013-11-03 17:00:00 [facility] Systolic (mm Hg) 2013-11-03 17:00:00 [facility] [place] Temperature Oral (F) 2013-11-03 17:00:00 98.2 F [facility] Heart Rate 2013-11-03 17:00:00 [facility] Diastolic (mm Hg) 2013-11-03 13:00:00 [facility] [place] Systolic (mm Hg) 2013-11-03 13:00:00 [facility] Respitory Rate 2013-11-03 13:00:00 [facility] [place] Heart Rate 2013-11-03 13:00:00 [facility] Temperature Oral (F) 2013-11-03 09:00:00 98.4 F [facility] Weight 2013-11-01 22:19:00 [facility] Height 2013-11-01 22:19:00 149.86 cm [facility] BMI Calculated 2013-11-01 22:19:00 [facility] [place] Weight 2013-11-01 20:30:00 [facility] Height 2013-11-01 20:30:00 [facility] Heart Rate 2013-11-01 20:30:00 [facility] Diastolic (mm Hg) 2013-11-01 20:30:00 [facility] Systolic (mm Hg) 2013-11-01 20:30:00 [facility] lavinia [facility] Weight 2013-10-18 14:15:00 [facility] Height 2013-10-18 14:15:00 [facility] Heart Rate 2013-10-18 14:15:00 [facility] Diastolic (mm Hg) 2013-10-18 14:15:00 [facility] [place] Systolic (mm Hg) 2013-10-18 14:15:00 [facility] ri[facility]abana [facility] Weight 2013-09-01 14:45:00 [facility] Height 2013-09-01 14:45:00 [facility] Heart Rate 2013-09-01 14:45:00 [facility] Diastolic (mm Hg) 2013-09-01 14:45:00 [facility] Systolic (mm Hg) 2013-09-01 14:45:00 [facility] [place] Weight 2013-05-05 16:15:00 [facility] Height 2013-05-05 16:15:00 [facility] Temperature Oral (F) 2013-05-05 16:15:00 98.2 F [facility] Heart Rate 2013-05-05 16:15:00 [facility] Diastolic (mm Hg) 2013-05-05 16:15:00 [facility] Systolic (mm Hg) 2013-05-05 16:15:00 [facility] [place] Weight 2013-01-05 22:30:00 [facility] Height 2013-01-05 22:30:00 [facility] Heart Rate 2013-01-05 22:30:00 [facility] Diastolic (mm Hg) 2013-01-05 22:30:00 [facility] Systolic (mm Hg) 2013-01-05 22:30:00 [facility] [place] Weight 2013-01-05 21:30:00 [facility] Height 2013-01-05 21:30:00 [facility] Heart Rate 2013-01-05 21:30:00 [facility] Diastolic (mm Hg) 2013-01-05 21:30:00 [facility] Systolic (mm Hg) 2013-01-05 21:30:00 [facility] [place] Weight 2012-11-04 21:00:00 [facility] Height 2012-11-04 21:00:00 [facility] Heart Rate 2012-11-04 21:00:00 [facility] Diastolic (mm Hg) 2012-11-04 21:00:00 [facility] Systolic (mm Hg) 2012-11-04 21:00:00 [facility] Weight 2012-10-14 20:45:00 [facility] Height 2012-10-14 20:45:00 [facility] Temperature Oral (F) 2012-10-14 20:45:00 98.8 F [facility] Heart Rate 2012-10-14 20:45:00 [facility] Diastolic (mm Hg) 2012-10-14 20:45:00 [facility] [place] Systolic (mm Hg) 2012-10-14 20:45:00 [facility] [place] Systolic (mm Hg) 2012-10-12 21:00:00 [facility] [place] Diastolic (mm Hg) 2012-10-12 21:00:00 [facility] [place] Respitory Rate 2012-10-12 21:00:00 [facility] Heart Rate 2012-10-12 21:00:00 [facility] Temperature Oral (F) 2012-10-12 21:00:00 98.6 F [facility] Temperature Oral (F) 2012-10-12 17:00:00 98.2 F [facility] Respitory Rate 2012-10-12 17:00:00 [facility] [place] Heart Rate 2012-10-12 17:00:00 [facility] Systolic (mm Hg) 2012-10-12 17:00:00 [facility] Diastolic (mm Hg) 2012-10-12 17:00:00 [facility] [place] Respitory Rate 2012-10-12 13:00:00 [facility] [place] Systolic (mm Hg) 2012-10-12 13:00:00 [facility] [place] Diastolic (mm Hg) 2012-10-12 13:00:00 [facility] [place] Temperature Oral (F) 2012-10-12 13:00:00 98.6 F [facility] Heart Rate 2012-10-12 13:00:00 [facility] Weight 2012-10-03 21:28:00 [facility] Height 2012-10-03 21:28:00 149.86 cm [facility] Weight 2012-09-07 21:00:00 [facility] Height 2012-09-07 21:00:00 [facility] Heart Rate 2012-09-07 21:00:00 [facility] Diastolic (mm Hg) 2012-09-07 21:00:00 [facility] [place] Systolic (mm Hg) 2012-09-07 21:00:00 [facility] Procedures Procedure Date / Time Performed Performing Clinician Keyana tigist Arthroplasty of shoulder<sup>1</sup> [facility] Cholecystectomy<sup>2</sup> [facility] Gastric bypass operation<sup>3</sup> [facility] Suspension of bladder<sup>4</sup> [facility] Plan of Care Planned Activity Planned Date Details Comments Source Future Scheduled Test 2019-11-17 00:00:00 INFLUENZA VACCINE [code = INFLUENZA VACCINE] [facility] Scheduled Test 2019-05-07 00:00:00 65+ PNEUMOCOCCAL V ACCINE (1 of 2 - PCV13) [code = 65+ PNEUMOCOCCAL VACCINE (1 of 2 - PCV13)] [facility] Scheduled Test 2016-12-02 00:00:00 SHINGLES VACCINES (#2) [code = SHINGLES VACCINES (#2)] [facility] Scheduled Test 2004 00:00:00 BREAST CANCER SCRE ENING [code = BREAST CANCER SCREENING] [facility] Scheduled Test 2004 00:00:00 COLONOSCOPY SCREEN ING [code = COLONOSCOPY SCREENING] [facility] Scheduled Test 1975-05-07 00:00:00 Screening for andrew gnant neoplasm of cervix (procedure) [code = 381037477] [facility] Encounters Start Date/Time End Date/Time Encounter Type Admission Type Attendi [facility] Care Department Encounter ID Source 2019-05-18 00:00:00 2019-05-18 00:00:00 Outpatient [facility] [id number] Noyola Christian 2017-07-31 11:28:00 2017-07-31 13:13:00 Departed Emergency Room [facility] [id number] [facility] 2014-09-14 08:30:00 2014-09-14 08:30:00 Outpatient [facility] [id number] eClinicalWorks 2014-07-28 14:30:00 2014-07-28 14:30:00 Outpatient [facility] [id number] eClinicalWorks 2013-12-08 12:05:00 2013-12-08 12:05:00 Outpatient [facility] [id number] eClinicalWorks 2013-11-14 15:51:00 2013-11-14 15:51:00 Outpatient [facility] [id number] eClinicalWorks 2013-11-01 17:19:00 2013-11-03 22:00:00 Outpatient Silvano Larose [facility] [id number] 2013-11-01 15:30:00 2013-11-01 15:30:00 Outpatient [facility] [id number] eClinicalWorks 2013-10-18 09:15:00 2013-10-18 09:15:00 Outpatient [facility] [id number] eClinicalWorks 2013-10-07 09:31:00 2013-10-07 09:31:00 Outpatient [facility] [id number] eClinicalWorks 2013-09-01 09:45:00 2013-09-01 09:45:00 Outpatient [facility] [id number] eClinicalWorks 2013-08-12 12:11:00 2013-08-12 12:11:00 Outpatient [facility] [id number] eClinicalWorks 2013-08-10 09:47:00 2013-08-10 09:47:00 Outpatient [facility] [id number] eClinicalWorks 2013-08-04 11:15:00 2013-08-04 11:15:00 Outpatient [facility] [id number] eClinicalWorks 2013-05-05 11:15:00 2013-05-05 11:15:00 Outpatient [facility] [id number] eClinicalWorks 2013-05-04 16:42:00 2013-05-04 16:42:00 Outpatient [facility] [id number] eClinicalWorks 2013-04-25 14:41:00 2013-04-25 14:41:00 Outpatient [facility] [id number] eClinicalWorks 2013-02-01 10:01:00 2013-02-01 10:01:00 Outpatient [facility] [id number] eClinicalWorks 2013-01-05 16:30:00 2013-01-05 16:30:00 [facility]patient [facility] [id number] eClinicalWorks 2012-11-04 17:40:00 2012-11-04 17:40:00 [facility] [id number] eClinicalWorks 2012-11-04 16:00:00 2012-11-04 16:00:00 [facility] [id number] eClinicalWorks 2012-10-28 09:49:00 2012-10-28 09:49:00 Outpatient [facility] [id number] eClinicalWorks 2012-10-14 15:45:00 2012-10-14 15:45:00 [facility] [id number] eClinicalWorks 2012-10-14 14:15:00 2012-10-14 14:15:00 [facility]patient [facility] [id number] eClinicalWorks Results Test Description Test Time Test Comments Results Result Comments Source CT ABDOMEN/PELVIS W 2019-10-18 15:02:00 [facility] [address] [address] Patient Name: ANGEL LAMAS MR #: [id number] : 1955 [facility] 64[id number] Req #: [id number] [facility] Physician: Ordered by: SHAKEEL WICK MD Report #: [id number] Location: ER Room/Bed: Procedure: [id number] CT/CT ABDOMEN/PELVIS W Exam Date: 10/18/19 Exam Time: 1410 REPORT STATUS: Signed CT of the abdomen and pelvis with contrast TECHNIQUE: CT of the abdomen and pelvis WITH intravenous contrast and WITHOUT oral contrast. Dose modulation, iterative reconstruction, and/or weight-based adjustment of the mA/kV was utilized to reduce the radiati on dose to as low as reasonably achievable. IV CONTRAST: 100 mL of Isovue-370 ORAL CONTRAST: None RADIATION DOSE: Total DLP: 334 mGy*cm COMPLICATIONS: None INDICATION: LOWER ABD PAIN [id number] 1410. COMPARISON: None. FINDINGS: LOWER THORAX: Unremarkable. HEPATOBILIARY: There are multiple subcentimeter hypodense lesions throughout both lobes of the liver, nonspecific. No focal suspicious solid hepatic lesions. Gallbladder is surgically absent. Mild central intrahepatic and extra hepatic biliary dilatation is noted, likely postsurgical in nature. SPLEEN: No splenomegaly. PANCREAS: No focal masses or ductal dilatation. ADRENALS: No adrenal nodules. KIDNEYS/URETERS: Symmetric cortical enhancement. No hydronephrosis, stones, or masses. PELVIC ORGANS/BLADDER: Urinary bladder is partially distended and unremarkable. Uterus is surgically absent or atrophic. Ovaries are not visualized. PERITO NEUM/RETROPERITONEUM: No free air or fluid. LYMPH NODES: No lymphadenopathy. VESSELS: Unremarkable. 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 No evidence of obstruction. Large amount of stool is noted throughout the colon and rectum. No surrounding inflammatory changes are identified. BONES AND SOFT TISSUES: Negative for acute osseous abnormality. Mild to moderate multilevel degenerative changes of the lower thoracic spine are noted. Noncalcified posterior disc bulges of the lower lumbar spine are noted. No suspicious lytic or blastic lesion is identified. Soft tissues are unremarkable.. IMPRESSION: 1. Large amount of stool noted throughout the colon and rectum. Correlate for constipation. 2. 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 3. Post surgical changes from cholecystectomy. Mild to moderate central intrahepatic and extrahepatic biliary dilatation is likely related to postsurgical state. 4. Multiple bilateral hepatic subcentimeter hypodense lesions are nonspecific. Findings statistically represent cysts. Signed by: Alex Han MD on 10/18/2019 3:07 PM Dictated By: ALEX HAN MD [id number] Transcribed By: MARICARMEN on 10/18/19 1507 COPY TO: SHAKEEL WICK MD TISSUE EXAM 2018-06-29 11:40:00 Surgical Pat hology Report Case: [id number] Authorizing Provider: Klever Neely MD Collected: 06/22/2018 0940 Ordering Location: [facility] Received: 06/22/2018 1040 SERVICES Pathologist: Ye Luciano MD Specimen: Humeral head, left shoulder HUMORAL HEAD, LEFT, ARTHROPLASTY: - DEGENERATIVE CHANGES CONSISTENT WITH MILD OSTEOARTHRITIS Signing Pathologist Direct Phone Line: [phone] signed by Ye Luciano MD on 06/29/2018 at 11:40 [id number], [id number] shoulder total arthroplasty versus reverse shoulder replacementThe [...] Sections are submitted pending decalcification.Section code: A1-A2, shipping services sales representative sections TH/ewPerformed. BASIC METABOLIC PANEL 2018-06-23 [...] NOT APPLICABLE FOR DIALYSIS PATIENTS. HEMOGLOBIN AND [id number] 05:47:00* Test Item Value Reference Range Interpretation Comments HEMOGLOBIN (BEAKER) (test code = 410) 8.4 GM/DL 11.2-15.7 L HEMATOCRIT (BEAKER) (test code = 411) 28.3 % 34.1-44.9 L RAD, SHOULDER, COMPLETE (MIN 2 VIEWS), [id number] 14:01:00Reason for exam:-> true ap and ap, [...] MDReport Verified Date/Time: 06/22/2018 14:01:29 Reading Location: [facility] B1 C013W Consult Reading Room UE BPEB5711-08-64 12:24:00Surgical Pathology Report Case: [id number] Authorizing Provider: Oly Handy, Collected: 11/04/2017 1050 MD Ordering Location: [facility] Received: 11/04/2017 1121 SERVICES Pathologist: Jennifer Loredo MD Specimen: Condyle,Right Knee RIGHT KNEE, TOTAL KNEE REPLACEMENT: - DEGENERATIVE JOINT DISEASE, SEVERE - SYNOVIUM AND SOFT TISSUE WITH REACTIVE CHANGES Signing Pathologist Direct Phone Line: [phone] signed by Jennifer Loredo MD on 11/11/2017 at 12:24 [id number]; [id number] knee osteoarthritisRight knee condylesThe specimen is received [...] and bone submitted for decalcification. CG/plPERFORMEDBASIC METABOLIC [id number] 05:17:00* Test Item Value Reference Range Interpretation [...] NOT APPLICABLE FOR DIALYSIS PATIENTS. HEMOGLOBIN AND QCVJHJYFBY6787-42-58 04:37:00* Test Item Value Reference Range Interpretation Comments HEMOGLOBIN (BEAKER) (test code = 410) 9.6 GM/DL 11.2-15.7 L HEMATOCRIT (BEAKER) (test code = 411) 31.9 % 34.1-44.9 L BASIC METABOLIC [id number] 05:40:00* Test Item Value Reference Range Interpretation [...] NOT APPLICABLE FOR DIALYSIS PATIENTS. HEMOGLOBIN AND LWYIPHQFYT4343-42-84 05:15:00* Test Item Value Reference Range Interpretation Comments HEMOGLOBIN (BEAKER) (test code = 410) 9.0 GM/DL 11.2-15.7 L HEMATOCRIT (BEAKER) (test code = 411) 30.3 % 34.1-44.9 L TROPONIN [id number] 15:34:00* Test Item Value Reference Range Interpretation [...] acute neurological disease, and per sistent tachyarrhythmia.CHEM XNLQY0037-55-81 09:41:0081[facility]annCHEM OABAK6258-86-02 09:41:41832Ktymlgxd HermannCHEM ABUXI6834-67-84 09:41:007.8 [facility]annCHEM PUTQH0663-40-13 09:41:0026[facility]annCHEM PANEL 2013-11-03 09:41:0079[facility]annCHEM XQUFL7828-56-36 09:41:0021[facility]annCHEM GBGNE4158-57-43 09:41:004.1[facility]annCHEM MISXK1739-12-70 09:41:01363Elzhiyvb HermannCHEM WEHGB9101-09-43 09:41:000.8[facility] HermannCHEM BWVMQ0759-56-92 09:41:0010.1[facility] BddwwuiASBBLOFQSH3003-69-08 09:41:0069.0 [facility] YdbjegcEGKZDOVEZU9083-39-28 09:41:00* Test Item Value Reference Range Interpretation Comments MCH (test code = MCH) 21.6 pg 27.0-31.0 [facility] OfwevjsIIZQPFJDAE3115-72-28 09:41:0016.9[facility] HermannHEMATOLOGY 2013-11-03 09:41:0031.4[facility] YxtehzjOYDZCIEEVA7555-88-79 09:41:0036.9[facility] NvxhuwwAEYGDDERMP4586-41-68 09:41:0011.6[facility] EvfawsjIGFXMUVSPD3149-70-23 09:41:82590Rpdcpmyh TiqlykfIYCUIYWZKI3420-57-92 09:41:008.5[facility] DCRSBOKIHJ1046-59-82 09:41:005.1[facility] StxinzwDSHDFZKUVW1143-24-55 09:41:00 5.35[facility] BtgakiaBDEIBH1882-22-15 14:22:0023[facility] JqrdlpqTOTLVY2139-13-65 14:22:0084[facility] StnhrfvJIERUB2492-79-73 14:22:30033Qxsdlgda HermannLIPIDS 2013-11-02 14:22:0054[facility] JmphfctBPFOQT4772-73-46 14:22:99029Knkdfmyv BeavwgiNDTALC6472-20-01 14:22:002.98[facility]annURINE AND XVFAO8134-99-81 14:22:004[facility] AND EPRLY6434-98-17 14:22:0082[facility] URINE AND IEESP2214-59-33 14:22:00Large *ABN*(11/02/13 9:22 AM)[facility] URINE AND AOAGJ4862-24-41 14:22:00Negative (11/02/13 9:22 AM)[facility] URINE AND YFIAN1722-91-61 14:22:004.0[facility] AND SYHFN5030-89-49 14:22:00Negative (11/02/13 9:22 AM)[facility] XGOXX8143-39-14 14:22:00Negative *NA*(11/02/13 9:22 AM)[facility] NIOPI0285-45-56 14:22:005.0[facility] AND TCYCY8416-12-45 14:22:00Marked *ABN*(11/02/13 9:22 AM)[facility] FNFKD4022-64-79 14:22:001.023 [facility] MAVSZ3864-84-31 14:22:00Yellow (11/02/13 9:22 AM) [facility]annCARDIAC GZQKVQD1195-58-67 01:54:0065[facility] HermannCARDIAC YXWLYVG2622-21-40 01:52:0039[facility]annCARDIAC EEGZWSQ2344-64-09 01:52:00< 0.02[facility]annCHEM LGBDP3298-19-45 01:52:001.4[facility]annCHEM PANEL 2013-11-02 01:52:0010.2[facility] HermannCHEM IYJBO5538-39-25 01:52:0019[facility]annCHEM MMTEP3197-28-36 01:52:002.6[facility]annCHEM SLXDE4364-03-03 01:52:0081[facility]annCHEM QMKCS3502-70-96 01:52:0026[facility]annCHEM CSZJV4197-96-41 01:52:008.2[facility]annCHEM MKAZN9263-66-82 01:52:006.3 [facility]annCHEM CEONX8249-84-52 01:52:003.7[facility]annCHEM PANEL 2013-11-02 01:52:0018[facility]annCHEM UXOJU1745-63-52 01:52:000.5[facility]annCHEM HWOJK7332-19-53 01:52:009[facility]annCHEM YUUAN3608-29-88 01:52:0056[facility]annCHEM ALOBX2470-97-55 01:52:000.8[facility]annCHEM YMDHO8374-42-01 01:52:89135Ybnkeude HermannCHEM TECTT5249-09-99 01:52:003.2 [facility]annCHEM NMKXM7189-23-09 01:52:82637Sdceaqja HermannCHEM PANEL 2013-11-02 01:52:0087[facility] HermannCHEM TDPND8001-00-05 01:52:0015[facility] EmuwgrtZMOFBIQXAF8326-76-55 01:52:003+ *NA*(11/01/13 8:52 PM)[facility] SUOZLBPIYA5212-59-10 01:52:000.6[facility] CoiarjvHHLCCWSPKK3340-84-94 01:52:006.8 [facility] BzyedxeSFXXDGKVDM8921-96-50 01:52:0072.3[facility] HermannHEMATOLOGY 2013-11-02 01:52:0020.4[facility] HavczjgMXACNDTAGT4101-94-24 01:52:000.5[facility] IfsyrisKAYMKRFTKT7557-28-40 01:52:001.9[facility] NmqydxgNEJPWPDMWX6535-42-74 01:52:006.6[facility] SeazicmFECGQBLFGA6256-10-45 01:52:00* Test Item Value Reference Range Interpretation Comments PT (test code = PT) 13.5 s 12.0-14.7 [facility] ZxwawgwSTYWRNRIHW6754-17-04 01:52:00* Test Item Value Reference Range Interpretation Comments PTT (test code = PTT) 27.6 s 22.9-35.8 [facility] RyhlyqdOBNJGUZFCJ1555-75-92 01:52:001.03[facility] HermannHEMATOLOGY 2013-11-02 01:52:0037.5[facility] LqkgdjcFQARAYAFCM4190-87-63 01:52:0068.6[facility] VzkjcisRJNBBSIEAX5196-72-44 01:52:00* Test Item Value Reference Range Interpretation Comments MCH (test code = MCH) 21.8 pg 27.0-31.0 [facility] RhjsecnHNILWSYDNI7447-85-35 01:52:0031.8[facility] HermannHEMATOLOGY 2013-11-02 01:52:0017.2[facility] ZroucsxORKVBIWJXV3941-09-03 01:52:72182Cryrsuaq McrzhhrJOLFHXUHME9019-89-47 01:52:008.8[facility] ThfxreqLTXIXCKLWK3705-53-47 01:52:0012.0[facility] QmnkllxVXPADXCMBL5189-29-44 01:52:005.48[facility] JYERJICDZK8920-64-02 01:52:009.2[facility] KamrfuqHGAXWDLBB3823-85-63 11:25:002.1 [facility] YjrfbcmLRSLFKVTE5868-73-04 11:25:007[facility] WhmjlhaLZENARWYG2998-10-59 11:25:0081[facility] EtbocnpKBTYBVREA7023-22-22 11:25:0026[facility] HSDMRRGUU1752-38-19 11:25:16402Ahlcmmun UnlykqvCCFBPNRYD7868-90-54 11:25:35243 [facility] MfroappYUGNKPXKQ6354-79-76 11:25:009.1[facility] HermannCHEMISTRY 2012-10-12 11:25:003.emorial BbmqzecCPWRWZXHH4591-49-02 11:25:000.emorial PtmnbfiXTDKVYDGS5516-10-95 11:25:92533Kxsfzfez MjjucanSSIJCBZSU3297-46-43 11:25:0014.emorial FgqznbtIDFLRLMLQZ7008-34-67 11:25:001.2[facility] AFCAWBTGYT2629-02-73 11:25:000.3[facility] FpzsugwZEWOZKSZPS8739-10-08 11:25:000.2 [facility] BsdnufsVYWDFLCCMG0830-57-18 11:25:000.0[facility] HermannHEMATOLOGY 2012-10-12 11:25:002.7[facility] UisbgcvLHOGKLDKXD3257-51-84 11:25:000.4[facility] RuxsnhzUHSQHUDYLV6194-88-54 11:25:0026.6[facility] YcgrhbmLKBDVCFWQZ2318-16-54 11:25:007.8[facility] MzitmzoRHMIWKZPPX4349-00-77 11:25:0060.8[facility] OXQYWAQRSX2178-34-27 11:25:004.4[facility] SgzksbuMROIYEUGEN4893-42-03 11:25:00 4.65[facility] MgqubovFWUFZNJFYY3169-57-72 11:25:0014.6[facility] HermannHEMATOLOGY 2012-10-12 11:25:41983Ifleovlq LhfyurvVHJDJREYUO0700-80-36 11:25:0011.2[facility] GjnxkggFEUZIKCBJH9596-89-18 11:25:0034.3[facility] HsjslwlJKACLVHYIQ1434-96-63 11:25:007.6[facility] MhayejsJJFGHJOMNL6950-03-00 11:25:004.5[facility] BYVYDMFASR6978-47-06 11:25:0073.7[facility] YraqcrrENVSZBJIWL8182-68-93 11:25:00* Test Item Value Reference Range Interpretation Comments MCH (test code = MCH) 24.1 pg 27.0-31.0 L [facility] PchqoacFFRESAUPLK3593-59-41 11:25:0032.7[facility] HermannCHEMISTRY 2012-10-11 09:00:48501Fwmqjvra IyodgnzERLNAHFJN9378-78-84 09:00:41442Iqthnwwv ZujxqgnKZREBRDBK7146-04-78 09:00:003.4[facility] QopohtaDEUQHMSUG4485-54-52 09:00:82591Schvdeed YnadxnbHUFZLSLLP3486-20-16 09:00:0018[facility] BEBRGIJNG1047-59-76 09:00:0068[facility] VqmbrkwQLBHDPNII9649-60-81 09:00:006.1 [facility] OumpnobPVCITBBXT1547-59-11 09:00:002.7[facility] HermannCHEMISTRY 2012-10-11 09:00:009.1[facility] BlhxrimXFLROTKKN1430-78-93 09:00:000.4[facility] RoaobcuWBZSKOKUV5105-46-27 09:00:007[facility] YekpnfdIRIWBWTPL0729-75-21 09:00:00 0.6[facility] GcjzpzbSXGOUNTEH0300-47-66 09:00:0027[facility] HermannCHEMISTRY 2012-10-11 09:00:003[facility] IxwiqeqNKJCUQSEM1802-20-74 09:00:0094[facility] BaiquzaVIUATMPCT9546-92-19 09:00:003.4[facility] HidqxybLMQQWPKBG3125-08-51 09:00:000.8[facility] HzyhoupNXYDBCXTX3817-03-26 09:00:005[facility] EVLLQSIKF1102-38-59 09:00:0011.4[facility] VcelwkbJHWNCCOCJI3317-47-31 09:00:007.1 [facility] UdvvxxbFFBGETVVST8676-49-13 09:00:00* Test Item Value Reference Range Interpretation Comments MCH (test code = MCH) 23.9 pg 27.0-31.0 L [facility] DaxvuacEJLLRCCASN4668-02-50 09:00:86649Fliezwfb HermannHEMATOLOGY 2012-10-11 09:00:0014.1[facility] IvkdzquJBYEEFWTIH0987-08-21 09:00:0032.4[facility] MbaymjyTXDUUDRNTG8282-35-90 09:00:004.35[facility] RitsoiuERQXOQWQQI5390-67-48 09:00:0073.9[facility] OwnfutgKJDAVRFTZV1108-95-96 09:00:0032.1[facility] SWDXSFMBVS2824-17-30 09:00:0010.4[facility] ObsyrifZSRPVLSNTD5142-67-18 09:00:00 3.5[facility] YsvbzteCYHZLUINZG5752-66-92 09:00:000.0[facility] HermannHEMATOLOGY 2012-10-11 09:00:000.3[facility] WpqsplqTHYCRVWATK4183-13-11 09:00:000.3[facility] PqyzsqwEOFJBAWIPM8056-22-29 09:00:000.9[facility] QnghbnwXPVWEVYZEI8738-01-03 09:00:002.1[facility] FwoprxzAOZQACDSCQ0104-80-55 09:00:000.9[facility] EKZHDEDXIK4125-79-40 09:00:007.2[facility] VipvepxTRLZCBSVMG6865-06-66 09:00:007.6 [facility] MoilpyyXLOPFRZNQR7203-79-89 09:00:0025.0[facility] HermannHEMATOLOGY 2012-10-11 09:00:0059.3[facility] PgnncybHHUZKTSJK4442-32-07 11:15:07495Ancaswpn DzjrasxVMGVFHDFH3931-84-77 11:15:003.2[facility] BuimfjlWJOLSFTRJ8600-30-15 11:15:32024Mxslcotx CvftqmjCGTBTOYNY2302-84-35 11:15:0096[facility] BEMLWMXBI7421-39-28 11:15:002.5[facility] SnflieqWLHDPJRGQ9544-78-89 11:15:000.3 [facility] SotmgxfARAYSOWGI7627-19-03 11:15:008[facility] DiaoiwxGVLZKDXBU7437-72-87 11:15:0073[facility] VxoqwzdHKSAVXLZN5117-76-18 11:15:0021[facility] SCAEITISU1183-63-28 11:15:005.8[facility] UafjebvYCZBPQTWM3146-46-71 11:15:008.6 [facility] BkaotloXEEDSMACM9561-71-08 11:15:000.7[facility] HermannCHEMISTRY 2012-10-10 11:15:0027[facility] RqjufgrNRVJZEMIA6680-95-29 11:15:003[facility] XyegpqnOSZTFHGQW4028-75-28 11:15:11088Nvktmbgt AlhrgdtWFPKPPWVQ8823-15-61 11:15:0011.2[facility] KxgvzmnIGLNPCRGP3154-91-79 11:15:003.3[facility] WAAWIAWGQ1807-74-09 11:15:000.8[facility] DvkyixgDVUHYNNMY5460-87-90 11:15:004 [facility] ZvzhxdkFUPGKQQIWA0234-82-85 11:15:0020.7[facility] HermannHEMATOLOGY 2012-10-10 11:15:0064.4[facility] SxeqejeVHPFUZNEOZ3457-24-35 11:15:008.4[facility] RwbeypkPXDPBFNETH2471-96-42 11:15:000.3[facility] JptfkihJGSAUONJFO3366-01-84 11:15:000.8[facility] DngaiplQGJFUNHZMY7373-68-58 11:15:000.5[facility] ENBILFODMC4597-10-37 11:15:006.0[facility] WqlhoixMBZJBLGCMX4083-21-73 11:15:000.0 [facility] LmaynglKEIZKELFPM4161-95-97 11:15:000.2[facility] HermannHEMATOLOGY 2012-10-10 11:15:002.4[facility] QupoornOSHTVIITMO6090-01-80 11:15:73250Xeomkdia DapamdtZNKNKXGDLA7682-56-68 11:15:00* Test Item Value Reference Range Interpretation Comments MCH (test code = MCH) 23.8 pg 27.0-31.0 L [facility] HcoaqzsFCGTTWQRSC4248-88-34 11:15:0032.4[facility] HermannHEMATOLOGY 2012-10-10 11:15:004.29[facility] BmvdqjlAWZOXZLNEL3139-22-90 11:15:0031.6[facility] HdaevceMNLEACGWPP2265-19-20 11:15:0010.2[facility] DhcdxtiSYRWEFJLQZ3704-68-45 11:15:0014.4[facility] SmrqgmlGSEOELBBRR3431-77-03 11:15:003.8[facility] VKJPHQFSTV8232-16-38 11:15:0073.6[facility] LjujvcgKXRZIUSSBW9113-29-65 11:15:00 6.9[facility] BlzgfkoBPGCKQXMS3834-81-62 10:00:008[facility] HermannCHEMISTRY 2012-10-09 10:00:000.7[facility] HgufvkaCUBYRIBGF2172-79-85 10:00:003.3[facility] RtyrrhpFMISSRKQO0227-14-95 10:00:007[facility] DjtukooCXJNGEURM8829-91-45 10:00:00 5.7[facility] ZylxggqRDUGCFZEV5106-02-33 10:00:002.4[facility] HermannCHEMISTRY 2012-10-09 10:00:000.5[facility] TxcclcoQYPITWULP8595-25-38 10:00:0079[facility] MnnvlsqSWMBJZDOO2946-07-62 10:00:0022[facility] RiadqkcVXLMIKCNH2162-89-25 10:30:000.6[facility] ZmutgcdRJHHVTXHO9515-30-38 10:30:000.2[facility] JCXAOLSMV5822-65-64 10:30:002.5[facility] SijwnwtNYIXNGJBV1394-03-69 10:30:001.9 [facility] VuhznfjUCGUYDYUQ3067-97-90 08:00:001.8[facility]annCHEMISTRY 2012-10-07 08:00:001.9[facility] TyjxewxSMEGSDHBJ9130-03-51 09:35:132.4[facility] KgunrpkKZXXXAKAF2692-43-70 23:20:407237Ueiaikgg AwbetgrKMDZVOFZI7063-93-43 23:20:007.5[facility] ClezphaXVSARJITN4120-77-60 08:53:000.7[facility] BIVZJNDOT5425-72-39 08:53:001.1[facility] UvotxjfLGIOWKIEL5055-07-60 14:20:00<0.5 [facility] LieefevELIVWOELK9459-22-59 14:20:0078[facility]annCHEMISTRY 2012-10-04 14:20:00<0.02[facility] PiqbnhyKIKZFTGXU9755-24-27 07:29:000.96[facility] VrxvuqtLWKNSOCPB5861-52-57 07:29:001.02[facility] GhlvtisBPICDOPEP0187-30-91 07:29:000.8[facility] YecrtvyKNIGNDUMP4826-00-70 07:29:00<0.02[facility] GVLVWPUVG0741-74-81 07:29:0077[facility] OoxbbtiTGPBZPGYD6364-89-11 07:29:0092 [facility] PqkbepqVRZDXKHEZ8231-18-64 07:29:77658Fzctdyvw HermannCHEMISTRY 2012-10-04 07:29:002.37[facility] HxvcvugJXMGQWDSH5122-98-31 07:29:0091[facility] CrbbtmdQAMCUXIPY2625-71-07 07:29:33405Ygvmsnbn UxepatuCSPCTFJMRH3242-86-31 07:29:00Normal (10/04/2012 02:29:00) [facility] QlaeiwzCRAYTPCTNY1983-29-14 07:29:00Normal (10/04/2012 02:29:00) [facility] AwpgiceTPMLSRJSMP5225-27-87 07:29:00* Test Item Value Reference Range Interpretation Comments PT (test code = PT) 13.1 s 12.0-14.7 N [facility] NeflxjvROEKCGJNXB0685-81-85 07:29:00* Test Item Value Reference Range Interpretation Comments PTT (test code = PTT) 29.7 s 22.9-35.8 N [facility] LgqxrtaSILEOWELEB1032-20-66 07:29:000.97[facility] HermannBACTERIAL - WVCGLKQV2756-00-42 06:00:00Negative 1(10/04/2012 01:00:00) [facility] CAKIZZPIY3702-96-55 05:10:0071[facility] TqgnpcdJCLFCZSIT1282-56-03 05:10:00<0.02 [facility] QzdetdfZULYVBPXH0045-42-19 00:25:003.4[facility]annCHEMISTRY 2012-10-03 22:14:31141.0[facility] HhakcwuENQAJRFOH8922-29-63 22:14:86044Rqnowjwy HqycewuJPBDKWWOR1254-79-49 22:14:00A/C (10/03/2012 17:14:00) [facility] OBTQACGAZ6975-31-25 22:14:0014[facility] PpaewqiOCITHIKCP2048-17-14 22:14:93732 [facility] UiidwwwYAIFAVFQL1743-97-82 22:14:00-6[facility] HermannCHEMISTRY 2012-10-03 22:14:0020[facility] UhiavruRGDLPIVHT8168-51-69 22:14:0039[facility] FtdkuscWITFJHORR4577-56-33 22:14:007.31[facility] GxpnqbaXXCFXVUJF9432-62-22 22:14:00Right Ra (10/03/2012 17:14:00) [facility] YutjnpuNLQHJSRCH5504-35-46 22:14:0037.0[facility] MrcwplrZGBGTPQSO4859-34-99 22:14:00Positive (10/03/2012 17:14:00) [facility] LkkcxqxLYOQUBFPM3609-35-75 22:14:0099.9[facility] CTHSNDODX8069-19-78 21:52:00<0.5[facility] UgfnxnaJDYRSAPQL1682-56-23 21:52:56509 [facility] QqydjwcNLJMPCTEY1152-37-16 21:52:000.145[facility] HermannCHEMISTRY 2012-10-03 21:52:00Negative *NA*(10/03/2012 16:52:00) [facility] HermannCHEMISTRY 2012-10-03 21:52:00See Note 8*NA*(10/03/2012 16:52:00) [facility] [place] VRHHTJCRD8563-83-81 21:52:00Negative *NA*(10/03/2012 16:52:00) [facility] [place] VQNAHIBZK4651-94-58 21:52:00Negative *NA*(10/03/2012 16:52:00) [facility] [place] FHQHFPOYR7460-17-14 21:52:00Negative *NA*(10/03/2012 16:52:00) [facility] RVTGLYPNU6702-08-07 21:52:00Negative *NA*(10/03/2012 16:52:00) [facility] YJOXXLIBS4934-45-10 21:52:00Negative *NA*(10/03/2012 16:52:00) [facility] PGAREHRIJ5461-33-91 21:52:00Negative *NA*(10/03/2012 16:52:00) [facility] GTOLGIWLX4362-69-59 21:52:00<2[facility] KybwlysGUQKGTLTI4887-93-18 21:52:00<1.7 [facility] KxadvkvSQLJSCPYO8350-92-10 21:52:004.6[facility] HermannCHEMISTRY 2012-10-03 21:52:00<0.6[facility] QfcklbmEMMKGZFDZK3329-99-44 21:52:000.87[facility] WrjvyrqHCKJAHOEZO3546-57-78 21:52:00* Test Item Value Reference Range Interpretation Comments PTT (test code = PTT) 28.4 s 22.9-35.8 N [facility] ZnyofonXTLPIPLNEL8778-41-34 21:52:00* Test Item Value Reference Range Interpretation Comments PT (test code = PT) 12.1 s 12.0-14.7 [facility] NorthwestRzejskgZCNBUPUPGG9723-54-38 21:52:00Occasional /LPF *NA*(10/03/2012 16:52:00) [facility] NorthwestBumuzolYPROYAXOBS8421-49-27 21:52:00Negative (10/03/2012 16:52:00) [facility] VngxmfiMIARLXKBQG9159-51-01 21:52:00Negative (10/03/2012 16:52:00) [facility] NorthwestRhltqxkLTFQUNQRKQ1134-75-75 21:52:00Negative mg/dL (10/03/2012 16:52:00) [facility] NorthwestPuyxgkzZERBZNEQWP8057-54-77 21:52:00Negative mg/dL *NA*(10/03/2012 16:52:00) [facility] NorthwestMndfbewITJWNILSFQ9280-69-36 21:52:00 Clear (10/03/2012 16:52:00) [facility] ZumllybNJJANMLKLH3296-98-52 21:52:00 Negative (10/03/2012 16:52:00) [facility] NorthwestVabnxnfFFGKLRYGJP5559-38-05 21:52:00 Negative *NA*(10/03/2012 16:52:00) [facility] NorthwestNreepbeCWRJALSHTD1645-28-74 21:52:00Negative mg/dL *NA*(10/03/2012 16:52:00) [facility] 21:52:001.002[facility] HospitalCycxgylKQKKTEHBNW2995-52-05 21:52:005.0Me[facility] Hospitalann
[2019-10-18] MEDS ORDERED: CITRATE OF MAGNESIA 300ML BOTTLE PO ONE (18:30)
[2019-10-18] MEDS ORDERED: ACETAMINOPHEN 325 MG TAB PO PRN (19:15)
--- NOTE | 2019-10-18 19:33 | Emergency Department Note ---
History of Present Illnes History of Present Illness Chief Complaint: General Medicine Complaints History of Present Illness This is a 64 year old female 2 wks of lower abd pain and onset of spotting rectal bleeding. increased to daily rectal bleeding last wk. no hx of gi bleeds, no hemrhoids, no blood thinners, no n/v/f. Historian: Patient, Family Member Arrival Mode: Car Private Duty Rn Required: No Onset (how long ago): week(s) (2) Location: LOWER ABD Quality: CRAMPING PAIN Radiation: Reports non-radiation Severity: moderate Onset quality: gradual Timing of current episode: intermittent Progression: waxing and waning Chronicity: new Context: Denies recent illness Relieving factors: none Exacerbating factors: none Associated symptoms: Reports denies other symptoms Treatments prior to arrival: none Past Medical/Family History Physician Review I have reviewed the patient's past medical and family history. Any updates have been documented here. 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 gastric bypass 2014 Past Surgical History: Hernia Repair, Bariatric Surgery Other Surgery: GASTRIC BYPASS 1999 reversal of gastric bypass 2015 esphogeal dilatation 5 hernia repairs shoulders bilaterally leg left neck sx Social History Smoking Cessation: Never Smoker Counseling Performed: No Any Illegal Drug Use: No Physically hurt or threatened: No Other Last Tetanus: 3 YEARS AGO Any Pre-Existing Lines (PICC,: No Review of Systems Review of Systems Constitutional: Reports no symptoms EENTM: Reports no symptoms Cardiovascular: Reports no symptoms Respiratory: Reports no symptoms Gastrointestinal: Reports as per HPI Genitourinary: Reports no symptoms Musculoskeletal: Reports no symptoms Integumentary: Reports no symptoms Neurological: Reports no symptoms Psychological: Reports no symptoms Endocrine: Reports no symptoms Hematological/Lymphatic: Reports no symptoms Physical Exam Related Data Allergies: Coded Allergies: promethazine (Verified Allergy, Mild, 11/04/06) Triage Vital Signs Vital Signs Date Time Temp Pulse Resp B/P (MAP) Pulse Ox O2 Delivery O2 Flow Rate FiO2 10/18/19 12:40 97.4 79 16 132/73 100 Room Air Vital signs reviewed: Yes Physical Exam CONSTITUTIONAL Constitutional: Present well-developed, Present well-nourished HENT HENT: Present normocephalic, Present atraumatic, Present oropharynx clear/moist, Present nose normal HENT L/R: Present left ext ear normal, Present right ext ear normal EYES Eyes: Reports PERRL, Reports conjunctivae normal NECK Neck: Present ROM normal PULMONARY Pulmonary: Present effort normal, Present breath sounds normal CARDIOVASCULAR Cardiovascular: Present regular rhythm, Present heart sounds normal, Present capillary refill normal, Present normal rate GASTROINTESTINAL Abdominal: Present soft, Present bowel sounds normal, Present tender (MILD TENDERNESS SUPRAPUBIC AND BILAT LQ'S), Present other (RECTAL EXAM WITH SHAPE CARVER JIMI IN ROOM - BROWN STOOL, GAUIAC POSITIVE); Absent guarding, Absent rebound GENITOURINARY SKIN Skin: Present warm, Present dry MUSCULOSKELETAL Musculoskeletal: Present ROM normal NEUROLOGICAL Neurological: Present alert, Present oriented x 3, Present no gross motor or sensory deficits PSYCHOLOGICAL Psychological: Present mood/affect normal, Present judgement normal Results Laboratory Result Diagram: 10/18/19 1210 10/18/19 1210 Laboratory Laboratory Tests Test 10/18/19 15:38 10/18/19 12:10 Stool Occult Blood Positive (NEGATIVE) Negative (NEGATIVE) White Blood Count 4.04 x10e3/uL (4.8-10.8) Red Blood Count 5.32 x10e6/uL (3.6-5.1) Hemoglobin 9.4 g/dL (12.0-16.0) Hematocrit 33.6 % (34.2-44.1) Mean Corpuscular Volume 63.2 fL (81-99) Mean Corpuscular Hemoglobin 17.7 pg (28-32) Mean Corpuscular Hemoglobin Concent 28.0 g/dL (31-35) Red Cell Distribution Width 19.1 % (11.7-14.4) Platelet Count 310 x10e3/uL (140-360) Neutrophils (%) (Auto) 52.2 % (38.7-80.0) Lymphocytes (%) (Auto) 31.2 % (18.0-39.1) Monocytes (%) (Auto) 9.4 % (4.4-11.3) Eosinophils (%) (Auto) 5.0 % (0.0-6.0) Basophils (%) (Auto) 2.0 % (0.0-1.0) Neutrophils # (Auto) 2.1 (2.1-6.9) Lymphocytes # (Auto) 1.3 (1.0-3.2) Monocytes # (Auto) 0.4 (0.2-0.8) Eosinophils # (Auto) 0.2 (0.0-0.4) Basophils # (Auto) 0.1 (0.0-0.1) Absolute Immature Granulocyte (auto 0.01 x10e3/uL (0-0.1) Prothrombin Time 12.4 seconds (11.9-14.5) Prothromb Time International Ratio 0.88 Activated Partial Thromboplast Time 27.5 seconds (23.8-35.5) Urine Color Yellow (YELLOW) Urine Clarity Clear (CLEAR) Urine pH 6 (5 - 7) Urine Specific [place] >=1.030 (1.010-1.025) Urine Protein Negative (NEGATIVE) Urine Glucose (UA) Negative (NEGATIVE) Urine Ketones Trace (NEGATIVE) Urine Blood Negative (NEGATIVE) Urine Nitrite Negative (NEGATIVE) Urine Bilirubin Negative (NEGATIVE) Urine Urobilinogen 0.2 mg/dL (0.2 - 1) Urine Leukocyte Esterase Negative (NEGATIVE) Urine RBC 0-5 /HPF (0-5) Urine WBC 0-5 /HPF (0-5) Urine Epithelial Cells Few /LPF (NONE) Urine Bacteria Rare /HPF (NONE) Sodium Level 141 mmol/L (136-145) Potassium Level 3.9 mmol/L (3.5-5.1) Chloride Level 108 mmol/L (98-107) Carbon Dioxide Level 20 mmol/L (22-29) Anion Gap 16.9 mmol/L (8-16) Blood Urea Nitrogen 19 mg/dL (7-26) Creatinine 0.69 mg/dL (0.57-1.11) Estimat Glomerular Filtration Rate > 60 ML/MIN (60-) BUN/Creatinine Ratio 28 (6-25) Glucose Level 88 mg/dL (74-118) Calcium Level 8.4 mg/dL (8.4-10.2) Magnesium Level 2.2 MG/DL (1.3-2.1) Total Bilirubin 0.5 mg/dL (0.2-1.2) Aspartate Amino Transf (AST/SGOT) 19 IU/L (5-34) Alanine Aminotransferase (ALT/SGPT) 19 IU/L (0-55) Alkaline Phosphatase 68 IU/L (40-150) Creatine Kinase 95 IU/L (29-168) Creatine Kinase MB 3.50 ng/mL (0-5.0) Troponin I 0.006 ng/mL (0-0.300) Total Protein 6.4 g/dL (6.5-8.1) Albumin 4.1 g/dL (3.5-5.0) Globulin 2.3 g/dL (2.3-3.5) Albumin/Globulin Ratio 1.8 (0.8-2.0) Clostridium Difficile Toxin A & B (NEGATIVE) Lab results reviewed: Yes Imaging Imaging results reviewed: Yes Assessment & Plan Medical Decision Making MDM CBC, CHEM, UA/CX, CT ABD/PELVIS Reassessment Reassessment ADMIT DR VELAZQUEZ Assessment & Plan Final Impression: (1) Abdominal pain (2) GI bleed Depart Disposition: ADMITTED Last Vital Signs Date Time Temp Pulse Resp B/P (MAP) Pulse Ox O2 Delivery O2 Flow Rate FiO2 10/18/19 19:19 67 18 127/66 100 Room Air 10/18/19 14:17 98.1 Home Meds Reported Medications Lactobac Cmb #3/Fos/Pantethine (PROBIOTIC & ACIDOPHILUS CAP) 1 Each Capsule 10/18/19 Doxepin Hcl (DOXEPIN HCL) 25 Mg Capsule, 25 MG PO HS, #30 CAP 07/31/17 Tizanidine Hcl (TIZANIDINE HCL) 2 Mg Capsule, PRN for MIGRAINE 07/31/17 Omeprazole (OMEPRAZOLE) 40 Mg Capsule.dr, 40 MG PO DAILY 07/31/17 Discontinued Reported Medications Progesterone,Micronized (PROGESTERONE) 100 Mg Capsule 07/31/17 Hydrocodone Bit/Acetaminophen (NORCO 10-325 TABLET) 1 Each Tablet, PRN for ABDOMINAL PAIN 07/31/17 Medications in the ED Pantoprazole Sodium 40 mg ONCE IV Last administered on 10/18/19at 13:34; Admin Dose 40 MG; Start 10/18/19 at 13:00; Stop 10/18/19 at 14:59; Status DC Ondansetron HCl 4 mg ONCE IV Last administered on 10/18/19at 13:34; Admin Dose 4 MG; Start 10/18/19 at 13:00; Stop 10/18/19 at 13:59; Status DC Sodium Chloride 1,000 ml @ 0 mls/hr Q0M STAT IV Last administered on 10/18/19at 13:34; Admin Dose 999 MLS/HR; Start 10/18/19 at 12:56; Stop 10/18/19 at 12:59; Status DC Sodium Chloride 50 ml @ ud STK-MED ONCE .ROUTE ; Start 10/18/19 at 14:12; Stop 10/18/19 at 14:05; Status DC Iopamidol 74,000 mg STK-MED ONCE INJ ; Start 10/18/19 at 14:12; Stop 10/18/19 at 14:06; Status DC SHAKEEL WICK MD Oct 18, 2019 19:33
[2019-10-18 19:46] LABS: BASOPHILS # (AUTO) 0.1 (0.0-0.1); BASOPHILS % 1.5 % (0.0-1.0); EOSINOPHILS # (AUTO) 0.2 (0.0-0.4); EOSINOPHILS % 4.5 % (0.0-6.0); HEMATOCRIT 30.5 % (34.2-44.1); HEMOGLOBIN 8.6 g/dL (12.0-16.0); LYMPHOCYTES # (AUTO) 1.3 (1.0-3.2); LYMPHOCYTES % 38.1 % (18.0-39.1); MEAN CORPUSCULAR HEMOGLOBIN 17.8 pg (28-32); MEAN CORPUSCULAR HGB CONC 28.2 g/dL (31-35); MONOCYTES # (AUTO) 0.3 (0.2-0.8); MONOCYTES % 10.2 % (4.4-11.3); NEUTROPHILS # (AUTO) 1.5 (2.1-6.9); NEUTROPHILS % 45.4 % (38.7-80.0); PLATELET COUNT 298 x10e3/uL (140-360); RED BLOOD COUNT 4.84 x10e6/uL (3.6-5.1); RED CELL DISTRIBUTION WIDTH 18.8 % (11.7-14.4)
[2019-10-18 21:00] VITALS: BP 117/59
[2019-10-18 21:10] VITALS: BP 125/76
[2019-10-18] MEDS ORDERED: BISACODYL 5 MG TAB EC PO ONE ×2 (21:15→22:45)
--- NOTE | 2019-10-18 21:19 | History and Physical ---
PRIMARY CARE PHYSICIAN: Dr. Sandra Cole at [facility]. CHIEF COMPLAINT: Severe lower quadrant abdominal pain and rectal bleeding. HISTORY OF PRESENT ILLNESS: This is a 64-year-old female with history of gastric bypass 20 years ago and correction 5 years ago, presented to the ER with complaints of severe abdominal pain in the lower quadrants for about 2 weeks. She reports the pain feels like cramping and sharp, where she will have to sit or lay on the ground when it happens and reports bright red bleeding on her underwear. She reports she has no nausea, vomiting, diarrhea, constipation, fever, chills, or radiating chest or back pain. She denies any dysuria, any vaginal bleeding, any bleeding, or discharge. She reports the pain comes and goes and is not constant. She reports that she has been moving her bowels regularly. In the ER, hemoglobin was 9.7, and CT abdomen and pelvis showed a large amount of stool throughout the colon and rectum, multiple bilateral hepatic subcentimeter hypodense lesion and nonspecific, findings may represent cyst. We will admit the patient for further evaluation. PAST MEDICAL HISTORY: None. PAST SURGICAL HISTORY: 1. She had gastric bypass 20 years ago and revision 5 years ago. 2. Hernia repair. 3. Shoulder surgery and bilateral lower extremity surgery after a dog bite. FAMILY MEDICAL HISTORY: She is adopted, so does not know. SOCIAL HISTORY: She denies any tobacco or illicit drug use. She reports has been taking shots of Tequila to help with pain. ALLERGIES: SHE IS ALLERGIC TO PHENERGAN. REVIEW OF SYSTEMS: Ten systems reviewed and negative, except as reported in HPI. PHYSICAL EXAMINATION: VITAL SIGNS: Temperature 98.1, pulse is 65, respirations 16, blood pressure 144/89, pulse ox is 97% on room air. GENERAL: No acute distress. HEENT: Normocephalic and atraumatic. NECK: Supple. LUNGS: Clear to auscultation. CARDIOVASCULAR: Regular rate and rhythm. GI: Bilateral lower quadrant tenderness. Abdomen is soft with active bowel sounds. NEUROLOGIC: Alert, awake, and oriented x3. She reports has been feeling weak. MUSCULOSKELETAL: Moves all extremities. No edema. SKIN: Dry. PSYCH: Calm. LABORATORY DATA: WBC 4.04, hemoglobin 9.4, hematocrit 32.6, and platelets 310. Sodium 141, potassium 3.9, CO2 of 20, Anion gap 16.9, estimated GFR is greater than 60, BUN is 19, creatinine 0.69, magnesium 2.2, AST 19, ALT 19, alkaline phosphatase 68. CK-MB 3.5, troponin 0.006. PT 12.4, INR 0.88, APTT 27.5. Urine is negative. Stool occult blood is positive. Urine culture is pending. CT abdomen and pelvis with large amount of stool noted throughout the colon and rectum, correlating constipation. Postsurgical changes and multiple bilateral hepatic subcentimeter hypodense lesions are nonspecific, statistically represent cyst. IMPRESSION: 1. Right lower quadrant abdominal pain. CT abdomen shows constipation. We will give magnesium titrate and start Colace b.i.d. 2. Rectal bleeding. Fecal occult blood was positive. Reports fatigue and generalized weakness. Hemoglobin is 9.4. GI has been consulted for further evaluation. 3. Anemia. Hemoglobin is . 4. Deep venous thrombosis prophylaxis. SCDs as she has rectal bleeding. PLAN: To continue laxative and have GI evaluate the patient. Dictated by FRANCESCA Zuleta Buck Guerrero MD MY/MODL /[id number]
[2019-10-18 21:33] LABS: FERRITIN 13.57 ng/mL (4.63-204.00)
[2019-10-18] MEDS: PANTOPRAZOLE 40 MG 10ML VIAL IV SCH (22:29)
[2019-10-19] VITALS (9 sets, daily range): BP systolic 102–147; BP diastolic 51–75
[2019-10-19] MEDS ORDERED: BISACODYL 5 MG TAB EC PO ONE (01:15)
[2019-10-19] MEDS ORDERED: CITRATE OF MAGNESIA 300ML BOTTLE PO ONE ×3 (05:00→08:30)
[2019-10-19] MEDS: SODIUM CHLORIDE 0.9% 1000ML 1,000 ML IV SCH ×2 (06:04→14:16)
[2019-10-19 06:20] LABS: BASOPHILS # (AUTO) 0.1 (0.0-0.1); BASOPHILS % 1.4 % (0.0-1.0); EOSINOPHILS # (AUTO) 0.2 (0.0-0.4); EOSINOPHILS % 4.7 % (0.0-6.0); HEMATOCRIT 31.6 % (34.2-44.1); LYMPHOCYTES # (AUTO) 1.2 (1.0-3.2); LYMPHOCYTES % 27.2 % (18.0-39.1); MEAN CORPUSCULAR HEMOGLOBIN 17.8 pg (28-32); MEAN CORPUSCULAR HGB CONC 28.5 g/dL (31-35); MEAN CORPUSCULAR VOLUME 62.5 fL (81-99); MONOCYTES # (AUTO) 0.3 (0.2-0.8); MONOCYTES % 7.9 % (4.4-11.3); NEUTROPHILS # (AUTO) 2.5 (2.1-6.9); NEUTROPHILS % 58.8 % (38.7-80.0); PLATELET COUNT 258 x10e3/uL (140-360); RED BLOOD COUNT 5.06 x10e6/uL (3.6-5.1)
[2019-10-19 06:38] LABS: ANION GAP 11.7 mmol/L (8-16); BLOOD UREA NITROGEN 10 mg/dL (7-26); BUN/CREATININE RATIO 17 (6-25); CALCIUM 7.8 mg/dL (8.4-10.2); CARBON DIOXIDE 22 mmol/L (22-29); CHLORIDE 109 mmol/L (98-107); EST GLOMERULAR FILTRATION RATE > 60 ML/MIN (60-); GLUCOSE 85 mg/dL (74-118); POTASSIUM 3.7 mmol/L (3.5-5.1); SODIUM 139 mmol/L (136-145)
--- NOTE | 2019-10-19 06:45 | NUR ---
patient complained of abd pain, Dr Spencer Coxwas called and ordered prn morphine.
--- NOTE | 2019-10-19 07:00 | NUR ---
BEDSIDE SHIFT REPORT RECEIVED FROM THE TENTMAKER RN. EDUCATED PT ABOUT FALL PRECAUTIONS. PT VERBALIZED UNDERSTANDING. CALL LIGHT WITH IN EASY REACH. BED IS LOW AND LOCKED. SIDE RAILS X2. ALL SAFETY MEASURES IN PLACE. PT DENIES NEEDS AT THIS TIME.
[2019-10-19] MEDS: MORPHINE SULFATE 2 MG/ML SYR 1ML IV PRN ×2 (07:38→14:05)
[2019-10-19] MEDS: ONDANSETRON HCL INJ 2MG/ML 2ML 2 MG/ML VIAL IV PRN ×2 (07:39→14:05)
--- NOTE | 2019-10-19 07:48 | NUR ---
Patient endorsed to next shift for continuity of care.
--- NOTE | 2019-10-19 08:00 | NUR ---
PAGED PHARMACY REGARDING JOSE
--- NOTE | 2019-10-19 08:15 | NUR ---
NPO AFTER BREAK FAST PER DR. Brooke WETZEL
[2019-10-19] MEDS: DOCUSATE SODIUM 100 MG CAP PO SCH ×2 (08:30→17:00)
[2019-10-19] MEDS: PANTOPRAZOLE 40 MG 10ML VIAL IV SCH ×2 (08:31→20:33)
[2019-10-19] MEDS: CYANOCOBALAMIN INJ 1,000 MCG/ML VIAL IM SCH (08:35)
[2019-10-19] MEDS: IRON SUCROSE 100 MG in SODIUM CHLORIDE 0.9% 100 ML 100 ML IV SCH (09:00)
[2019-10-19] MEDS ORDERED: PANTOPRAZOLE SOD 40 MG TABEC PO SCH (09:00)
[2019-10-19 10:56] LABS: ANISOCYTOSIS MODERATE; ELLIPTOCYTE, RBC SLIGHT; HYPOCHROMASIA SLIGHT; PLATELET ESTIMATE ADEQUATE; RBC MORPHOLOGY COMMENT ABNORMAL
[2019-10-19 10:57] LABS: OVALOCYTES FEW; PLATELET MORPHOLOGY COMMENT RARE EDTA CLUMPING
[2019-10-19] MEDS ORDERED: KETOROLAC TROMETHAMINE 30 MG/ML VIAL IV PRN (12:15)
[2019-10-19 12:26] LABS: BASOPHILS # (AUTO) 0.1 (0.0-0.1); BASOPHILS % 1.2 % (0.0-1.0); EOSINOPHILS # (AUTO) 0.1 (0.0-0.4); HEMATOCRIT 33.9 % (34.2-44.1); HEMOGLOBIN 9.4 g/dL (12.0-16.0); LYMPHOCYTES # (AUTO) 0.6 (1.0-3.2); LYMPHOCYTES % 15.2 % (18.0-39.1); MEAN CORPUSCULAR HEMOGLOBIN 17.6 pg (28-32); MEAN CORPUSCULAR HGB CONC 27.7 g/dL (31-35); MEAN CORPUSCULAR VOLUME 63.5 fL (81-99); MONOCYTES # (AUTO) 0.3 (0.2-0.8); MONOCYTES % 7.4 % (4.4-11.3); PLATELET COUNT 255 x10e3/uL (140-360); RED BLOOD COUNT 5.34 x10e6/uL (3.6-5.1); RED CELL DISTRIBUTION WIDTH 19.5 % (11.7-14.4)
--- NOTE | 2019-10-19 13:58 | Progress Note ---
DATE: 10/19/2019 SUBJECTIVE: She has migraine headache, she reports has been during the bowel prep and is cleared. Pending for colonoscopy later this afternoon. PHYSICAL EXAMINATION: VITAL SIGNS: Temperature 97.6, pulse is 60, respirations 20, blood pressure 113/58, and pulse ox is 100% on room air. GENERAL: No acute distress. HEENT: Normocephalic and atraumatic. NECK: Supple. LUNGS: Clear to auscultation. CARDIOVASCULAR: Regular rate and rhythm. GI: Bilateral lower quadrant pain improved. Bowel sounds active. NEUROLOGIC: Alert, awake, and oriented x3. Complains of headache. MUSCULOSKELETAL: Moves all extremities. No edema. SKIN: Dry. PSYCH: Calm. LABORATORY DATA: WBC 4.08, hemoglobin 9.4, hematocrit 33.9, and platelet 255. Sodium 139, potassium 3.7, CO2 22, BUN 10, creatinine 0.60, estimated GFR is greater than 60, and calcium 7.8. Iron 23, TIBC 556, percent saturation 4, and transferrin 397. Vitamin B12 is 450. IMPRESSION: 1. Abdominal pain with rectal bleeding. CT abdomen shows constipation. Status post bowel prep for colonoscopy later today. 2. Headache. We will treat with Toradol as needed. 3. Anemia. Hemoglobin is 9.4. We will continue to monitor closely. 4. Deep vein thrombosis prophylaxis. SCDs due to anemia. PLAN: To continue bowel prep for colonoscopy later today. Dictated by FRANCESCA Zuleta Buck Guerrero MD MY/MODL /[id number]
--- NOTE | 2019-10-19 15:34 | NUR ---
PT OFF UNIT FOR PROCEDURE IN SAFE CONDITION.
--- NOTE | 2019-10-19 17:50 | NUR ---
PT IS BACK TO THE UNIT AFTER PROCEDURE. PT DENIES NEEDS AT THIS TIME.
[2019-10-19 18:56] LABS: BASOPHILS # (AUTO) 0.1 (0.0-0.1); BASOPHILS % 1.5 % (0.0-1.0); EOSINOPHILS # (AUTO) 0.2 (0.0-0.4); EOSINOPHILS % 3.8 % (0.0-6.0); HEMATOCRIT 32.7 % (34.2-44.1); HEMOGLOBIN 9.1 g/dL (12.0-16.0); LYMPHOCYTES # (AUTO) 1.1 (1.0-3.2); LYMPHOCYTES % 23.1 % (18.0-39.1); MEAN CORPUSCULAR HEMOGLOBIN 17.8 pg (28-32); MEAN CORPUSCULAR HGB CONC 27.8 g/dL (31-35); MEAN CORPUSCULAR VOLUME 64.1 fL (81-99); MONOCYTES # (AUTO) 0.3 (0.2-0.8); MONOCYTES % 5.7 % (4.4-11.3); NEUTROPHILS # (AUTO) 3.1 (2.1-6.9); NEUTROPHILS % 65.7 % (38.7-80.0); PLATELET COUNT 252 x10e3/uL (140-360); RED CELL DISTRIBUTION WIDTH 19.3 % (11.7-14.4)
--- NOTE | 2019-10-19 19:05 | NUR ---
BEDSIDE SHIFT REPORT GIVEN TO THE BUS STARTER RN. PT DENIED FURTHER NEEDS.
--- NOTE | 2019-10-19 19:15 | NUR ---
RECEIVED BEDSIDE SHIFT REPORT FROM PREVIOUS NURSE. CALL LIGHT WITHIN REACH. PATIENT IN BED.
[2019-10-19] MEDS ORDERED: MIDAZOLAM HCL 2 MG/2 ML VIAL ONE (19:27)
[2019-10-19] MEDS ORDERED: FENTANYL CITRATE/PF 100MCG/2 ML INJ ONE (19:27)
[2019-10-19] MEDS ORDERED: LIDOCAINE HCL 2% LOCAL INJ 5 ML SDV VIAL INJ ONE (19:27)
[2019-10-19] MEDS ORDERED: GLUCAGON FOR INJ 1 MG VIAL ONE (19:27)
[2019-10-19] MEDS ORDERED: PHENYLEPHRINE HCL 1% 10 MG/ML VIAL ONE (19:27)
[2019-10-19] MEDS ORDERED: PROPOFOL IV EMULSION 10 MG/ML 20 ML VIAL ONE (19:27)
[2019-10-20] VITALS (9 sets, daily range): BP systolic 100–134; BP diastolic 55–72
[2019-10-20 00:56] LABS: BASOPHILS # (AUTO) 0.1 (0.0-0.1); BASOPHILS % 0.8 % (0.0-1.0); EOSINOPHILS # (AUTO) 0.2 (0.0-0.4); EOSINOPHILS % 3.6 % (0.0-6.0); HEMATOCRIT 28.8 % (34.2-44.1); HEMOGLOBIN 8.2 g/dL (12.0-16.0); LYMPHOCYTES # (AUTO) 1.1 (1.0-3.2); MEAN CORPUSCULAR HEMOGLOBIN 17.9 pg (28-32); MEAN CORPUSCULAR HGB CONC 28.5 g/dL (31-35); MEAN CORPUSCULAR VOLUME 62.7 fL (81-99); MONOCYTES # (AUTO) 0.3 (0.2-0.8); MONOCYTES % 4.8 % (4.4-11.3); NEUTROPHILS # (AUTO) 4.9 (2.1-6.9); NEUTROPHILS % 74.5 % (38.7-80.0); PLATELET COUNT 242 x10e3/uL (140-360); RED BLOOD COUNT 4.59 x10e6/uL (3.6-5.1); RED CELL DISTRIBUTION WIDTH 18.7 % (11.7-14.4)
--- NOTE | 2019-10-20 04:56 | Operative Report ---
DATE OF PROCEDURE: 10/19/2019 SURGEON: Daryl Palmer MD PROCEDURE: Colonoscopy. INDICATIONS FOR COLONOSCOPY: Lower abdominal pain, rectal bleeding. MEDICATIONS: The patient was done under MAC. Please see anesthesiologist's note. PROCEDURE IN DETAIL: With the patient in left lateral decubitus position, flexible fiberoptic Olympus colonoscope was inserted into the rectum with ease and advanced all the way to the cecum. The colon was excessively spastic and irritable and the prep overall was suboptimal. Visualization of the colon also was suboptimal. The scope was then withdrawn slowly and of note diverticular disease was noted to be scattered throughout the colon. Whatever was visualized, the mucosa overlying the ascending, transverse, descending, sigmoid, and rectum grossly was unremarkable, other than for the diverticular disease. The scope was then retroflexed into the distal rectum. Small internal hemorrhoids were noted none of which was actively bleeding. The scope was then straightened out it was subsequently withdrawn, the patient tolerated the procedure well. IMPRESSION: 1. Suboptimal prep. Colon excessively spastic and irritable and suboptimally visualized. 2. Pandiverticulosis. 3. Small internal hemorrhoids, none actively bleeding. PLAN: Follow H and H. The patient will need a GI bleed scan and if negative, we will need an EGD. If EGD findings were nonrevealing, then small bowel series and possibly a capsule endoscopy is in order. Daryl Palmer MD [facility] [place]/RUMAL /[id number] cc: Buck Guerrero MD
[2019-10-20] MEDS: IRON SUCROSE 100 MG in SODIUM CHLORIDE 0.9% 100 ML 100 ML IV SCH (05:42)
[2019-10-20] MEDS: SODIUM CHLORIDE 0.9% 1000ML 1,000 ML IV SCH ×3 (05:42→22:30)
--- NOTE | 2019-10-20 07:00 | NUR ---
BEDSIDE SHIFT REPORT RECEIVED FROM THE BATCH PLANT SUPERVISOR RN. EDUCATED PT ABOUT FALL PRECAUTIONS. PT VERBALIZED UNDERSTANDING. CALL LIGHT WITH IN EASY REACH. INSTRUCTED PT TO USE CALL LIGHT FOR ALL THE NEEDS. BED IS LOW AND LOCKED. SIDE RAILS X2. PT DENIES NEEDS AT THIS TIME.
[2019-10-20 07:25] LABS: BASOPHILS % 0.9 % (0.0-1.0); EOSINOPHILS # (AUTO) 0.3 (0.0-0.4); EOSINOPHILS % 6.3 % (0.0-6.0); HEMATOCRIT 29.7 % (34.2-44.1); HEMOGLOBIN 8.4 g/dL (12.0-16.0); MEAN CORPUSCULAR HEMOGLOBIN 17.8 pg (28-32); MEAN CORPUSCULAR HGB CONC 28.3 g/dL (31-35); MEAN CORPUSCULAR VOLUME 63.1 fL (81-99); MONOCYTES # (AUTO) 0.3 (0.2-0.8); MONOCYTES % 6.1 % (4.4-11.3); NEUTROPHILS % 65.5 % (38.7-80.0); PLATELET COUNT 245 x10e3/uL (140-360); RED BLOOD COUNT 4.71 x10e6/uL (3.6-5.1); RED CELL DISTRIBUTION WIDTH 18.8 % (11.7-14.4)
--- NOTE | 2019-10-20 07:33 | NUR ---
GAVE BEDSIDE SHIFT REPORT TO ONCOMING NURSE. CALL LIGHT WITHIN REACH. PATIENT IN BED. PATIENT IN NO PAIN. HOURLY ROUNDING PERFORMED
[2019-10-20 08:56] LABS: HYPOCHROMASIA MODERATE
[2019-10-20] MEDS: DOCUSATE SODIUM 100 MG CAP PO SCH ×2 (08:56→16:26)
[2019-10-20] MEDS: PANTOPRAZOLE 40 MG 10ML VIAL IV SCH ×2 (08:56→21:00)
[2019-10-20] MEDS: CYANOCOBALAMIN INJ 1,000 MCG/ML VIAL IM SCH (08:56)
[2019-10-20] MEDS: DICYCLOMINE HCL 20 MG TAB PO SCH ×4 (08:56→21:00)
[2019-10-20 08:57] LABS: MICROCYTOSIS MODERATE; RBC MORPHOLOGY COMMENT ABNORMAL
--- NOTE | 2019-10-20 09:45 | NUR ---
PAGED NUCLEAR MED REGARDING GI BLEED ORDER.
[2019-10-20 12:20] LABS: BASOPHILS # (AUTO) 0.1 (0.0-0.1); BASOPHILS % 1.4 % (0.0-1.0); EOSINOPHILS # (AUTO) 0.2 (0.0-0.4); EOSINOPHILS % 6.9 % (0.0-6.0); HEMATOCRIT 29.5 % (34.2-44.1); HEMOGLOBIN 8.3 g/dL (12.0-16.0); LYMPHOCYTES # (AUTO) 0.9 (1.0-3.2); LYMPHOCYTES % 24.4 % (18.0-39.1); MEAN CORPUSCULAR HEMOGLOBIN 17.8 pg (28-32); MEAN CORPUSCULAR HGB CONC 28.1 g/dL (31-35); MEAN CORPUSCULAR VOLUME 63.3 fL (81-99); MONOCYTES # (AUTO) 0.3 (0.2-0.8); MONOCYTES % 8.3 % (4.4-11.3); NEUTROPHILS # (AUTO) 2.1 (2.1-6.9); PLATELET COUNT 260 x10e3/uL (140-360); RED BLOOD COUNT 4.66 x10e6/uL (3.6-5.1)
--- NOTE | 2019-10-20 15:09 | Progress Note ---
DATE: 10/20/2019 SUBJECTIVE: The patient is status post colonoscopy yesterday. Her abdominal pain is improved. She is pending for GI bleed scan today. PHYSICAL EXAMINATION: VITAL SIGNS: Temperature 98.1, pulse is 58, respirations 17, blood pressure 117/58, and pulse ox is 99% on room air. GENERAL: No acute distress. HEENT: Normocephalic, atraumatic. NECK: Supple. LUNGS: Clear to auscultation. CARDIOVASCULAR: Regular rate and rhythm. GI: Soft and nontender. Active bowel sounds. NEUROLOGIC: Alert, awake, and oriented x3. MUSCULOSKELETAL: Moves all extremities. SKIN: Dry. PSYCH: Calm. LABORATORY DATA: WBC 3.49, hemoglobin 8.3, hematocrit 29.5, and platelet 260. Iron 23, TIBC 556. IMPRESSION: 1. Abdominal pain with rectal bleeding. CT abdomen and pelvis shows constipation, status post colonoscopy yesterday, which showed internal hemorrhoids and some irritation of the colon. Pending GI bleed scan today and plan for possible esophagogastroduodenoscopy. 2. Headache. Improved with pain medicine. 3. Anemia. Likely due to the rectal bleeding. 4. Hemoglobin is 8.3. Iron is also low. Given Venofer per IV. 5. Deep vein thrombosis prophylaxis. Sequential compression devices due to anemia. PLAN: To continue current treatment, GI bleed scan pending. Dictated by FRANCESCA Zuleta Buck Guerrero MD MY/MODL /[id number]
--- NOTE | 2019-10-20 18:15 | NUR ---
PT OFF UNIT TO NUCLEAR MED IN SAFE CONDITION.
--- NOTE | 2019-10-20 19:00 | NUR ---
RECEIVED BEDSIDE SHIFT REPORT FROM PREVIOUS NURSE. PATIENT IS NOT ON THE UNIT AT THIS TIME AND HAVING AN EXAM DONE
--- NOTE | 2019-10-20 19:08 | NUR ---
SHIFT REPORT GIVEN TO THE STABILIZING MACHINE OPERATOR RN. PT IS AT [facility].
--- NOTE | 2019-10-20 20:30 | NUR ---
PATIENT ARRIVED BACK FROM NUCLEAR MEDICINE. PATIENT IN BED. CALL LIGHT WITHIN REACH. PATIENT IN NO PAIN OR DISTRESS
--- NOTE | 2019-10-20 22:30 | Diagnostic Imaging Report ---
Tagged-RBC GI Bleed Study Clinical information: 64-year-old female with abdominal pain. GI bleed and anemia. Discussion: The patient's own red blood cells were labeled with 25 mCi of technetium-99m pertechnetate using the in vitro method (UltraTag). Dynamic images of the abdomen were obtained through 60 minutes. Distribution of tracer activity appears physiologic throughout the abdomen. No abnormal accumulation of tracer is seen within the gastrointestinal lumen. Impression: No scan evidence of active gastrointestinal bleeding at this time. Signed by: Dr. Galilea Ambrose M.D. on 10/20/2019 10:27 PM
[2019-10-21] VITALS: BP 134/68
[2019-10-21 00:52] LABS: BASOPHILS % 0.8 % (0.0-1.0); EOSINOPHILS # (AUTO) 0.2 (0.0-0.4); EOSINOPHILS % 4.1 % (0.0-6.0); HEMATOCRIT 27.4 % (34.2-44.1); HEMOGLOBIN 7.7 g/dL (12.0-16.0); LYMPHOCYTES # (AUTO) 1.2 (1.0-3.2); LYMPHOCYTES % 23.2 % (18.0-39.1); MEAN CORPUSCULAR HEMOGLOBIN 17.7 pg (28-32); MEAN CORPUSCULAR HGB CONC 28.1 g/dL (31-35); MEAN CORPUSCULAR VOLUME 63.1 fL (81-99); MONOCYTES # (AUTO) 0.4 (0.2-0.8); MONOCYTES % 7.1 % (4.4-11.3); NEUTROPHILS # (AUTO) 3.3 (2.1-6.9); NEUTROPHILS % 64.6 % (38.7-80.0); PLATELET COUNT 233 x10e3/uL (140-360); RED BLOOD COUNT 4.34 x10e6/uL (3.6-5.1); RED CELL DISTRIBUTION WIDTH 18.8 % (11.7-14.4)
[2019-10-21 04:00] VITALS: BP 125/64
[2019-10-21] MEDS: IRON SUCROSE 100 MG in SODIUM CHLORIDE 0.9% 100 ML 100 ML IV SCH (04:22)
[2019-10-21 06:27] LABS: BASOPHILS # (AUTO) 0.1 (0.0-0.1); BASOPHILS % 1.2 % (0.0-1.0); EOSINOPHILS # (AUTO) 0.3 (0.0-0.4); EOSINOPHILS % 6.6 % (0.0-6.0); HEMATOCRIT 30.7 % (34.2-44.1); HEMOGLOBIN 8.5 g/dL (12.0-16.0); LYMPHOCYTES # (AUTO) 1.4 (1.0-3.2); LYMPHOCYTES % 29.5 % (18.0-39.1); MEAN CORPUSCULAR HEMOGLOBIN 17.6 pg (28-32); MEAN CORPUSCULAR HGB CONC 27.7 g/dL (31-35); MEAN CORPUSCULAR VOLUME 63.6 fL (81-99); MONOCYTES # (AUTO) 0.4 (0.2-0.8); MONOCYTES % 7.3 % (4.4-11.3); NEUTROPHILS # (AUTO) 2.7 (2.1-6.9); NEUTROPHILS % 55.2 % (38.7-80.0); PLATELET COUNT 254 x10e3/uL (140-360); RED BLOOD COUNT 4.83 x10e6/uL (3.6-5.1); RED CELL DISTRIBUTION WIDTH 19.7 % (11.7-14.4)
--- NOTE | 2019-10-21 07:25 | NUR ---
GAVE BEDSIDE SHIFT REPORT TO ONCOMING NURSE. CALL LIGHT WITHIN REACH. PATIENT IN BED. HOURLY ROUNDING PERFORMED.
[2019-10-21 07:47] LABS: HYPOCHROMASIA MODERATE; MICROCYTOSIS MODERATE; OVALOCYTES FEW; PLATELET ESTIMATE ADEQUATE; PLATELET MORPHOLOGY COMMENT NORMAL; RBC MORPHOLOGY COMMENT ABNORMAL; TARGET CELLS FEW
[2019-10-21 08:12] VITALS: BP 135/68
[2019-10-21 08:37] VITALS: BP 135/68
[2019-10-21] MEDS: CYANOCOBALAMIN INJ 1,000 MCG/ML VIAL IM SCH (08:42)
[2019-10-21] MEDS: DOCUSATE SODIUM 100 MG CAP PO SCH ×2 (08:42→17:08)
[2019-10-21] MEDS: PANTOPRAZOLE 40 MG 10ML VIAL IV SCH (08:42)
[2019-10-21] MEDS: DICYCLOMINE HCL 20 MG TAB PO SCH ×3 (08:42→17:08)
[2019-10-21] MEDS: SODIUM CHLORIDE 0.9% 1000ML 1,000 ML IV SCH ×2 (09:10→15:00)
--- NOTE | 2019-10-21 10:15 | NUR ---
PAGED RESPIRATORY REGARDING HOME O2 EVAL. Addendum: 10/21/19 at 1021 by Carlita Andino RN ENTERED IN ERROR
[2019-10-21 12:13] VITALS: BP 120/72
--- NOTE | 2019-10-21 14:30 | NUR ---
PT OFF UNIT FOR PROCEDURE IN SAFE CONDITION.
[2019-10-21] MEDS ORDERED: MIDAZOLAM HCL 2 MG/2 ML VIAL ONE (14:49)
--- NOTE | 2019-10-21 16:14 | Operative Report ---
DATE OF PROCEDURE: 10/21/2019 SURGEON: Daryl Palmer MD PROCEDURE: EGD with biopsies. INDICATIONS FOR EGD: Iron deficiency anemia, findings on colonoscopy did not explain the patient's anemia. MEDICATIONS: The patient was done under MAC, please see anesthesiologist's note. PROCEDURE IN DETAIL: With the patient in the left lateral decubitus position, a flexible fiberoptic Olympus gastroscope was introduced into the esophagus under direct visualization without any difficulty. Minute tongues of velvety red mucosa were noted to extend proximally from the GE junction and those were biopsied. The scope was then advanced with ease into the stomach and the patient appears to be status post Naina-en-Y. Anastomosis was intact. Enteric loop was patent. No marginal ulcers were noted. The scope was subsequently withdrawn and the patient tolerated the procedure well. IMPRESSION: 1. Rule out Howell esophagus. 2. Status post Naina-en-Y. Anastomosis intact. No marginal ulcers. PLAN: Follow up histology. Continue current therapy. Daryl Palmer MD [facility] – [place], [place]/MODL /[id number] cc: Buck Guerrero MD
[2019-10-21 16:24] VITALS: BP 121/66
--- NOTE | 2019-10-21 16:30 | NUR ---
PT IS BACK TO UNIT AFTER PROCEDURE. PT IS AAOX4. PT DENIES NEEDS AT THIS TIME.
--- NOTE | 2019-10-21 17:22 | NUR ---
HEATHER TO D/C PT PER DR. Lisandra WETZEL
--- NOTE | 2019-10-21 17:28 | NUR ---
PAGED DAVE RESIDENT HALL DIRECTOR REGARDING PT D/C. OKAY TO D/C PT PER DAVE TEIXEIRA. NO RX PER THE RESIDENT HALL DIRECTOR.
--- NOTE | 2019-10-21 18:30 | NUR ---
PT DISCHARGED HOME SAFELY WITH FAMILY MEMBER. TELE AND IV REMOVED. TIP INTACT. DRESSING APPLIED.D/C INSTRUCTIONS GIVEN AND PT VERBALIZED UNDERSTANDING. PT ESCORTED BY THE TECH VIA WHEEL CHAIR TO THE PRIVATE AUTO AT THE FRONT ENTRANCE. PT DENIED FURTHER NEEDS.
[2019-10-21] MEDS ORDERED: PROPOFOL IV EMULSION 10 MG/ML 20 ML VIAL ONE (21:28)
[2019-10-21] MEDS ORDERED: LIDOCAINE HCL 2% LOCAL INJ 5 ML SDV VIAL INJ ONE (21:28)
--- NOTE | 2019-10-22 07:41 | Discharge Summary ---
PRIMARY CARE PHYSICIAN: Dr. Sandra Cole at [facility]. FINAL DISCHARGE DIAGNOSES: 1. Abdominal pain with rectal bleeding. 2. Headache. 3. Anemia. CONSULTANTS: Dr. Daryl Palmer with GI. PROCEDURES: She underwent: 1. Colonoscopy. 2. EGD. 3. GI bleeding scan. HISTORY: Per HPI. HOSPITAL COURSE: This is a 64-year-old female, who presented to the ER with complaints of rectal bleeding and abdominal pain. CT abdomen and pelvis was done, which showed large amount of stool in the colon and rectum as well as postsurgical changes from gastric bypass. GI was consulted. She was given bowel prep and underwent colonoscopy, which showed internal hemorrhoids and some irritation of the colon, but no active bleeding noted. She underwent GI bleed scan to check for any GI bleed, but was also negative. This afternoon she when for EGD and that also did not show any active bleeding, so will be discharging home today to follow up with GI in 1 to 2 weeks. She reports she is overall feeling better, afebrile, no further rectal bleeding since the bowel prep. She is however advised to follow up with GI given her history of gastric bypass. She verbalizes understanding. PHYSICAL EXAMINATION: VITAL SIGNS: Temperature 97.8, pulse is 74, respirations 18, blood pressure 136/78, pulse ox is 99% on 3 L of oxygen. GENERAL: No acute distress. HEENT: Normocephalic, atraumatic. NECK: Supple. LUNGS: Clear to auscultation. CARDIOVASCULAR: Regular rate and rhythm. GI: Soft and nontender. NEUROLOGIC: Alert, awake, and oriented x3. MUSCULOSKELETAL: Moves all extremities. SKIN: Dry. PSYCH: Calm. CONDITION AT DISCHARGE: Improved and stable. DISCHARGE MEDICATIONS: Please see medication reconciliation list. FOLLOWUP: Followup with PCP and Dr. Palmer in 1 to 2 weeks. TIME SPENT: Total time of discharge is 31 minute. Dictated by FRANCESCA Zuleta Buck Guerrero MD MY/MODL /[id number] cc: Dr. Sandra Cole
== END 2019-10-21 18:30 | disposition home or self-care (01) | DRG 379 ==
LOC: ER 12:45 → ERHOLD 16:58 → MED/SURG3 20:38 → OBSVTOIN 10-20 08:47
PROVIDERS: ADMIT Internal Medicine; ATTEND Internal Medicine
PROC: 0DB48ZX Excision of Esophagogastric Junction, Via Natural or Artificial Opening Endoscopic, Diagnostic (ICD-10-PCS; principal; 2019-10-21 15:00)
DX: K57.31 Diverticulosis of large intestine without perforation or abscess with bleeding (principal); Z98.84 Bariatric surgery status; D50.0 Iron deficiency anemia secondary to blood loss (chronic); G43.909 Migraine, unspecified, not intractable, without status migrainosus; K57.90 Diverticulosis of intestine, part unspecified, without perforation or abscess without bleeding; K64.8 Other hemorrhoids; Z11.59 Encounter for screening for other viral diseases
CPT/HCPCS: 36415; 43239; 45378; 74177; 78278; 80048; 80053; 81001; 82270; 82550; 82553; 82607; 82728; 82746; 83540; 83735; 84466; 84484; 85025; 85045; 85610; 85730; 87086; 88304; 88305; 99284; A9512; G0378; J0500; J1610; J1756; J1885; J2001; J2250; J2270; J2370; J2405; J3010; J3420; J7030; Q9967; U0002

== ENCOUNTER 2021-02-20 15:45 | Emergency (ER) | payer OTHER, MEDICARE ==
[~2021-02-20] VITALS: Ht 149.9 cm; Wt 69.9 kg
[~2021-02-20 15:45] MED LIST changes: +PROBIOTIC & AC1 EACH
[2021-02-20 16:27] LABS: BASOPHILS # (AUTO) 0.1 (0.0-0.1); BASOPHILS % 1.3 % (0.0-1.0); EOSINOPHILS # (AUTO) 0.2 (0.0-0.4); EOSINOPHILS % 3.8 % (0.0-6.0); HEMATOCRIT 40.5 % (34.2-44.1); HEMOGLOBIN 11.9 g/dL (12.0-16.0); LYMPHOCYTES # (AUTO) 0.9 (1.0-3.2); LYMPHOCYTES % 16.1 % (18.0-39.1); MEAN CORPUSCULAR HEMOGLOBIN 22.1 pg (28-32); MEAN CORPUSCULAR HGB CONC 29.4 g/dL (31-35); MEAN CORPUSCULAR VOLUME 75.3 fL (81-99); MONOCYTES # (AUTO) 0.4 (0.2-0.8); NEUTROPHILS # (AUTO) 3.7 (2.1-6.9); NEUTROPHILS % 70.6 % (38.7-80.0); PLATELET COUNT 272 x10e3/uL (140-360); RED BLOOD COUNT 5.38 x10e6/uL (3.6-5.1)
[2021-02-20] MEDS ORDERED: SODIUM CHLORIDE 0.9% 1000ML 1,000 ML IV STA (16:28)
[2021-02-20 16:35] LABS: INR 0.88; PROTHROMBIN TIME 12.6 seconds (11.9-14.5)
[2021-02-20 16:36] LABS: PARTIAL THROMBOPLASTIN TIME 26.3 seconds (23.8-35.5)
[2021-02-20 16:42] LABS: ALANINE AMINOTRANSFERASE 18 IU/L (0-55); ALBUMIN 3.5 g/dL (3.5-5.0); ALBUMIN/GLOBULIN RATIO 1.3 (0.8-2.0); ALKALINE PHOSPHATASE 59 IU/L (40-150); ANION GAP 12.9 mmol/L (8-16); BLOOD UREA NITROGEN 18 mg/dL (7-26); BUN/CREATININE RATIO 24 (6-25); CALCIUM 8.4 mg/dL (8.4-10.2); CARBON DIOXIDE 20 mmol/L (22-29); CHLORIDE 114 mmol/L (98-107); CREATINE KINASE 122 IU/L (29-168); CREATININE, SERUM 0.76 mg/dL (0.57-1.11); EST GLOMERULAR FILTRATION RATE 76 ML/MIN (60-); GLUCOSE 82 mg/dL (74-118); POTASSIUM 3.9 mmol/L (3.5-5.1); SODIUM 143 mmol/L (136-145)
[2021-02-20] MEDS ORDERED: ACETAMINOPHEN-1 EAC4 PO (18:40)
[2021-02-20] MEDS ORDERED: ONDANSETRON HCL INJ 2MG/ML 2ML 2 MG/ML VIAL IV STA (18:41)
[2021-02-20] MEDS ORDERED: Morphine 4mg Syringe 4 MG/ML INJ IV ONE (18:45)
[2021-02-20 19:07] VITALS: BP 169/112
== END 2021-02-20 19:07 | disposition home or self-care (01) ==
LOC: ER 16:29
DX: R07.89 Other chest pain (principal); S00.83XA Contusion of other part of head, initial encounter; M25.512 Pain in left shoulder; W18.39XA Other fall on same level, initial encounter; Y92.89 Other specified places as the place of occurrence of the external cause; K21.9 Gastro-esophageal reflux disease without esophagitis; Z98.84 Bariatric surgery status
CPT/HCPCS: 36415; 70450; 71045; 71250; 72125; 80053; 82550; 82553; 84484; 85025; 85610; 85730; 93005; 99284; J2270; J2405; J7030

== ENCOUNTER 2022-03-23 20:12 | Inpatient (IN) | payer OTHER, MEDICARE ==
[~2022-03-23] VITALS: Ht 149.9 cm; Wt 61.2 kg
[~2022-03-23 20:12] MED LIST changes: +ACETAMINOPHEN-1 EAC4 PO; +SODIUM CHLORIDE FLUSH 10 ML SYR IV PRN
[2022-03-23] MEDS ORDERED: ONDANSETRON HCL INJ 2MG/ML 2ML 2 MG/ML VIAL IV STA (20:24)
[2022-03-23] MEDS ORDERED: Morphine 4mg INJECTION 4 MG/ML INJ IV ONE (20:30)
[2022-03-23] MEDS ORDERED: SODIUM CHLORIDE 0.9% 1000ML 1,000 ML IV ONE (20:30)
[2022-03-23 20:44] LABS: BASOPHILS # (AUTO) 0.1 (0.0-0.1); BASOPHILS % 0.5 % (0.0-1.0); HEMOGLOBIN 15.5 g/dL (12.0-16.0); LYMPHOCYTES # (AUTO) 0.6 (1.0-3.2); LYMPHOCYTES % 5.3 % (18.0-39.1); MEAN CORPUSCULAR HEMOGLOBIN 27.3 pg (28-32); MEAN CORPUSCULAR HGB CONC 32.3 g/dL (31-35); MEAN CORPUSCULAR VOLUME 84.5 fL (81-99); MONOCYTES # (AUTO) 0.5 (0.2-0.8); MONOCYTES % 5.1 % (4.4-11.3); NEUTROPHILS # (AUTO) 9.2 (2.1-6.9); NEUTROPHILS % 88.9 % (38.7-80.0); PLATELET COUNT 241 x10e3/uL (140-360); RED BLOOD COUNT 5.68 x10e6/uL (3.6-5.1); RED CELL DISTRIBUTION WIDTH 17.6 % (11.7-14.4)
[2022-03-23] MEDS ORDERED: ONDANSETRON HCL INJ 2MG/ML 2ML 2 MG/ML VIAL ONE (20:44)
[2022-03-23] MEDS ORDERED: Morphine 4mg INJECTION 4 MG/ML INJ ONE (20:44)
[2022-03-23 21:02] LABS: INR 0.89; PROTHROMBIN TIME 12.2 seconds (11.9-14.5)
[2022-03-23 21:03] LABS: PARTIAL THROMBOPLASTIN TIME 24.1 seconds (23.8-35.5)
[2022-03-23 21:12] LABS: ALBUMIN 3.3 g/dL (3.5-5.0); ALBUMIN/GLOBULIN RATIO 1.3 (0.8-2.0); ANION GAP 18.3 mmol/L (8-16); CALCIUM 8.4 mg/dL (8.4-10.2); CREATININE, SERUM 0.68 mg/dL (0.57-1.11); POTASSIUM 3.3 mmol/L (3.5-5.1)
[2022-03-23] MEDS ORDERED: IOPAMIDOL 370 MG/ML 100 ML INFUS..BTL INJ ONE (21:33)
[2022-03-23 21:50] LABS: AMPHETAMINES SCREEN,URINE NEGATIVE (NEGATIVE); BENZODIAZEPINES SCREEN,URINE NEGATIVE (NEGATIVE); PHENCYCLIDINE SCREEN,URINE NEGATIVE (NEGATIVE)
[2022-03-23 21:51] LABS: CLARITY,URINE SL CLOUDY (CLEAR); COLOR,URINE YELLOW (YELLOW); KETONES,URINE 2+ (NEGATIVE); LEUKOCYTE ESTERASE ,URINE NEGATIVE (NEGATIVE); NITRITE,URINE NEGATIVE (NEGATIVE); PROTEIN,URINE DIPSTICK 2+ (NEGATIVE); URINE UROBILINOGEN 1 mg/dL (0.2 - 1)
[2022-03-23 22:00] LABS: EPITHELIAL CELLS,URINE MANY /LPF
[2022-03-23 22:01] LABS: BACTERIA,URINE FEW /HPF; RBC,URINE 0-5 /HPF (0-5); WBC,URINE (MAN) 0-5 /HPF (0-5)
[2022-03-23] MEDS ORDERED: FENTANYL CITRATE/PF 100MCG/2 ML INJ IV ONE (23:00)
[2022-03-23] MEDS ORDERED: FENTANYL CITRATE/PF 100MCG/2 ML INJ ONE (23:19)
[2022-03-24] VITALS (8 sets, daily range): BP systolic 150–170; BP diastolic 83–88
[2022-03-24] MEDS ORDERED: ONDANSETRON HCL INJ 2MG/ML 2ML 2 MG/ML VIAL IV STA (01:37)
[2022-03-24] MEDS ORDERED: Morphine 4mg INJECTION 4 MG/ML INJ IV ONE (01:45)
[2022-03-24] MEDS ORDERED: ONDANSETRON HCL INJ 2MG/ML 2ML 2 MG/ML VIAL IV PRN (02:00)
[2022-03-24] MEDS ORDERED: Morphine 4mg INJECTION 4 MG/ML INJ IV PRN (02:00)
[2022-03-24] MEDS: SODIUM CHLORIDE 0.9% 1000ML 1,000 ML IV SCH ×4 (02:44→22:16)
[2022-03-24] MEDS: HYDROMORPHONE 1MG/1ML INJ IV PRN ×3 (10:46→21:54)
[2022-03-24] MEDS ORDERED: HYDRALAZINE HCL 20 MG/ML VIAL IV PRN (11:30)
[2022-03-24] MEDS: POTASSIUM CHLORIDE 10MEQ/100ML 100 ML IV SCH ×3 (12:00→16:00)
[2022-03-24] MEDS: ENOXAPARIN SOD INJ 40 MG/0.4 ML SYR SC SCH (17:47)
[2022-03-24] MEDS: FAMOTIDINE 20 MG/2 ML VIAL IV SCH (17:47)
[2022-03-25] VITALS (8 sets, daily range): BP systolic 127–155; BP diastolic 76–92
[2022-03-25] MEDS: HYDROMORPHONE 1MG/1ML INJ IV PRN (04:04)
[2022-03-25] MEDS: SODIUM CHLORIDE 0.9% 1000ML 1,000 ML IV SCH ×3 (05:51→17:37)
[2022-03-25 06:03] LABS: BASOPHILS # (AUTO) 0.1 (0.0-0.1); BASOPHILS % 0.4 % (0.0-1.0); EOSINOPHILS # (AUTO) 0.1 (0.0-0.4); EOSINOPHILS % 0.6 % (0.0-6.0); HEMATOCRIT 40.4 % (34.2-44.1); HEMOGLOBIN 13.2 g/dL (12.0-16.0); LYMPHOCYTES # (AUTO) 0.7 (1.0-3.2); LYMPHOCYTES % 6.1 % (18.0-39.1); MEAN CORPUSCULAR HEMOGLOBIN 27.3 pg (28-32); MEAN CORPUSCULAR HGB CONC 32.7 g/dL (31-35); MEAN CORPUSCULAR VOLUME 83.6 fL (81-99); MONOCYTES # (AUTO) 0.5 (0.2-0.8); MONOCYTES % 4.8 % (4.4-11.3); NEUTROPHILS # (AUTO) 9.8 (2.1-6.9); NEUTROPHILS % 87.5 % (38.7-80.0); PLATELET COUNT 150 x10e3/uL (140-360); RED BLOOD COUNT 4.83 x10e6/uL (3.6-5.1); RED CELL DISTRIBUTION WIDTH 18.1 % (11.7-14.4)
[2022-03-25 06:39] LABS: ALBUMIN 2.5 g/dL (3.5-5.0); ANION GAP 11.7 mmol/L (8-16); CREATININE, SERUM 0.58 mg/dL (0.57-1.11); POTASSIUM 3.7 mmol/L (3.5-5.1)
[2022-03-25 07:08] LABS: MAGNESIUM 1.3 MG/DL (1.3-2.1)
[2022-03-25] MEDS: FAMOTIDINE 20 MG/2 ML VIAL IV SCH ×2 (09:27→17:37)
[2022-03-25] MEDS ORDERED: MAGNESIUM SULFATE 2GM/50ML 50 ML IV ONE (13:00)
[2022-03-25] MEDS: LORAZEPAM INJ 2 MG/ML VIAL IV PRN ×3 (13:13→22:50)
[2022-03-25] MEDS: ENOXAPARIN SOD INJ 40 MG/0.4 ML SYR SC SCH (17:37)
[2022-03-25] MEDS: Morphine 4mg INJECTION 4 MG/ML INJ IV PRN ×2 (18:47→22:49)
[2022-03-25] MEDS ORDERED: OMEPRAZOLE40 MG PO (23:09)
[2022-03-26] MEDS: SODIUM CHLORIDE 0.9% 1000ML 1,000 ML IV SCH ×3 (02:51→21:39)
[2022-03-26 05:00] VITALS: BP 124/79
[2022-03-26] MEDS: Morphine 4mg INJECTION 4 MG/ML INJ IV PRN ×3 (05:44→21:39)
[2022-03-26] MEDS: LORAZEPAM INJ 2 MG/ML VIAL IV PRN (05:45)
[2022-03-26 05:51] LABS: BASOPHILS % 0.3 % (0.0-1.0); EOSINOPHILS # (AUTO) 0.2 (0.0-0.4); EOSINOPHILS % 2.2 % (0.0-6.0); HEMATOCRIT 44.2 % (34.2-44.1); HEMOGLOBIN 13.2 g/dL (12.0-16.0); LYMPHOCYTES # (AUTO) 0.6 (1.0-3.2); LYMPHOCYTES % 6.1 % (18.0-39.1); MEAN CORPUSCULAR HGB CONC 29.9 g/dL (31-35); MONOCYTES # (AUTO) 0.4 (0.2-0.8); MONOCYTES % 4.2 % (4.4-11.3); NEUTROPHILS # (AUTO) 8.4 (2.1-6.9); NEUTROPHILS % 86.9 % (38.7-80.0); PLATELET COUNT 165 x10e3/uL (140-360); RED BLOOD COUNT 4.88 x10e6/uL (3.6-5.1); RED CELL DISTRIBUTION WIDTH 17.5 % (11.7-14.4)
[2022-03-26 06:06] LABS: MEAN CORPUSCULAR VOLUME 90.6 fL (81-99)
[2022-03-26 06:34] LABS: ANION GAP 11.3 mmol/L (8-16); BLOOD UREA NITROGEN < 5 mg/dL (7-26); CALCIUM 8.4 mg/dL (8.4-10.2); CARBON DIOXIDE 23 mmol/L (22-29); CHLORIDE 105 mmol/L (98-107); CREATININE, SERUM 0.56 mg/dL (0.57-1.11); GLUCOSE 92 mg/dL (74-118); LIPASE 35 U/L (8-78); MAGNESIUM 1.8 MG/DL (1.3-2.1); POTASSIUM 3.3 mmol/L (3.5-5.1); SODIUM 136 mmol/L (136-145)
[2022-03-26 06:35] LABS: BUN/CREATININE RATIO 9 (6-25)
[2022-03-26 07:00] VITALS: BP 111/70
[2022-03-26 08:45] VITALS: BP 123/77
[2022-03-26] MEDS: FAMOTIDINE 20 MG/2 ML VIAL IV SCH (08:57)
[2022-03-26] MEDS ORDERED: POTASSIUM CHLORIDE 10MEQ/100ML 200 ML IV ONE (12:30)
[2022-03-26 12:37] VITALS: BP 116/77
[2022-03-26] MEDS: ENOXAPARIN SOD INJ 40 MG/0.4 ML SYR SC SCH (17:18)
[2022-03-26 17:26] VITALS: BP 111/70
[2022-03-26] MEDS: BACLOFEN 10 MG TAB PO PRN (18:00)
[2022-03-26 20:00] VITALS: BP 117/17
[2022-03-27] VITALS: BP 122/59
[2022-03-27] MEDS: LORAZEPAM INJ 2 MG/ML VIAL IV PRN (01:11)
[2022-03-27] MEDS: BACLOFEN 10 MG TAB PO PRN ×2 (04:47→21:35)
[2022-03-27] MEDS: SODIUM CHLORIDE 0.9% 1000ML 1,000 ML IV SCH ×2 (04:49→17:22)
[2022-03-27 06:46] LABS: BLOOD UREA NITROGEN < 5 mg/dL (7-26); CALCIUM 8.2 mg/dL (8.4-10.2); CARBON DIOXIDE 23 mmol/L (22-29); CHLORIDE 107 mmol/L (98-107); CREATININE, SERUM 0.59 mg/dL (0.57-1.11); GLUCOSE 80 mg/dL (74-118); SODIUM 139 mmol/L (136-145)
[2022-03-27 06:49] LABS: BUN/CREATININE RATIO 8 (6-25)
[2022-03-27 08:13] VITALS: BP 156/83
[2022-03-27] MEDS ORDERED: POTASSIUM BICARBONATE/CIT AC 20 MEQ TABLET.EFF PO ONE (08:30)
[2022-03-27] MEDS: Morphine 4mg INJECTION 4 MG/ML INJ IV PRN ×4 (10:19→23:33)
[2022-03-27 12:05] VITALS: BP 138/81
[2022-03-27] MEDS: ENOXAPARIN SOD INJ 40 MG/0.4 ML SYR SC SCH (16:38)
[2022-03-27 20:00] VITALS: BP 144/82
[2022-03-27 20:36] VITALS: BP 138/81
[2022-03-28] VITALS (7 sets, daily range): BP systolic 122–151; BP diastolic 65–85
[2022-03-28] MEDS: Morphine 4mg INJECTION 4 MG/ML INJ IV PRN ×2 (04:04→08:06)
[2022-03-28] MEDS: SODIUM CHLORIDE 0.9% 1000ML 1,000 ML IV SCH ×3 (04:09→20:19)
[2022-03-28 06:01] LABS: ANION GAP 10.5 mmol/L (8-16); BLOOD UREA NITROGEN < 5 mg/dL (7-26); CARBON DIOXIDE 23 mmol/L (22-29); CHLORIDE 109 mmol/L (98-107); CREATININE, SERUM 0.48 mg/dL (0.57-1.11); GLUCOSE 83 mg/dL (74-118); POTASSIUM 3.5 mmol/L (3.5-5.1); SODIUM 139 mmol/L (136-145)
[2022-03-28 06:02] LABS: BUN/CREATININE RATIO 10 (6-25)
[2022-03-28] MEDS: Morphine 2mg Syringe 2 MG/ML SYR IV PRN ×2 (16:55→23:15)
[2022-03-28] MEDS: ENOXAPARIN SOD INJ 40 MG/0.4 ML SYR SC SCH (16:55)
[2022-03-28] MEDS: BACLOFEN 10 MG TAB PO PRN (20:18)
[2022-03-28] MEDS: HYDROCODONE/APAP 5MG-325MG TAB PO PRN (20:19)
[2022-03-29] VITALS (8 sets, daily range): BP systolic 124–147; BP diastolic 73–83
[2022-03-29] MEDS: HYDROCODONE/APAP 5MG-325MG TAB PO PRN ×4 (02:39→21:55)
[2022-03-29] MEDS: SODIUM CHLORIDE 0.9% 1000ML 1,000 ML IV SCH (05:10)
[2022-03-29] MEDS: Morphine 2mg Syringe 2 MG/ML SYR IV PRN ×2 (05:10→12:07)
[2022-03-29] MEDS ORDERED: IOPAMIDOL 370 MG/ML 100 ML INFUS..BTL INJ ONE (16:28)
[2022-03-29] MEDS: ENOXAPARIN SOD INJ 40 MG/0.4 ML SYR SC SCH (17:00)
[2022-03-30] VITALS (8 sets, daily range): BP systolic 121–148; BP diastolic 75–85
[2022-03-30] MEDS: HYDROCODONE/APAP 5MG-325MG TAB PO PRN ×5 (02:56→22:50)
[2022-03-30] MEDS: TRAMADOL HCL 50 MG TAB PO PRN ×2 (05:36→20:30)
[2022-03-30 05:50] LABS: BASOPHILS # (AUTO) 0.1 (0.0-0.1); BASOPHILS % 1.3 % (0.0-1.0); EOSINOPHILS # (AUTO) 0.3 (0.0-0.4); EOSINOPHILS % 5.5 % (0.0-6.0); HEMATOCRIT 36.2 % (34.2-44.1); HEMOGLOBIN 11.7 g/dL (12.0-16.0); LYMPHOCYTES # (AUTO) 0.6 (1.0-3.2); LYMPHOCYTES % 13.6 % (18.0-39.1); MEAN CORPUSCULAR HEMOGLOBIN 27.5 pg (28-32); MEAN CORPUSCULAR HGB CONC 32.3 g/dL (31-35); MONOCYTES # (AUTO) 0.5 (0.2-0.8); MONOCYTES % 11.2 % (4.4-11.3); NEUTROPHILS # (AUTO) 3.1 (2.1-6.9); PLATELET COUNT 267 x10e3/uL (140-360); RED BLOOD COUNT 4.26 x10e6/uL (3.6-5.1)
[2022-03-30 06:15] LABS: ANION GAP 9.6 mmol/L (8-16); BLOOD UREA NITROGEN < 5 mg/dL (7-26); CALCIUM 8.1 mg/dL (8.4-10.2); CARBON DIOXIDE 24 mmol/L (22-29); CHLORIDE 109 mmol/L (98-107); CREATININE, SERUM 0.54 mg/dL (0.57-1.11); GLUCOSE 86 mg/dL (74-118); LIPASE 62 U/L (8-78); POTASSIUM 3.6 mmol/L (3.5-5.1); SODIUM 139 mmol/L (136-145)
[2022-03-30 06:19] LABS: BUN/CREATININE RATIO 9 (6-25)
[2022-03-30] MEDS: ENOXAPARIN SOD INJ 40 MG/0.4 ML SYR SC SCH (17:49)
[2022-03-30] MEDS: CENTRAL TPN FORMULA 1 BAG IV SCH (20:00)
[2022-03-31] VITALS (7 sets, daily range): BP systolic 129–148; BP diastolic 60–85
[2022-03-31] MEDS: HYDROCODONE/APAP 5MG-325MG TAB PO PRN ×3 (03:17→20:21)
[2022-03-31] MEDS: TRAMADOL HCL 50 MG TAB PO PRN ×3 (06:01→22:10)
[2022-03-31] MEDS ORDERED: Morphine 4mg INJECTION 4 MG/ML INJ IV PRN (11:00)
[2022-03-31] MEDS: ENOXAPARIN SOD INJ 40 MG/0.4 ML SYR SC SCH (17:26)
[2022-03-31] MEDS: CENTRAL TPN FORMULA 1 BAG IV SCH (20:18)
[2022-04-01] VITALS (7 sets, daily range): BP systolic 118–148; BP diastolic 69–81
[2022-04-01] MEDS: HYDROCODONE/APAP 5MG-325MG TAB PO PRN ×4 (01:19→23:26)
[2022-04-01] MEDS: TRAMADOL HCL 50 MG TAB PO PRN ×3 (04:56→20:25)
[2022-04-01 06:04] LABS: BASOPHILS # (AUTO) 0.1 (0.0-0.1); BASOPHILS % 1.5 % (0.0-1.0); EOSINOPHILS # (AUTO) 0.2 (0.0-0.4); EOSINOPHILS % 5.4 % (0.0-6.0); HEMATOCRIT 35.8 % (34.2-44.1); HEMOGLOBIN 11.3 g/dL (12.0-16.0); LYMPHOCYTES # (AUTO) 0.7 (1.0-3.2); LYMPHOCYTES % 16.8 % (18.0-39.1); MEAN CORPUSCULAR HEMOGLOBIN 27.1 pg (28-32); MEAN CORPUSCULAR HGB CONC 31.6 g/dL (31-35); MEAN CORPUSCULAR VOLUME 85.9 fL (81-99); MONOCYTES # (AUTO) 0.5 (0.2-0.8); MONOCYTES % 12.4 % (4.4-11.3); NEUTROPHILS # (AUTO) 2.6 (2.1-6.9); NEUTROPHILS % 63.7 % (38.7-80.0); PLATELET COUNT 321 x10e3/uL (140-360); RED BLOOD COUNT 4.17 x10e6/uL (3.6-5.1); RED CELL DISTRIBUTION WIDTH 15.9 % (11.7-14.4)
[2022-04-01 06:28] LABS: ALBUMIN/GLOBULIN RATIO 0.7 (0.8-2.0); ANION GAP 9.3 mmol/L (8-16); CALCIUM 7.8 mg/dL (8.4-10.2); CREATININE, SERUM 0.58 mg/dL (0.57-1.11); POTASSIUM 4.3 mmol/L (3.5-5.1)
[2022-04-01] MEDS ORDERED: ONDANSETRON HCL 4 MG ORAL DISINTEGRATING TAB PO PRN (08:00)
[2022-04-01] MEDS: ENOXAPARIN SOD INJ 40 MG/0.4 ML SYR SC SCH (17:00)
[2022-04-01] MEDS: CENTRAL TPN FORMULA 1 BAG IV SCH (20:16)
[2022-04-02] VITALS (7 sets, daily range): BP systolic 109–127; BP diastolic 54–69
[2022-04-02] MEDS: ENOXAPARIN SOD INJ 40 MG/0.4 ML SYR SC SCH (16:46)
[2022-04-03 00:05] VITALS: BP 123/75
[2022-04-03 04:00] VITALS: BP 118/58
[2022-04-03 06:04] LABS: BASOPHILS # (AUTO) 0.1 (0.0-0.1); BASOPHILS % 1.4 % (0.0-1.0); EOSINOPHILS # (AUTO) 0.2 (0.0-0.4); EOSINOPHILS % 4.6 % (0.0-6.0); HEMATOCRIT 38.2 % (34.2-44.1); HEMOGLOBIN 12.4 g/dL (12.0-16.0); LYMPHOCYTES % 23.3 % (18.0-39.1); MEAN CORPUSCULAR HEMOGLOBIN 28.7 pg (28-32); MEAN CORPUSCULAR HGB CONC 32.5 g/dL (31-35); MEAN CORPUSCULAR VOLUME 88.4 fL (81-99); MONOCYTES # (AUTO) 0.3 (0.2-0.8); MONOCYTES % 7.7 % (4.4-11.3); NEUTROPHILS # (AUTO) 2.6 (2.1-6.9); PLATELET COUNT 353 x10e3/uL (140-360); RED BLOOD COUNT 4.32 x10e6/uL (3.6-5.1)
[2022-04-03 06:37] LABS: ANION GAP 12.4 mmol/L (8-16); CALCIUM 8.8 mg/dL (8.4-10.2); CREATININE, SERUM 0.66 mg/dL (0.57-1.11); POTASSIUM 4.4 mmol/L (3.5-5.1)
[2022-04-03 07:42] VITALS: BP 130/71
[2022-04-03 08:21] VITALS: BP 130/71
[2022-04-03 11:30] VITALS: BP 118/71
[2022-04-03] MEDS ORDERED: ULTRAM 50MG50 MG PO (11:50)
== END 2022-04-03 15:03 | disposition home or self-care (01) | DRG 439 ==
LOC: ER 20:15 → ERHOLD 03-24 01:50 → MED/SURG3 03-24 02:16
PROVIDERS: ADMIT Internal Medicine; ATTEND Internal Medicine
PROC: 02HV33Z Insertion of Infusion Device into Superior Vena Cava, Percutaneous Approach (ICD-10-PCS; principal; 2022-03-31)
DX: K86.0 Alcohol-induced chronic pancreatitis (principal); F10.139 Alcohol abuse with withdrawal, unspecified; E87.6 Hypokalemia; K58.9 Irritable bowel syndrome, unspecified; K21.9 Gastro-esophageal reflux disease without esophagitis; K76.89 Other specified diseases of liver; Z20.822 Contact with and (suspected) exposure to COVID-19; Z90.49 Acquired absence of other specified parts of digestive tract
CPT/HCPCS: 36415; 36584; 70450; 71045; 74160; 74177; 80048; 80053; 80307; 81001; 83690; 83735; 84484; 85025; 85610; 85730; 93005; 99285; J1170; J1650; J2060; J2270; J2405; J3010; J3475; J3480; J7030; Q9967